=== PATIENT | male | born 1960 | race African-American/Black ===

== ENCOUNTER 2016-12-21 08:18 | Emergency (ER) | payer OTHER, MEDICAID ==
[~2016-12-21] VITALS: Ht 190.5 cm; Wt 117.5 kg
[~2016-12-21 08:18] MED LIST: CIPROFLOXACIN500 M2 ORAL; COLACE100 MG ORAL; IBUPROFEN600 MG ORAL; LACTULOSE20 GM/301 ORAL; METRONIDAZOLE500 MG ORAL; NAPROSYN500 M1 ORAL; NORCO 5-325 TA1 EACH ORAL; POLYETHYLENE GL17 GM ORAL; RANITIDINE HCL150 MG ORAL; ROBAXIN500 MG PO; TRAMADOL HCL50 MG ORAL; UNOBMED; VALIUM5 MG ORAL; VASOTEC10 MG ORAL
[2016-12-21] MEDS ORDERED: IBUPROFEN800 MG ORAL (09:09)
[2016-12-21] MEDS ORDERED: ROBAXIN-750750 MG PO (09:09)
[2016-12-21 09:20] VITALS: BP 120/60
--- NOTE | 2016-12-21 09:43 | Emergency Room Report ---
History of Present Illness General Chief Complaint: Upper Extremity Injury Source: Patient Present Illness HPI 56 YOM with 1 week left elbow pain. Denies trauma. Doesnt work. Left hand dominant. No swelling, rash, heat, redness. Took alleve ONCE in last week without significant improvement. No history of gout. Put elbow brace/elastic on yesterday. Pain worse with squeezing hand, using left hand. Patient states arthritis runs in his family. He has not been formally diagnosed. Allergies: Coded Allergies: No Known Allergies (Unverified , 09/15/12) Patient History Past Medical History: none Past Surgical History: none Pertinent Family History: none Social History: Denies: alcohol use, drug use, smoking Immunizations: UTD Reviewed Nursing Documentation: PMH: Agreed, PSxH: Agreed Nursing Documentation-PMH Hx Cardiac Problems: Yes Hx Hypertension: Yes Hx Cancer: No Hx Gastrointestinal Problems: No Review of Systems All Other Systems: negative except mentioned in HPI Physical Exam Vital Signs Date Time Temp Pulse Resp B/P Pulse Ox O2 Delivery O2 Flow Rate FiO2 12/21/16 08:29 98.1 96 16 139/73 100 Room Air Sp02 EP Interpretation: reviewed, normal General Appearance: normal inspection, well appearing, no apparent distress, alert, GCS 15, non-toxic Head: normocephalic, atraumatic Eyes: bilateral eye EOMI, bilateral eye PERRL ENT: normal ENT inspection, hearing grossly normal, normal voice Neck: normal inspection, full range of motion, supple, no bony tend Respiratory: normal inspection, lungs clear, normal breath sounds, no respiratory distress, no retraction, no wheezing Cardiovascular #1: regular rate, rhythm, no edema Gastrointestinal: normal inspection, normal bowel sounds, non tender, soft, no guarding, no hernia Genitourinary: no CVA tenderness Musculoskeletal: other - Left elbow: No trauma. No appreciabel warmth. No swelling. Minor ttp to bilateral epicondyles Neurologic: normal inspection, alert, oriented x3, responsive, entry level programmer III-XII nml as tested, motor strength/tone normal, speech normal Psychiatric: normal inspection, judgement/insight normal, mood/affect normal Skin: normal inspection Lymphatic: normal inspection Medical Decision Making Diagnostic Impression: Primary Impression: Elbow pain, left ER Course Left elbow pain for 1 week. VSS. Afebrile. Atraumatic. No sign of infection. Unlikely bursitis or septic joint, or cellulitis. Possible arthritis vs early bursitis vs MSK pain. Will try trial of NSAIDS, robaxin. Advised PMD followup if no improvement with NSAIDS, ice. Last Vital Signs Date Time Temp Pulse Resp B/P Pulse Ox O2 Delivery O2 Flow Rate FiO2 12/21/16 09:20 97.8 78 16 120/60 98 Room Air Status: improved Disposition: HOME, SELF-CARE Condition: Improved Scripts Methocarbamol* (ROBAXIN-750*) 750 Mg Tablet 750 MG PO TID, #30 TAB 0 Refills Prov: JOHNATHAN HESS M.D. 12/21/16 Ibuprofen* (MOTRIN*) 800 Mg Tablet 800 MG ORAL THREE TIMES A DAY, #30 TAB 0 Refills Prov: JOHNATHAN HESS M.D. 12/21/16 Referrals: NON PHYSICIAN (PCP) Patient Instructions: Musculoskeletal Pain Additional Instructions: - Apply ice to area of pain. Apply for 20min at a time 3-4x a day as needed. - Take ibuprofen 800mg 3x a day with food. Can also take Robaxin for pain. - No heavy lifting until completely resolved - Try daily stretching and full range of motion as best as you can - Follow up with your primary care doctor to refer you for Orthopedics followup if no improvement in 1 week JOHNATHAN HESS M.D. Dec 21, 2016 09:43
== END 2016-12-21 09:21 | disposition home or self-care (01) ==
LOC: EMR 09:00
DX: M25.522 Pain in left elbow (principal); I10 Essential (primary) hypertension
CPT/HCPCS: 99284

== ENCOUNTER 2017-04-23 07:54 | Inpatient (IN) | payer OTHER, MEDICAID ==
[~2017-04-23] VITALS: Ht 190.5 cm; Wt 116.6 kg
[~2017-04-23 07:54] MED LIST changes: +IBUPROFEN800 MG ORAL; +ROBAXIN-750750 MG PO
[2017-04-23 08:12] VITALS: BP 131/76
--- NOTE | 2017-04-23 08:21 | Emergency Room Report ---
History of Present Illness General Chief Complaint: Lower Extremity Injury Source: Patient Present Illness HPI Patient states that for the past week he has had pain in his left foot and swelling. He states that the pain and swelling worsened over the day and then will be improved in the morning. He states the pain is worse with walking. He denies trauma. He denies injury. He denies fever or chills. He denies nausea or vomiting. He has no other complaints. Allergies: Coded Allergies: No Known Allergies (Unverified , 09/15/12) Patient History Past Medical History: see triage record, HTN Social History: Denies: alcohol use, drug use, smoking Reviewed Nursing Documentation: PMH: Agreed, PSxH: Agreed Nursing Documentation-PMH Past Medical History: No History, Except For Hx Cardiac Problems: Yes Hx Hypertension: Yes Hx Cancer: No Hx Gastrointestinal Problems: No Hx Neurological Problems: Yes - Arthritis Review of Systems All Other Systems: negative except mentioned in HPI Physical Exam Vital Signs Date Time Temp Pulse Resp B/P Pulse Ox O2 Delivery O2 Flow Rate FiO2 04/23/17 08:00 98.1 102 17 155/83 97 Room Air Sp02 EP Interpretation: reviewed, normal General Appearance: no apparent distress, alert, GCS 15, non-toxic Head: normocephalic, atraumatic Eyes: bilateral eye PERRL, bilateral eye normal inspection ENT: hearing grossly normal, normal pharynx, no angioedema, normal voice Neck: full range of motion, supple/symm/no masses Respiratory: chest non-tender, lungs clear, normal breath sounds, speaking full sentences Cardiovascular #1: regular rate, rhythm, no edema Gastrointestinal: normal bowel sounds, non tender, soft, non-distended, no guarding, no rebound Rectal: blood streaked stool Musculoskeletal: back normal, gait/station normal, normal range of motion, calf tenderness - Left., swelling - Non-pitting edema LLE foot to knee. Neurologic: alert, oriented x3, responsive, motor strength/tone normal, sensory intact, speech normal Psychiatric: judgement/insight normal, memory normal, mood/affect normal, no suicidal/homicidal ideation Skin: normal color, no rash, warm/dry, well hydrated Medical Decision Making Diagnostic Impression: Primary Impression: DVT (deep venous thrombosis) Additional Impressions: Anemia Blood in stool ER Course This patient was found to have a DVT. Also, the patient is noted to be anemic. Review of the patient's previous labs show that this is new and the declining. I did do a rectal exam and although the patient had brown stool there was also bright red blood. Concern this patient may have a GI bleed. He could also have internal hemorrhoids. Regardless, I did not feel it was safe for this patient due to get anticoagulation. The patient has a popliteal DVT. There is no history or exam findings that would make me concerned for PE. The patient is admitted for further evaluation of his GI bleed and anemia. In addition, this patient will need further treatment for the DVT. Labs Test 04/23/17 09:20 White Blood Count 7.3 K/UL (4.8-10.8) Red Blood Count 4.33 M/UL (4.70-6.10) Hemoglobin 8.4 G/DL (14.2-18.0) Hematocrit 29.4 % (42.0-52.0) Mean Corpuscular Volume 68 FL (80-99) Mean Corpuscular Hemoglobin 19.5 PG (27.0-31.0) Mean Corpuscular Hemoglobin Concent 28.7 G/DL (32.0-36.0) Red Cell Distribution Width 18.8 % (11.6-14.8) Platelet Count 315 K/UL (150-450) Mean Platelet Volume 6.1 FL (6.5-10.1) Neutrophils (%) (Auto) 69.4 % (45.0-75.0) Lymphocytes (%) (Auto) 17.9 % (20.0-45.0) Monocytes (%) (Auto) 10.8 % (1.0-10.0) Eosinophils (%) (Auto) 1.3 % (0.0-3.0) Basophils (%) (Auto) 0.7 % (0.0-2.0) Prothrombin Time 9.9 SEC (9.30-11.50) Prothromb Time International Ratio 0.9 (0.9-1.1) Activated Partial Thromboplast Time 23 SEC (23-33) Sodium Level 138 mEQ/L (135-145) Potassium Level 4.3 mEQ/L (3.4-4.9) Chloride Level 98 mEQ/L (98-107) Carbon Dioxide Level 24 mEQ/L (20-30) Anion Gap 16 (5-15) Blood Urea Nitrogen 7 mg/dL (7-23) Creatinine 0.7 mg/dL (0.7-1.2) Estimat Glomerular Filtration Rate > 60 mL/min (>60) Glucose Level 105 mg/dL (74-106) Calcium Level 9.1 mg/dL (8.6-10.2) Total Bilirubin 0.3 mg/dL (0.0-1.2) Aspartate Amino Transf (AST/SGOT) 17 U/L (5-40) Alanine Aminotransferase (ALT/SGPT) 14 U/L (3-41) Alkaline Phosphatase 84 U/L (40-129) Total Creatine Kinase 139 U/L (38-174) Total Protein 6.9 g/dL (6.6-8.7) Albumin 3.8 g/dL (3.5-5.2) Globulin 3.1 g/dL Albumin/Globulin Ratio 1.2 (1.0-2.7) EKG Diagnostic Results Rate: tachycardiac Rhythm: other ST Segments: no acute changes Other Impression S.tachycardia Rhythm Strip Diag. Results EP Interpretation: yes Rate: 100's Rhythm: no PVC's, no ectopy, other Other Impression S.tachycardia Last Vital Signs Date Time Temp Pulse Resp B/P Pulse Ox O2 Delivery O2 Flow Rate FiO2 04/23/17 08:00 98.1 102 17 155/83 97 Room Air Disposition: ADMITTED INPATIENT Condition: Serious ANGIE CISNEROS D.O. Apr 23, 2017 08:21
[2017-04-23] MEDS ORDERED: Acetaminophen 500mg (ES) tab ORAL ONE (08:45)
[2017-04-23 09:44] LABS: ALANINE AMINOTRANSFERASE 14 U/L (3-41); ALBUMIN/GLOBULIN RATIO 1.2 (1.0-2.7); ANION GAP 16 (5-15); ASPARTATE AMINO TRANSFERASE 17 U/L (5-40); CALCIUM 9.1 mg/dL (8.6-10.2); CARBON DIOXIDE 24 mEQ/L (20-30); CHLORIDE 98 mEQ/L (98-107); CREATININE 0.7 mg/dL (0.7-1.2); GLOMERULAR FILTRATION RATE > 60 mL/min (>60); HEMOLYSIS 0; POTASSIUM 4.3 mEQ/L (3.4-4.9); SODIUM 138 mEQ/L (135-145); TOTAL PROTEIN 6.9 g/dL (6.6-8.7)
[2017-04-23 09:57] LABS: BASOPHILS % (AUTO) 0.7 % (0.0-2.0); EOSINOPHILS % (AUTO) 1.3 % (0.0-3.0); LYMPHOCYTES % (AUTO) 17.9 % (20.0-45.0); MEAN CORPUSCULAR HEMOGLOBIN 19.5 PG (27.0-31.0); MEAN CORPUSCULAR HGB CONC 28.7 G/DL (32.0-36.0); MEAN CORPUSCULAR VOLUME 68 FL (80-99); MEAN PLATELET VOLUME 6.1 FL (6.5-10.1); MONOCYTES % (AUTO) 10.8 % (1.0-10.0); NEUTROPHILS % (AUTO) 69.4 % (45.0-75.0); PLATELET COUNT 315 K/UL (150-450); RED BLOOD COUNT 4.33 M/UL (4.70-6.10); RED CELL DISTRIBUTION WIDTH 18.8 % (11.6-14.8); WHITE BLOOD COUNT 7.3 K/UL (4.8-10.8)
[2017-04-23] MEDS ORDERED: Norco 5mg/325mg tab ORAL PRN (10:30)
[2017-04-23] MEDS ORDERED: Zolpidem 5mg tab ORAL PRN (10:30)
[2017-04-23] MEDS ORDERED: LORazepam Inj 2mg/ml 1ml IV PRN (10:30)
[2017-04-23] MEDS ORDERED: Mylanta II UD 30ml ORAL PRN (10:30)
[2017-04-23] MEDS ORDERED: Miralax 17gm pkt ORAL PRN (10:30)
[2017-04-23] MEDS ORDERED: Morphine Sulfate 2mg/ml Inj IVP PRN (10:30)
[2017-04-23 11:26] LABS: INR 0.9 (0.9-1.1); PROTHROMBIN TIME 9.9 SEC (9.30-11.50)
[2017-04-23 12:03] VITALS: BP 146/69
[2017-04-23] MEDS ORDERED: Heparin 25,000u/D5W 500ml 500 ML IV SCH (12:30)
[2017-04-23] MEDS ORDERED: Heparin 5000 units/ml inj IV ONE (12:30)
[2017-04-23 14:10] VITALS: BP 125/70
[2017-04-23 15:49] VITALS: BP 126/73
[2017-04-23 16:53] VITALS: BP 131/71
[2017-04-23] MEDS: Methocarbamol 750mg tab ORAL SCH (18:04)
--- NOTE | 2017-04-23 18:46 | History and Physical ---
History of Present Illness General Date patient seen: Apr 23, 2017 Reason for Hospitalization: Lower Extremity Injury Present Illness HPI 56 year old male with hx of HTN presented to ER with CC of pain in his left foot and swelling. He states that the pain and swelling worsened over the day and then will be improved in the morning. He states the pain is worse with walking. He denies trauma. He denies injury. He was diagnosed to have acute DVT, he was also anemic. Therefore he is admitted for further work up. Allergies: Coded Allergies: No Known Allergies (Unverified , 09/15/12) Medication History Scheduled Ciprofloxacin Hcl* (Ciprofloxacin Hcl*), 500 MG ORAL Q12H Docusate Sodium* (Colace*), 100 MG ORAL TWICE A DAY Enalapril Maleate* (Vasotec*), 10 MG ORAL DAILY, (Reported) Ibuprofen* (Motrin*), 800 MG ORAL THREE TIMES A DAY Lactulose (Lactulose*), 30 ML ORAL DAILY, (Reported) Methocarbamol* (Robaxin*), 500 MG PO TID Methocarbamol* (Robaxin-750*), 750 MG PO TID Metronidazole* (Flagyl*), 500 MG ORAL THREE TIMES A DAY Naproxen* (Naprosyn*), 500 MG ORAL TWICE A DAY Polyethylene Glycol 3350* (Polyethylene Glycol 3350*), 17 GM ORAL DAILY, ( Reported) Ranitidine Hcl* (Zantac*), 150 MG ORAL TWICE A DAY Ranitidine Hcl* (Zantac*), 150 MG ORAL TWICE A DAY Scheduled PRN Diazepam* (Valium*), 5 MG ORAL TID PRN for For Pain Hydrocodone Bit/Acetaminophen 5-325* ([place] 5-325*), 1 TAB ORAL Q6H PRN for For Pain Hydrocodone Bit/Acetaminophen 5-325* ([place] 5-325*), 1 TAB ORAL Q6H PRN for For Pain Ibuprofen* (Motrin*), 600 MG ORAL Q8H PRN for For Pain Ibuprofen* (Motrin*), 600 MG ORAL Q6H PRN for For Pain Tramadol Hcl* (Ultram*), 50 MG ORAL Q6H PRN for For Pain Miscellaneous Medications Unable to Obtain Medications (Unable To Obtain Meds), (Reported) Patient History Healthcare decision maker jorge Herron Resuscitation status Full Code Advanced Directive on File No Past Medical/Surgical History Past Medical/Surgical History: (1) Elbow pain, left (2) Back pain (3) Gastritis Review of Systems All Other Systems: negative except mentioned in HPI Physical Exam General Appearance: WD/WN Lines, tubes and drains: peripheral HEENT: normocephalic, atraumatic Neck: non-tender, supple Respiratory/Chest: chest wall non-tender, lungs clear Cardiovascular/Chest: normal peripheral pulses Abdomen: normal bowel sounds, non tender Genitourinary/Rectal: normal genital exam Extremities: normal range of motion Skin Exam: normal pigmentation Last 24 Hour Vital Signs Date Time Temp Pulse Resp B/P Pulse Ox O2 Delivery O2 Flow Rate FiO2 04/23/17 16:53 97.9 95 19 131/71 96 Room Air 04/23/17 16:36 103 04/23/17 16:21 99 16 126/73 96 Room Air 04/23/17 15:49 98.4 99 16 126/73 96 Room Air 04/23/17 14:10 97.9 104 18 125/70 100 Room Air 04/23/17 12:03 98.4 89 16 146/69 98 Room Air 04/23/17 08:12 97.8 110 18 131/76 99 Room Air 04/23/17 08:00 98.1 102 17 155/83 97 Room Air Laboratory Tests Test 04/23/17 09:20 04/23/17 12:30 White Blood Count 7.3 K/UL (4.8-10.8) Red Blood Count 4.33 M/UL (4.70-6.10) L Hemoglobin 8.4 G/DL (14.2-18.0) L Hematocrit 29.4 % (42.0-52.0) L Mean Corpuscular Volume 68 FL (80-99) L Mean Corpuscular Hemoglobin 19.5 PG (27.0-31.0) L Mean Corpuscular Hemoglobin Concent 28.7 G/DL (32.0-36.0) L Red Cell Distribution Width 18.8 % (11.6-14.8) H Platelet Count 315 K/UL (150-450) Mean Platelet Volume 6.1 FL (6.5-10.1) L Neutrophils (%) (Auto) 69.4 % (45.0-75.0) Lymphocytes (%) (Auto) 17.9 % (20.0-45.0) L Monocytes (%) (Auto) 10.8 % (1.0-10.0) H Eosinophils (%) (Auto) 1.3 % (0.0-3.0) Basophils (%) (Auto) 0.7 % (0.0-2.0) Prothrombin Time 9.9 SEC (9.30-11.50) Prothromb Time International Ratio 0.9 (0.9-1.1) Activated Partial Thromboplast Time 23 SEC (23-33) Sodium Level 138 mEQ/L (135-145) Potassium Level 4.3 mEQ/L (3.4-4.9) Chloride Level 98 mEQ/L (98-107) Carbon Dioxide Level 24 mEQ/L (20-30) Anion Gap 16 (5-15) H Blood Urea Nitrogen 7 mg/dL (7-23) Creatinine 0.7 mg/dL (0.7-1.2) Estimat Glomerular Filtration Rate > 60 mL/min (>60) Glucose Level 105 mg/dL (74-106) Calcium Level 9.1 mg/dL (8.6-10.2) Total Bilirubin 0.3 mg/dL (0.0-1.2) Aspartate Amino Transf (AST/SGOT) 17 U/L (5-40) Alanine Aminotransferase (ALT/SGPT) 14 U/L (3-41) Alkaline Phosphatase 84 U/L (40-129) Total Creatine Kinase 139 U/L (38-174) Total Protein 6.9 g/dL (6.6-8.7) Albumin 3.8 g/dL (3.5-5.2) Globulin 3.1 g/dL Albumin/Globulin Ratio 1.2 (1.0-2.7) Stool Occult Blood Pending Height (Feet): 6 Height (Inches): 3.00 Weight (Pounds): 259 Medications Current Medications Medications (Trade) Dose Ordered Sig/Marybeth Route PRN Reason Start Time Stop Time Status Last Admin Dose Admin Acetaminophen (Tylenol) 650 mg Q4H PRN ORAL fever 04/23/17 10:30 05/23/17 10:29 Acetaminophen/ Hydrocodone Bitart ([place] 5/325) 1 tab Q6H PRN ORAL Moderate Pain (Pain Scale 4-6) 6/23/17 10:30 04/30/17 10:29 Al Hydroxide/Mg Hydroxide (Mylanta II) 30 ml Q6H PRN ORAL dyspepsia 04/23/17 10:30 05/23/17 10:29 Dextrose STAT PRN IV Hypoglycemia 04/23/17 10:30 05/23/17 10:29 Diazepam (Valium) 5 mg TID PRN ORAL For Pain 04/23/17 10:30 04/30/17 10:29 UNV Enalapril Maleate (Vasotec) 10 mg DAILY ORAL 04/24/17 13:00 05/24/17 12:59 Heparin Sodium/ Dextrose (Heparin) 500 ml @ 42.293 mls/ hr adjust per protocol IV 04/23/17 12:30 05/23/17 12:29 Lactulose (Cephulac) 20 gm DAILY ORAL 04/24/17 09:00 05/24/17 08:59 Lorazepam (Ativan 2mg/ml 1ml) 0.5 mg Q4H PRN IV For Anxiety 04/23/17 10:30 04/30/17 10:29 Methocarbamol (Robaxin) 750 mg TID ORAL 04/23/17 18:00 05/23/17 17:59 04/23/17 18:04 Morphine Sulfate (Morphine Sulfate) 2 mg Q4H PRN IVP Severe Pain (Pain Scale 7-10) 04/23/17 10:30 04/30/17 10:29 Ondansetron HCl (Zofran) 4 mg Q6H PRN IVP Nausea & Vomiting 04/23/17 10:30 05/23/17 10:29 Polyethylene Glycol (Miralax) 17 gm HSPRN PRN ORAL Constipation 04/23/17 10:30 05/23/17 10:29 Zolpidem Tartrate (Ambien) 5 mg HSPRN PRN ORAL Insomnia 04/23/17 10:30 05/23/17 10:29 Assessment/Plan Problem List: (1) DVT (deep venous thrombosis) ICD Codes: I82.409 - Acute embolism and thrombosis of unspecified deep veins of unspecified lower extremity SNOMED: 481518844 (2) Lower GI bleed ICD Codes: K92.2 - Gastrointestinal hemorrhage, unspecified SNOMED: 25968542 (3) Anemia ICD Codes: D64.9 - Anemia, unspecified SNOMED: 359661780 (4) Gastritis ICD Codes: K29.70 - Gastritis, unspecified, without bleeding SNOMED: 0098348 Assessment/Plan anemia w/u stool for OB IVC filter DAVID ADAM Apr 23, 2017 18:46
[2017-04-23 19:00] VITALS: BP 132/81
[2017-04-24] VITALS: BP 115/69
[2017-04-24 04:00] VITALS: BP 118/73
[2017-04-24 08:00] VITALS: BP 118/78
[2017-04-24 08:28] LABS: BASOPHILS % (AUTO) 0.8 % (0.0-2.0); EOSINOPHILS % (AUTO) 1.1 % (0.0-3.0); MEAN CORPUSCULAR HEMOGLOBIN 19.6 PG (27.0-31.0); MEAN CORPUSCULAR HGB CONC 28.9 G/DL (32.0-36.0); MEAN CORPUSCULAR VOLUME 68 FL (80-99); MEAN PLATELET VOLUME 5.8 FL (6.5-10.1); MONOCYTES % (AUTO) 6.1 % (1.0-10.0); NEUTROPHILS % (AUTO) 74.1 % (45.0-75.0); PLATELET COUNT 365 K/UL (150-450); RED BLOOD COUNT 4.84 M/UL (4.70-6.10); RED CELL DISTRIBUTION WIDTH 18.4 % (11.6-14.8); WHITE BLOOD COUNT 9.4 K/UL (4.8-10.8)
[2017-04-24 08:45] LABS: ALANINE AMINOTRANSFERASE 13 U/L (3-41); ALBUMIN/GLOBULIN RATIO 1.1 (1.0-2.7); ANION GAP 15 (5-15); ASPARTATE AMINO TRANSFERASE 17 U/L (5-40); CALCIUM 9.5 mg/dL (8.6-10.2); CARBON DIOXIDE 25 mEQ/L (20-30); CHLORIDE 95 mEQ/L (98-107); CHOLESTEROL 163 mg/dL (< 200); CHOLESTEROL/HDL RATIO 2.1 (3.3-4.4); CREATININE 0.8 mg/dL (0.7-1.2); GLOMERULAR FILTRATION RATE > 60 mL/min (>60); HEMOLYSIS 3; LDL CHOLESTEROL (CALC.) 74 mg/dL (60-99); POTASSIUM 3.8 mEQ/L (3.4-4.9); SODIUM 135 mEQ/L (135-145); TOTAL PROTEIN 7.8 g/dL (6.6-8.7)
[2017-04-24] MEDS: Methocarbamol 750mg tab ORAL SCH ×3 (08:48→18:46)
[2017-04-24] MEDS: Lactulose 20gm/30ml UDC ORAL SCH (08:50)
[2017-04-24 12:00] VITALS: BP 121/72
--- NOTE | 2017-04-24 14:00 | Consultation ---
DATE OF CONSULTATION: 04/24/2017 CHIEF COMPLAINT: Gastrointestinal bleeding and anemia. HISTORY OF PRESENT ILLNESS: This is a 56-year-old male, admitted to hospital with complaint of left lower leg edema, pain, which extended to be in DVT, but meanwhile the patient had anemia . The patient was bright red blood per rectum. So, Gastroenterology consult evaluation. The patient also complained of diffuse abdominal pain. No nausea. No vomiting. No dysphagia. No odynophagia. The patient apparently had a colonoscopy and endoscopy in the past. Does not know exactly how long . The patient ibuprofen 800 mg at least for pain of his abdomen. PAST MEDICAL HISTORY: 1. Hypertension. 2. Anemia. 3. History of palpitations. 4. Fracture of the left ankle, status post surgery. ALLERGIES: No known drug allergies. MEDICATIONS: Please see medication reconciliation list. SOCIAL HISTORY: The patient denies any tobacco, alcohol, or drug abuse. FAMILY HISTORY: Noncontributory. REVIEW OF SYSTEMS: A 10-point review of system was performed and pertinent positives in the history of present illness. PHYSICAL EXAMINATION: VITAL SIGNS: Temperature 97.2 degrees, pulse is 94, respiration 18, and blood pressure 118/78 HEENT: Normocephalic and atraumatic. Mild pale conjunctiva. NECK: Supple. LUNGS: . HEART: Regular rate and rhythm. ABDOMEN: Soft. Bowel sounds are present. No rebound. No guarding. EXTREMITIES: There is edema of the left lower leg. There was no clubbing. LABORATORY DATA: On admission, white count was 7.3, hemoglobin 8.4, hematocrit 29.4, MCV of 68, and platelet count 315,000. ASSESSMENT AND PLAN: 1. Microcytic anemia. 2. Lower gastrointestinal bleeding with bright red blood per rectum. 3. Chronic . 4. Acute deep vein thrombosis of the left lower extremity. PLAN: The patient most probably needs chronic anticoagulation for at least 6 months given acute DVT. Hemoglobin 8.4 and MCV of 60 ranges and blood seen in the stool. The patient most probably needs GI workup to rule out gastrointestinal bleeding before chronic anticoagulation. Plan to do endoscopy and colonoscopy on Wednesday. Meanwhile, the patient is already started on heparin drip, we will monitor very closely. If patient bleeding, we will consider holding heparin for now. I want to thank, Dr. Clement, for this kind referral. Pako Barksdale M.D. DR: TRACI JOB#: [id number] CC: Andrés Clement M.D.; Fax#: [phone]
[2017-04-24 16:00] VITALS: BP 134/76
--- NOTE | 2017-04-24 16:38 | Pulmonology Progress Note ---
Assessment/Plan Problems: (1) DVT (deep venous thrombosis) (2) Lower GI bleed (3) Anemia (4) Gastritis Assessment/Plan anemia w/u in progress IVC filter ordered check h/h prbc prn symptomatic treatment Subjective ROS Limited/Unobtainable: No Interval Events: ne new complains Allergies: Coded Allergies: No Known Allergies (Unverified , 09/15/12) Objective Last 24 Hour Vital Signs Date Time Temp Pulse Resp B/P Pulse Ox O2 Delivery O2 Flow Rate FiO2 04/24/17 14:09 128/74 04/24/17 12:00 98 04/24/17 12:00 96.9 100 18 121/72 99 Room Air 100 04/24/17 08:00 93 04/24/17 08:00 97.2 94 18 118/78 100 Room Air 92 04/24/17 04:00 102 04/24/17 04:00 98.2 96 20 118/73 100 Room Air 04/24/17 00:00 97.9 109 20 115/69 99 Room Air 04/24/17 00:00 96 04/23/17 20:00 134 04/23/17 19:00 98.2 91 20 132/81 100 Room Air 04/23/17 16:53 97.9 95 19 131/71 96 Room Air Intake and Output 04/23/17 04/24/17 19:00 07:00 Intake Total 0 ml Output Total 600 ml Balance 0 ml -600 ml Intake Oral 0 ml Other 0 ml Output Urine Total 600 ml # Voids 1 2 # Bowel Movements 1 General Appearance: WD/WN HEENT: normocephalic Respiratory/Chest: chest wall non-tender Cardiovascular: normal peripheral pulses, normal rate Abdomen: normal bowel sounds Genitourinary: normal external genitalia Neurologic/Psychiatric: automatic folder seamer II-XII grossly normal Lymphatic: no neck adenopathy Laboratory Tests 04/24/17 07:00: White Blood Count 9.4, Red Blood Count 4.84, Hemoglobin 9.5L, Hematocrit 32.9L, Mean Corpuscular Volume 68L, Mean Corpuscular Hemoglobin 19.6L, Mean Corpuscular Hemoglobin Concent 28.9L, Red Cell Distribution Width 18.4H, Platelet Count 365, Mean Platelet Volume 5.8L, Neutrophils (%) (Auto) 74.1, Lymphocytes (%) (Auto) 18.0L, Monocytes (%) (Auto) 6.1, Eosinophils (%) (Auto) 1.1, Basophils (%) (Auto) 0.8, Sodium Level 135, Potassium Level 3.8, Chloride Level 95L, Carbon Dioxide Level 25, Anion Gap 15, Blood Urea Nitrogen 5L, Creatinine 0.8, Estimat Glomerular Filtration Rate > 60, Glucose Level 124H, Calcium Level 9.5, Total Bilirubin 0.5, Aspartate Amino Transf (AST/SGOT) 17, Alanine Aminotransferase (ALT/SGPT) 13, Alkaline Phosphatase 86, Total Protein 7.8, Albumin 4.2, Globulin 3.6, Albumin/Globulin Ratio 1.1, Triglycerides Level 48, Cholesterol Level 163, LDL Cholesterol 74, HDL Cholesterol 79H, Cholesterol/ HDL Ratio 2.1L, Thyroid Stimulating Hormone (TSH) 1.330 Current Medications Medications (Trade) Dose Ordered Sig/Marybeth Route PRN Reason Start Time Stop Time Status Last Admin Dose Admin Acetaminophen (Tylenol) 650 mg Q4H PRN ORAL fever 04/23/17 10:30 05/23/17 10:29 Acetaminophen/ Hydrocodone Bitart ([place] 5/325) 1 tab Q6H PRN ORAL Moderate Pain (Pain Scale 4-6) 04/23/17 10:30 04/30/17 10:29 Al Hydroxide/Mg Hydroxide (Mylanta II) 30 ml Q6H PRN ORAL dyspepsia 04/23/17 10:30 05/23/17 10:29 Bisacodyl (Dulcolax) 20 mg ONCE ONCE ORAL 04/25/17 12:00 04/25/17 12:01 Dextrose (Dextrose 50%) STAT PRN IV Hypoglycemia 04/23/17 10:30 05/23/17 10:29 Enalapril Maleate (Vasotec) 10 mg DAILY ORAL 04/24/17 13:00 05/24/17 12:59 04/24/17 14:09 Lactulose (Cephulac) 20 gm DAILY ORAL 04/24/17 09:00 05/24/17 08:59 Lorazepam (Ativan 2mg/ml 1ml) 0.5 mg Q4H PRN IV For Anxiety 04/23/17 10:30 04/30/17 10:29 Methocarbamol (Robaxin) 750 mg TID ORAL 04/23/17 18:00 05/23/17 17:59 04/24/17 14:09 Morphine Sulfate (Morphine Sulfate) 2 mg Q4H PRN IVP Severe Pain (Pain Scale 7-10) 04/23/17 10:30 04/30/17 10:29 04/24/17 04:33 Ondansetron HCl (Zofran) 4 mg Q6H PRN IVP Nausea & Vomiting 04/24/17 16:15 05/24/17 16:14 Pantoprazole (Protonix) 40 mg DAILY ORAL 04/24/17 10:00 05/24/17 09:59 04/24/17 11:23 Polyethylene Glycol (Miralax) 17 gm HSPRN PRN ORAL Constipation 04/23/17 10:30 05/23/17 10:29 Polyethylene Glycol/ Electrolytes (Nulytely) 4,000 ml ONCE ONCE ORAL 04/25/17 14:00 04/25/17 14:01 Zolpidem Tartrate (Ambien) 5 mg HSPRN PRN ORAL Insomnia 04/23/17 10:30 05/23/17 10:29 DAVID ADAM Apr 24, 2017 16:38
[2017-04-24 20:25] VITALS: BP 147/77
[2017-04-25 00:15] VITALS: BP 123/77
[2017-04-25 04:19] VITALS: BP 117/68
[2017-04-25 07:58] VITALS: BP 134/80
--- NOTE | 2017-04-25 08:08 | General Progress Note ---
Assessment/Plan Problem List: (1) Lower GI bleed ICD Codes: K92.2 - Gastrointestinal hemorrhage, unspecified SNOMED: 21896534 (2) DVT (deep venous thrombosis) ICD Codes: I82.409 - Acute embolism and thrombosis of unspecified deep veins of unspecified lower extremity SNOMED: 364267857 (3) Anemia ICD Codes: D64.9 - Anemia, unspecified SNOMED: 658683343 Assessment/Plan plan esophagogastroduodenoscopy and colonoscopy tomorrow fu labs hold heparin drip at midnight Subjective ROS Limited/Unobtainable: Yes Allergies: Coded Allergies: No Known Allergies (Unverified , 09/15/12) Subjective vomited yesterday Objective Last 24 Hour Vital Signs Date Time Temp Pulse Resp B/P Pulse Ox O2 Delivery O2 Flow Rate FiO2 04/25/17 07:58 96.6 114 19 134/80 99 Room Air 04/25/17 04:19 98.1 100 20 117/68 97 Room Air 04/25/17 04:00 101 04/25/17 00:15 97.7 105 20 123/77 97 Room Air 04/25/17 00:00 99 04/24/17 20:25 98.2 106 20 147/77 97 Room Air 04/24/17 20:00 102 04/24/17 16:00 104 04/24/17 16:00 98.2 98 18 134/76 100 Room Air 98 04/24/17 14:09 128/74 04/24/17 12:00 98 04/24/17 12:00 96.9 100 18 121/72 99 Room Air 100 Intake and Output 04/24/17 04/25/17 19:00 07:00 Intake Total 920 ml Output Total 1000 ml 900 ml Balance -80 ml -900 ml Intake Oral 920 ml Output Urine Total 1000 ml 900 ml # Voids 4 2 Height (Feet): 6 Height (Inches): 3.00 Weight (Pounds): 259 General Appearance: alert EENT: normal ENT inspection Neck: supple Cardiovascular: normal rate Respiratory/Chest: lungs clear Abdomen: normal bowel sounds, non tender, soft Extremities: non-tender MARGARETH LANCASTER Apr 25, 2017 08:08
[2017-04-25] MEDS: Lactulose 20gm/30ml UDC ORAL SCH (08:11)
[2017-04-25] MEDS: Methocarbamol 750mg tab ORAL SCH ×3 (08:11→17:25)
[2017-04-25 11:54] LABS: BASOPHILS % (AUTO) 0.4 % (0.0-2.0); EOSINOPHILS % (AUTO) 1.4 % (0.0-3.0); LYMPHOCYTES % (AUTO) 18.4 % (20.0-45.0); MEAN CORPUSCULAR HEMOGLOBIN 19.6 PG (27.0-31.0); MEAN CORPUSCULAR HGB CONC 29.1 G/DL (32.0-36.0); MEAN CORPUSCULAR VOLUME 67 FL (80-99); MEAN PLATELET VOLUME 6.3 FL (6.5-10.1); MONOCYTES % (AUTO) 8.4 % (1.0-10.0); NEUTROPHILS % (AUTO) 71.4 % (45.0-75.0); PLATELET COUNT 377 K/UL (150-450); RED BLOOD COUNT 4.63 M/UL (4.70-6.10); RED CELL DISTRIBUTION WIDTH 17.9 % (11.6-14.8); WHITE BLOOD COUNT 8.8 K/UL (4.8-10.8)
[2017-04-25 12:00] VITALS: BP 123/68
[2017-04-25] MEDS ORDERED: Bisacodyl EC 5mg tab ORAL ONE (12:00)
[2017-04-25] MEDS ORDERED: Nulytely 4L ORAL ONE (14:00)
[2017-04-25 16:00] VITALS: BP 110/42
--- NOTE | 2017-04-25 16:55 | Pulmonology Progress Note ---
Assessment/Plan Problems: (1) DVT (deep venous thrombosis) (2) Lower GI bleed (3) Anemia (4) Gastritis Assessment/Plan anemia w/u in progress IVC filter ordered check h/h prbc prn symptomatic treatment endoscopy in am Subjective ROS Limited/Unobtainable: No Interval Events: no new complains Constitutional: Reports: no symptoms Allergies: Coded Allergies: No Known Allergies (Unverified , 09/15/12) Objective Last 24 Hour Vital Signs Date Time Temp Pulse Resp B/P Pulse Ox O2 Delivery O2 Flow Rate FiO2 04/25/17 16:00 103 04/25/17 16:00 97.9 98 18 110/42 94 Room Air 04/25/17 12:00 98.2 111 18 123/68 100 Room Air 04/25/17 12:00 109 04/25/17 08:11 134/80 04/25/17 08:00 112 04/25/17 07:58 96.6 114 19 134/80 99 Room Air 04/25/17 04:19 98.1 100 20 117/68 97 Room Air 04/25/17 04:00 101 04/25/17 00:15 97.7 105 20 123/77 97 Room Air 04/25/17 00:00 99 04/24/17 20:25 98.2 106 20 147/77 97 Room Air 04/24/17 20:00 102 Intake and Output 04/24/17 04/25/17 19:00 07:00 Intake Total 920 ml Output Total 1000 ml 900 ml Balance -80 ml -900 ml Intake Oral 920 ml Output Urine Total 1000 ml 900 ml # Voids 4 2 General Appearance: WD/WN HEENT: normocephalic, atraumatic Respiratory/Chest: chest wall non-tender, lungs clear Cardiovascular: normal peripheral pulses, normal rate Abdomen: normal bowel sounds, soft, non tender Genitourinary: normal external genitalia Extremities: no cyanosis, no clubbing Skin: no rash Neurologic/Psychiatric: ultrasound sonographer II-XII grossly normal Lymphatic: no neck adenopathy Musculoskeletal: normal muscle bulk Laboratory Tests 04/25/17 11:10: White Blood Count 8.8, Red Blood Count 4.63L, Hemoglobin 9.1L, Hematocrit 31.2L , Mean Corpuscular Volume 67L, Mean Corpuscular Hemoglobin 19.6L, Mean Corpuscular Hemoglobin Concent 29.1L, Red Cell Distribution Width 17.9H, Platelet Count 377, Mean Platelet Volume 6.3L, Neutrophils (%) (Auto) 71.4, Lymphocytes (%) (Auto) 18.4L, Monocytes (%) (Auto) 8.4, Eosinophils (%) (Auto) 1.4, Basophils (%) (Auto) 0.4 Current Medications Medications (Trade) Dose Ordered Sig/Marybeth Route PRN Reason Start Time Stop Time Status Last Admin Dose Admin Acetaminophen (Tylenol) 650 mg Q4H PRN ORAL fever 04/23/17 10:30 05/23/17 10:29 Acetaminophen/ Hydrocodone Bitart ([place] 5/325) 1 tab Q6H PRN ORAL Moderate Pain (Pain Scale 4-6) 04/23/17 10:30 04/30/17 10:29 Al Hydroxide/Mg Hydroxide (Mylanta II) 30 ml Q6H PRN ORAL dyspepsia 04/23/17 10:30 05/23/17 10:29 Dextrose (Dextrose 50%) STAT PRN IV Hypoglycemia 04/23/17 10:30 05/23/17 10:29 Enalapril Maleate (Vasotec) 10 mg DAILY ORAL 04/24/17 13:00 05/24/17 12:59 04/25/17 08:11 Lactulose (Cephulac) 20 gm DAILY ORAL 04/24/17 09:00 05/24/17 08:59 Lorazepam (Ativan 2mg/ml 1ml) 0.5 mg Q4H PRN IV For Anxiety 04/23/17 10:30 04/30/17 10:29 Methocarbamol (Robaxin) 750 mg TID ORAL 04/23/17 18:00 05/23/17 17:59 04/25/17 12:13 Morphine Sulfate (Morphine Sulfate) 2 mg Q4H PRN IVP Severe Pain (Pain Scale 7-10) 04/23/17 10:30 04/30/17 10:29 04/24/17 04:33 Ondansetron HCl (Zofran) 4 mg Q6H PRN IVP Nausea & Vomiting 04/24/17 16:15 05/24/17 16:14 Pantoprazole (Protonix) 40 mg DAILY ORAL 04/24/17 10:00 05/24/17 09:59 04/25/17 08:11 Polyethylene Glycol (Miralax) 17 gm HSPRN PRN ORAL Constipation 04/23/17 10:30 05/23/17 10:29 Zolpidem Tartrate (Ambien) 5 mg HSPRN PRN ORAL Insomnia 04/23/17 10:30 05/23/17 10:29 DAVID ADAM Apr 25, 2017 16:55
[2017-04-25 20:00] VITALS: BP 116/78
[2017-04-26] VITALS (13 sets, daily range): BP systolic 100–146; BP diastolic 50–81
[2017-04-26 07:20] LABS: MEAN CORPUSCULAR HEMOGLOBIN 19.4 PG (27.0-31.0); MEAN CORPUSCULAR HGB CONC 28.8 G/DL (32.0-36.0); MEAN CORPUSCULAR VOLUME 68 FL (80-99); MEAN PLATELET VOLUME 6.4 FL (6.5-10.1); PLATELET COUNT 335 K/UL (150-450); RED BLOOD COUNT 4.47 M/UL (4.70-6.10); RED CELL DISTRIBUTION WIDTH 17.8 % (11.6-14.8); WHITE BLOOD COUNT 6.3 K/UL (4.8-10.8)
[2017-04-26 07:57] LABS: ANION GAP 16 (5-15); CALCIUM 9.5 mg/dL (8.6-10.2); CARBON DIOXIDE 26 mEQ/L (20-30); CHLORIDE 97 mEQ/L (98-107); CREATININE 0.7 mg/dL (0.7-1.2); GLOMERULAR FILTRATION RATE > 60 mL/min (>60); HEMOLYSIS 0; POTASSIUM 3.6 mEQ/L (3.4-4.9); SODIUM 139 mEQ/L (135-145)
--- NOTE | 2017-04-26 08:11 | Pre-Procedure Note/Attestation ---
Pre-Procedure Note/Attestation Complete Prior to Procedure Planned Procedure: not applicable Procedure Narrative: esophagogastroduodenoscopy and colonoscopy Indications for Procedure Pre-Operative Diagnosis: anemia, GIB Attestation I attest that I discussed the nature of the procedure; its benefits; risks and complications; and alternatives (and the risks and benefits of such alternatives ), prior to the procedure, with the patient (or the patient's legal appliance service representative). I attest that, if there was a reasonable possibility of needing a blood transfusion, the patient (or the patient's legal appliance service representative) was given the [facility] standardized written summary, pursuant to the [place] Blood Safety Act ([place] Health and Safety Code # 1645, as amended). I attest that I re-evaluated the patient just prior to the surgery and that there has been no change in the patient's H&P, except as documented below: MARGARETH LANCASTER Apr 26, 2017 08:11
[2017-04-26 08:15] LABS: ANISOCYTOSIS 1+; BAND NEUTROPHILS % (MANUAL) 0 % (0-8); BASOPHILS % (MANUAL) 0 % (0-2); EOSINOPHILS % (MANUAL) 6 % (0-3); HYPOCHROMASIA 1+; LYMPHOCYTES % (MANUAL) 22 % (20-45); NEUTROPHILS % (MANUAL) 66 % (45-75); PLATELET ESTIMATE ADEQUATE; PLATELET MORPHOLOGY NORMAL; TOTAL CELLS COUNTED 100
[2017-04-26 08:16] LABS: MICROCYTES 2+
[2017-04-26] MEDS: Methocarbamol 750mg tab ORAL SCH ×3 (08:57→18:06)
[2017-04-26] MEDS: Lactulose 20gm/30ml UDC ORAL SCH (08:59)
[2017-04-26 09:53] LABS: OTHERS PATHOLOGIST COMMENT
[2017-04-26] MEDS ORDERED: Propofol 10mg/ml 20ml IV ONE (10:45)
[2017-04-26] MEDS ORDERED: Lidocaine 1% MPF 10mg/ml 5ml ONE (10:45)
[2017-04-26] MEDS ORDERED: NS 550ML IV ONE (10:50)
--- NOTE | 2017-04-26 11:24 | Anethesia Preoperative Eval ---
Anesthesia Pre-op PMH/ROS General Date of Evaluation: Apr 26, 2017 Time of Evaluation: 10:47 Anesthesiologist: lizzeth ASA Score: ASA 2 Mallampati Score Class I : Soft palate, uvula, fauces, pillars visible Class II: Soft palate, uvula, fauces visible Class III: Soft palate, base of uvula visible Class IV: Only hard plate visible Mallampati Classification: Class II Surgeon: maria isabel Diagnosis: gibleed Surgical Procedure: egd/colonoscopy Family History: no anesthesia problems Allergies: Coded Allergies: No Known Allergies (Unverified , 09/15/12) Medications: see eMAR Past Medical History Cardiovascular: Reports: HTN Hematology/Immune: Reports: anemia Musculoskeletal/Integumentary: Reports: OA Anesthesia Pre-op Phys. Exam Physician Exam Last Vital Signs Date Time Temp Pulse Resp B/P Pulse Ox O2 Delivery O2 Flow Rate FiO2 04/26/17 08:58 126/71 04/26/17 08:00 86 04/26/17 08:00 97.5 19 99 Room Air Constitutional: NAD Neurologic: CN 2-12 intact Cardiovascular: RRR Respiratory: CTA Gastrointestinal: S/NT/ND Airway Exam Mallampati Score: Class II MO: full Neck: supple TMD: 3fb ROM: full Teeth: missing Anesthesia Pre-op A/P Labs Hematology Test 04/26/17 05:45 White Blood Count 6.3 K/UL (4.8-10.8) Red Blood Count 4.47 M/UL (4.70-6.10) L Hemoglobin 8.7 G/DL (14.2-18.0) L Hematocrit 30.2 % (42.0-52.0) L Mean Corpuscular Volume 68 FL (80-99) L Mean Corpuscular Hemoglobin 19.4 PG (27.0-31.0) L Mean Corpuscular Hemoglobin Concent 28.8 G/DL (32.0-36.0) L Red Cell Distribution Width 17.8 % (11.6-14.8) H Platelet Count 335 K/UL (150-450) Mean Platelet Volume 6.4 FL (6.5-10.1) L Neutrophils (%) (Auto) % (45.0-75.0) Lymphocytes (%) (Auto) % (20.0-45.0) Monocytes (%) (Auto) % (1.0-10.0) Eosinophils (%) (Auto) % (0.0-3.0) Basophils (%) (Auto) % (0.0-2.0) Differential Total Cells Counted 100 Neutrophils % (Manual) 66 % (45-75) Lymphocytes % (Manual) 22 % (20-45) Monocytes % (Manual) 6 % (1-10) Eosinophils % (Manual) 6 % (0-3) H Basophils % (Manual) 0 % (0-2) Band Neutrophils 0 % (0-8) Other Cell Type Pathologist comment Platelet Estimate Adequate Platelet Morphology Normal Hypochromasia 1+ Anisocytosis 1+ Microcytosis 2+ Chemistry Test 04/26/17 05:45 Sodium Level 139 mEQ/L (135-145) Potassium Level 3.6 mEQ/L (3.4-4.9) Chloride Level 97 mEQ/L (98-107) L Carbon Dioxide Level 26 mEQ/L (20-30) Anion Gap 16 (5-15) H Blood Urea Nitrogen 8 mg/dL (7-23) Creatinine 0.7 mg/dL (0.7-1.2) Estimat Glomerular Filtration Rate > 60 mL/min (>60) Glucose Level 100 mg/dL (74-106) Calcium Level 9.5 mg/dL (8.6-10.2) Studies Pre-op Studies: EKG - sinus tach Risk Assessment & Plan Assessment: anemia Plan: egd/colonoscopy Status Change Before Surgery: No Pre-Antibiotics Drug: RAJI Mai Apr 26, 2017 11:23
--- NOTE | 2017-04-26 11:25 | Endoscopy Procedure Note ---
Endoscopy Procedure Note Indication for Procedure: anemia Procedures Performed: EGD, colonoscopy Operative Findings/Diagnosis: colon mass Specimen: yes Pt Tolerated Procedure Well: Yes Estimated Blood Loss: none Anesthesiologist: tracy plummer Anesthesia: MAC Implant(s) used?: No 50 yrs or older w/o bx or poly: Not Applicable 10yrs. F/U not recommended: Not Applicable MARGARETH LANCASTER Apr 26, 2017 11:25
--- NOTE | 2017-04-26 11:33 | Immediate Post-Op Evaluation ---
Immediate Post-Op Evalulation Immediate Post-Op Evalulation Procedure: egd/colonoscopy Date of Evaluation: Apr 26, 2017 Time of Evaluation: 11:48 IV Fluids: 0.9ns 400ml Blood Products: none Estimated Blood Loss: negligible Blood Pressure Systolic: 102 Blood Pressure Diastolic: 54 Pulse Rate: 94 Respiratory Rate: 18 O2 Sat by Pulse Oximetry: 100 Temperature (Fahrenheit): 97.5 Pain Score (1-10): 0 Nausea: No Vomiting: No Complications none Patient Status: awake, reacts, patent Hydration Status: adequate Drug: RAJI Mai Apr 26, 2017 11:33
--- NOTE | 2017-04-26 12:37 | Consultation ---
History of Present Illness General Date patient seen: Apr 26, 2017 Chief Complaint: Lower Extremity Injury Reason for Consultation: colon tumor Present Illness HPI 56M recently admitted for leg pain and edema which was DVT, noted to have anemia and stool guaiac positive. Had colonoscopy today which identified a large right sided colon tumor. Surgery called to evaluate. When seen at bedside patient states that he is fine. Has not noted changes in stool or blood in stool. no family history. no recent weight loss or changes. otherwise feels well. Allergies: Coded Allergies: No Known Allergies (Unverified , 09/15/12) Medication History Scheduled Ciprofloxacin Hcl* (Ciprofloxacin Hcl*), 500 MG ORAL Q12H Docusate Sodium* (Colace*), 100 MG ORAL TWICE A DAY Enalapril Maleate* (Vasotec*), 10 MG ORAL DAILY, (Reported) Ibuprofen* (Motrin*), 800 MG ORAL THREE TIMES A DAY Lactulose (Lactulose*), 30 ML ORAL DAILY, (Reported) Methocarbamol* (Robaxin*), 500 MG PO TID Methocarbamol* (Robaxin-750*), 750 MG PO TID Metronidazole* (Flagyl*), 500 MG ORAL THREE TIMES A DAY Naproxen* (Naprosyn*), 500 MG ORAL TWICE A DAY Polyethylene Glycol 3350* (Polyethylene Glycol 3350*), 17 GM ORAL DAILY, ( Reported) Ranitidine Hcl* (Zantac*), 150 MG ORAL TWICE A DAY Ranitidine Hcl* (Zantac*), 150 MG ORAL TWICE A DAY Scheduled PRN Diazepam* (Valium*), 5 MG ORAL TID PRN for For Pain Hydrocodone Bit/Acetaminophen 5-325* ([place] 5-325*), 1 TAB ORAL Q6H PRN for For Pain Hydrocodone Bit/Acetaminophen 5-325* ([place] 5-325*), 1 TAB ORAL Q6H PRN for For Pain Ibuprofen* (Motrin*), 600 MG ORAL Q8H PRN for For Pain Ibuprofen* (Motrin*), 600 MG ORAL Q6H PRN for For Pain Tramadol Hcl* (Ultram*), 50 MG ORAL Q6H PRN for For Pain Miscellaneous Medications Unable to Obtain Medications (Unable To Obtain Meds), (Reported) Patient History History Provided By: Patient Healthcare decision maker jorge Herron Resuscitation status Full Code Advanced Directive on File No Past Medical/Surgical History Past Medical/Surgical History: (1) Back pain (2) Numbness (3) Muscle strain (4) Anemia (5) Blood in stool (6) Back pain (7) Gastritis (8) Elbow pain, left (9) DVT (deep venous thrombosis) (10) Lower GI bleed Review of Systems Constitutional: Denies: chills, fever, malaise, no symptoms, other, see HPI, sweats, weakness Eye: Denies: acuity changes, blurred vision, discharge, double vision, eye pain , no symptoms, nose congestion, nose pain, other, see HPI, tearing ENT: Denies: ear discharge, ear pain, hearing loss, mouth pain, nasal discharge , no symptoms, nose congestion, nose pain, other, see HPI, throat pain, throat swelling Respiratory: Denies: [place], cough, no symptoms, orthopnea, other, see HPI, shortness of breath, sputum, stridor, wheezing Cardiovascular: Denies: PND, chest pain, edema, no symptoms, other, palpitations, see HPI, syncope Gastrointestinal: Denies: abdominal pain, constipation, diarrhea, hematemesis, melena, nausea, no symptoms, other, see HPI, vomiting Genitourinary: Denies: discharge, dysuria, frequency, hematuria, incontinence, no symptoms, other, pain, retention, see HPI, urgency, vag bleed/dc Musculoskeletal: Denies: back pain, gout, joint pain, joint swelling, muscle pain, muscle stiffness, no symptoms, other, see HPI Skin: Denies: change in color, change in hair/nails, dryness, lesions, no symptoms, other, rash, see HPI Psychiatric: Denies: HI, SI, anxiety, depressed feelings, emotional problems, hallucinations, no symptoms, other, prior hx, see HPI Neurological: Denies: dizziness, focal weakness, headache, no symptoms, numbness, other, paresthesia, see HPI, seizure, syncope, tingling, tremors Endocrine: Denies: excessive sweating, flushing, increased thirst, increased urine, intolerance to temperature, no symptoms, other, see HPI, unexplained weight loss Hematologic/Lymphatic: Denies: anemia, blood clots, diathesis, easy bleeding, easy bruising, no symptoms, other, see HPI, swollen glands All Other Systems: negative except mentioned in HPI Physical Exam General Appearance: WD/WN, no apparent distress, alert Lines, tubes and drains: peripheral HEENT: normocephalic, PERRL Neck: normal inspection Respiratory/Chest: lungs clear, normal breath sounds, no respiratory distress, no accessory muscle use Cardiovascular/Chest: normal peripheral pulses, normal rate, regular rhythm Abdomen: normal bowel sounds, non tender, soft, no organomegaly, no mass Extremities: normal range of motion Skin Exam: normal pigmentation, warm/dry Neurologic: alert, oriented x 3 Last 24 Hour Vital Signs Date Time Temp Pulse Resp B/P Pulse Ox O2 Delivery O2 Flow Rate FiO2 04/26/17 12:00 97.8 90 17 104/54 100 Nasal Cannula 3.0 04/26/17 11:47 92 20 100/53 100 Nasal Cannula 3.0 04/26/17 11:42 92 24 101/55 100 Nasal Cannula 3.0 04/26/17 11:37 97.5 95 24 100/50 100 Nasal Cannula 3.0 04/26/17 08:58 126/71 04/26/17 08:00 86 04/26/17 08:00 97.5 94 19 126/71 99 Room Air 04/26/17 04:00 86 04/26/17 04:00 97.7 92 20 117/69 99 Room Air 04/26/17 00:00 92 04/26/17 00:00 97.1 99 19 113/71 99 Room Air 04/25/17 20:00 97.5 99 21 116/78 97 Room Air 04/25/17 20:00 98 04/25/17 16:00 103 04/25/17 16:00 97.9 98 18 110/42 94 Room Air Intake and Output 04/25/17 04/26/17 19:00 07:00 Intake Total 4300 ml Output Total 4600 ml Balance -300 ml Intake Oral 4300 ml Output Urine Total 800 ml Other 3800 ml # Bowel Movements 2 2 Laboratory Tests Test 04/26/17 05:45 White Blood Count 6.3 K/UL (4.8-10.8) Red Blood Count 4.47 M/UL (4.70-6.10) L Hemoglobin 8.7 G/DL (14.2-18.0) L Hematocrit 30.2 % (42.0-52.0) L Mean Corpuscular Volume 68 FL (80-99) L Mean Corpuscular Hemoglobin 19.4 PG (27.0-31.0) L Mean Corpuscular Hemoglobin Concent 28.8 G/DL (32.0-36.0) L Red Cell Distribution Width 17.8 % (11.6-14.8) H Platelet Count 335 K/UL (150-450) Mean Platelet Volume 6.4 FL (6.5-10.1) L Neutrophils (%) (Auto) % (45.0-75.0) Lymphocytes (%) (Auto) % (20.0-45.0) Monocytes (%) (Auto) % (1.0-10.0) Eosinophils (%) (Auto) % (0.0-3.0) Basophils (%) (Auto) % (0.0-2.0) Differential Total Cells Counted 100 Neutrophils % (Manual) 66 % (45-75) Lymphocytes % (Manual) 22 % (20-45) Monocytes % (Manual) 6 % (1-10) Eosinophils % (Manual) 6 % (0-3) H Basophils % (Manual) 0 % (0-2) Band Neutrophils 0 % (0-8) Other Cell Type Pathologist comment Platelet Estimate Adequate Platelet Morphology Normal Hypochromasia 1+ Anisocytosis 1+ Microcytosis 2+ Sodium Level 139 mEQ/L (135-145) Potassium Level 3.6 mEQ/L (3.4-4.9) Chloride Level 97 mEQ/L (98-107) L Carbon Dioxide Level 26 mEQ/L (20-30) Anion Gap 16 (5-15) H Blood Urea Nitrogen 8 mg/dL (7-23) Creatinine 0.7 mg/dL (0.7-1.2) Estimat Glomerular Filtration Rate > 60 mL/min (>60) Glucose Level 100 mg/dL (74-106) Calcium Level 9.5 mg/dL (8.6-10.2) Height (Feet): 6 Height (Inches): 4.00 Weight (Pounds): 259 Medications Current Medications Medications (Trade) Dose Ordered Sig/Marybeth Route PRN Reason Start Time Stop Time Status Last Admin Dose Admin Acetaminophen (Tylenol) 650 mg Q4H PRN ORAL fever 04/23/17 10:30 05/23/17 10:29 Acetaminophen/ Hydrocodone Bitart ([place] 5/325) 1 tab Q6H PRN ORAL Moderate Pain (Pain Scale 4-6) 04/23/17 10:30 04/30/17 10:29 Al Hydroxide/Mg Hydroxide (Mylanta II) 30 ml Q6H PRN ORAL dyspepsia 04/23/17 10:30 05/23/17 10:29 Dextrose (Dextrose 50%) STAT PRN IV Hypoglycemia 04/23/17 10:30 05/23/17 10:29 Enalapril Maleate (Vasotec) 10 mg DAILY ORAL 04/24/17 13:00 05/24/17 12:59 04/26/17 08:58 Lactulose (Cephulac) 20 gm DAILY ORAL 04/24/17 09:00 05/24/17 08:59 Lorazepam (Ativan 2mg/ml 1ml) 0.5 mg Q4H PRN IV For Anxiety 04/23/17 10:30 04/30/17 10:29 Methocarbamol (Robaxin) 750 mg TID ORAL 04/23/17 18:00 05/23/17 17:59 04/26/17 08:57 Morphine Sulfate (Morphine Sulfate) 2 mg Q4H PRN IVP Severe Pain (Pain Scale 7-10) 04/23/17 10:30 04/30/17 10:29 04/24/17 04:33 Ondansetron HCl (Zofran) 4 mg Q6H PRN IVP Nausea & Vomiting 04/24/17 16:15 05/24/17 16:14 Pantoprazole (Protonix) 40 mg DAILY ORAL 04/24/17 10:00 05/24/17 09:59 04/26/17 08:57 Polyethylene Glycol (Miralax) 17 gm HSPRN PRN ORAL Constipation 04/23/17 10:30 05/23/17 10:29 Zolpidem Tartrate (Ambien) 5 mg HSPRN PRN ORAL Insomnia 04/23/17 10:30 05/23/17 10:29 Assessment/Plan Problem List: (1) Colon tumor Assessment & Plan: 56M recently diagnosed colon tumor. Afebrile, HD stable, Anemia, exam benign, no history, biopsy of mass taken during colonoscopy. Tumor markers CT A/P Will await pathology. Discussed findings with patient and the need for surgery given that mass could not be excised with scope. Thank you for this consultation. will follow and schedule surgery soon ICD Codes: D49.0 - Neoplasm of unspecified behavior of digestive system SNOMED: [id number] Status: stable ArmandoAndrey dumasya Apr 26, 2017 12:37
--- NOTE | 2017-04-26 15:21 | Anethesia Preoperative Eval ---
Anesthesia Pre-op PMH/ROS General Date of Evaluation: Apr 26, 2017 Time of Evaluation: 15:15 Anesthesiologist: Hoang ASA Score: ASA 2 Mallampati Score Class I : Soft palate, uvula, fauces, pillars visible Class II: Soft palate, uvula, fauces visible Class III: Soft palate, base of uvula visible Class IV: Only hard plate visible Mallampati Classification: Class II Surgeon: Radames Diagnosis: Colon CA Surgical Procedure: Colectomy...open vs laparoscopic Family History: no anesthesia problems Allergies: Coded Allergies: No Known Allergies (Unverified , 09/15/12) Medications: see eMAR Past Medical History Cardiovascular: Reports: HTN, Denies: CAD, DE, arrhythmia, other, valve dz Pulmonary: Denies: COPD, NAYLA, asthma, other Gastrointestinal/Genitourinary: Denies: CRI, ESRD, GERD, other Neurologic/Psychiatric: Denies: CVA, TIA, dementia, depression/anxiety, other Endocrine: Denies: DM, hypothyroidism, other, steroids HEENT: Denies: [place] (L), [place] (R), cataract (L), cataract (R), glaucoma, other Hematology/Immune: Reports: DVT, Denies: anemia, bleeding disorder, other Musculoskeletal/Integumentary: Denies: DDD, DJD, OA, RA, edema, other PMH Narrative: HTN, DVT (current), colon CA PSxH Narrative: ORIF ankle Anesthesia Pre-op Phys. Exam Physician Exam Last Vital Signs Date Time Temp Pulse Resp B/P Pulse Ox O2 Delivery O2 Flow Rate FiO2 04/26/17 12:00 97.8 90 17 104/54 100 Nasal Cannula 3.0 Constitutional: NAD Neurologic: CN 2-12 intact Cardiovascular: RRR, no M/R/G Respiratory: CTA Gastrointestinal: S/NT/ND Airway Exam Mallampati Score: Class II MO: full ROM: full Dentures: lower, upper Anesthesia Pre-op A/P Labs Hematology Test 04/26/17 05:45 White Blood Count 6.3 K/UL (4.8-10.8) Red Blood Count 4.47 M/UL (4.70-6.10) L Hemoglobin 8.7 G/DL (14.2-18.0) L Hematocrit 30.2 % (42.0-52.0) L Mean Corpuscular Volume 68 FL (80-99) L Mean Corpuscular Hemoglobin 19.4 PG (27.0-31.0) L Mean Corpuscular Hemoglobin Concent 28.8 G/DL (32.0-36.0) L Red Cell Distribution Width 17.8 % (11.6-14.8) H Platelet Count 335 K/UL (150-450) Mean Platelet Volume 6.4 FL (6.5-10.1) L Neutrophils (%) (Auto) % (45.0-75.0) Lymphocytes (%) (Auto) % (20.0-45.0) Monocytes (%) (Auto) % (1.0-10.0) Eosinophils (%) (Auto) % (0.0-3.0) Basophils (%) (Auto) % (0.0-2.0) Differential Total Cells Counted 100 Neutrophils % (Manual) 66 % (45-75) Lymphocytes % (Manual) 22 % (20-45) Monocytes % (Manual) 6 % (1-10) Eosinophils % (Manual) 6 % (0-3) H Basophils % (Manual) 0 % (0-2) Band Neutrophils 0 % (0-8) Other Cell Type Pathologist comment Platelet Estimate Adequate Platelet Morphology Normal Hypochromasia 1+ Anisocytosis 1+ Microcytosis 2+ Chemistry Test 04/26/17 05:15 04/26/17 05:45 Carcinoembryonic Antigen 17.7 ng/mL H Sodium Level 139 mEQ/L (135-145) Potassium Level 3.6 mEQ/L (3.4-4.9) Chloride Level 97 mEQ/L (98-107) L Carbon Dioxide Level 26 mEQ/L (20-30) Anion Gap 16 (5-15) H Blood Urea Nitrogen 8 mg/dL (7-23) Creatinine 0.7 mg/dL (0.7-1.2) Estimat Glomerular Filtration Rate > 60 mL/min (>60) Glucose Level 100 mg/dL (74-106) Calcium Level 9.5 mg/dL (8.6-10.2) Risk Assessment & Plan Assessment: Colon CA in a hypertensive patient with a current DVT (UVC filter placed 04/2617 ). Plan: IRIS CORBIN M.D. Apr 26, 2017 15:21
--- NOTE | 2017-04-26 15:51 | Pre-Procedure Note/Attestation ---
Pre-Procedure Note/Attestation Complete Prior to Procedure Planned Procedure: not applicable Procedure Narrative: IVC filter Indications for Procedure Pre-Operative Diagnosis: LE DVT GI bleed and pending surgery contraindicating anticoagulation Attestation I attest that I discussed the nature of the procedure; its benefits; risks and complications; and alternatives (and the risks and benefits of such alternatives ), prior to the procedure, with the patient (or the patient's legal automobile sales representative). I attest that, if there was a reasonable possibility of needing a blood transfusion, the patient (or the patient's legal automobile sales representative) was given the [facility] standardized written summary, pursuant to the [place] Blood Safety Act ([place] Health and Safety Code # 1645, as amended). I attest that I re-evaluated the patient just prior to the surgery and that there has been no change in the patient's H&P, except as documented below: Discussed with patient at 1540 CHERI STROUD M.D. Apr 26, 2017 15:51
--- NOTE | 2017-04-26 16:29 | Brief Operative Note ---
Immediate Post Operative Note Operative Note Chief Complaint: anemia Pre-op Diagnosis: LE DVT GI bleed and pending surgery contraindicating anticoagulation Procedure: IVC filter Post-op Diagnosis: same as pre-op Surgeon: Fabian STROUD Anesthesia: local Specimen: none Complications: none Condition: stable Fluids: none Implant(s) used?: Yes - [place] retrievable IVC filter CHERI STROUD M.D. Apr 26, 2017 16:29
[2017-04-26] MEDS ORDERED: Heparin 2000 units/Ns 1000ml INJ ONE (17:00)
[2017-04-26] MEDS ORDERED: Lidocaine 1% Plain 30 ml INJ ONE (17:00)
--- NOTE | 2017-04-26 17:17 | Diagnostic Imaging Report ---
Indication: Abdominal pain. Chest pain. History of colon carcinoma Technique: Patient ingested oral contrast. Multiphasic spiral acquisitions obtained through the chest, abdomen, and pelvis Multiplanar reconstructions were generated. Total dose length product 2390 mGycm. CTDIvol(s) 8, 81, 24, 24 mGy. Radiation dose was minimized using automated exposure control Comparison: Abdomen pelvis compared to 04/06/2014. No comparison chest exams Findings: Chest: There is a small calcification within the right costophrenic sulcus, and possibly one within the left costophrenic sulcus. There is some atelectasis or scarring in the right posterior costophrenic sulcus adjacent to the calcification. No nodules or masses. No infiltrates, effusions, or congestion. However, a filling defect is seen in the right lower lobe pulmonary artery extending into superior segmental branch origin. Small emboli are also seen in right upper lobe segmental branches. An embolus is also seen in the lateral basilar segmental branch of the left lower lobe pulmonary artery. The heart size is normal. No pericardial effusion is evident. No mediastinal or hilar mass or adenopathy. No axillary or supraclavicular mass or adenopathy. The bones are unremarkable. There is question of a small sliding-type hiatal hernia. The remainder of the esophagus is unremarkable. Abdomen pelvis: There is wall thickening of the ascending colon beginning just distal to the cecal tip. This extends for a length of approximately 6.8 cm. Just distal to the area of wall thickening, there is very slight inflammation of the pericolonic fat on the mesenteric side. The more proximal peridiverticular inflammation previously demonstrated is not evident previously. There is now right lower quadrant mesenteric lymphadenopathy, with nodes measuring up to 17 mm in length. More central prominent mesenteric root nodes are also evident previously, although these are somewhat more prominent on the current exam. There is slight inflammation of the fascia and stranding fat of the right paracolic gutter, extending inferior to the cecum. The appendix is slightly prominent in caliber, but there is no periappendiceal inflammation and gas is seen in the tip. Diverticula are seen elsewhere in the colon as well. No other pericolonic inflammation is demonstrated. Contrast is seen to the level of the terminal ileum, and a very small amount of contrast is seen within the proximal colon. Small bowel loops are prominent in caliber but not thick walled. There is equivocal mild wall thickening of the gastric antrum, but this is probably artifact of under distention. The liver, gallbladder, bile ducts, pancreas, spleen, adrenals kidneys are unremarkable. No pelvic mass or adenopathy. Bladder is equivocally minimally thickwalled, probably artifact of under distention. The bones are remarkable only for very mild degenerative spondylosis changes. Impression: Ascending colon mass resulting in wall thickening, extending for a length of roughly 6.8 cm, beginning just distal to the cecal tip at about the area of the ileocecal valve and extending distally from there are. There is evidence of surrounding lymphadenopathy. Prominent nodes are also seen in the mesenteric root. These are also evident on the prior study but appears equivocally more prominent than on that exam; more central lymphadenopathy therefore not completely excludable. Equivocal slight inflammation of the pericolonic fat just distal the above-mentioned tumor; very mild acute diverticulitis not excludable Bilateral segmental pulmonary emboli, as described. Patient has known history of acute lower extremity deep venous thrombosis this No evidence of hepatic or pulmonary metastases Colonic diverticulosis Equivocal mild wall thickening of the gastric antrum, probably artifact of under distention, gastritis not excludable. Graph equivocal minimal bladder wall thickeni -- ng, probably artifact of under distention, cystitis not excludable Equivocal small hiatal hernia Evidence of small calcifications in the bilateral pulmonary lower lobes, consistent with prior inflammation. Minimal scarring in the right costophrenic sulcus Degenerative spondylosis, minimal The CT scanner at [facility] is accredited by the [employer] and the scans are performed using protocols designed to limit radiation exposure to as low as reasonably achievable to attain images of sufficient resolution adequate for diagnostic evaluation.
--- NOTE | 2017-04-26 17:36 | Pre-Procedure Note/Attestation ---
Pre-Procedure Note/Attestation Complete Prior to Procedure Planned Procedure: not applicable Procedure Narrative: laparoscopic vs possible open right colectomy Indications for Procedure Pre-Operative Diagnosis: right colon tumor Attestation I attest that I discussed the nature of the procedure; its benefits; risks and complications; and alternatives (and the risks and benefits of such alternatives ), prior to the procedure, with the patient (or the patient's legal sales representative printing paper). I attest that, if there was a reasonable possibility of needing a blood transfusion, the patient (or the patient's legal sales representative printing paper) was given the [facility] standardized written summary, pursuant to the [place] Blood Safety Act ([place] Health and Safety Code # 1645, as amended). I attest that I re-evaluated the patient just prior to the surgery and that there has been no change in the patient's H&P, except as documented below: Peña Crum Apr 26, 2017 17:36
[2017-04-26] MEDS ORDERED: LR 1000ml 1,000 ML IV SCH (17:45)
--- NOTE | 2017-04-26 20:21 | Cardiology Report ---
APPROVED REPORT EKG Measurement Heart [id number] Sinus tachycardia Otherwise normal ECG
--- NOTE | 2017-04-26 21:01 | Procedure Note ---
DATE OF PROCEDURE: 04/26/2017 SURGEON: Pako Barksdale M.D. REFERRING PHYSICIAN: Andrés Clement M.D. PROCEDURE: Upper endoscopy with biopsy and colonoscopy with biopsy. ANESTHESIA: Per Dr. Leon. INSTRUMENT: Olympus adult flexible upper endoscope and colonoscope. INDICATION: GI bleeding and anemia. The procedure, risks, benefits, and possible consequences, including hemorrhage, aspiration, perforation and infection, and alternative treatments, were explained to the patient/legal guardian by Dr. Pako Barksdale and the patient/legal guardian understood and accepted these risks. DESCRIPTION OF PROCEDURE: After informed consent was obtained and the patient was adequately sedated, an Olympus upper endoscope was advanced from mouth into the second portion of duodenum and retroflexion was performed in the stomach. The patient had a small hiatal hernia. No evidence of any obvious esophagitis. The patient had diffuse gastritis. Random biopsy from antrum was obtained for H. pylori infection. At this time, the upper procedure was retrieved and the patient was turned was turn over for colonoscopy. First, a rectal exam was performed, which was normal. Then, the scope was advanced from the rectum into the area what seems to be most likely proximal transverse colon to the ascending colon. We saw a large ulcerative mass causing almost luminal obstruction, could not pass the scope beyond this point. Multiple biopsies from this mass was obtained and then this area was tattooed for future surgeries. Then, the scope was gradually retrieved. The patient has a polyp, pedunculated in the sigmoid colon at about 40 cm from the anal verge. This polyp was roughly measured about 8 mm, removed with the snare polypectomy technique. The patient also had some scattered diverticulosis. Retroflexion of the rectum showed evidence of internal hemorrhoids. SUMMARY OF FINDINGS: 1. Small hiatal hernia. 2. Gastritis, status post biopsy. 3. Large colonic mass. See above for details. Status post biopsy and tattooing. 4. One polyp removed. See above for detail. 5. Diverticulosis. 6. Internal hemorrhoids. RECOMMENDATIONS: Follow up biopsy results. We will order ann CT to evaluate for metastasis. Order CEA. Order IVC filter placement. The patient needed surgical consultation. I want to thank, Dr. Clement, for this kind referral. Pako Catrina Barksdale DR: LARRY JOB#: [id number] CC: Andrés Clement M.D.; Fax#: [phone]
[2017-04-26] MEDS ORDERED: Mylanta II UD 30ml ORAL PRN (22:30)
[2017-04-26] MEDS ORDERED: Norco 5mg/325mg tab ORAL PRN (22:30)
[2017-04-26] MEDS ORDERED: Morphine Sulfate 2mg/ml Inj IVP PRN (22:30)
[2017-04-26] MEDS ORDERED: LORazepam Inj 2mg/ml 1ml IV PRN (22:30)
[2017-04-27] VITALS (11 sets, daily range): BP systolic 112–156; BP diastolic 65–81
[2017-04-27] MEDS: LR 1000ml 1,000 ML IV SCH ×3 (04:53→20:29)
[2017-04-27] MEDS: ceFAZolin sod 2 GM in D5W 110 ML IVPB SCH ×3 (04:53→21:49)
[2017-04-27] MEDS ORDERED: ceFAZolin sod 2 GM in D5W 110 ML IVPB SCH (06:00)
[2017-04-27] MEDS ORDERED: LR 1000ml 1,000 ML IV SCH (06:00)
[2017-04-27] MEDS ORDERED: metroNIDAZOLE 500mg 100 ML IVPB SCH (06:00)
[2017-04-27] MEDS: metroNIDAZOLE 500mg 100 ML IVPB SCH ×4 (06:11→23:03)
[2017-04-27 06:53] LABS: BASOPHILS % (AUTO) 0.4 % (0.0-2.0); LYMPHOCYTES % (AUTO) 18.2 % (20.0-45.0); MEAN CORPUSCULAR HEMOGLOBIN 19.4 PG (27.0-31.0); MEAN CORPUSCULAR HGB CONC 28.8 G/DL (32.0-36.0); MEAN CORPUSCULAR VOLUME 67 FL (80-99); MEAN PLATELET VOLUME 5.9 FL (6.5-10.1); MONOCYTES % (AUTO) 10.9 % (1.0-10.0); NEUTROPHILS % (AUTO) 68.4 % (45.0-75.0); PLATELET COUNT 348 K/UL (150-450); RED BLOOD COUNT 4.34 M/UL (4.70-6.10); RED CELL DISTRIBUTION WIDTH 17.7 % (11.6-14.8); WHITE BLOOD COUNT 6.9 K/UL (4.8-10.8)
[2017-04-27 07:02] LABS: ANION GAP 15 (5-15); CALCIUM 9.2 mg/dL (8.6-10.2); CARBON DIOXIDE 25 mEQ/L (20-30); CHLORIDE 98 mEQ/L (98-107); CREATININE 0.8 mg/dL (0.7-1.2); GLOMERULAR FILTRATION RATE > 60 mL/min (>60); HEMOLYSIS 0; POTASSIUM 3.7 mEQ/L (3.4-4.9); SODIUM 138 mEQ/L (135-145)
--- NOTE | 2017-04-27 07:03 | Anethesia Preoperative Eval ---
Anesthesia Pre-op PMH/ROS General Date of Evaluation: Apr 27, 2017 Time of Evaluation: 07:36 Anesthesiologist: Peyton ASA Score: ASA 3 Mallampati Score Class I : Soft palate, uvula, fauces, pillars visible Class II: Soft palate, uvula, fauces visible Class III: Soft palate, base of uvula visible Class IV: Only hard plate visible Mallampati Classification: Class II Surgeon: Radames Diagnosis: Colon CA Surgical Procedure: Laproscopic R Colectomy Anesthesia History: none Family History: no anesthesia problems Allergies: Coded Allergies: No Known Allergies (Unverified , 09/15/12) Medications: see eMAR Past Medical History Cardiovascular: Reports: HTN Hematology/Immune: Reports: DVT, anemia, other - Colon CA Other: obesity - BMI 32 PSxH Narrative: L Ankle Sx Anesthesia Pre-op Phys. Exam Physician Exam Last Vital Signs Date Time Temp Pulse Resp B/P Pulse Ox O2 Delivery O2 Flow Rate FiO2 04/27/17 04:00 97.8 90 18 124/70 100 Room Air 04/26/17 20:00 3.0 Constitutional: NAD Neurologic: CN 2-12 intact Cardiovascular: RRR Respiratory: CTA Gastrointestinal: S/NT/ND Airway Exam Mallampati Score: Class II MO: full ROM: limited Teeth: intact Anesthesia Pre-op A/P Labs Hematology Test 04/27/17 04:50 White Blood Count Pending Red Blood Count Pending Hemoglobin Pending Hematocrit Pending Mean Corpuscular Volume Pending Mean Corpuscular Hemoglobin Pending Mean Corpuscular Hemoglobin Concent Pending Red Cell Distribution Width Pending Platelet Count Pending Mean Platelet Volume Pending Neutrophils (%) (Auto) Pending Lymphocytes (%) (Auto) Pending Monocytes (%) (Auto) Pending Eosinophils (%) (Auto) Pending Basophils (%) (Auto) Pending Chemistry Test 04/27/17 04:50 Sodium Level Pending Potassium Level Pending Chloride Level Pending Carbon Dioxide Level Pending Blood Urea Nitrogen Pending Creatinine Pending Estimat Glomerular Filtration Rate Pending Glucose Level Pending Calcium Level Pending Carcinoembryonic Antigen Pending Risk Assessment & Plan Assessment: ASA 3 Plan: GA, Glidescope Status Change Before Surgery: No Pre-Antibiotics Dru Grams Anef IV Given Within 1 Hr of Incision: Yes Time Given: 07:51 Sanket Todd MD Apr 27, 2017 07:03
[2017-04-27] MEDS ORDERED: Bupivacaine 0.25% Inj 30ml INJ ONE (07:22)
[2017-04-27] MEDS ORDERED: LR 1000ml 1,000 ML IVLG SCH (07:23)
[2017-04-27] MEDS ORDERED: Lidocaine 1% Plain 30 ml INJ ONE (07:30)
[2017-04-27] MEDS ORDERED: Sterile Water Irrig 1000ml IRRIG ONE (07:30)
[2017-04-27] MEDS ORDERED: fentaNYL 100 mcg/2 mL IV PRN (07:30)
[2017-04-27] MEDS ORDERED: Ketorolac 30mg Inj IV PRN (07:30)
[2017-04-27] MEDS ORDERED: Norco 7.5mg/325mg tab ORAL PRN (07:30)
[2017-04-27] MEDS ORDERED: Meperidine 25mg/0.5ml Inj IV PRN (07:30)
[2017-04-27] MEDS ORDERED: Norco 5mg/325mg tab ORAL PRN (07:30)
[2017-04-27] MEDS ORDERED: Lidocaine 1% MPF 10mg/ml 5ml ONE (07:30)
[2017-04-27] MEDS ORDERED: Ketorolac 60mg Inj IV PRN (07:30)
[2017-04-27] MEDS ORDERED: Midazolam 2mg/2ml Inj IVP PRN (07:30)
[2017-04-27] MEDS ORDERED: Midazolam 2mg/2ml Inj ONE (07:30)
[2017-04-27] MEDS ORDERED: Glycopyrrolate 0.2mg/ml 1ml Vial ONE (07:30)
[2017-04-27] MEDS ORDERED: Propofol 10mg/ml 20ml IV ONE ×2 (07:30)
[2017-04-27] MEDS ORDERED: NS Irrig 1000ml ONE (07:30)
[2017-04-27] MEDS ORDERED: DiphenhydrAMINE 50mg/ml Inj IVP PRN (07:30)
[2017-04-27] MEDS ORDERED: Propofol 10mg/ml 100ml btl IV ONE (07:30)
[2017-04-27] MEDS ORDERED: Oxycodone/Acetaminophen 5-325 ORAL PRN (07:30)
[2017-04-27] MEDS ORDERED: Atropine Inj 1mg/10ml Syr IV PRN (07:30)
[2017-04-27] MEDS ORDERED: Metoprolol 5mg/5ml Inj ONE (07:30)
[2017-04-27] MEDS ORDERED: Hydromorphone 0.5mg/0.5ml inj IVP PRN (07:30)
[2017-04-27] MEDS ORDERED: LR 1000ml ONE (07:30)
[2017-04-27] MEDS ORDERED: Neostigmine 1mg/ml 10ml Inj ONE (07:30)
[2017-04-27] MEDS ORDERED: Metoclopramide 10mg/2ml Inj IVP PRN ×2 (07:30→12:45)
[2017-04-27] MEDS ORDERED: LORazepam Inj 2mg/ml 1ml IV PRN (07:30)
[2017-04-27] MEDS ORDERED: fentaNYL 100 mcg/2 mL IV ONE (07:30)
[2017-04-27] MEDS ORDERED: fentaNYL 250mcg/5ml ONE (07:30)
--- NOTE | 2017-04-27 07:49 | 48 Hour Post Anesthesia Eval ---
Post Anesthesia Evaluation Procedure: egd/colonoscopy Date of Evaluation: Apr 26, 2017 Time of Evaluation: 12:45 Blood Pressure Systolic: 102 0: 54 Pulse Rate: 89 Respiratory Rate: 19 Temperature (Fahrenheit): 97.5 O2 Sat by Pulse Oximetry: 100 Airway: patent Nausea: No Vomiting: No Pain Intensity: 0 Hydration Status: adequate Cardiopulmonary Status: stable Mental Status/LOC: patient returned to baseline Post-Anesthesia Complications: none Follow-up care needed: N/A RAJI ROY Apr 27, 2017 07:49
--- NOTE | 2017-04-27 08:31 | Diagnostic Imaging Report ---
Indications: Deep venous thrombosis, contraindication to anticoagulation Technique: Informed consent obtained prior to commencement of the procedure. Indications, alternatives, benefits, complications discussed with patient. Need for earning for filter retrieval also discussed. Procedural timeout performed. Prior CT scan reviewed, and demonstrates no caval anomalies . Total sterile technique, including sterile probe cover and sterile gel, sterile gloves, hand hygiene, hat, mask,, sterile gown, large sterile drape, and preparation with 2% chlorhexidine utilized. Local anesthesia with 1% lidocaine. Ultrasound reveals patent compressible Right internal jugular vein. Under real-time ultrasound guidance, puncture right internal jugular vein, passage of 0.018 guidewire, into the inferior vena cava, introduction 4 [place]kin[place] micropuncture introducer, and reduction 0.035 guidewire,, over which was passed a pigtail marker catheter. This was directed into the iliac venous confluence.. An inferior venacavogram performed, using machine injection of contrast. The images were reviewed. The position of the renal veins was determined. The catheter was then exchanged for the introducer assembly of the Bard Heidy filter. The introducer assembly was advanced further into the inferior vena cava over a guidewire, and the guidewire and dilator were removed. The filter was passed into the into the sheath. It was then positioned into the appropriate position. The filter was then deployed by unsheathing it. The filter introducer was removed, and a followup inferior venacavogram was performed using hand injection of contrast through the sheath. The filter position was deemed acceptable. The sheath was removed. Pressure held on the right neck until hemostasis was achieved. The patient tolerated procedure well, without immediate complication. Total fluoroscopy time 2.1 minutes Total dose area product 1198 dGycm2 Comparison: None Findings: Inferior venacavogram demonstrates normal caliber inferior vena cava. Single renal veins. No intracaval thrombus. Completion inferior venacavogram demonstrates satisfactory filter position, with no significant tilt. Impression: Successful placement of infrarenal inferior vena cava filter, as above. Patient instructed length of necessity for returning for filter retrieval once it is safe to resume anticoagulation after surgery.
[2017-04-27] MEDS ORDERED: Lactulose 20gm/30ml UDC ORAL SCH (09:00)
[2017-04-27] MEDS ORDERED: NS Irrig 1000ml IRRIG ONE (09:00)
[2017-04-27] MEDS: Methocarbamol 750mg tab ORAL SCH ×3 (09:00→17:23)
[2017-04-27] MEDS ORDERED: Acetaminophen (Non formulary) 100 ML IV ONE (10:15)
[2017-04-27] MEDS ORDERED: Miralax 17gm pkt ORAL PRN (10:30)
[2017-04-27] MEDS ORDERED: Zolpidem 5mg tab ORAL PRN (10:30)
--- NOTE | 2017-04-27 11:49 | Immediate Post-Op Evaluation ---
Immediate Post-Op Evalulation Immediate Post-Op Evalulation Procedure: Laparoscopic R Coletomy Date of Evaluation: Apr 27, 2017 Time of Evaluation: 11:57 IV Fluids: 1200 LR Blood Products: 0 Estimated Blood Loss: 100 Urinary Output: 250 Blood Pressure Systolic: 156 Blood Pressure Diastolic: 77 Pulse Rate: 114 Respiratory Rate: 16 O2 Sat by Pulse Oximetry: 100 Temperature (Fahrenheit): 99 Pain Score (1-10): 2 Nausea: No Vomiting: No Complications 0 Patient Status: awake, reacts, patent, extubated, none Hydration Status: adequate Dru Grams Ancef IV Given Within 1 Hr of Incision: Yes Time Given: 07:51 Sanket Todd MD Apr 27, 2017 11:49
[2017-04-27] MEDS ORDERED: Morphine Sulfate 2mg/ml Inj IVP PRN (12:45)
[2017-04-27] MEDS ORDERED: Morphine Sulfate 4mg/ml Inj IVP PRN (12:45)
--- NOTE | 2017-04-27 12:55 | Operative Note - PDOC ---
Operative Note Operative Note Chief Complaint: anemia Pre-op Diagnosis: right colon tumor Procedure: laparoscopic right hemicolectomy Post-op Diagnosis: same as pre-op Surgeon: Radames Additional Surgeons: Josh Anesthesiologist: Peyton Anesthesia: general Specimen: yes - right hemicolectomy Complications: none Condition: stable Fluids: see records Estimated Blood Loss: volume - 100cc Drains: none Implant(s) used?: No Description of Procedure DATE OF OPERATION: 04/27/2017 PREOPERATIVE DIAGNOSIS: Large cecal tumor POSTOPERATIVE DIAGNOSIS: Large cecal tumor OPERATION PERFORMED: Laparoscopic right hemicolectomy. ATTENDING SURGEON: Peña Crum M.D. FOURDRINIER OPERATOR SURGEON: Zurdo Moreno M.D. ANESTHESIOLOGIST: Dr. Todd ANESTHESIA: General TEACHER ADVISOR. WOUND CLASSIFICATION: Class 3. ANTIBIOTICS: Ancef and Flagyl given 1 hour prior to cut time. ESTIMATED BLOOD LOSS: 100 mL. IV FLUIDS: Please see anesthesia records. COMPLICATIONS: None. DRAINS: None. COUNTS: Sponge and needle count correct x2. INDICATIONS FOR PROCEDURE: This is a 56-year-old male who was noted on CT to have a large cecal tumor. The patient recently had a colonoscopy, which identified a large cecal tumor that could not be removed, which biopsies were taken of. At this time, given the size of the tumor and the pathology, decision to right hemicolectomy was indicated. The risks, benefits, and alternatives were discussed with the patient in detail at bedside. Consent was obtained and in the chart. OPERATIVE NOTE: The patient was taken to the operating room and placed on the operating table in supine position. Bilateral arms tucked. All bony prominences well padded with gel pads. Appropriate time-out was taken identifying the patient, procedure, operative staff, and surgical staff. General anesthesia was induced and the patient was intubated. A Gomez catheter was inserted. SCDs were placed. The abdomen was then prepped and draped in the standard surgical fashion. We began by making an incision in the left mid abdomen approximately 2 cm left lateral to the umbilicus. Using a fios tipped trocar and a 5 mm laparoscope, the abdomen was entered under direct visualization without complication. The abdomen was insufflated 12 to 15 mmHg. The patient tolerated insufflation well. This was a 5 mm trocar. The patient's abdomen was inspected and no injury from trocar placement was identified. At this time, trocar was up sized to a 12 mm Kenneth trocar. Following this, secondary trocars were placed under direct visualization, a 5 mm in the suprapubic area followed by a 12 mm in the epigastric region. At this time, the liver was inspected and no abnormalities were identified. The remainder of the abdomen was inspected and no abnormalities were identified. The cecum was identified and grasped. The cecal tumor could be palpated with laparoscopic forceps and identified in the cecum. The ink from colonoscopy was visualized. At this time, the cecum was elevated towards the right lower quadrant and then ileocolic vascular branch was identified. The vascular bundle was taken down to the root of mesentery and the artery and the vein were dissected out using a laparoscopic energy device. Once the artery and vein were identified through the mesentery, the ileocolic artery was ligated using a laparoscopic stapling device at the root. Following this, appropriate area of transection on the terminal ileum and ascending colon were identified. The mesentery was scored in the direction of both of these proposed division sites. The terminal ileum had some adhesions to the pelvis and the right lower quadrant, which were dissected free using energy device and scissors as appropriate. Once this was complete, the mesentery was divided towards the proposed area of the terminal ileum to be stapled for the resection. No significant bleeding was encountered using the energy device in dissecting through the mesentery. Once the mesentery was divided, a laparoscopic linear stapler was used to divide the terminal ileum at the planned portion, which was approximately 10 cm from the ileocecal valve. Once this was completed, the remainder of the mesentery was divided using the laparoscopic energy device towards the proposed division site on the ascending colon. Once this was completed, the ascending colon was divided using a laparoscopic linear device at the proposed division site. At this time, the white line of Toldt was dissected out and the specimen was removed in whole including the cecum, appendix, terminal ileum, and portion of the ascending colon for appropriate right hemicolectomy including the mesentery to the vessels. This specimen was placed in the pelvis and attention was turned to the dissection site and hemostasis achieved with electrocautery. At this time, we began planning for the intracorporeal anastomosis. The remainder of the white line of Toldt was divided towards the hepatic flexure and the hepatic flexure was dissected downwards for a tension-free anastomosis. The terminal ileum was easily brought up towards the remaining ascending colon for a tension-free anastomosis. A 2-0 silk suture was placed approximately 1 cm from the prior staple lines on both the ascending colon and terminal ileum. Appropriate rotation was identified to make sure there was no kinking in the mesentery or the bowel. A second 2-0 silk suture was placed approximately 5 cm distal to the staple line for traction. Once this was complete, electrocautery and blunt dissection was used to make two small enterotomies in the ascending colon and terminal ileum. A laparoscopic linear stapling device was entered through these enterotomies and fired. This created a anastomosis without any bleeding or complications. Once this was complete, the remaining portion of the open enterotomy was stapled closed using a laparoscopic linear staple device. The remaining segment was removed and sent to pathology along with the specimen. At this time, the staple line was evaluated and noted to be intact without any leakage. Hemostasis was noted. Minimum amount of irrigation suction was used to evacuate a few small blood clots. Tisseel was placed over the staple line. At this time, we began our conclusion of the procedure. The specimen was then removed from the abdomen through the epigastric trocar placement. This required an extension of the initial incision. Once the specimen was removed, it was sent to pathology for review. The abdomen was reinspected and no abnormalities noted. Secondary trocars were removed under direct visualization. The fascia of the larger port sites were closed using a #0 PDS suture followed by closure of the skin using a skin gunjan. The patient tolerated the procedure well and was taken to the recovery room in stable condition. No immediate postoperative complications were noted. Peña Crum Apr 27, 2017 12:55
[2017-04-27] MEDS: Heparin 5000 units/ml inj SUBQ SCH ×2 (13:51→21:51)
--- NOTE | 2017-04-27 14:44 | Diagnostic Imaging Report ---
APPROVED REPORT CPT Code: 47713 Present Symptoms Comments: Swelling and pain LEFT LEG: Venous imaging reveals acute thrombus in the popliteal and calf veins (posterior tibial). Imaging also reveals patency of the common femoral, superficial femoral and calf vein (anterior tibial). Greater saphenous vein also within normal limits. was notified of abnormal results at 0933
--- NOTE | 2017-04-27 15:30 | Pulmonology Progress Note ---
Assessment/Plan Problems: (1) Colon tumor (2) DVT (deep venous thrombosis) (3) Lower GI bleed (4) Anemia (5) Pulmonary embolism (6) S/P IVC filter (7) Back pain Assessment/Plan for surgery in am anemia w/u in progress IVC filter ordered check h/h prbc prn symptomatic treatment Subjective ROS Limited/Unobtainable: No Interval Events: late note for 03/26, no new complains Allergies: Coded Allergies: No Known Allergies (Unverified , 09/15/12) Objective Last 24 Hour Vital Signs Date Time Temp Pulse Resp B/P Pulse Ox O2 Delivery O2 Flow Rate FiO2 04/27/17 13:12 98.8 04/27/17 12:45 98.8 108 20 117/65 98 Nasal Cannula 3.0 04/27/17 12:30 101 18 112/75 98 Nasal Cannula 3.0 04/27/17 12:15 102 17 119/70 97 Nasal Cannula 3.0 04/27/17 12:05 103 17 124/72 100 Nasal Cannula 3.0 04/27/17 11:55 99 19 131/78 100 Simple Mask 6.0 04/27/17 11:50 101 17 142/74 100 Simple Mask 6.0 04/27/17 11:49 114 16 100 04/27/17 11:46 99.0 111 14 156/77 100 Simple Mask 6.0 04/27/17 07:49 89 19 100 04/27/17 07:46 94 18 100 04/27/17 04:00 97.8 90 18 124/70 100 Room Air 04/27/17 00:00 98.1 92 18 126/72 99 Room Air 04/26/17 20:00 97.8 107 18 127/71 96 Room Air 3.0 04/26/17 16:25 108 16 132/76 99 Room Air 04/26/17 16:20 109 18 138/75 100 Room Air 04/26/17 16:15 119 16 146/70 100 Room Air 04/26/17 16:10 110 26 139/81 98 Room Air 04/26/17 15:41 109 14 Intake and Output 04/26/17 04/27/17 19:00 07:00 Intake Total 900 ml Output Total 500 ml Balance 400 ml Intake Oral 500 ml IV Total 400 ml Output Urine Total 500 ml # Voids 2 # Bowel Movements 2 General Appearance: WD/WN HEENT: normocephalic, atraumatic Respiratory/Chest: chest wall non-tender, lungs clear Cardiovascular: normal peripheral pulses, normal rate Abdomen: normal bowel sounds, soft, non tender Genitourinary: normal external genitalia Extremities: no cyanosis Skin: no rash 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 Lymphatic: no neck adenopathy, no groin adenopathy Laboratory Tests 04/27/17 04:50: White Blood Count 6.9, Red Blood Count 4.34L, Hemoglobin 8.4L, Hematocrit 29.2L , Mean Corpuscular Volume 67L, Mean Corpuscular Hemoglobin 19.4L, Mean Corpuscular Hemoglobin Concent 28.8L, Red Cell Distribution Width 17.7H, Platelet Count 348, Mean Platelet Volume 5.9L, Neutrophils (%) (Auto) 68.4, Lymphocytes (%) (Auto) 18.2L, Monocytes (%) (Auto) 10.9H, Eosinophils (%) (Auto ) 2.0, Basophils (%) (Auto) 0.4, Sodium Level 138, Potassium Level 3.7, Chloride Level 98, Carbon Dioxide Level 25, Anion Gap 15, Blood Urea Nitrogen 6L , Creatinine 0.8, Estimat Glomerular Filtration Rate > 60, Glucose Level 117H, Calcium Level 9.2, Carcinoembryonic Antigen 17.5H Current Medications Medications (Trade) Dose Ordered Sig/Marybeth Route PRN Reason Start Time Stop Time Status Last Admin Dose Admin Acetaminophen (Tylenol) 650 mg Q4H PRN ORAL fever 04/26/17 22:30 05/26/17 22:29 Cefazolin Sodium 2 gm/Dextrose 110 ml @ 220 mls/hr Q8HR IVPB 04/27/17 06:00 05/04/17 05:59 04/27/17 13:55 Enalapril Maleate (Vasotec) 10 mg DAILY ORAL 04/27/17 09:00 05/27/17 08:59 Heparin Sodium (Porcine) (Heparin 5000 units/ml) 5,000 units EVERY 8 HOURS SUBQ 04/27/17 14:00 05/27/17 13:59 Lactated Ringer's 1,000 ml @ 100 mls/hr Q10H IV 04/27/17 06:00 05/27/17 05:59 04/27/17 04:53 Lorazepam (Ativan 2mg/ml 1ml) 0.5 mg Q4H PRN IV For Anxiety 04/26/17 22:30 05/03/17 22:29 Methocarbamol (Robaxin) 750 mg TID ORAL 04/27/17 09:00 05/27/17 08:59 Metoclopramide HCl (Reglan) 10 mg Q6H PRN IVP Nausea & Vomiting 04/27/17 12:45 05/27/17 12:44 Metronidazole (Flagyl) 100 ml @ 100 mls/hr Q6HR IVPB 04/27/17 06:00 05/04/17 05:59 04/27/17 06:11 Morphine Sulfate (Morphine Sulfate) 1 mg Q4H PRN IVP pain scale 1-3 04/27/17 12:45 05/04/17 12:44 Morphine Sulfate (Morphine Sulfate) 2 mg Q4H PRN IVP pain scale 4-6 04/27/17 12:45 05/04/17 12:44 Morphine Sulfate (Morphine Sulfate) 4 mg Q4H PRN IVP pain score 7-10 04/27/17 12:45 05/04/17 12:44 Ondansetron HCl (Zofran) 4 mg Q6H PRN IVP Nausea & Vomiting 04/27/17 04:15 05/27/17 04:14 Pantoprazole (Protonix) 40 mg DAILY ORAL 04/27/17 09:00 05/27/17 08:59 DAVID ADAM Apr 27, 2017 15:30
--- NOTE | 2017-04-27 15:31 | Pulmonology Progress Note ---
Assessment/Plan Problems: (1) Colon tumor (2) DVT (deep venous thrombosis) (3) Lower GI bleed (4) Anemia (5) Pulmonary embolism (6) S/P IVC filter (7) Back pain Assessment/Plan tolerated surgery anemia w/u in progress IVC filter ordered check h/h prbc prn symptomatic treatment iv fluids check labs in am Subjective ROS Limited/Unobtainable: No Constitutional: Reports: no symptoms HEENT: Repors: no symptoms Respiratory: Reports: no symptoms Allergies: Coded Allergies: No Known Allergies (Unverified , 09/15/12) Objective Last 24 Hour Vital Signs Date Time Temp Pulse Resp B/P Pulse Ox O2 Delivery O2 Flow Rate FiO2 04/27/17 13:12 98.8 04/27/17 12:45 98.8 108 20 117/65 98 Nasal Cannula 3.0 04/27/17 12:30 101 18 112/75 98 Nasal Cannula 3.0 04/27/17 12:15 102 17 119/70 97 Nasal Cannula 3.0 04/27/17 12:05 103 17 124/72 100 Nasal Cannula 3.0 04/27/17 11:55 99 19 131/78 100 Simple Mask 6.0 04/27/17 11:50 101 17 142/74 100 Simple Mask 6.0 04/27/17 11:49 114 16 100 04/27/17 11:46 99.0 111 14 156/77 100 Simple Mask 6.0 04/27/17 07:49 89 19 100 04/27/17 07:46 94 18 100 04/27/17 04:00 97.8 90 18 124/70 100 Room Air 04/27/17 00:00 98.1 92 18 126/72 99 Room Air 04/26/17 20:00 97.8 107 18 127/71 96 Room Air 3.0 04/26/17 16:25 108 16 132/76 99 Room Air 04/26/17 16:20 109 18 138/75 100 Room Air 04/26/17 16:15 119 16 146/70 100 Room Air 04/26/17 16:10 110 26 139/81 98 Room Air 04/26/17 15:41 109 14 Intake and Output 04/26/17 04/27/17 19:00 07:00 Intake Total 900 ml Output Total 500 ml Balance 400 ml Intake Oral 500 ml IV Total 400 ml Output Urine Total 500 ml # Voids 2 # Bowel Movements 2 Objective General Appearance: WD/WN HEENT: normocephalic, atraumatic Respiratory/Chest: chest wall non-tender, lungs clear Breasts: no masses Cardiovascular: normal peripheral pulses, normal rate Abdomen: normal bowel sounds, soft, non tender Genitourinary: normal external genitalia Extremities: no cyanosis, no clubbing Skin: no ulcers 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 normal, no motor/sensory deficits Lymphatic: no neck adenopathy, no groin adenopathy Laboratory Tests 04/27/17 04:50: White Blood Count 6.9, Red Blood Count 4.34L, Hemoglobin 8.4L, Hematocrit 29.2L , Mean Corpuscular Volume 67L, Mean Corpuscular Hemoglobin 19.4L, Mean Corpuscular Hemoglobin Concent 28.8L, Red Cell Distribution Width 17.7H, Platelet Count 348, Mean Platelet Volume 5.9L, Neutrophils (%) (Auto) 68.4, Lymphocytes (%) (Auto) 18.2L, Monocytes (%) (Auto) 10.9H, Eosinophils (%) (Auto ) 2.0, Basophils (%) (Auto) 0.4, Sodium Level 138, Potassium Level 3.7, Chloride Level 98, Carbon Dioxide Level 25, Anion Gap 15, Blood Urea Nitrogen 6L , Creatinine 0.8, Estimat Glomerular Filtration Rate > 60, Glucose Level 117H, Calcium Level 9.2, Carcinoembryonic Antigen 17.5H Current Medications Medications (Trade) Dose Ordered Sig/Marybeth Route PRN Reason Start Time Stop Time Status Last Admin Dose Admin Acetaminophen (Tylenol) 650 mg Q4H PRN ORAL fever 04/26/17 22:30 05/26/17 22:29 Cefazolin Sodium 2 gm/Dextrose 110 ml @ 220 mls/hr Q8HR IVPB 04/27/17 06:00 05/04/17 05:59 04/27/17 13:55 Enalapril Maleate (Vasotec) 10 mg DAILY ORAL 04/27/17 09:00 05/27/17 08:59 Heparin Sodium (Porcine) (Heparin 5000 units/ml) 5,000 units EVERY 8 HOURS SUBQ 04/27/17 14:00 05/27/17 13:59 Lactated Ringer's 1,000 ml @ 100 mls/hr Q10H IV 04/27/17 06:00 05/27/17 05:59 04/27/17 04:53 Lorazepam (Ativan 2mg/ml 1ml) 0.5 mg Q4H PRN IV For Anxiety 04/26/17 22:30 05/03/17 22:29 Methocarbamol (Robaxin) 750 mg TID ORAL 04/27/17 09:00 05/27/17 08:59 Metoclopramide HCl (Reglan) 10 mg Q6H PRN IVP Nausea & Vomiting 04/27/17 12:45 05/27/17 12:44 Metronidazole (Flagyl) 100 ml @ 100 mls/hr Q6HR IVPB 04/27/17 06:00 05/04/17 05:59 04/27/17 06:11 Morphine Sulfate (Morphine Sulfate) 1 mg Q4H PRN IVP pain scale 1-3 04/27/17 12:45 05/04/17 12:44 Morphine Sulfate (Morphine Sulfate) 2 mg Q4H PRN IVP pain scale 4-6 04/27/17 12:45 05/04/17 12:44 Morphine Sulfate (Morphine Sulfate) 4 mg Q4H PRN IVP pain score 7-10 04/27/17 12:45 05/04/17 12:44 Ondansetron HCl (Zofran) 4 mg Q6H PRN IVP Nausea & Vomiting 04/27/17 04:15 05/27/17 04:14 Pantoprazole (Protonix) 40 mg DAILY ORAL 04/27/17 09:00 05/27/17 08:59 DAVID ADAM Apr 27, 2017 15:31
[2017-04-27] MEDS ORDERED: Tubing IV Blood Pump IV ONE (15:32)
[2017-04-27] MEDS ORDERED: Tubing IV Secondary IV ONE (15:32)
--- NOTE | 2017-04-27 16:17 | GI Progress Note ---
"Assessment/Plan Problems: (1) Colon tumor ICD Codes: D49.0 - Neoplasm of unspecified behavior of digestive system SNOMED: 514284557 (2) S/P IVC filter ICD Codes: Z95.828 - Presence of other vascular implants and grafts SNOMED: 567854959, 099986615 (3) Blood in stool ICD Codes: K92.1 - Melena SNOMED: 687663425 (4) Lower GI bleed ICD Codes: K92.2 - Gastrointestinal hemorrhage, unspecified SNOMED: 08710208 (5) Anemia ICD Codes: D64.9 - Anemia, unspecified SNOMED: 913829985 (6) Gastritis ICD Codes: K29.70 - Gastritis, unspecified, without bleeding SNOMED: 1774230 Status: unchanged Status Narrative Discussed with Dr. Barksdale. Assessment/Plan s/p EGD and colonoscopic | SUMMARY OF FINDINGS: 1. Small hiatal hernia. 2. Gastritis, status post biopsy. 3. Large colonic mass now s/p laparoscopic right hemicolectomy 4. One polyp removed. See above for detail. 5. Diverticulosis. 6. Internal hemorrhoids. elevated CEA >> 17.[address] >> No evidence of hepatic or pulmonary metastases, see full report. RECOMMENDATIONS: fu surgical recs monitor H&H, transfuse prn. ppi Follow up biopsy results. fu labs Subjective Gastrointestinal/Abdominal: Reports: abdominal pain Objective Last 24 Hour Vital Signs Date Time Temp Pulse Resp B/P Pulse Ox O2 Delivery O2 Flow Rate FiO2 04/27/17 15:55 97.7 106 19 126/81 98 Nasal Cannula 3.0 04/27/17 13:12 98.8 04/27/17 12:45 98.8 108 20 117/65 98 Nasal Cannula 3.0 04/27/17 12:30 101 18 112/75 98 Nasal Cannula 3.0 04/27/17 12:15 102 17 119/70 97 Nasal Cannula 3.0 04/27/17 12:05 103 17 124/72 100 Nasal Cannula 3.0 04/27/17 11:55 99 19 131/78 100 Simple Mask 6.0 04/27/17 11:50 101 17 142/74 100 Simple Mask 6.0 04/27/17 11:49 114 16 100 04/27/17 11:46 99.0 111 14 156/77 100 Simple Mask 6.0 04/27/17 07:49 89 19 100 04/27/17 07:46 94 18 100 04/27/17 04:00 97.8 90 18 124/70 100 Room Air 04/27/17 00:00 98.1 92 18 126/72 99 Room Air 04/26/17 20:00 97.8 107 18 127/71 96 Room Air 3.0 04/26/17 16:25 108 16 132/76 99 Room Air 04/26/17 16:20 109 18 138/75 100 Room Air Intake and Output 04/26/17 04/27/17 19:00 07:00 Intake Total 900 ml Output Total 500 ml Balance 400 ml Intake Oral 500 ml IV Total 400 ml Output Urine Total 500 ml # Voids 2 # Bowel Movements 2 Laboratory Tests Test 04/27/17 04:50 White Blood Count 6.9 K/UL (4.8-10.8) Red Blood Count 4.34 M/UL (4.70-6.10) L Hemoglobin 8.4 G/DL (14.2-18.0) L Hematocrit 29.2 % (42.0-52.0) L Mean Corpuscular Volume 67 FL (80-99) L Mean Corpuscular Hemoglobin 19.4 PG (27.0-31.0) L Mean Corpuscular Hemoglobin Concent 28.8 G/DL (32.0-36.0) L Red Cell Distribution Width 17.7 % (11.6-14.8) H Platelet Count 348 K/UL (150-450) Mean Platelet Volume 5.9 FL (6.5-10.1) L Neutrophils (%) (Auto) 68.4 % (45.0-75.0) Lymphocytes (%) (Auto) 18.2 % (20.0-45.0) L Monocytes (%) (Auto) 10.9 % (1.0-10.0) H Eosinophils (%) (Auto) 2.0 % (0.0-3.0) Basophils (%) (Auto) 0.4 % (0.0-2.0) Sodium Level 138 mEQ/L (135-145) Potassium Level 3.7 mEQ/L (3.4-4.9) Chloride Level 98 mEQ/L (98-107) Carbon Dioxide Level 25 mEQ/L (20-30) Anion Gap 15 (5-15) Blood Urea Nitrogen 6 mg/dL (7-23) L Creatinine 0.8 mg/dL (0.7-1.2) Estimat Glomerular Filtration Rate > 60 mL/min (>60) Glucose Level 117 mg/dL (74-106) H Calcium Level 9.2 mg/dL (8.6-10.2) Carcinoembryonic Antigen 17.5 ng/mL H Height (Feet): 6 Height (Inches): 3.00 Weight (Pounds): 257 General Appearance: no apparent distress, alert Cardiovascular: normal rate Respiratory/Chest: other - 2LNC Abdominal Exam: incision site Dorothy Bajwa N.P. Apr 27, 2017 16:17"
[2017-04-28] VITALS: BP 132/68
[2017-04-28 04:00] VITALS: BP 132/73
[2017-04-28] MEDS: ceFAZolin sod 2 GM in D5W 110 ML IVPB SCH ×3 (05:00→21:45)
[2017-04-28] MEDS: metroNIDAZOLE 500mg 100 ML IVPB SCH ×4 (05:41→22:57)
[2017-04-28] MEDS: Heparin 5000 units/ml inj SUBQ SCH ×3 (05:43→21:50)
[2017-04-28 07:39] LABS: BASOPHILS % (AUTO) 0.7 % (0.0-2.0); EOSINOPHILS % (AUTO) 0.4 % (0.0-3.0); MEAN CORPUSCULAR HEMOGLOBIN 19.4 PG (27.0-31.0); MEAN CORPUSCULAR HGB CONC 28.6 G/DL (32.0-36.0); MEAN CORPUSCULAR VOLUME 68 FL (80-99); MEAN PLATELET VOLUME 5.7 FL (6.5-10.1); MONOCYTES % (AUTO) 6.7 % (1.0-10.0); NEUTROPHILS % (AUTO) 82.2 % (45.0-75.0); PLATELET COUNT 337 K/UL (150-450); RED BLOOD COUNT 4.15 M/UL (4.70-6.10); WHITE BLOOD COUNT 9.1 K/UL (4.8-10.8)
[2017-04-28 07:57] VITALS: BP 120/64
[2017-04-28] MEDS: Methocarbamol 750mg tab ORAL SCH ×3 (08:06→17:24)
[2017-04-28] MEDS: Morphine Sulfate 2mg/ml Inj IVP PRN ×2 (08:06→17:23)
[2017-04-28 08:09] LABS: ANION GAP 14 (5-15); CARBON DIOXIDE 28 mEQ/L (20-30); CHLORIDE 96 mEQ/L (98-107); CREATININE 0.8 mg/dL (0.7-1.2); GLOMERULAR FILTRATION RATE > 60 mL/min (>60); HEMOLYSIS 2; POTASSIUM 3.9 mEQ/L (3.4-4.9); SODIUM 138 mEQ/L (135-145)
--- NOTE | 2017-04-28 08:57 | 48 Hour Post Anesthesia Eval ---
Post Anesthesia Evaluation Procedure: Laparoscopic R Coletomy Date of Evaluation: Apr 28, 2017 Time of Evaluation: 07:01 Blood Pressure Systolic: 120 0: 64 Pulse Rate: 111 Respiratory Rate: 20 Temperature (Fahrenheit): 98 O2 Sat by Pulse Oximetry: 98 Airway: patent Nausea: No Vomiting: No Pain Intensity: 2 Hydration Status: adequate Cardiopulmonary Status: Stable Mental Status/LOC: patient returned to baseline Follow-up Care/Observations: 0 Post-Anesthesia Complications: 0 Follow-up care needed: N/A Sanket Todd MD Apr 28, 2017 08:57
--- NOTE | 2017-04-28 09:05 | Diagnostic Imaging Report ---
APPROVED REPORT CPT Code: 34129 Present Symptoms Lower Extremity Pain: Right DVT of Lower Extremity: Left RIGHT LEG: Venous imaging reveals a patent deep venous system. There is no evidence of thrombus within the femoral, popliteal or tibial segments. The greater saphenous vein is also within normal limits. Doppler indicates normal spontaneous flow within these segments.
--- NOTE | 2017-04-28 09:19 | General Progress Note ---
Progress Note Progress Note Surgery: patient seen and examined at bedside. no acute events. doing very well today. pain minimal. no n/v/f/c. passing flatus. Abdomen soft, non distended, incisional tenderness, wounds c/d/i. Afebrile, HD stable, labs okay. POD #1 s/p laparoscopic right hemicolectomy. recovering -Start clear liquids; can advance to full liquids but not regular diet yet -decrease IV fluids to 75cc/hr -d/c min -ambulate and out of bed -incentive spirometry. Peña Crum Apr 28, 2017 09:19
[2017-04-28] MEDS: LR 1000ml 1,000 ML IV SCH ×2 (11:00→22:56)
[2017-04-28 11:32] VITALS: BP 125/62
--- NOTE | 2017-04-28 11:56 | GI Progress Note ---
"Assessment/Plan Problems: (1) Colon tumor ICD Codes: D49.0 - Neoplasm of unspecified behavior of digestive system SNOMED: 841735090 (2) S/P IVC filter ICD Codes: Z95.828 - Presence of other vascular implants and grafts SNOMED: 945895171, 987053499 (3) Blood in stool ICD Codes: K92.1 - Melena SNOMED: 205340742 (4) Lower GI bleed ICD Codes: K92.2 - Gastrointestinal hemorrhage, unspecified SNOMED: 49966290 (5) Anemia ICD Codes: D64.9 - Anemia, unspecified SNOMED: 192947366 (6) Gastritis ICD Codes: K29.70 - Gastritis, unspecified, without bleeding SNOMED: 8802108 Status: stable Status Narrative Discussed with Dr. Barksdale. Assessment/Plan s/p EGD and colonoscopic | SUMMARY OF FINDINGS: 1. Small hiatal hernia. 2. Gastritis, status post biopsy. 3. Large colonic mass now s/p laparoscopic right hemicolectomy 4. One polyp removed. See above for detail. 5. Diverticulosis. 6. Internal hemorrhoids. elevated CEA >> 17.[address] >> No evidence of hepatic or pulmonary metastases, see full report. RECOMMENDATIONS: fu surgical recs monitor H&H, transfuse prn. ppi Follow up biopsy results. fu labs Subjective Subjective hunger Objective Last 24 Hour Vital Signs Date Time Temp Pulse Resp B/P Pulse Ox O2 Delivery O2 Flow Rate FiO2 04/28/17 11:32 98.4 106 20 125/62 98 Nasal Cannula 3.0 04/28/17 08:57 111 20 98 04/28/17 08:43 98.0 04/28/17 08:07 120/64 04/28/17 07:57 98.0 111 20 120/64 98 Nasal Cannula 3.0 04/28/17 04:00 99.1 110 18 132/73 98 Nasal Cannula 3.0 04/28/17 00:00 99.5 115 16 132/68 98 Nasal Cannula 3.0 04/27/17 20:00 98.1 117 16 135/70 97 Nasal Cannula 3.0 04/27/17 17:53 97.7 04/27/17 15:55 97.7 106 19 126/81 98 Nasal Cannula 3.0 6/27/17 13:12 98.8 04/27/17 12:45 98.8 108 20 117/65 98 Nasal Cannula 3.0 04/27/17 12:30 101 18 112/75 98 Nasal Cannula 3.0 04/27/17 12:15 102 17 119/70 97 Nasal Cannula 3.0 04/27/17 12:05 103 17 124/72 100 Nasal Cannula 3.0 Intake and Output 04/27/17 04/28/17 19:00 07:00 Intake Total 1650 ml 900 ml Output Total 200 ml 1200 ml Balance 1450 ml -300 ml IV Total 1650 ml 900 ml Output Urine Total 100 ml 1200 ml Estimated Blood Loss 100 ml Laboratory Tests Test 04/28/17 05:35 White Blood Count 9.1 K/UL (4.8-10.8) Red Blood Count 4.15 M/UL (4.70-6.10) L Hemoglobin 8.0 G/DL (14.2-18.0) L Hematocrit 28.1 % (42.0-52.0) L Mean Corpuscular Volume 68 FL (80-99) L Mean Corpuscular Hemoglobin 19.4 PG (27.0-31.0) L Mean Corpuscular Hemoglobin Concent 28.6 G/DL (32.0-36.0) L Red Cell Distribution Width 18.0 % (11.6-14.8) H Platelet Count 337 K/UL (150-450) Mean Platelet Volume 5.7 FL (6.5-10.1) L Neutrophils (%) (Auto) 82.2 % (45.0-75.0) H Lymphocytes (%) (Auto) 10.0 % (20.0-45.0) L Monocytes (%) (Auto) 6.7 % (1.0-10.0) Eosinophils (%) (Auto) 0.4 % (0.0-3.0) Basophils (%) (Auto) 0.7 % (0.0-2.0) Sodium Level 138 mEQ/L (135-145) Potassium Level 3.9 mEQ/L (3.4-4.9) Chloride Level 96 mEQ/L (98-107) L Carbon Dioxide Level 28 mEQ/L (20-30) Anion Gap 14 (5-15) Blood Urea Nitrogen 8 mg/dL (7-23) Creatinine 0.8 mg/dL (0.7-1.2) Estimat Glomerular Filtration Rate > 60 mL/min (>60) Glucose Level 111 mg/dL (74-106) H Calcium Level 9.0 mg/dL (8.6-10.2) Height (Feet): 6 Height (Inches): 3.00 Weight (Pounds): 257 General Appearance: no apparent distress, alert Cardiovascular: normal rate Respiratory/Chest: normal breath sounds, no respiratory distress Abdominal Exam: normal bowel sounds, non tender, soft, incision site Dorothy Bajwa N.P. Apr 28, 2017 11:56"
[2017-04-28 16:01] VITALS: BP 122/60
[2017-04-28 20:00] VITALS: BP 125/71
[2017-04-29] VITALS: BP 118/66
[2017-04-29 04:00] VITALS: BP 139/76
[2017-04-29] MEDS: metroNIDAZOLE 500mg 100 ML IVPB SCH ×3 (04:52→18:50)
[2017-04-29] MEDS: Heparin 5000 units/ml inj SUBQ SCH ×3 (04:56→23:09)
[2017-04-29] MEDS: ceFAZolin sod 2 GM in D5W 110 ML IVPB SCH ×3 (05:54→23:03)
[2017-04-29 06:11] LABS: MEAN CORPUSCULAR HEMOGLOBIN 19.5 PG (27.0-31.0); MEAN CORPUSCULAR HGB CONC 28.9 G/DL (32.0-36.0); MEAN CORPUSCULAR VOLUME 68 FL (80-99); MEAN PLATELET VOLUME 5.6 FL (6.5-10.1); PLATELET COUNT 374 K/UL (150-450); RED BLOOD COUNT 4.09 M/UL (4.70-6.10); RED CELL DISTRIBUTION WIDTH 17.6 % (11.6-14.8); WHITE BLOOD COUNT 10.5 K/UL (4.8-10.8)
[2017-04-29 06:31] LABS: ANION GAP 10 (5-15); CALCIUM 8.8 mg/dL (8.6-10.2); CARBON DIOXIDE 30 mEQ/L (20-30); CHLORIDE 93 mEQ/L (98-107); CREATININE 0.7 mg/dL (0.7-1.2); GLOMERULAR FILTRATION RATE > 60 mL/min (>60); HEMOLYSIS 0; POTASSIUM 3.9 mEQ/L (3.4-4.9); SODIUM 133 mEQ/L (135-145)
[2017-04-29] MEDS: Methocarbamol 750mg tab ORAL SCH ×3 (08:41→18:00)
[2017-04-29 08:44] VITALS: BP 130/70
--- NOTE | 2017-04-29 11:08 | General Surgery Progress Note ---
General Surgery-Progress Note Subjective Day of Surgery: po day 2 Reason for Consult sp laparoscopic r hemicolectomy Symptoms: improved Additional Comments on clear liquids and tolerating Objective Last 24 Hour Vital Signs Date Time Temp Pulse Resp B/P Pulse Ox O2 Delivery O2 Flow Rate FiO2 04/29/17 08:44 99.7 106 19 130/70 Room Air 04/29/17 08:41 130/70 04/29/17 04:00 97.5 114 18 139/76 95 Nasal Cannula 3.0 04/29/17 00:00 99.3 113 20 118/66 97 Nasal Cannula 3.0 04/28/17 22:00 98.1 04/28/17 20:00 100.6 115 20 125/71 99 Nasal Cannula 3.0 04/28/17 19:48 100.2 04/28/17 17:53 100.4 04/28/17 16:01 100.4 99 20 122/60 98 Room Air 04/28/17 11:32 98.4 106 20 125/62 98 Nasal Cannula 3.0 I&O Intake and Output 04/28/17 04/29/17 19:00 07:00 Intake Total 1755 ml 635 ml Output Total 600 ml 950 ml Balance 1155 ml -315 ml Intake Oral 720 ml IV Total 1035 ml 635 ml Output Urine Total 600 ml 950 ml Dressing: dry Wound: clean Drains: none Respiratory: clear Abdomen: soft, non-tender, present bowel sounds Laboratory Tests Test 04/29/17 05:35 White Blood Count 10.5 K/UL (4.8-10.8) Red Blood Count 4.09 M/UL (4.70-6.10) L Hemoglobin 8.0 G/DL (14.2-18.0) L Hematocrit 27.6 % (42.0-52.0) L Mean Corpuscular Volume 68 FL (80-99) L Mean Corpuscular Hemoglobin 19.5 PG (27.0-31.0) L Mean Corpuscular Hemoglobin Concent 28.9 G/DL (32.0-36.0) L Red Cell Distribution Width 17.6 % (11.6-14.8) H Platelet Count 374 K/UL (150-450) Mean Platelet Volume 5.6 FL (6.5-10.1) L Neutrophils (%) (Auto) % (45.0-75.0) Lymphocytes (%) (Auto) % (20.0-45.0) Monocytes (%) (Auto) % (1.0-10.0) Eosinophils (%) (Auto) % (0.0-3.0) Basophils (%) (Auto) % (0.0-2.0) Sodium Level 133 mEQ/L (135-145) L Potassium Level 3.9 mEQ/L (3.4-4.9) Chloride Level 93 mEQ/L (98-107) L Carbon Dioxide Level 30 mEQ/L (20-30) Anion Gap 10 (5-15) Blood Urea Nitrogen 7 mg/dL (7-23) Creatinine 0.7 mg/dL (0.7-1.2) Estimat Glomerular Filtration Rate > 60 mL/min (>60) Glucose Level 108 mg/dL (74-106) H Calcium Level 8.8 mg/dL (8.6-10.2) Additional Comments stable post op course will advance diet. pathology still pending CHRIS BREAUX Apr 29, 2017 11:08
[2017-04-29 12:00] VITALS: BP 113/65
--- NOTE | 2017-04-29 14:17 | GI Progress Note ---
"Assessment/Plan Problems: (1) Colon tumor ICD Codes: D49.0 - Neoplasm of unspecified behavior of digestive system SNOMED: 389826610 (2) S/P IVC filter ICD Codes: Z95.828 - Presence of other vascular implants and grafts SNOMED: 481695141, 755013902 (3) Blood in stool ICD Codes: K92.1 - Melena SNOMED: 151992965 (4) Lower GI bleed ICD Codes: K92.2 - Gastrointestinal hemorrhage, unspecified SNOMED: 15426705 (5) Anemia ICD Codes: D64.9 - Anemia, unspecified SNOMED: 109847427 (6) Gastritis ICD Codes: K29.70 - Gastritis, unspecified, without bleeding SNOMED: 4675931 Status: stable, progressing Status Narrative Discussed with Dr. Barksdale. Assessment/Plan s/p EGD and colonoscopic | SUMMARY OF FINDINGS: 1. Small hiatal hernia. 2. Gastritis, status post biopsy. 3. Large colonic mass now s/p laparoscopic right hemicolectomy 4. One polyp removed. See above for detail. 5. Diverticulosis. 6. Internal hemorrhoids. elevated CEA >> 17.[address] >> No evidence of hepatic or pulmonary metastases, see full report. RECOMMENDATIONS: fu surgical recs >> regular diet monitor H&H, transfuse prn. ppi Follow up biopsy results >> H. Pylori POSITIVE, will require PCP referral for treatment fu labs Subjective Gastrointestinal/Abdominal: Reports: no symptoms Subjective hunger Objective Last 24 Hour Vital Signs Date Time Temp Pulse Resp B/P Pulse Ox O2 Delivery O2 Flow Rate FiO2 04/29/17 08:44 99.7 106 19 130/70 Room Air 04/29/17 08:41 130/70 04/29/17 04:00 97.5 114 18 139/76 95 Nasal Cannula 3.0 04/29/17 00:00 99.3 113 20 118/66 97 Nasal Cannula 3.0 04/28/17 22:00 98.1 04/28/17 20:00 100.6 115 20 125/71 99 Nasal Cannula 3.0 04/28/17 19:48 100.2 04/28/17 17:53 100.4 04/28/17 16:01 100.4 99 20 122/60 98 Room Air Intake and Output 04/28/17 04/29/17 19:00 07:00 Intake Total 1755 ml 635 ml Output Total 600 ml 950 ml Balance 1155 ml -315 ml Intake Oral 720 ml IV Total 1035 ml 635 ml Output Urine Total 600 ml 950 ml Laboratory Tests Test 04/29/17 05:35 White Blood Count 10.5 K/UL (4.8-10.8) Red Blood Count 4.09 M/UL (4.70-6.10) L Hemoglobin 8.0 G/DL (14.2-18.0) L Hematocrit 27.6 % (42.0-52.0) L Mean Corpuscular Volume 68 FL (80-99) L Mean Corpuscular Hemoglobin 19.5 PG (27.0-31.0) L Mean Corpuscular Hemoglobin Concent 28.9 G/DL (32.0-36.0) L Red Cell Distribution Width 17.6 % (11.6-14.8) H Platelet Count 374 K/UL (150-450) Mean Platelet Volume 5.6 FL (6.5-10.1) L Neutrophils (%) (Auto) % (45.0-75.0) Lymphocytes (%) (Auto) % (20.0-45.0) Monocytes (%) (Auto) % (1.0-10.0) Eosinophils (%) (Auto) % (0.0-3.0) Basophils (%) (Auto) % (0.0-2.0) Sodium Level 133 mEQ/L (135-145) L Potassium Level 3.9 mEQ/L (3.4-4.9) Chloride Level 93 mEQ/L (98-107) L Carbon Dioxide Level 30 mEQ/L (20-30) Anion Gap 10 (5-15) Blood Urea Nitrogen 7 mg/dL (7-23) Creatinine 0.7 mg/dL (0.7-1.2) Estimat Glomerular Filtration Rate > 60 mL/min (>60) Glucose Level 108 mg/dL (74-106) H Calcium Level 8.8 mg/dL (8.6-10.2) Height (Feet): 6 Height (Inches): 3.00 Weight (Pounds): 257 General Appearance: no apparent distress, alert Cardiovascular: normal rate Respiratory/Chest: normal breath sounds, no respiratory distress Abdominal Exam: normal bowel sounds, non tender, soft, incision site Dorothy Bajwa N.P. Apr 29, 2017 14:17"
[2017-04-29 15:57] VITALS: BP 150/78
--- NOTE | 2017-04-29 19:26 | Pulmonology Progress Note ---
Assessment/Plan Problems: (1) Colon tumor (2) DVT (deep venous thrombosis) (3) Lower GI bleed (4) Anemia (5) Pulmonary embolism (6) S/P IVC filter (7) Back pain Assessment/Plan doing better anemia w/u in progress IVC filter done check h/h prbc prn symptomatic treatment iv fluids check labs in am oncology consult for outpatient chemotherapy Subjective ROS Limited/Unobtainable: No Interval Events: eating well Allergies: Coded Allergies: No Known Allergies (Unverified , 09/15/12) Objective Last 24 Hour Vital Signs Date Time Temp Pulse Resp B/P Pulse Ox O2 Delivery O2 Flow Rate FiO2 04/29/17 15:57 97.5 107 18 150/78 92 Nasal Cannula 3.0 04/29/17 12:00 98.8 100 19 113/65 90 Nasal Cannula 3.0 04/29/17 08:44 99.7 106 19 130/70 Room Air 04/29/17 08:41 130/70 04/29/17 04:00 97.5 114 18 139/76 95 Nasal Cannula 3.0 04/29/17 00:00 99.3 113 20 118/66 97 Nasal Cannula 3.0 04/28/17 22:00 98.1 04/28/17 20:00 100.6 115 20 125/71 99 Nasal Cannula 3.0 04/28/17 19:48 100.2 Intake and Output 04/28/17 04/29/17 19:00 07:00 Intake Total 1755 ml 635 ml Output Total 600 ml 950 ml Balance 1155 ml -315 ml Intake Oral 720 ml IV Total 1035 ml 635 ml Output Urine Total 600 ml 950 ml Objective General Appearance: WD/WN HEENT: normocephalic, atraumatic Respiratory/Chest: chest wall non-tender, lungs clear Breasts: no masses Cardiovascular: normal peripheral pulses, normal rate Abdomen: normal bowel sounds, soft, non tender Genitourinary: normal external genitalia Extremities: no cyanosis, no clubbing Skin: no ulcers Neurologic/Psychiatric: communications attendant II-XII grossly normal, no motor/sensory deficits Lymphatic: no neck adenopathy, no groin adenopathy Laboratory Tests 04/29/17 05:35: White Blood Count 10.5, Red Blood Count 4.09L, Hemoglobin 8.0L, Hematocrit 27.6L , Mean Corpuscular Volume 68L, Mean Corpuscular Hemoglobin 19.5L, Mean Corpuscular Hemoglobin Concent 28.9L, Red Cell Distribution Width 17.6H, Platelet Count 374, Mean Platelet Volume 5.6L, Neutrophils (%) (Auto) , Lymphocytes (%) (Auto) , Monocytes (%) (Auto) , Eosinophils (%) (Auto) , Basophils (%) (Auto) , Sodium Level 133L, Potassium Level 3.9, Chloride Level 93L, Carbon Dioxide Level 30, Anion Gap 10, Blood Urea Nitrogen 7, Creatinine 0.7, Estimat Glomerular Filtration Rate > 60, Glucose Level 108H, Calcium Level 8.8 Current Medications Medications (Trade) Dose Ordered Sig/Marybeth Route PRN Reason Start Time Stop Time Status Last Admin Dose Admin Acetaminophen (Tylenol) 650 mg Q4H PRN ORAL fever 04/26/17 22:30 05/26/17 22:29 04/28/17 18:49 Cefazolin Sodium 2 gm/Dextrose 110 ml @ 220 mls/hr Q8HR IVPB 04/27/17 06:00 05/04/17 05:59 04/29/17 13:06 Enalapril Maleate (Vasotec) 10 mg DAILY ORAL 04/27/17 09:00 05/27/17 08:59 04/29/17 08:41 Heparin Sodium (Porcine) (Heparin 5000 units/ml) 5,000 units EVERY 8 HOURS SUBQ 04/27/17 14:00 05/27/17 13:59 04/29/17 13:06 Lorazepam (Ativan 2mg/ml 1ml) 0.5 mg Q4H PRN IV For Anxiety 04/26/17 22:30 05/03/17 22:29 Methocarbamol (Robaxin) 750 mg TID ORAL 04/27/17 09:00 05/27/17 08:59 04/29/17 18:00 Metoclopramide HCl (Reglan) 10 mg Q6H PRN IVP Nausea & Vomiting 04/27/17 12:45 05/27/17 12:44 Metronidazole (Flagyl) 100 ml @ 100 mls/hr Q6HR IVPB 04/27/17 06:00 05/04/17 05:59 04/29/17 18:50 Morphine Sulfate (Morphine Sulfate) 1 mg Q4H PRN IVP pain scale 1-3 04/27/17 12:45 05/04/17 12:44 04/27/17 17:23 Morphine Sulfate (Morphine Sulfate) 2 mg Q4H PRN IVP pain scale 4-6 04/27/17 12:45 05/04/17 12:44 04/28/17 17:23 Morphine Sulfate (Morphine Sulfate) 4 mg Q4H PRN IVP pain score 7-10 04/27/17 12:45 05/04/17 12:44 Ondansetron HCl (Zofran) 4 mg Q6H PRN IVP Nausea & Vomiting 04/27/17 04:15 05/27/17 04:14 Pantoprazole (Protonix) 40 mg ACBREAKFAST ORAL 04/29/17 06:30 05/27/17 08:59 04/29/17 05:54 DAVID ADAM Apr 29, 2017 19:25
[2017-04-29 19:27] VITALS: BP 119/74
[2017-04-29] MEDS: Morphine Sulfate 2mg/ml Inj IVP PRN (23:14)
[2017-04-30] VITALS: BP 130/60
[2017-04-30] MEDS: metroNIDAZOLE 500mg 100 ML IVPB SCH ×5 (00:16→23:53)
[2017-04-30 04:00] VITALS: BP 121/60
[2017-04-30] MEDS: ceFAZolin sod 2 GM in D5W 110 ML IVPB SCH ×3 (06:36→21:54)
[2017-04-30] MEDS: Heparin 5000 units/ml inj SUBQ SCH ×3 (06:42→21:55)
[2017-04-30 07:06] LABS: MEAN CORPUSCULAR HEMOGLOBIN 18.9 PG (27.0-31.0); MEAN CORPUSCULAR HGB CONC 28.3 G/DL (32.0-36.0); MEAN CORPUSCULAR VOLUME 67 FL (80-99); PLATELET COUNT 420 K/UL (150-450); RED BLOOD COUNT 4.18 M/UL (4.70-6.10); RED CELL DISTRIBUTION WIDTH 17.9 % (11.6-14.8); WHITE BLOOD COUNT 9.6 K/UL (4.8-10.8)
--- NOTE | 2017-04-30 07:26 | Pulmonology Progress Note ---
Assessment/Plan Assessment/Plan ASSESSMENT acute DVT L popliteal and calf veins bilateral PE s/p IVC filter placement lower GI bleeding elevated CEA anemia gastritis adenocarcinoma of colon s/p 04/27 lap R hemicolectomy H pylori infection PLAN OF CARE [facility] floor IVF s/p IVC filter for acute DVT no a/coagulation initially due to anemia anemia workup, may need transfusion prior to dc tomorrow stool OB negative elevated CEA s/p EGD and colon 04/26 with findings of gastritis, large colonic mass surgery eval requested stat s/p next day 04/27 lap R hemicolectomy course of recovery unremarkable biopsy of colon mass + adenocarcinoma, stage 3 as per onco notes gastric biopsy + H pylori, mild active chronic gastritis, no dysplasia, no metaplasia patient will require PCP referral for treatment, info given to patient by GI slowly started on diet, tolerates , no n/v/diarrhea pain management prn incision C/D/I BR[place] empiric anx BP management with CARL, stable DVT, GI prophylaxis dc plan for am case discussed and evaluated by supervising physician dc plan for am Subjective Allergies: Coded Allergies: No Known Allergies (Unverified , 09/15/12) Subjective afebrile, tolerates diet no leucocytosis denies abdominal pain Objective Last 24 Hour Vital Signs Date Time Temp Pulse Resp B/P Pulse Ox O2 Delivery O2 Flow Rate FiO2 04/30/17 04:00 97.1 80 19 121/60 99 Nasal Cannula 3.0 04/30/17 00:00 96.9 85 21 130/60 98 Room Air 3.0 04/29/17 23:44 98.3 04/29/17 19:27 98.3 100 21 119/74 98 Nasal Cannula 04/29/17 15:57 97.5 107 18 150/78 92 Nasal Cannula 3.0 04/29/17 12:00 98.8 100 19 113/65 90 Nasal Cannula 3.0 04/29/17 08:44 99.7 106 19 130/70 Room Air 04/29/17 08:41 130/70 Intake and Output 04/29/17 04/30/17 19:00 07:00 Output Total 1200 ml Balance -1200 ml Output Urine Total 1200 ml # Voids 1 General Appearance: WD/WN, no acute distress HEENT: normocephalic, atraumatic, anicteric, mucous membranes moist Respiratory/Chest: lungs clear, no respiratory distress, no accessory muscle use Cardiovascular: normal peripheral pulses, normal rate, no JVD Abdomen: normal bowel sounds, soft, non tender, non distended Genitourinary: normal external genitalia Extremities: no edema, pedal pulses normal Skin: other - surgical sites with gunjan, clean, no drainage, no erythema Neurologic/Psychiatric: no motor/sensory deficits, alert, oriented x 3, responsive Musculoskeletal: normal muscle bulk Laboratory Tests 04/30/17 05:00: White Blood Count 9.6, Red Blood Count 4.18L, Hemoglobin 7.9L, Hematocrit 27.9L , Mean Corpuscular Volume 67L, Mean Corpuscular Hemoglobin 18.9L, Mean Corpuscular Hemoglobin Concent 28.3L, Red Cell Distribution Width 17.9H, Platelet Count 420, Mean Platelet Volume 6.0L, Neutrophils (%) (Auto) , Lymphocytes (%) (Auto) , Monocytes (%) (Auto) , Eosinophils (%) (Auto) , Basophils (%) (Auto) , Neutrophils % (Manual) [Pending], Lymphocytes % (Manual) [Pending], Platelet Estimate [Pending], Platelet Morphology [Pending], Sodium Level [Pending], Potassium Level [Pending], Chloride Level [Pending], Carbon Dioxide Level [Pending], Blood Urea Nitrogen [Pending], Creatinine [Pending], Estimat Glomerular Filtration Rate [Pending], Glucose Level [Pending], Calcium Level [Pending] Current Medications Medications (Trade) Dose Ordered Sig/Marybeth Route PRN Reason Start Time Stop Time Status Last Admin Dose Admin Acetaminophen (Tylenol) 650 mg Q4H PRN ORAL fever 04/26/17 22:30 05/26/17 22:29 04/28/17 18:49 Cefazolin Sodium 2 gm/Dextrose 110 ml @ 220 mls/hr Q8HR IVPB 04/27/17 06:00 05/04/17 05:59 04/30/17 06:36 Enalapril Maleate (Vasotec) 10 mg DAILY ORAL 04/27/17 09:00 05/27/17 08:59 04/29/17 08:41 Heparin Sodium (Porcine) (Heparin 5000 units/ml) 5,000 units EVERY 8 HOURS SUBQ 04/27/17 14:00 05/27/17 13:59 04/30/17 06:42 Lorazepam (Ativan 2mg/ml 1ml) 0.5 mg Q4H PRN IV For Anxiety 04/26/17 22:30 05/03/17 22:29 Methocarbamol (Robaxin) 750 mg TID ORAL 04/27/17 09:00 05/27/17 08:59 04/29/17 18:00 Metoclopramide HCl (Reglan) 10 mg Q6H PRN IVP Nausea & Vomiting 04/27/17 12:45 05/27/17 12:44 Metronidazole (Flagyl) 100 ml @ 100 mls/hr Q6HR IVPB 04/27/17 06:00 05/04/17 05:59 04/30/17 05:16 Morphine Sulfate (Morphine Sulfate) 1 mg Q4H PRN IVP pain scale 1-3 04/27/17 12:45 05/04/17 12:44 04/27/17 17:23 Morphine Sulfate (Morphine Sulfate) 2 mg Q4H PRN IVP pain scale 4-6 04/27/17 12:45 05/04/17 12:44 04/29/17 23:14 Morphine Sulfate (Morphine Sulfate) 4 mg Q4H PRN IVP pain score 7-10 04/27/17 12:45 05/04/17 12:44 Ondansetron HCl (Zofran) 4 mg Q6H PRN IVP Nausea & Vomiting 04/27/17 04:15 05/27/17 04:14 Pantoprazole (Protonix) 40 mg ACBREAKFAST ORAL 04/29/17 06:30 05/27/17 08:59 04/30/17 06:38 Stella Marmolejo NP (Vanchtein) Apr 30, 2017 07:26
[2017-04-30 07:29] LABS: ANION GAP 12 (5-15); CARBON DIOXIDE 30 mEQ/L (20-30); CHLORIDE 92 mEQ/L (98-107); CREATININE 0.5 mg/dL (0.7-1.2); GLOMERULAR FILTRATION RATE > 60 mL/min (>60); HEMOLYSIS 0; POTASSIUM 4.3 mEQ/L (3.4-4.9); SODIUM 134 mEQ/L (135-145)
[2017-04-30 08:21] VITALS: BP 135/78
[2017-04-30] MEDS: Methocarbamol 750mg tab ORAL SCH ×3 (08:42→17:43)
[2017-04-30 09:56] LABS: ANISOCYTOSIS 1+; BAND NEUTROPHILS % (MANUAL) 0 % (0-8); BASOPHILS % (MANUAL) 0 % (0-2); EOSINOPHILS % (MANUAL) 4 % (0-3); HYPOCHROMASIA 1+; LYMPHOCYTES % (MANUAL) 15 % (20-45); MICROCYTES 2+; NEUTROPHILS % (MANUAL) 76 % (45-75); PLATELET ESTIMATE ADEQUATE; PLATELET MORPHOLOGY NORMAL; TOTAL CELLS COUNTED 100
[2017-04-30 11:51] VITALS: BP 127/76
--- NOTE | 2017-04-30 14:30 | GI Progress Note ---
"Assessment/Plan Problems: (1) Colon tumor ICD Codes: D49.0 - Neoplasm of unspecified behavior of digestive system SNOMED: 255151572 (2) S/P IVC filter ICD Codes: Z95.828 - Presence of other vascular implants and grafts SNOMED: 876958982, 707789016 (3) Blood in stool ICD Codes: K92.1 - Melena SNOMED: 460456359 (4) Lower GI bleed ICD Codes: K92.2 - Gastrointestinal hemorrhage, unspecified SNOMED: 14353312 (5) Anemia ICD Codes: D64.9 - Anemia, unspecified SNOMED: 729123371 (6) Gastritis ICD Codes: K29.70 - Gastritis, unspecified, without bleeding SNOMED: 4964313 Status: stable Status Narrative Discussed with Dr. Barksdale. Assessment/Plan s/p EGD and colonoscopic | SUMMARY OF FINDINGS: 1. Small hiatal hernia. 2. Gastritis, status post biopsy. 3. Large colonic mass now s/p laparoscopic right hemicolectomy 4. One polyp removed. See above for detail. 5. Diverticulosis. 6. Internal hemorrhoids. elevated CEA >> 17.[address] >> No evidence of hepatic or pulmonary metastases, see full report. RECOMMENDATIONS: fu surgical recs >> regular diet monitor H&H, transfuse prn. ppi Follow up biopsy results >> H. Pylori POSITIVE, will require PCP referral for treatment (info given to patient.) fu labs Subjective Subjective doing well ready to go home Objective Last 24 Hour Vital Signs Date Time Temp Pulse Resp B/P Pulse Ox O2 Delivery O2 Flow Rate FiO2 04/30/17 11:51 97.0 97 20 127/76 98 Nasal Cannula 2.0 04/30/17 08:42 135/78 04/30/17 08:21 98.2 100 20 135/78 98 Nasal Cannula 2.0 04/30/17 04:00 97.1 80 19 121/60 99 Nasal Cannula 3.0 04/30/17 00:00 96.9 85 21 130/60 98 Room Air 3.0 04/29/17 23:44 98.3 04/29/17 19:27 98.3 100 21 119/74 98 Nasal Cannula 04/29/17 15:57 97.5 107 18 150/78 92 Nasal Cannula 3.0 Intake and Output 04/29/17 04/30/17 19:00 07:00 Output Total 1200 ml Balance -1200 ml Output Urine Total 1200 ml # Voids 1 Laboratory Tests Test 04/30/17 05:00 White Blood Count 9.6 K/UL (4.8-10.8) Red Blood Count 4.18 M/UL (4.70-6.10) L Hemoglobin 7.9 G/DL (14.2-18.0) L Hematocrit 27.9 % (42.0-52.0) L Mean Corpuscular Volume 67 FL (80-99) L Mean Corpuscular Hemoglobin 18.9 PG (27.0-31.0) L Mean Corpuscular Hemoglobin Concent 28.3 G/DL (32.0-36.0) L Red Cell Distribution Width 17.9 % (11.6-14.8) H Platelet Count 420 K/UL (150-450) Mean Platelet Volume 6.0 FL (6.5-10.1) L Neutrophils (%) (Auto) % (45.0-75.0) Lymphocytes (%) (Auto) % (20.0-45.0) Monocytes (%) (Auto) % (1.0-10.0) Eosinophils (%) (Auto) % (0.0-3.0) Basophils (%) (Auto) % (0.0-2.0) Differential Total Cells Counted 100 Neutrophils % (Manual) 76 % (45-75) H Lymphocytes % (Manual) 15 % (20-45) L Monocytes % (Manual) 5 % (1-10) Eosinophils % (Manual) 4 % (0-3) H Basophils % (Manual) 0 % (0-2) Band Neutrophils 0 % (0-8) Platelet Estimate Adequate Platelet Morphology Normal Hypochromasia 1+ Anisocytosis 1+ Microcytosis 2+ Sodium Level 134 mEQ/L (135-145) L Potassium Level 4.3 mEQ/L (3.4-4.9) Chloride Level 92 mEQ/L (98-107) L Carbon Dioxide Level 30 mEQ/L (20-30) Anion Gap 12 (5-15) Blood Urea Nitrogen 7 mg/dL (7-23) Creatinine 0.5 mg/dL (0.7-1.2) L Estimat Glomerular Filtration Rate > 60 mL/min (>60) Glucose Level 112 mg/dL (74-106) H Calcium Level 9.0 mg/dL (8.6-10.2) Height (Feet): 6 Height (Inches): 3.00 Weight (Pounds): 257 General Appearance: no apparent distress, alert Cardiovascular: normal rate Respiratory/Chest: normal breath sounds, no respiratory distress Abdominal Exam: normal bowel sounds, non tender, soft Extremities: normal range of motion Dorothy Bajwa N.P. Apr 30, 2017 14:30"
--- NOTE | 2017-04-30 14:45 | General Progress Note ---
Progress Note Progress Note Surgery: no acute events. doing very well. comfortable. pain minimal. no n/v/f/c. tolerating oral diet. +flatus. Abdominal exam benign. incisions c/d/i Afebrile, HD stable, labs reviewed. 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 -pathology pending (biopsy from scope with invasive low grade adenoCa) -diet as tolerated -activity as tolerated -okay to d/c from surgical standpoint -follow up with me in 2 weeks. office info given to patient -NEEDS oral anticoagulation for DVT upon d/c Peña Crum Apr 30, 2017 14:45
[2017-04-30 16:09] VITALS: BP 137/71
[2017-04-30 20:00] VITALS: BP 135/80
[2017-05-01] VITALS: BP 127/70
--- NOTE | 2017-05-01 00:02 | Consultation ---
DATE OF CONSULTATION: 04/30/2017 HEMATOLOGY/ONCOLOGY CONSULTATION CONSULTING PHYSICIAN: Karan Farias M.D. REQUESTING PHYSICIAN: Andrés Clement M.D. REASON FOR CONSULTATION: Evaluation of colon cancer and thrombosis. IDENTIFICATION DATA: Dear Dr. Clement, The patient is a pleasant 56-year-old male with a past medical history significant for recently diagnosed colon cancer stage III, history of DVT, anemia, and positive guaiac stool. He had a colonoscopy that showed a right-sided colon tumor. Surgery got to evaluate. He had a procedure performed. Cecal mass was removed. I have discussed this with the pathologist. The patient has T3N1M0 disease and will need chemotherapy adjuvant for six months. PAST MEDICAL HISTORY: Back pain, numbness, muscle strain, anemia, blood in the stool, gastritis, pain, left-sided DVT, and lower GI bleed. PAST SURGICAL HISTORY: Recent exploratory laparotomy. MEDICATIONS: Cipro, Colace, enalapril, metronidazole, naproxen, and ranitidine. ALLERGIES: No known drug allergies. CODE STATUS: Full Code. REVIEW OF SYSTEMS: Constitutional: No fever, chills, or night sweats. Skin: No rashes, lumps, or itching. HEENT: No headache, hearing or vision changes. Breasts: No lumps, pain, or discharge. Pulmonary: No cough, sputum, or shortness of breath. Cardiovascular: No chest pain, tightness, or palpitations. PHYSICAL EXAMINATION: GENERAL: The patient is in no acute distress. VITAL SIGNS: Reviewed. PULMONARY: Decreased breath sounds. CARDIOVASCULAR: Regular rate. No S3 or S4. ABDOMEN: Soft. Surgical site noted. EXTREMITIES: No cyanosis, clubbing, or edema. LABORATORY DATA: CA of 17. WBC 9.6, hemoglobin 7.1, hematocrit 28, and platelet count 420,000. INR 0.8. BUN 7 and creatinine 0.5. IMAGING: CAT scan of the abdomen, pelvis, and chest performed and no evidence of metastasis that is noted. Equivocal mild wall thickening noted and bilateral segmental pulmonary emboli described. reveals acute thrombosis in the popliteal and calf veins on the left leg. ASSESSMENT AND PLAN: 1. Stage III colon cancer. I have discussed with the pathologist, Dr. Manish Barton, stage III colon cancer T3N1M0 status. No evidence of pulmonary or hepatic metastasis. He will need outpatient chemotherapy for FOLFOX x6 months total. We will continue to monitor with surveillance for potential recurrence. 2. Deep venous thrombosis of the left leg calf and popliteal vein. He had a inferior vena cava filter placed. He will need an anticoagulation once hemoglobin improves. 3. Bilateral pulmonary emboli. 4. Anemia, likely secondary to gastrointestinal bleed. 5. Anemia secondary to hemodilution. 6. Hemicolectomy with large cecal tumor. 7. Abdominal pain secondary to malignancy. 8. Helicobacter pylori positive. He will need treatment. 9. Gastritis. 10. Microcytosis. 11. Discussed with staff. Thank you, Dr. Andrés Clement, for this kind referral. Please do not hesitate to contact me for any further questions. Karan Farias M.D. DR: CLEMENT JOB#: [id number] CC:
[2017-05-01 04:00] VITALS: BP 126/70
[2017-05-01] MEDS: ceFAZolin sod 2 GM in D5W 110 ML IVPB SCH (04:52)
[2017-05-01] MEDS: metroNIDAZOLE 500mg 100 ML IVPB SCH (05:32)
[2017-05-01] MEDS: Heparin 5000 units/ml inj SUBQ SCH (05:43)
[2017-05-01 07:15] LABS: EOSINOPHILS % (AUTO) 5.4 % (0.0-3.0); MEAN CORPUSCULAR HEMOGLOBIN 19.7 PG (27.0-31.0); MEAN CORPUSCULAR HGB CONC 28.8 G/DL (32.0-36.0); MEAN CORPUSCULAR VOLUME 68 FL (80-99); MEAN PLATELET VOLUME 5.8 FL (6.5-10.1); MONOCYTES % (AUTO) 8.1 % (1.0-10.0); NEUTROPHILS % (AUTO) 68.5 % (45.0-75.0); PLATELET COUNT 512 K/UL (150-450); RED BLOOD COUNT 4.82 M/UL (4.70-6.10); RED CELL DISTRIBUTION WIDTH 19.1 % (11.6-14.8); WHITE BLOOD COUNT 7.7 K/UL (4.8-10.8)
[2017-05-01 07:35] LABS: HEMOLYSIS 0; IRON 25 ug/dL (59-158); TOTAL IRON BINDING CAPACITY 335 ug/dL (250-400)
--- NOTE | 2017-05-01 07:36 | General Surgery Progress Note ---
General Surgery-Progress Note Subjective Symptoms: improved Objective Last 24 Hour Vital Signs Date Time Temp Pulse Resp B/P Pulse Ox O2 Delivery O2 Flow Rate FiO2 05/01/17 04:00 96.8 96 18 126/70 97 Nasal Cannula 2.0 05/01/17 00:00 97.7 96 18 127/70 99 Room Air 04/30/17 20:00 97.2 96 18 135/80 97 Room Air 04/30/17 16:09 97.3 102 20 137/71 95 Room Air 04/30/17 11:51 97.0 97 20 127/76 98 Nasal Cannula 2.0 04/30/17 08:42 135/78 04/30/17 08:21 98.2 100 20 135/78 98 Nasal Cannula 2.0 I&O Intake and Output 04/30/17 05/01/17 19:00 07:00 Intake Total 360 ml 420 ml Output Total 1200 ml Balance -840 ml 420 ml Intake Oral 360 ml IV Total 420 ml Output Urine Total 1200 ml # Voids 3 Dressing: dry Wound: clean Drains: none Cardiovascular: RSR Respiratory: clear Abdomen: soft Extremities: no edema Laboratory Tests Test 05/01/17 04:35 White Blood Count 7.7 K/UL (4.8-10.8) Red Blood Count 4.82 M/UL (4.70-6.10) Hemoglobin 9.5 G/DL (14.2-18.0) L Hematocrit 32.9 % (42.0-52.0) L Mean Corpuscular Volume 68 FL (80-99) L Mean Corpuscular Hemoglobin 19.7 PG (27.0-31.0) L Mean Corpuscular Hemoglobin Concent 28.8 G/DL (32.0-36.0) L Red Cell Distribution Width 19.1 % (11.6-14.8) H Platelet Count 512 K/UL (150-450) H Mean Platelet Volume 5.8 FL (6.5-10.1) L Neutrophils (%) (Auto) 68.5 % (45.0-75.0) Lymphocytes (%) (Auto) 17.0 % (20.0-45.0) L Monocytes (%) (Auto) 8.1 % (1.0-10.0) Eosinophils (%) (Auto) 5.4 % (0.0-3.0) H Basophils (%) (Auto) 1.0 % (0.0-2.0) Sodium Level Pending Potassium Level Pending Chloride Level Pending Carbon Dioxide Level Pending Blood Urea Nitrogen Pending Creatinine Pending Estimat Glomerular Filtration Rate Pending Glucose Level Pending Calcium Level Pending Iron Level Pending Unsaturated Iron Binding Pending Ferritin Pending Vitamin B12 Level Pending Folate Pending Additional Comments Pt is perturbed about daily blood draws, states he is anemic. Assessment Post-op Diagnosis S/p laparoscopic rt colectomy for an adenocarcinoma Plan Additional Comments Encourage PO intake, can d/c skin gunjan in 1-2 days Attila Walker MD May 01, 2017 07:35
[2017-05-01 07:56] LABS: ANION GAP 15 (5-15); CARBON DIOXIDE 25 mEQ/L (20-30); CHLORIDE 96 mEQ/L (98-107); CREATININE 0.6 mg/dL (0.7-1.2); GLOMERULAR FILTRATION RATE > 60 mL/min (>60); HEMOLYSIS 31; POTASSIUM 4.5 mEQ/L (3.4-4.9); SODIUM 136 mEQ/L (135-145)
[2017-05-01 08:00] VITALS: BP 135/79
[2017-05-01 08:06] LABS: FERRITIN 47 ng/mL (10-230)
[2017-05-01] MEDS ORDERED: FERROUS SULFAT325 MG ORAL (08:17)
[2017-05-01] MEDS ORDERED: Norco 5mg/325mg tab ORAL PRN (08:45)
[2017-05-01] MEDS ORDERED: Docusate 100mg cap ORAL SCH (09:00)
[2017-05-01] MEDS: Methocarbamol 750mg tab ORAL SCH (09:02)
[2017-05-01] MEDS ORDERED: Tubing IV Secondary IV ONE (11:20)
[2017-05-01] MEDS ORDERED: NS 275ml ONE (11:20)
[2017-05-01] MEDS ORDERED: Tubing Blood Filter IV ONE (11:20)
--- NOTE | 2017-05-01 11:55 | Pulmonology Progress Note ---
Assessment/Plan Assessment/Plan ASSESSMENT acute DVT L popliteal and calf veins bilateral PE s/p IVC filter placement lower GI bleeding elevated CEA anemia gastritis adenocarcinoma of colon, stage 3 s/p 04/27 lap R hemicolectomy H pylori infection HTN PLAN OF CARE MS floor IVF s/p IVC filter for acute DVT anemia workup with low iron s/p 1 u PRBC 04/30 HH up heme/onco eval appreciated stool OB negative elevated CEA s/p EGD and colon 04/26 with findings of gastritis, large colonic mass surgery eval requested stat s/p next day 04/27 lap R hemicolectomy course of recovery unremarkable biopsy of colon mass + adenocarcinoma, stage 3 as per onco notes gastric biopsy + H pylori, mild active chronic gastritis, no dysplasia, no metaplasia patient will require PCP referral for treatment, info given to patient by GI slowly started on diet, tolerates , no n/v/diarrhea pain management prn incision C/D/I [employer] empiric anx BP management with CARL, stable DVT, GI prophylaxis discussed with surgery: cleared for dc need a/coag and pain management discussed with heme/onco OK for Xarelto to start fup in clinic case discussed and evaluated by supervising physician dc plan for am Subjective Allergies: Coded Allergies: No Known Allergies (Unverified , 09/15/12) Subjective afebrile, tolerates diet no leucocytosis denies abdominal pain HH up after transfusion last night Objective Last 24 Hour Vital Signs Date Time Temp Pulse Resp B/P Pulse Ox O2 Delivery O2 Flow Rate FiO2 05/01/17 09:02 135/79 05/01/17 08:00 96.6 99 20 135/79 100 Room Air 05/01/17 04:00 96.8 96 18 126/70 97 Nasal Cannula 2.0 05/01/17 00:00 97.7 96 18 127/70 99 Room Air 04/30/17 20:00 97.2 96 18 135/80 97 Room Air 04/30/17 16:09 97.3 102 20 137/71 95 Room Air Intake and Output 04/30/17 05/01/17 19:00 07:00 Intake Total 360 ml 420 ml Output Total 1200 ml Balance -840 ml 420 ml Intake Oral 360 ml IV Total 420 ml Output Urine Total 1200 ml # Voids 3 Laboratory Tests 05/01/17 04:35: White Blood Count 7.7, Red Blood Count 4.82, Hemoglobin 9.5L, Hematocrit 32.9L, Mean Corpuscular Volume 68L, Mean Corpuscular Hemoglobin 19.7L, Mean Corpuscular Hemoglobin Concent 28.8L, Red Cell Distribution Width 19.1H, Platelet Count 512H, Mean Platelet Volume 5.8L, Neutrophils (%) (Auto) 68.5, Lymphocytes (%) (Auto) 17.0L, Monocytes (%) (Auto) 8.1, Eosinophils (%) (Auto) 5.4H, Basophils (%) (Auto) 1.0, Sodium Level 136, Potassium Level 4.5, Chloride Level 96L, Carbon Dioxide Level 25, Anion Gap 15, Blood Urea Nitrogen 6L, Creatinine 0.6L, Estimat Glomerular Filtration Rate > 60, Glucose Level 105, Calcium Level 9.0, Iron Level 25L, Total Iron Binding Capacity 335, Percent Iron Saturation 7L, Unsaturated Iron Binding 310, Ferritin 47, Vitamin B12 Level 982H, Folate [Pending] Current Medications Medications (Trade) Dose Ordered Sig/Marybeth Route PRN Reason Start Time Stop Time Status Last Admin Dose Admin Acetaminophen (Tylenol) 650 mg Q4H PRN ORAL fever 04/26/17 22:30 05/26/17 22:29 04/28/17 18:49 Acetaminophen/ Hydrocodone Bitart ([place] 5/325) 1 tab Q4H PRN ORAL Moderate Pain (Pain Scale 4-6) 05/01/17 08:45 05/08/17 08:44 Docusate Sodium (Colace) 100 mg TWICE A DAY ORAL 05/01/17 09:00 05/31/17 08:59 05/01/17 09:02 Enalapril Maleate (Vasotec) 10 mg DAILY ORAL 04/27/17 09:00 05/27/17 08:59 05/01/17 09:02 Heparin Sodium (Porcine) (Heparin 5000 units/ml) 5,000 units EVERY 8 HOURS SUBQ 04/27/17 14:00 05/27/17 13:59 05/01/17 05:43 Methocarbamol (Robaxin) 750 mg TID ORAL 04/27/17 09:00 05/27/17 08:59 05/01/17 09:02 Ondansetron HCl (Zofran) 4 mg Q6H PRN IVP Nausea & Vomiting 04/27/17 04:15 05/27/17 04:14 Jaleel (ElizabethStella harris NP May 01, 2017 11:55
[2017-05-01] MEDS ORDERED: XARELTO10 MG ORAL (11:57)
[2017-05-01] MEDS ORDERED: ACETAMINOPHEN-1 EAC1 ORAL (11:57)
--- NOTE | 2017-05-01 11:59 | Discharge Instructions ---
Discharge Instructions Discharge Instructions Special Instructions follow up with dr Farias clinic call for appointment [phone] For Congestive Heart Failure Reminder Report to your physician any weight gain of 5 pounds or more in one week. Jaleel ([facility]),Stella BOWSER May 01, 2017 11:59
[2017-05-01 12:00] VITALS: BP 127/75
--- NOTE | 2017-05-01 22:15 | General Progress Note ---
Assessment/Plan Assessment/Plan 1. Stage III colon cancer. I have discussed with the pathologist, Dr. Manish Barton, stage III colon cancer T3N1M0 status. No evidence of pulmonary or hepatic metastasis. He will need outpatient chemotherapy for FOLFOX x6 months total. We will continue to monitor with surveillance for potential recurrence. Have spoken with the patient about this. 2. Deep venous thrombosis of the left leg calf and popliteal vein. He had a inferior vena cava filter placed. He will need an anticoagulation once hemoglobin improves. 3. Bilateral pulmonary emboli. 4. Anemia, likely secondary to gastrointestinal bleed. 5. Anemia secondary to hemodilution. 6. Hemicolectomy with large cecal tumor. 7. Abdominal pain secondary to malignancy. 8. Helicobacter pylori positive. He will need treatment. 9. Gastritis. 10. Microcytosis. 11. Discussed with staff. Subjective Constitutional: Reports: no symptoms HEENT: Reports: no symptoms Cardiovascular: Reports: no symptoms Respiratory: Reports: no symptoms Gastrointestinal/Abdominal: Reports: no symptoms Genitourinary: Reports: no symptoms Neurologic/Psychiatric: Reports: no symptoms Endocrine: Reports: no symptoms Hematologic/Lymphatic: Reports: no symptoms Allergies: Coded Allergies: No Known Allergies (Unverified , 09/15/12) Subjective dc today, plan to f/u as outpatient Objective Last 24 Hour Vital Signs Date Time Temp Pulse Resp B/P Pulse Ox O2 Delivery O2 Flow Rate FiO2 05/01/17 12:00 95.7 102 20 127/75 100 Room Air 05/01/17 09:02 135/79 05/01/17 08:00 96.6 99 20 135/79 100 Room Air 05/01/17 04:00 96.8 96 18 126/70 97 Nasal Cannula 2.0 05/01/17 00:00 97.7 96 18 127/70 99 Room Air Intake and Output 04/30/17 05/01/17 19:00 07:00 Intake Total 360 ml 420 ml Output Total 1200 ml Balance -840 ml 420 ml Intake Oral 360 ml IV Total 420 ml Output Urine Total 1200 ml # Voids 3 Laboratory Tests 05/01/17 04:35: White Blood Count 7.7, Red Blood Count 4.82, Hemoglobin 9.5L, Hematocrit 32.9L, Mean Corpuscular Volume 68L, Mean Corpuscular Hemoglobin 19.7L, Mean Corpuscular Hemoglobin Concent 28.8L, Red Cell Distribution Width 19.1H, Platelet Count 512H, Mean Platelet Volume 5.8L, Neutrophils (%) (Auto) 68.5, Lymphocytes (%) (Auto) 17.0L, Monocytes (%) (Auto) 8.1, Eosinophils (%) (Auto) 5.4H, Basophils (%) (Auto) 1.0, Sodium Level 136, Potassium Level 4.5, Chloride Level 96L, Carbon Dioxide Level 25, Anion Gap 15, Blood Urea Nitrogen 6L, Creatinine 0.6L, Estimat Glomerular Filtration Rate > 60, Glucose Level 105, Calcium Level 9.0, Iron Level 25L, Total Iron Binding Capacity 335, Percent Iron Saturation 7L, Unsaturated Iron Binding 310, Ferritin 47, Vitamin B12 Level 982H, Folate [Pending] Height (Feet): 6 Height (Inches): 3.00 Weight (Pounds): 257 General Appearance: no apparent distress EENT: PERRL/EOMI Neck: non-tender Cardiovascular: normal rate Respiratory/Chest: chest wall non-tender Abdomen: normal bowel sounds Extremities: non-tender Edema: no edema noted Pedal (L), no edema noted Pedal (R) Edema: mild edema Neurologic: alert Skin: warm/dry Karan Farias May 01, 2017 22:14
--- NOTE | 2017-05-05 12:16 | Discharge Summary 2 SIG ---
DATE OF ADMISSION: 04/23/2017 DATE OF DISCHARGE: 05/01/2017 The patient admitted under Dr. Clement. REASON FOR ADMISSION: This is a 56-year-old male with history of hypertension and arthritis presented with pain in the left foot and swelling of the left foot. He reported worsening of the symptoms. He denied trauma or injury to the foot. He denied fever or chills. Workup in the emergency room revealed acute DVT popliteal and calf vein left lower extremity. The patient found to have anemia, hemoglobin 8.4, hematocrit 29.4. No leukocytosis. Rectal exam in the emergency room revealed evidence of blood in stool. The patient admitted for further management. ADMITTING DIAGNOSES: Include: 1. Acute deep vein thrombosis left lower extremity popliteal and calf vein. 2. Microcytic anemia. 3. Lower gastrointestinal bleeding. HOSPITAL STAY: The patient was admitted. The patient is scheduled for IVC filter. Anemia workup initiated. Hemoglobin and hematocrit were closely monitored. GI evaluation was requested. The patient subsequently undergone IVC filter placement on 04/26/2017 prior to the heparin drip was infusing and hemoglobin hematocrit were closely monitored. The patient undergone EGD and colonoscopy on 04/26/2017 with finding of the large colonic mass along with small hiatal hernia. Gastritis, status post biopsy polypectomy with removal of one polyp, diverticulosis and internal hemorrhoids. Large colonic mass was biopsied. Subsequently surgery consult was requested along with the Hematology and Oncology consult. The patient on 04/27/2017 undergone laparoscopic right hemicolectomy. Course of recovery was unremarkable. Biopsy of colon mass revealed adenocarcinoma. Oncologist discussed with pathologist it is a stage III colon mass and the patient will require outpatient chemotherapy for six months. [place] CT was done to rule out metastasis. No evidence of metastasis noted bilateral pulmonary emboli also gastric biopsy revealed positive for H pylori and mild active chronic gastritis. No dysplasia and no metaplasia. The patient will require PCP referral for treatment information and was given to the patient by GI. The patient slowly started on diet, able to tolerate. No nausea. No vomiting. No diarrhea. Antiemetic provided as needed. Pain management addressed. Incision open to air with gunjan clean, dry and intact. Surgeon closely followed. Can have staple removal in few days as when follow up with the surgeon as outpatient. Blood pressure was managed with CARL inhibitor and was stable. DVT and GI prophylaxes provided. Discussed with surgery, the patient was cleared for discharge, but need anticoagulation and pain management. Prescription provided prior to decide anticoagulation discussed with the assistance specialist and oncologist. The patient was discharged on Xarelto. The patient will follow up with the oncologist next week. Prescription provided for anticoagulation and pain management. Information given regarding outpatient oncologist's office. The patient also needs PCP referral for GI for H pylori treatment. The patient was stable for discharge. DISCHARGE DIAGNOSES: Include: 1. Acute deep vein thrombosis left popliteal and calf vein. 2. Bilateral pulmonary emboli. 3. Status post inferior vena cava filter. 4. Lower gastrointestinal bleeding. 5. Adenocarcinoma of colon, stage III. 6. Helicobacter pylori infection. 7. Status post 04/27/2017 laparoscopic right hemicolectomy. 8. Gastritis. 9. Hypertension. DISCHARGE MEDICATIONS: See medication reconciliation list. DISCHARGE INSTRUCTIONS: The patient discharged home. Follow up with the primary medical doctor for referral to GI for treatment of H pylori, follow up with the surgeon as directed by surgeon, follow up with the oncologist next week. Andrés Clement M.D. I have been assigned to dictate discharge summary on this account and I was not involved in the patient's management. Stella vieyrakimberly N.PMyron DR: [place] JOB#: [id number] CC:
== END 2017-05-01 13:00 | disposition home or self-care (01) | DRG 329 ==
LOC: EMR 08:33 → UNDOADMOB 11:16 → 2E 11:16 → 4E 11:16 → EDBEDREQ 11:31 → 2E 04-24 17:04 → 4W 04-26 21:48
PROC: 0DB68ZX Excision of Stomach, Via Natural or Artificial Opening Endoscopic, Diagnostic (ICD-10-PCS; principal; 2017-04-26 11:02)
PROC: 0DBN8ZX Excision of Sigmoid Colon, Via Natural or Artificial Opening Endoscopic, Diagnostic (ICD-10-PCS; principal; 2017-04-26 11:02)
PROC: 06H03DZ Insertion of Intraluminal Device into Inferior Vena Cava, Percutaneous Approach (ICD-10-PCS; principal; 2017-04-26 11:02)
PROC: 0DBK8ZX Excision of Ascending Colon, Via Natural or Artificial Opening Endoscopic, Diagnostic (ICD-10-PCS; principal; 2017-04-26 11:02)
PROC: 0DTF4ZZ Resection of Right Large Intestine, Percutaneous Endoscopic Approach (ICD-10-PCS; 2017-04-27)
DX: C18.0 Malignant neoplasm of cecum (principal); I26.99 Other pulmonary embolism without acute cor pulmonale; I82.432 Acute embolism and thrombosis of left popliteal vein; I82.442 Acute embolism and thrombosis of left tibial vein; D50.0 Iron deficiency anemia secondary to blood loss (chronic); K29.50 Unspecified chronic gastritis without bleeding; K44.9 Diaphragmatic hernia without obstruction or gangrene; B96.81 Helicobacter pylori [H. pylori] as the cause of diseases classified elsewhere; K57.90 Diverticulosis of intestine, part unspecified, without perforation or abscess without bleeding; K64.8 Other hemorrhoids; I10 Essential (primary) hypertension
CPT/HCPCS: 36415; 37191; 71260; 74177; 75825; 76937; 80048; 80053; 80061; 82270; 82378; 82550; 82607; 82728; 82746; 83540; 83550; 84443; 85007; 85025; 85610; 85730; 86850; 86900; 86901; 86920; 93005; 93971; 94003; 94150; J2250; J2710

== ENCOUNTER 2017-10-08 08:25 | Outpatient (CLI) | payer OTHER, MEDICAID ==
[2017-10-08] VITALS (10 sets, daily range): BP systolic 126–147; BP diastolic 72–76
[~2017-10-08] VITALS: Ht 30.5 cm; Wt 0.5 kg
[~2017-10-08 08:25] MED LIST changes: +ACETAMINOPHEN-1 EAC1 ORAL; +FERROUS SULFAT325 MG ORAL; +XARELTO10 MG ORAL
[2017-10-08 08:59] LABS: EOSINOPHILS % (AUTO) 0.6 % (0.0-3.0); HEMATOCRIT 46.2 % (42.0-52.0); HEMOGLOBIN 14.8 G/DL (14.2-18.0); LYMPHOCYTES % (AUTO) 32.8 % (20.0-45.0); MEAN CORPUSCULAR VOLUME 89 FL (80-99); NEUTROPHILS % (AUTO) 55.5 % (45.0-75.0); PLATELET COUNT 269 K/UL (150-450); RED BLOOD COUNT 5.19 M/UL (4.70-6.10); RED CELL DISTRIBUTION WIDTH 16.6 % (11.6-14.8); WHITE BLOOD COUNT 7.6 K/UL (4.8-10.8)
[2017-10-08 09:05] LABS: ANION GAP 10 mmol/L (5-15); BLOOD UREA NITROGEN 10 mg/dL (7-18); CALCIUM 9.7 MG/DL (8.5-10.1); CARBON DIOXIDE 25 MMOL/L (21-32); CHLORIDE 103 MMOL/L (98-107); CREATININE 0.8 MG/DL (0.55-1.30); POTASSIUM 3.6 MMOL/L (3.5-5.1); SODIUM 138 MMOL/L (136-145)
[2017-10-08 09:10] LABS: ALANINE AMINOTRANSFERASE 50 U/L (12-78); ALBUMIN 4.4 G/DL (3.4-5.0); ALKALINE PHOSPHATASE 101 U/L (46-116); ASPARTATE AMINO TRANSFERASE 37 U/L (15-37); BILIRUBIN,TOTAL 0.4 MG/DL (0.2-1.0)
[2017-10-08] MEDS ORDERED: Lidocaine 1% Plain 30 ml INJ PRN (10:15)
[2017-10-08] MEDS ORDERED: Heparin 2000 units/Ns 1000ml INJ ONE (10:15)
[2017-10-08] MEDS ORDERED: Heparin 2000 units/Ns 1000ml 1,000 ML ONE (10:15)
[2017-10-08] MEDS ORDERED: Heparin 2000 units/Ns 1000ml INJ PRN (11:00)
--- NOTE | 2017-10-08 11:35 | Pre-Procedure Note/Attestation ---
Pre-Procedure Note/Attestation Complete Prior to Procedure Planned Procedure: not applicable Procedure Narrative: IVC gram and IVC filter removal Indications for Procedure Pre-Operative Diagnosis: IVC filter in place, no longer needed as patient can now take anticoagulation Attestation I attest that I discussed the nature of the procedure; its benefits; risks and complications; and alternatives (and the risks and benefits of such alternatives ), prior to the procedure, with the patient (or the patient's legal medical device sales representative). I attest that, if there was a reasonable possibility of needing a blood transfusion, the patient (or the patient's legal medical device sales representative) was given the [facility] standardized written summary, pursuant to the [place] Blood Safety Act ([place] Health and Safety Code # 1645, as amended). I attest that I re-evaluated the patient just prior to the surgery and that there has been no change in the patient's H&P, except as documented below: Mainor Chang M.D. Oct 08, 2017 11:35
--- NOTE | 2017-10-08 14:00 | Operative Note - PDOC ---
Operative Note Operative Note Date of Operation/Procedure: Oct 08, 2017 Pre-op Diagnosis: IVC filter in place, no longer needed as patient can now take anticoagulation Procedure: IVC gram, IVC filter removal Post-op Diagnosis: succesful removal of IVC filter Post-op Diagnosis: same as pre-op Operative Findings: consistent w/pre-op dx studies, other Surgeon: Mainor Chang (IR) Anesthesia: local Specimen: yes Complications: none Condition: stable Estimated Blood Loss: none Drains: none Implant(s) used?: No Indications for Procedure IVC filter in place, patient now able to receive anticoagulation. Description of Procedure IVC gram showed no caval clot. Filter removed in its entirity. Post removal IVC gram showed no complication. Patient tolerated procedure well. Mainor Chang M.D. Oct 08, 2017 14:00
== END 2017-10-08 13:30 | disposition home or self-care (01) ==
LOC: RAD 08:25 → EDSTATUS 10:00 → RAD 13:30
DX: I82.402 Acute embolism and thrombosis of unspecified deep veins of left lower extremity (principal); Z95.828 Presence of other vascular implants and grafts; Z79.01 Long term (current) use of anticoagulants
CPT/HCPCS: 36415; 37193; 80053; 85025; 85610; 85730; 87070; 87075; 87205; J1644; J2001

== ENCOUNTER 2017-10-18 10:25 | Outpatient (CLI) | payer OTHER, MEDICAID ==
--- NOTE | 2017-10-18 14:42 | Diagnostic Imaging Report ---
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 The right upper extremity was prepped with alcohol. All elements of maximal sterile barrier technique were followed including usage of a cap, mask, sterile gown, sterile gloves, hand hygiene and a large sterile sheet. Sonographic evaluation of the upper extremity was performed demonstrating a patent and compressible basilic vein. Access was obtained under real-time ultrasound guidance (with utilization of sterile gel and sterile probe cover) and digital image was saved and archived. An .018 wire was introduced. Needle exchanged for a 5 [place] peel-away sheath. Measurements were obtained. A 5 [place] dual-lumen Power PICC line catheter was cut to 40 cm and introduced over the wire. Peel-away sheath and wire were removed.Catheter was secured to the skin using 2-0 Prolene suture. Both ports aspirate and flush easily. Fluoroscopic images show distal tip in the superior vena cava. Total fluoroscopic time 0.5 minutes. Impression: Successful placement of an upper extremity PICC line catheter
== END 2017-10-18 12:25 | disposition home or self-care (01) ==
LOC: RAD 10:25
DX: Z79.899 Other long term (current) drug therapy (principal)
CPT/HCPCS: 36569; 76937

== ENCOUNTER 2017-11-15 10:05 | Outpatient (CLI) | payer OTHER, MEDICAID ==
--- NOTE | 2017-11-15 11:07 | Pre-Procedure Note/Attestation ---
Pre-Procedure Note/Attestation Complete Prior to Procedure Planned Procedure: not applicable Procedure Narrative: PICC line Indications for Procedure Pre-Operative Diagnosis: colon CA Attestation I attest that I discussed the nature of the procedure; its benefits; risks and complications; and alternatives (and the risks and benefits of such alternatives ), prior to the procedure, with the patient (or the patient's legal loss control representative). I attest that, if there was a reasonable possibility of needing a blood transfusion, the patient (or the patient's legal loss control representative) was given the [facility] standardized written summary, pursuant to the Wagner Britany Blood Safety Act ([place] Health and Safety Code # 1645, as amended). I attest that I re-evaluated the patient just prior to the surgery and that there has been no change in the patient's H&P, except as documented below: Mainor Chang M.D. Nov 15, 2017 11:07
--- NOTE | 2017-11-15 11:09 | Operative Note - PDOC ---
Operative Note Operative Note Date of Operation/Procedure: Nov 15, 2017 Chief Complaint: here for PICC line placement for chemo Pre-op Diagnosis: colon CA Post-op Diagnosis: same os pre-op Post-op Diagnosis: same as pre-op Anesthesia: local Specimen: none Complications: none Condition: stable Estimated Blood Loss: none Drains: none Implant(s) used?: Yes Indications for Procedure need PICC for chemo, h/o colon CA Description of Procedure 5F PICC placed via left basilic vein. Length 45 cm. Tolerated well, no complications. PICC ok for immediate use Mainor Chang M.D. Nov 15, 2017 11:09
--- NOTE | 2017-11-15 13:36 | Diagnostic Imaging Report ---
Indications: Needs long-term IV access Technique: Ultrasound confirms patent compressible left basilic vein. Total sterile technique, including sterile probe cover and sterile gel, hat, mask,, sterile gown, large sterile drape, and preparation with 2% chlorhexidine utilized. Local anesthesia with 1% lidocaine. Under real-time ultrasound guidance, puncture left basilic vein using 21-gauge needle, documented and archived, passage 0.018 guidewire under direct fluoroscopy, which was used to determine appropriate catheter length, exchange for 5 [place] peel-away sheath. 5 [place] dual-lumen power PICC cut to 45 cm. It was inserted through the peel-away sheath. Peel-away sheath and guidewire removed. Catheter fixed to the skin. Both catheter ports aspirated and flushed. Patient tolerated procedure well, without immediate complication. Digital radiograph documents satisfactory catheter tip position, at the cavoatrial junction. Total fluoroscopy time 0.4 minutes. Total dose area product 17 dGycm2 Impression: Successful placement of 5 [place] double-lumen PICC under sonographic and fluoroscopic guidance, as described above.
== END 2017-11-15 12:05 | disposition home or self-care (01) ==
LOC: RAD 10:05
DX: Z79.899 Other long term (current) drug therapy (principal)
CPT/HCPCS: 36569; 76937

== ENCOUNTER 2017-11-18 10:48 | Emergency (ER) | payer OTHER, MEDICAID ==
[~2017-11-18] VITALS: Ht 190.5 cm; Wt 11.3 kg
[2017-11-18 11:13] LABS: BASOPHILS % (AUTO) 0.6 % (0.0-2.0); EOSINOPHILS % (AUTO) 1.1 % (0.0-3.0); HEMATOCRIT 45.6 % (42.0-52.0); HEMOGLOBIN 14.8 G/DL (14.2-18.0); MEAN CORPUSCULAR VOLUME 91 FL (80-99); MONOCYTES % (AUTO) 6.5 % (1.0-10.0); NEUTROPHILS % (AUTO) 66.9 % (45.0-75.0); PLATELET COUNT 220 K/UL (150-450); RED BLOOD COUNT 5.02 M/UL (4.70-6.10); RED CELL DISTRIBUTION WIDTH 14.2 % (11.6-14.8); WHITE BLOOD COUNT 7.2 K/UL (4.8-10.8)
[2017-11-18] MEDS ORDERED: AMLODIPINE BESY10 MG ORAL (11:13)
[2017-11-18 11:22] LABS: ANION GAP 12 mmol/L (5-15); BLOOD UREA NITROGEN 11 mg/dL (7-18); CALCIUM 9.6 MG/DL (8.5-10.1); CARBON DIOXIDE 23 MMOL/L (21-32); CHLORIDE 104 MMOL/L (98-107); CREATININE 0.8 MG/DL (0.55-1.30); POTASSIUM 3.8 MMOL/L (3.5-5.1); SODIUM 139 MMOL/L (136-145)
[2017-11-18 11:30] VITALS: BP 131/81
[2017-11-18 11:33] LABS: ALANINE AMINOTRANSFERASE 38 U/L (12-78); ALBUMIN 4.1 G/DL (3.4-5.0); ALKALINE PHOSPHATASE 97 U/L (46-116); ASPARTATE AMINO TRANSFERASE 28 U/L (15-37); BILIRUBIN,TOTAL 0.4 MG/DL (0.2-1.0)
--- NOTE | 2017-11-18 11:33 | Diagnostic Imaging Report ---
Indication: Chest pain Comparison: 12/26/2014 A single view chest radiograph was obtained. Findings: Cardiomediastinal appearance is within normal limits for age. There is a PICC line in the left arm. The tip terminates at the junction of SVC and right atrium in good position. Pulmonary vascularity is appropriate. The diaphragmatic contour is smooth and costophrenic angles are sharp. No pleural effusions are identified. The bones are unremarkable. Impression: No acute findings PICC line in good position
--- NOTE | 2017-11-18 11:36 | Emergency Room Report ---
History of Present Illness General Chief Complaint: Chest Pain Source: Patient Present Illness HPI 57-year-old male, history of hypertension, colon cancer status post resection, currently on chemotherapy, DVT on xarelto, p/w chest pain for 2 days. Localized to substernal area, no radiation to back or other areas, sharp in nature, gradual in onset, constant. + SOB. Denies palpitations, diaphoresis, n/ v. This is the first occurrence of chest pain. Denies fever, chills, cough, abd pain. Denies trauma. Denies smoking, no family history of cardiac disease at a young age. Allergies: Coded Allergies: No Known Allergies (Unverified , 09/15/12) Patient History Past Medical History: see triage record Past Surgical History: none Pertinent Family History: none Reviewed Nursing Documentation: PMH: Agreed, PSxH: Agreed Nursing Documentation-PMH Hx Cardiac Problems: Yes Hx Hypertension: Yes - DVT, Hx Cancer: Yes - colon cancer Hx Gastrointestinal Problems: Yes Hx Neurological Problems: No Review of Systems All Other Systems: negative except mentioned in HPI Physical Exam Vital Signs Date Time Temp Pulse Resp B/P (MAP) Pulse Ox O2 Delivery O2 Flow Rate FiO2 11/18/17 10:40 99.1 88 18 143/81 100 Room Air Sp02 EP Interpretation: reviewed, normal General Appearance: alert, GCS 15, non-toxic, mild distress Head: normocephalic, atraumatic Eyes: bilateral eye normal inspection, bilateral eye PERRL, bilateral eye EOMI ENT: normal ENT inspection, normal pharynx, normal voice, moist mucus membranes Neck: normal inspection, full range of motion, supple Respiratory: normal inspection, lungs clear, normal breath sounds, no respiratory distress, no retraction, no wheezing, speaking full sentences, chest symmetrical Cardiovascular #1: no edema, tachycardia Cardiovascular #2: 2+ radial (R), 2+ radial (L) Gastrointestinal: normal inspection, non tender, soft, non-distended, no guarding Genitourinary: no CVA tenderness Musculoskeletal: normal inspection, back normal, normal range of motion, non- tender Neurologic: normal inspection, alert, oriented x3, responsive, motor strength/ tone normal, sensory intact, normal gait, speech normal Psychiatric: normal inspection, judgement/insight normal, memory normal Skin: normal inspection, normal color, no rash, warm/dry, well hydrated, normal turgor Medical Decision Making Diagnostic Impression: Primary Impression: Chest pain ER Course 57-year-old male with chest pain, history of DVT DDX: ACS vs. CHF vs. pneumonia vs. gastritis/GERD vs. pneumothorax PE Plan: IV access, obtain labs including troponin, EKG, CXR CT angio chest ER course: Patient has remained on a monitor, HD stable, chest pain improved. has been NAD during stay no cp no sob lab unremarkable cp since yesterday trop neg will dc home Disposition: Patient will be DC home strict return prec d/w pt such as severe cp/sob/nvd FU eith pmd 1 week Please note that this Emergency Department Report was dictated using Signpostpumper hand technology software, occasionally this can lead to erroneous entry secondary to interpretation by the dictation equipment. EKG Diagnostic Results EP Interpretation: Yes Rate: normal Rhythm: NSR ST Segments: No acute changes ASA given to patient: no Rhythm Strip EP Interpretation: Yes Rate: 90 Rhythm: NSR, no PVCs, no ectopy Chest X-ray CXR: Ordered: Yes 1 view Indication: Chest pain EP interpretation: Yes Interpretation: No consolidation, no effusion, no PTX, no acute cardiopulmonary disease, left-sided PICC line Impression: No acute disease Electronically signed by Myla Quiñonez MD Laboratory Tests Test 11/18/17 11:05 11/18/17 11:50 White Blood Count 7.2 K/UL (4.8-10.8) Red Blood Count 5.02 M/UL (4.70-6.10) Hemoglobin 14.8 G/DL (14.2-18.0) Hematocrit 45.6 % (42.0-52.0) Mean Corpuscular Volume 91 FL (80-99) Mean Corpuscular Hemoglobin 29.5 PG (27.0-31.0) Mean Corpuscular Hemoglobin Concent 32.5 G/DL (32.0-36.0) Red Cell Distribution Width 14.2 % (11.6-14.8) Platelet Count 220 K/UL (150-450) Mean Platelet Volume 6.7 FL (6.5-10.1) Neutrophils (%) (Auto) 66.9 % (45.0-75.0) Lymphocytes (%) (Auto) 25.0 % (20.0-45.0) Monocytes (%) (Auto) 6.5 % (1.0-10.0) Eosinophils (%) (Auto) 1.1 % (0.0-3.0) Basophils (%) (Auto) 0.6 % (0.0-2.0) Sodium Level 139 MMOL/L (136-145) Potassium Level 3.8 MMOL/L (3.5-5.1) Chloride Level 104 MMOL/L (98-107) Carbon Dioxide Level 23 MMOL/L (21-32) Anion Gap 12 mmol/L (5-15) Blood Urea Nitrogen 11 mg/dL (7-18) Creatinine 0.8 MG/DL (0.55-1.30) Estimate Glomerular Filtration Rate > 60 mL/min (>60) Glucose Level 113 MG/DL (74-106) H Calcium Level 9.6 MG/DL (8.5-10.1) Total Bilirubin 0.4 MG/DL (0.2-1.0) Aspartate Amino Transferase (AST) 28 U/L (15-37) Alanine Aminotransferase (ALT) 38 U/L (12-78) Alkaline Phosphatase 97 U/L (46-116) Troponin I 0.000 ng/mL (0.000-0.056) Pro-B-Type Natriuretic Peptide 17 pg/mL (0-125) Total Protein 8.2 G/DL (6.4-8.2) Albumin 4.1 G/DL (3.4-5.0) Globulin 4.1 g/dL Albumin/Globulin Ratio 1.0 (1.0-2.7) Urine Color Pale yellow Urine Appearance Clear Urine pH 6 (4.5-8.0) Urine Specific [place] 1.015 (1.005-1.035) Urine Protein Negative (NEGATIVE) Urine Glucose (UA) Negative (NEGATIVE) Urine Ketones Negative (NEGATIVE) Urine Occult Blood Negative (NEGATIVE) Urine Nitrite Negative (NEGATIVE) Urine Bilirubin Negative (NEGATIVE) Urine Urobilinogen Normal MG/DL (0.0-1.0) Urine Leukocyte Esterase Negative (NEGATIVE) CT/MRI/US Diagnostic Results CT/MRI/US Diagnostic Results : Imaging Test Ordered: CTA chest Impression Findings: The pulmonary artery is well opacified and shows no filling defects. There is no adenopathy, pleural or pericardial effusions are identified. There is no aortic dissection or aneurysm identified within the chest. The lungs are clear. There is a PICC line in good position. Visualized part of the upper abdomen is unremarkable. Impression: Negative CTA of the chest Last Vital Signs Date Time Temp Pulse Resp B/P (MAP) Pulse Ox O2 Delivery O2 Flow Rate FiO2 11/18/17 11:30 94 19 131/81 100 Room Air 11/18/17 10:40 99.1 Disposition: HOME, SELF-CARE Condition: Improved Myla Quiñonez M.D. Nov 18, 2017 11:36
[2017-11-18 11:56] LABS: APPEARANCE,URINE CLEAR; BILIRUBIN, URINE NEGATIVE (NEGATIVE); COLOR,URINE PALE YELLOW; GLUCOSE, URINE (UA) NEGATIVE (NEGATIVE); KETONES,URINE NEGATIVE (NEGATIVE); LEUKOCYTE ESTERASE ,URINE NEGATIVE (NEGATIVE); NITRITE,URINE NEGATIVE (NEGATIVE); PH,URINE 6 (4.5-8.0); PROTEIN,URINE NEGATIVE (NEGATIVE); UROBILINOGEN,URINE NORMAL MG/DL (0.0-1.0)
--- NOTE | 2017-11-18 13:31 | Diagnostic Imaging Report ---
Indication: Chest pain Technique: Continuous helical transaxial imaging of the chest was obtained from the thoracic inlet to the upper abdomen during rapid intravenous contrast administration. Arterial phase of enhancement obtained. Coronal 2-D reformats were also obtained and maximum intensity projection images in multiple planes. Study obtained in a Siemens sensation [address] Automatic Exposure Control was utilized. Total Dose length Product (DLP): 1183.[address] Dose Index Volume (CTDIvol): 34.86 mGy Comparison: None Findings: The pulmonary artery is well opacified and shows no filling defects. There is no adenopathy, pleural or pericardial effusions are identified. There is no aortic dissection or aneurysm identified within the chest. The lungs are clear. There is a PICC line in good position. Visualized part of the upper abdomen is unremarkable. Impression: Negative CTA of the chest The CT scanner at [facility] is accredited by the [employer] [employer] and the scans are performed using dose optimization techniques as appropriate to a performed exam including Automatic Exposure control.
[2017-11-18 14:24] VITALS: BP 150/70
--- NOTE | 2017-11-19 14:55 | Cardiology Report ---
APPROVED REPORT EKG Measurement Heart [id number] Normal sinus rhythm Normal ECG
== END 2017-11-18 14:28 | disposition home or self-care (01) ==
LOC: EDBD 10:48 → EMR 11:05 → CANBEDREQ 14:19 → EMR 14:28
DX: R07.89 Other chest pain (principal); C18.9 Malignant neoplasm of colon, unspecified; Z79.899 Other long term (current) drug therapy; I10 Essential (primary) hypertension; Z86.718 Personal history of other venous thrombosis and embolism
CPT/HCPCS: 36415; 71045; 71275; 80053; 81003; 83880; 84484; 85025; 93005; 99284; Q9967

== ENCOUNTER 2017-12-02 14:17 | Emergency (ER) | payer OTHER, MEDICAID ==
[~2017-12-02] VITALS: Ht 190.5 cm; Wt 114.8 kg
[~2017-12-02 14:17] MED LIST changes: +AMLODIPINE BESY10 MG ORAL
[2017-12-02 14:40] VITALS: BP 128/86
[2017-12-02] MEDS ORDERED: XARELTO10 MG ORAL (14:41)
--- NOTE | 2017-12-02 15:27 | Emergency Room Report ---
History of Present Illness General Chief Complaint: General Complaint Source: Patient Present Illness HPI The patient states she is worried that his PICC line was dislodged. He has a PICC line for chemotherapy as he has colon cancer. He states that he does not note that it is necessarily longer. He states that he saw that the dressing is loose and dirty and he is worried about the PICC line. He denies pain, swelling or redness. He denies fever or chills. He denies chest pain. He has no other complaints. Allergies: Coded Allergies: No Known Allergies (Unverified , 09/15/12) Patient History Past Medical History: see triage record, HTN, other - DVT Past Surgical History: other - Colon resection Social History: Denies: smoking, alcohol use, drug use Reviewed Nursing Documentation: PMH: Agreed, PSxH: Agreed Nursing Documentation-PMH Past Medical History: No History, Except For Hx Cardiac Problems: Yes Hx Hypertension: Yes - DVT Hx Pacemaker: No Hx Asthma: No Hx COPD: No Hx Diabetes: No Hx Cancer: Yes - colon cancer Hx Gastrointestinal Problems: No Hx Dialysis: No History Of Psychiatric Problem: No Hx Neurological Problems: No Hx Cerebrovascular Accident: No Hx Seizures: No Review of Systems All Other Systems: negative except mentioned in HPI Physical Exam Vital Signs Date Time Temp Pulse Resp B/P (MAP) Pulse Ox O2 Delivery O2 Flow Rate FiO2 12/02/17 14:34 97.9 120 18 129/87 98 Room Air Sp02 EP Interpretation: reviewed, normal General Appearance: no apparent distress, alert, GCS 15, non-toxic Head: normocephalic, atraumatic Eyes: bilateral eye normal inspection, bilateral eye PERRL ENT: hearing grossly normal, normal pharynx, no angioedema, normal voice Neck: full range of motion, supple/symm/no masses Respiratory: chest non-tender, lungs clear, normal breath sounds, no respiratory distress, no retraction, no accessory muscle use, speaking full sentences Cardiovascular #1: no edema, tachycardia Gastrointestinal: normal bowel sounds, non tender, soft, non-distended, no guarding, no rebound Rectal: deferred Musculoskeletal: back normal, gait/station normal, normal range of motion, non- tender, other - PICC line in L. Upper arm. Site clear, no erythema, edema. Neurologic: alert, oriented x3, responsive, motor strength/tone normal, sensory intact, speech normal Psychiatric: judgement/insight normal, memory normal, mood/affect normal, no suicidal/homicidal ideation Skin: normal color, no rash, warm/dry, well hydrated Medical Decision Making Diagnostic Impression: Primary Impression: PICC (peripherally inserted central catheter) in place ER Course This patient is admitted for evaluation of his PICC line. His PICC line site is clear and normal appearing. It is sewn in at the appropriate length. Chest x-ray shows appropriate placement. The patient was reassured. The patient's instructed to followup routinely as previously scheduled with his oncologist. Chest X-Ray Diagnostic Results Chest X-Ray Diagnostic Results : Chest X-Ray Ordered: Yes # of Views/Limited/Complete: 1 View Indication: Other - Line placement EP Interpretation: Yes Interpretation: no consolidation, no effusion, no pneumothorax, no acute cardiopulmonary disease, other - Appropriate line placement. Impression: No acute disease Electronically Signed by: Candace Last Vital Signs Date Time Temp Pulse Resp B/P (MAP) Pulse Ox O2 Delivery O2 Flow Rate FiO2 12/02/17 14:40 97.9 117 16 128/86 99 Room Air Disposition: HOME, SELF-CARE Condition: Improved Referrals: ESEQUIEL EDWARDS (PCP) Patient Instructions: PICC Home Guide ANGIE CISNEROS D.O. Dec 02, 2017 15:27
[2017-12-02 15:42] VITALS: BP 134/85
[2017-12-02 15:51] VITALS: BP 134/85
== END 2017-12-02 15:55 | disposition home or self-care (01) ==
LOC: EMR 14:51
DX: Z45.2 Encounter for adjustment and management of vascular access device (principal); I10 Essential (primary) hypertension; Z85.038 Personal history of other malignant neoplasm of large intestine; Z86.718 Personal history of other venous thrombosis and embolism
CPT/HCPCS: 99283

== ENCOUNTER 2017-12-06 13:18 | Emergency (ER) | payer OTHER, MEDICAID ==
[~2017-12-06] VITALS: Ht 190.5 cm; Wt 114.8 kg
--- NOTE | 2017-12-06 13:56 | Emergency Room Report ---
History of Present Illness General Chief Complaint: General Complaint Source: Medical Record (Massiel Flynn) Present Illness HPI 57-year-old male presents to the emergency department complaining of new onset posterior to the posterior elbow times one day. Patient denies fevers or chills. Patient states he currently is undergoing radiation therapy he has a history of colon masses and had chemotherapy completed last May. Patient denies itching, swelling or tenderness to the left elbow or to the location of where the blister is. Denies lesions/rashes elsewhere on the body. Denies new medications or body washes or creams. Denies swelling of the lips, tongue , throat or airway. Denies wheezing, or shortness of breath. Denies recent travel , recent illness or ill contacts. denies sloughing of the skin. Denies CP, Palpitations, LOC, AMS, dizziness, Changes in Vision, Sensation, paresthesias, or a sudden severe headache. (Massiel Flynn) Allergies: Coded Allergies: No Known Allergies (Unverified , 09/15/12) Patient History Past Medical History: see triage record Past Surgical History: none Pertinent Family History: none Reviewed Nursing Documentation: PMH: Agreed, PSxH: Agreed (Massiel Flynn) Nursing Documentation-PMH Hx Cardiac Problems: Yes Hx Hypertension: Yes - DVT LLE Hx Pacemaker: No Hx Asthma: No Hx COPD: No Hx Diabetes: No Hx Cancer: Yes - Colon; Anemia Hx Gastrointestinal Problems: No Hx Dialysis: No Hx Neurological Problems: No Hx Cerebrovascular Accident: No Hx Seizures: No (Massiel Flynn PMyronAMyron) Review of Systems All Other Systems: negative except mentioned in HPI (Massiel Flynn PMyronAMyron) Physical Exam Vital Signs Date Time Temp Pulse Resp B/P (MAP) Pulse Ox O2 Delivery O2 Flow Rate FiO2 12/06/17 13:28 98.2 113 18 123/74 97 Room Air Sp02 EP Interpretation: reviewed, normal General Appearance: no apparent distress, alert, GCS 15, non-toxic Head: normocephalic, atraumatic Eyes: bilateral eye normal inspection, bilateral eye PERRL ENT: hearing grossly normal, normal voice Neck: full range of motion Respiratory: lungs clear, normal breath sounds, speaking full sentences Cardiovascular #1: regular rate, rhythm, normal capillary refill Musculoskeletal: back normal, gait/station normal, normal range of motion, non- tender Neurologic: alert, oriented x3, responsive, motor strength/tone normal, sensory intact, speech normal, grossly normal Psychiatric: judgement/insight normal Skin: normal color, no rash, warm/dry, well hydrated, other - single bulla noted to the posterior left elbow that is 1.5 cm in size, no surrounding erythema, negative niklosky sign. Lymphatic: no adenopathy (Massiel Flynn) Medical Decision Making PA Attestation Dr. Breen is my supervising Physician whom patient management has been discussed with. (Massiel Flynn) Diagnostic Impression: Primary Impression: Blister ER Course 57-year-old male presents to the emergency department complaining of new onset posterior to the posterior elbow times one day. Patient denies fevers or chills. Patient states he currently is undergoing radiation therapy he has a history of colon masses and had chemotherapy completed last May. Patient denies itching, swelling or tenderness to the left elbow or to the location of where the blister is. Denies lesions/rashes elsewhere on the body. Denies new medications or body washes or creams. Denies swelling of the lips, tongue , throat or airway. Denies wheezing, or shortness of breath. Denies recent travel , recent illness or ill contacts. denies sloughing of the skin. Denies CP, Palpitations, LOC, AMS, dizziness, Changes in Vision, Sensation, paresthesias, or a sudden severe headache. Ddx considered but are not limited to cellulitis, scabies, shingles, varicella, dermatitis, urticaria, eczema, tinea, viral exanthem, SJS Vital signs: are WNL, pt. is afebrile H&PE are most consistent with single blister to the post. left elbow, negative niklosky sign, no evidence to suggest inflammatory reaction. no evidence of infection , clear fluid filled. ORDERS: none required at this time, the diagnosis is clinical ED INTERVENTIONS: -D/w Pt. PCP Dr. Tavarez via phone. ok to d/c home. - Dressing to PICC line changed per pt. request. - Single Bullae was aspirated, clear straw colored fluid with some blood was obtained, no pus. pt. tolerated well. no anesthesia was used. sterile dressing was then applied afterward. Pt. given re-assurance DISCHARGE: At this time pt. is stable for d/c to home. Will provide printed patient care instructions, and any necessary prescriptions. Care plan and follow up instructions have been discussed with the patient prior to discharge. (Massiel Flynn) Last Vital Signs Date Time Temp Pulse Resp B/P (MAP) Pulse Ox O2 Delivery O2 Flow Rate FiO2 12/06/17 13:28 98.2 113 18 123/74 97 Room Air (Massiel Flynn) Last Vital Signs Date Time Temp Pulse Resp B/P (MAP) Pulse Ox O2 Delivery O2 Flow Rate FiO2 12/06/17 14:35 87 18 125/76 99 Room Air 12/06/17 13:58 98.2 (Jeronimo Breen M.D.) Disposition: HOME, SELF-CARE Condition: Stable Scripts Bacitracin/Polymyxin B Sulfate (BACITRACIN-POLYMYXIN OINTMENT) 28.35 Gm Oint...g. 1 APPLIC TP BID, #28.3 GM Prov: Massiel Flynn 12/06/17 Patient Instructions: Blisters Additional Instructions: Take medications as directed. Follow up with a Primary Care Provider in 3-5 days, even if your symptoms have resolved. --Please review list of primary care clinics, if you do not already have a primary care provider Return sooner to ED if new symptoms occur, or current symptoms become worse. - Please note that this Emergency Department Report was dictated using [employer] list librarian technology software, occasionally this can lead to erroneous entry secondary to interpretation by the dictation equipment. Massiel Flynn Dec 06, 2017 13:56 Jeronimo Breen M.D. Dec 08, 2017 06:54
[2017-12-06] MEDS ORDERED: BACITRACIN-P28.35 GM TP (13:57)
[2017-12-06 13:58] VITALS: BP 123/74
[2017-12-06 14:35] VITALS: BP 125/76
== END 2017-12-06 14:37 | disposition home or self-care (01) ==
LOC: EMR 13:54
DX: S50.322A Blister (nonthermal) of left elbow, initial encounter (principal); X58.XXXA Exposure to other specified factors, initial encounter; Y92.9 Unspecified place or not applicable; I10 Essential (primary) hypertension; Z86.718 Personal history of other venous thrombosis and embolism; Z85.038 Personal history of other malignant neoplasm of large intestine; Z92.21 Personal history of antineoplastic chemotherapy
CPT/HCPCS: 99283

== ENCOUNTER 2017-12-13 14:53 | Emergency (ER) | payer OTHER, MEDICAID ==
[~2017-12-13] VITALS: Ht 190.5 cm; Wt 106.1 kg
[~2017-12-13 14:53] MED LIST changes: +BACITRACIN-P28.35 GM TP
[2017-12-13 15:13] VITALS: BP 120/76
[2017-12-13 16:07] VITALS: BP 124/76
--- NOTE | 2017-12-18 12:51 | Emergency Room Report ---
History of Present Illness General Chief Complaint: General Complaint Source: Patient Present Illness HPI Patient is a 57 year old male who presented for check of PICC line. Patient states that he feels as is sutures may have come loose. He denies any fever or discharge. He denies pain to the area. Allergies: Coded Allergies: No Known Allergies (Unverified , 09/15/12) Patient History Past Medical History: see triage record Reviewed Nursing Documentation: PMH: Agreed, PSxH: Agreed Nursing Documentation-PMH Hx Cardiac Problems: Yes Hx Hypertension: Yes - DVT LLE Hx Pacemaker: No Hx Asthma: No Hx COPD: No Hx Diabetes: No Hx Cancer: Yes - Colon; Anemia Hx Gastrointestinal Problems: No Hx Dialysis: No Hx Neurological Problems: No Hx Cerebrovascular Accident: No Hx Seizures: No Review of Systems All Other Systems: negative except mentioned in HPI Physical Exam Vital Signs Date Time Temp Pulse Resp B/P (MAP) Pulse Ox O2 Delivery O2 Flow Rate FiO2 12/13/17 15:03 98.2 113 18 120/76 98 Room Air 98.2 General Appearance: well appearing, no apparent distress, alert, GCS 15, non- toxic Head: normocephalic, atraumatic ENT: hearing grossly normal, normal voice Neck: full range of motion, supple Respiratory: no respiratory distress, speaking full sentences Cardiovascular #1: normal inspection Musculoskeletal: no calf tenderness Neurologic: normal inspection, alert, oriented x3, responsive, normal gait Psychiatric: mood/affect normal Skin: no rash, other - PICC line sutures intact. No erythema or discharge Medical Decision Making Diagnostic Impression: Primary Impression: Visit for wound check ER Course Patient presented for check of PICC line. DIfferential diagnosis included but was not limited to cellulitis, line infection, dvt among others. Patients line appears intact. There is no evidence of infection. Patients line was dressed with sterile dressing. He was to continue home health. Return for any concerns. Last Vital Signs Date Time Temp Pulse Resp B/P (MAP) Pulse Ox O2 Delivery O2 Flow Rate FiO2 12/13/17 16:07 98.2 87 18 124/76 98 Room Air 98.2 Status: improved Disposition: HOME, SELF-CARE Condition: Stable Referrals: ESEQUIEL EDWARDS (PCP) Patient Instructions: Wound Check Jori Wilkins Dec 18, 2017 12:51
== END 2017-12-13 16:35 | disposition home or self-care (01) ==
LOC: EMR 15:30
DX: Z48.01 Encounter for change or removal of surgical wound dressing (principal); I10 Essential (primary) hypertension; Z86.718 Personal history of other venous thrombosis and embolism; Z85.038 Personal history of other malignant neoplasm of large intestine
CPT/HCPCS: 99282

== ENCOUNTER → 2017-12-20 | Emergency (ER) | payer MEDICAID, OTHER ==
[~2017-12-20] VITALS: Ht 190.5 cm; Wt 105.2 kg
[~2017-12-20] MED LIST changes: +GABAPENTIN300 MG ORAL
[2017-12-20 11:39] VITALS: BP 139/80
--- NOTE | 2017-12-21 06:45 | Emergency Room Report ---
History of Present Illness General Chief Complaint: Wound Recheck/Suture Removal Source: Patient Present Illness HPI I did not see this patient, he left to go to outpatient radiology for removal Allergies: Coded Allergies: No Known Allergies (Unverified , 09/15/12) Nursing Documentation-[facility] Past Medical History: No History, Except For Hx Cardiac Problems: Yes Hx Hypertension: Yes - DVT LLE Hx Pacemaker: No Hx Asthma: No Hx COPD: No Hx Diabetes: No Hx Cancer: Yes - Colon; Anemia Hx Gastrointestinal Problems: No Hx Dialysis: No Hx Neurological Problems: No Hx Cerebrovascular Accident: No Hx Seizures: No Physical Exam Vital Signs Date Time Temp Pulse Resp B/P (MAP) Pulse Ox O2 Delivery O2 Flow Rate FiO2 12/20/17 11:11 97.6 107 17 139/80 97 Room Air 97.5 Medical Decision Making Last Vital Signs Date Time Temp Pulse Resp B/P (MAP) Pulse Ox O2 Delivery O2 Flow Rate FiO2 12/20/17 11:39 97.5 80 17 139/80 97 Room Air 97.5 Referrals: ESEQUIEL EDWARDS (PCP) Myla Quiñonez M.D. Dec 21, 2017 06:45
== END | disposition home or self-care (01) ==
LOC: EMR 11:30
DX: Z48.02 Encounter for removal of sutures (principal); I10 Essential (primary) hypertension; Z85.038 Personal history of other malignant neoplasm of large intestine; Z86.718 Personal history of other venous thrombosis and embolism
CPT/HCPCS: 99282

== ENCOUNTER 2017-12-29 11:31 | Emergency (ER) | payer OTHER, MEDICAID ==
[~2017-12-29] VITALS: Ht 190.5 cm; Wt 106.1 kg
[~2017-12-29 11:31] MED LIST changes: -GABAPENTIN300 MG ORAL
[2017-12-29] MEDS ORDERED: Methocarbamol 750mg tab ORAL ONE (12:15)
[2017-12-29] MEDS ORDERED: ROBAXIN-750750 MG PO (12:35)
[2017-12-29 13:02] VITALS: BP 122/53
--- NOTE | 2017-12-29 13:32 | Emergency Room Report ---
History of Present Illness General Chief Complaint: Pain Source: Patient Present Illness HPI 57-year-old male, presenting with left shoulder pain. Patient states that he woke up with the pain, it hurts more when he tries to cotton picker something or raise it. Denies any chest pain shortness of breath nausea vomiting. Patient states that pain has improved upon coming to the emergency room. Denies any trauma Allergies: Coded Allergies: No Known Allergies (Unverified , 09/15/12) Patient History Past Medical History: see triage record Past Surgical History: none Pertinent Family History: none Reviewed Nursing Documentation: PMH: Agreed, PSxH: Agreed Nursing Documentation-PMH Hx Cardiac Problems: Yes Hx Hypertension: Yes - DVT LLE Hx Pacemaker: No Hx Asthma: No Hx COPD: No Hx Diabetes: No Hx Cancer: Yes - Colon; Anemia Hx Gastrointestinal Problems: No Hx Dialysis: No Hx Neurological Problems: No Hx Cerebrovascular Accident: No Hx Seizures: No Review of Systems All Other Systems: negative except mentioned in HPI Physical Exam Vital Signs Date Time Temp Pulse Resp B/P (MAP) Pulse Ox O2 Delivery O2 Flow Rate FiO2 12/29/17 11:48 98.8 97 17 177/84 98 Room Air 98.8 Sp02 EP Interpretation: reviewed, normal General Appearance: normal inspection, well appearing, no apparent distress, alert, GCS 15, non-toxic Head: normocephalic, atraumatic Eyes: bilateral eye normal inspection, bilateral eye PERRL, bilateral eye EOMI ENT: normal ENT inspection, normal pharynx, normal voice, moist mucus membranes Neck: normal inspection, full range of motion, supple Respiratory: normal inspection, lungs clear, normal breath sounds, no respiratory distress, no retraction, no wheezing, speaking full sentences, chest symmetrical Cardiovascular #1: normal inspection, regular rate, rhythm, no edema, normal capillary refill Cardiovascular #2: 2+ radial (R), 2+ radial (L) Gastrointestinal: normal inspection, non tender, soft, non-distended, no guarding Genitourinary: no CVA tenderness Musculoskeletal: normal inspection, other - Mild tenderness anterior shoulder, pain is increased with active movement of the shoulder however there is full range of motion Neurologic: normal inspection, alert, oriented x3, responsive, motor strength/ tone normal, sensory intact, normal gait, speech normal Psychiatric: normal inspection, judgement/insight normal, memory normal Skin: normal inspection, normal color, no rash, warm/dry, well hydrated, normal turgor Medical Decision Making Diagnostic Impression: Primary Impression: Muscle strain ER Course 57-year-old male with left shoulder pain DDX: Likely musculoskeletal given physical exam, patient is smiling, conversant, not in any pain at this time Plan: X-ray ER course: Patient has remained stable during ED stay. Moving shoulder without difficulty, not in any pain Disposition: Patient is to be discharged to home. Patient is instructed to follow up with their primary care doctor within 5 days. Please note that this Emergency Department Report was dictated using [employer] pleater technology software, occasionally this can lead to erroneous entry secondary to interpretation by the dictation equipment EKG Diagnostic Results EP Interpretation: Yes Rate: normal Rhythm: NSR ST Segments: No acute changes ASA given to patient: No Last Vital Signs Date Time Temp Pulse Resp B/P (MAP) Pulse Ox O2 Delivery O2 Flow Rate FiO2 12/29/17 13:02 88 18 122/53 100 Room Air 12/29/17 12:46 98.8 Disposition: HOME, SELF-CARE Condition: Improved Scripts Methocarbamol* (ROBAXIN-750*) 750 Mg Tablet 750 MG PO QID, #28 TAB 0 Refills Prov: Myla Quiñonez M.D. 12/29/17 Referrals: ESEQUIEL EDWARDS (PCP) Patient Instructions: Musculoskeletal Pain Myla Quiñonez M.D. Dec 29, 2017 13:32
--- NOTE | 2017-12-29 14:01 | Diagnostic Imaging Report ---
Indication: Pain Technique: 3 views of the left shoulder Comparison: none Findings: No acute fractures. No dislocations. The joint spaces are preserved Impression: Negative
--- NOTE | 2017-12-31 11:38 | Cardiology Report ---
APPROVED REPORT EKG Measurement Heart [id number] Normal sinus rhythm with sinus arrhythmia Normal ECG
== END 2017-12-29 13:04 | disposition home or self-care (01) ==
LOC: EMR 12:13
DX: S46.912A Strain of unspecified muscle, fascia and tendon at shoulder and upper arm level, left arm, initial encounter (principal); X58.XXXA Exposure to other specified factors, initial encounter; Y92.9 Unspecified place or not applicable; T14.8XXA Other injury of unspecified body region, initial encounter; X50.9XXA Other and unspecified overexertion or strenuous movements or postures, initial encounter; I10 Essential (primary) hypertension; Z86.718 Personal history of other venous thrombosis and embolism; Z85.038 Personal history of other malignant neoplasm of large intestine; D64.9 Anemia, unspecified
CPT/HCPCS: 93005; 99284

== ENCOUNTER 2018-01-31 12:02 | Emergency (ER) | payer OTHER, MEDICAID ==
[~2018-01-31] VITALS: Ht 190.5 cm; Wt 129.3 kg
[2018-01-31 12:38] VITALS: BP 134/80
--- NOTE | 2018-01-31 12:56 | Emergency Room Report ---
History of Present Illness General Chief Complaint: General Complaint Present Illness HPI 57-year-old male presents to the emergency department complaining of pain and swelling to the proximal interphalangeal joint of the fifth finger of the left hand 2 days. Patient also reports intermittent paresthesias in that finger. 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 Patient finished chemotherapy a proximally one year ago he states that he was being treated for colon cancer which is now in remission. Patient denies trauma or fall he reports history of arthritis. Denies erythema increased to palpation fevers or chills. He denies open wounds or bleeding. Patient states that he takes 100 mg gabapentin 3 times daily and he has been on it since last May with no changes in dosage. Patient states he was started on this medication for his neuropathy. Patient states that he feels it never quite helped. Denies numbness tingling or loss of sensation or gross motor movements of the extremities, incontinence of bowel or bladder. Denies CP, Palpitations, LOC, AMS, dizziness, Changes in Vision, no gross loss of sensation or mobility,Denies sudden severe headache. Allergies: Coded Allergies: No Known Allergies (Unverified , 09/15/12) Patient History Past Medical History: see triage record Past Surgical History: none Pertinent Family History: none Immunizations: UTD Reviewed Nursing Documentation: PMH: Agreed; PSxH: Agreed Nursing Documentation-PMH Hx Cardiac Problems: Yes Hx Hypertension: Yes - DVT LLE Hx Pacemaker: No Hx Asthma: No Hx COPD: No Hx Diabetes: No Hx Cancer: Yes - Colon; Anemia Hx Gastrointestinal Problems: No Hx Dialysis: No Hx Neurological Problems: No Hx Cerebrovascular Accident: No Hx Seizures: No Review of Systems All Other Systems: negative except mentioned in HPI Physical Exam Vital Signs Date Time Temp Pulse Resp B/P (MAP) Pulse Ox O2 Delivery O2 Flow Rate FiO2 01/31/18 12:05 97.5 79 20 131/80 99 Room Air 97.5 Sp02 EP Interpretation: reviewed, normal General Appearance: no apparent distress, alert, GCS 15, non-toxic Head: normocephalic, atraumatic ENT: hearing grossly normal, normal voice Neck: full range of motion Respiratory: lungs clear, normal breath sounds, speaking full sentences Cardiovascular #1: regular rate, rhythm, normal capillary refill Musculoskeletal: back normal, gait/station normal, normal range of motion, tender - mild TTP to the PIP joint of the 5th finger of the left hand, FROM. no erythema, no significant swelling. Neurologic: alert, oriented x3, responsive, motor strength/tone normal, sensory intact, speech normal, grossly normal Psychiatric: judgement/insight normal Skin: normal color, no rash, warm/dry, well hydrated Medical Decision Making PA Attestation Dr. mchugh is my supervising Physician whom patient management has been discussed with. Diagnostic Impression: Primary Impression: Joint pain in fingers of left hand Additional Impression: Arthritis of finger of left hand ER Course 57-year-old male presents to the emergency department complaining of pain and swelling to the proximal interphalangeal joint of the fifth finger of the left hand 2 days. Patient also reports intermittent paresthesias in that finger. 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 Patient finished chemotherapy a proximally one year ago he states that he was being treated for colon cancer which is now in remission. Patient denies trauma or fall he reports history of arthritis. Denies erythema increased to palpation fevers or chills. He denies open wounds or bleeding. Patient states that he takes 100 mg gabapentin 3 times daily and he has been on it since last May with no changes in dosage. Patient states he was started on this medication for his neuropathy. Patient states that he feels it never quite helped. Denies numbness tingling or loss of sensation or gross motor movements of the extremities, incontinence of bowel or bladder. Denies CP, Palpitations, LOC, AMS, dizziness, Changes in Vision, no gross loss of sensation or mobility,Denies sudden severe headache. Ddx considered but are not limited to Fracture, dislocation, contusion, Sprain/ Strain/Spasm, Arthritis, septic joint, progression of neuropathy. Vital signs: are WNL, pt. is afebrile H&PE are most consistent with musculoskeletal injury will perform imaging to r/ o fractures/dislocations. ORDERS: - X-ray - left hand - negative for fx, Dislocation, or significant soft tissue injury, per preliminary read in ED, and signed by RICH Flynn, my supervising physician has reviewed, and agrees with my interpretation. ED INTERVENTIONS: - d/w pt. conservative treatment, and to follow up with a primary care provider. pt given a list of primary care clinics for follow up. d/w pt. to return to the ED with worsening or new symptoms. - d/w pt. trial of mild increase in dosage of gabapentin as he is on the lowest dosage and not feeling relief. d/w pt. follow up for further medication management with his PCP and recommend Neurologist Macey. DISCHARGE: At this time pt. is stable for d/c to home. Will provide printed patient care instructions, and any necessary prescriptions. Care plan and follow up instructions have been discussed with the patient prior to discharge. Other X-Ray Diagnostic Results Other X-Ray Diagnostic Results : X-Ray ordered: Left Hand # of Views/Limited Vs Complete: 3 View Indication: Pain EP Interpretation: Yes PA Xray: Interpretation reviewed, by supervising MD, and agrees with findings. Interpretation: no dislocation, no soft tissue swelling, no fractures Impression: No acute disease Electronically Signed by: Massiel Flynn PA-C Last Vital Signs Date Time Temp Pulse Resp B/P (MAP) Pulse Ox O2 Delivery O2 Flow Rate FiO2 01/31/18 12:38 97.5 84 20 134/80 99 Room Air 97.5 Disposition: HOME, SELF-CARE Condition: Stable Scripts Gabapentin* (GABAPENTIN*) 300 Mg Capsule 300 MG ORAL THREE TIMES A DAY, #21 CAP 0 Refills Prov: Massiel Flynn 01/31/18 Patient Instructions: Arthritis, Peripheral Neuropathy Additional Instructions: Take medications as directed. Follow up with a Primary Care Provider in 3-5 days, even if your symptoms have resolved. --Please review list of primary care clinics, if you do not already have a primary care provider Return sooner to ED if new symptoms occur, or current symptoms become worse. - Please note that this Emergency Department Report was dictated using [employer] receiving clerk technology software, occasionally this can lead to erroneous entry secondary to interpretation by the dictation equipment. Massiel Flynn Jan 31, 2018 12:56
[2018-01-31] MEDS ORDERED: GABAPENTIN300 MG ORAL (12:59)
[2018-01-31 13:05] VITALS: BP 134/80
--- NOTE | 2018-01-31 16:09 | Diagnostic Imaging Report ---
Indication: Pain Technique: 3 views left hand Comparison: none Findings: No acute fractures. No dislocations. Joint spaces are preserved. Impression: Negative
== END 2018-01-31 13:10 | disposition home or self-care (01) ==
LOC: EMR 12:57
DX: M19.042 Primary osteoarthritis, left hand (principal); Z86.718 Personal history of other venous thrombosis and embolism; Z85.038 Personal history of other malignant neoplasm of large intestine
CPT/HCPCS: 99283

== ENCOUNTER 2018-02-27 22:50 | Emergency (ER) | payer OTHER, MEDICAID ==
[~2018-02-27] VITALS: Ht 190.5 cm; Wt 113.4 kg
[~2018-02-27 22:50] MED LIST changes: +GABAPENTIN300 MG ORAL
--- NOTE | 2018-02-27 23:13 | Emergency Room Report ---
History of Present Illness General Chief Complaint: Chest Pain Source: Patient, Medical Record Present Illness HPI This is a 57-year-old male with a history of colon cancer status post resection. He also has history of DVT and PE for which she's taking Xarelto. He presents with chief complaint of shortness of breath. He woke up gasping for air. He is back to baseline now. He called 911 and was given nitroglycerin without much relief. He did not take aspirin because he is on Xarelto. This is similar symptoms in the past. Last week he had a sleep study and was told by the tech that it was abnormal. He is scheduled to see his doctor next month for results. No nausea no vomiting. No chest pain. No radiation exertion component. Worse with lying flat. Allergies: Coded Allergies: No Known Allergies (Unverified , 09/15/12) Patient History Past Medical History: see triage record, old chart reviewed, other Past Surgical History: other Pertinent Family History: none Social History: Denies: smoking Immunizations: other Reviewed Nursing Documentation: PMH: Agreed; PSxH: Agreed Nursing Documentation-PMH Past Medical History: No History, Except For Hx Cardiac Problems: Yes - Anemia Hx Hypertension: Yes Hx Pacemaker: No Hx Asthma: No Hx COPD: No Hx Diabetes: No Hx Cancer: Yes - Colon Hx Gastrointestinal Problems: No Hx Dialysis: No Hx Neurological Problems: No - DVT LLE Hx Cerebrovascular Accident: No Hx Seizures: No Review of Systems Eye: Denies: eye pain, blurred vision ENT: Denies: ear pain, nose congestion, throat swelling Respiratory: Reports: shortness of breath; Denies: cough Cardiovascular: Denies: chest pain, palpitations Gastrointestinal: Denies: abdominal pain, diarrhea, nausea, vomiting Musculoskeletal: Denies: back pain, joint pain Skin: Denies: rash Neurological: Denies: headache, numbness Endocrine: Denies: increased thirst, increased urine Hematologic/Lymphatic: Denies: easy bruising All Other Systems: negative except mentioned in HPI Physical Exam Vital Signs Date Time Temp Pulse Resp B/P (MAP) Pulse Ox O2 Delivery O2 Flow Rate FiO2 02/27/18 22:53 98.7 113 18 170/92 100 Room Air 98.8 vitals with high blood pressure Sp02 EP Interpretation: reviewed, normal General Appearance: well appearing, no apparent distress, alert, obese Head: normocephalic, atraumatic Eyes: bilateral eye PERRL, bilateral eye EOMI ENT: hearing grossly normal, normal pharynx Neck: full range of motion, supple, no meningismus Respiratory: chest non-tender, lungs clear, normal breath sounds Cardiovascular #1: regular rate, rhythm, no murmur Gastrointestinal: normal bowel sounds, non tender, no mass, no organomegaly, no bruit, non-distended Musculoskeletal: back normal, gait/station normal, normal range of motion Neurologic: alert, oriented x3 Psychiatric: mood/affect normal Skin: warm/dry Medical Decision Making Diagnostic Impression: Primary Impression: Acute dyspnea ER Course Patient presents with dyspnea awoke him up. Symptom resolved now. This appeared to be sleep apnea. He has his sleep study done already. We'll discharge home. No evidence of ACS, PE, dissection to name a few. Patient's already on Xarelto EKG Diagnostic Results Rate: normal Rhythm: NSR ST Segments: no acute changes Rhythm Strip Diag. Results Rhythm Strip Time: 23:13 EP Interpretation: yes Rate: 90 Rhythm: NSR, no PVC's, no ectopy Last Vital Signs Date Time Temp Pulse Resp B/P (MAP) Pulse Ox O2 Delivery O2 Flow Rate FiO2 02/27/18 22:53 98.7 113 18 170/92 100 Room Air 98.8 Status: improved Disposition: HOME, SELF-CARE Condition: Stable Additional Instructions: Follow-up your doctor for the results of your sleep study. Call the office to move up the appointment. Return if symptom worsen. SEFERINO AGUILAR M.D. Feb 27, 2018 23:13
[2018-02-27 23:23] LABS: EOSINOPHILS % (AUTO) 1.3 % (0.0-3.0); HEMOGLOBIN 14.9 G/DL (14.2-18.0); LYMPHOCYTES % (AUTO) 30.8 % (20.0-45.0); MEAN CORPUSCULAR VOLUME 89 FL (80-99); NEUTROPHILS % (AUTO) 62.1 % (45.0-75.0); PLATELET COUNT 209 K/UL (150-450); RED CELL DISTRIBUTION WIDTH 12.2 % (11.6-14.8); WHITE BLOOD COUNT 7.9 K/UL (4.8-10.8)
[2018-02-27 23:34] LABS: ANION GAP 4 mmol/L (5-15); BLOOD UREA NITROGEN 13 mg/dL (7-18); CALCIUM 9.3 MG/DL (8.5-10.1); CARBON DIOXIDE 30 MMOL/L (21-32); CHLORIDE 103 MMOL/L (98-107); CREATININE 0.9 MG/DL (0.55-1.30); POTASSIUM 3.7 MMOL/L (3.5-5.1); SODIUM 137 MMOL/L (136-145)
[2018-02-27 23:50] LABS: INR 0.9 (0.9-1.1)
[2018-02-28 00:32] VITALS: BP 99/58
[2018-02-28 00:40] VITALS: BP 99/58
--- NOTE | 2018-02-28 09:38 | Diagnostic Imaging Report ---
Indication: Dyspnea Technique: XRAY Chest 1v Comparison: 11/18/2017 Findings: Interval removal of the left arm PICC. Heart size and mediastinal contours are within normal limits given technique and stable compared to the prior exam. There is no focal consolidation, pneumothorax or pleural effusion. Osseous structures demonstrate no acute abnormality. IMPRESSION: No radiographic evidence of acute cardiopulmonary disease. Interval removal of PICC line.
== END 2018-02-28 00:40 | disposition home or self-care (01) ==
LOC: EDBD 22:50 → EMR 23:15
DX: R06.00 Dyspnea, unspecified (principal); I10 Essential (primary) hypertension; D64.9 Anemia, unspecified; Z85.038 Personal history of other malignant neoplasm of large intestine; Z86.718 Personal history of other venous thrombosis and embolism
CPT/HCPCS: 36415; 71045; 80048; 83880; 84484; 85025; 85610; 85730; 93005; 99283

== ENCOUNTER 2018-03-06 22:07 | Emergency (ER) | payer OTHER, MEDICAID ==
[~2018-03-06] VITALS: Ht 190.5 cm; Wt 117.0 kg
[2018-03-06 22:26] VITALS: BP 133/70
--- NOTE | 2018-03-06 22:26 | Emergency Room Report ---
History of Present Illness General Chief Complaint: Pain Source: Patient Present Illness HPI This is a 57-year-old male with a history of DVT for which is taking Xarelto. He present with chief complaint of acute onset of left arm pain. Onset was about for 5 hours ago. He was sitting down when he had sharp pain to the bicep area. No trauma. Worse with movement. No shortness of breath. No fever or chills. No chest pain. Pain is 9 out of 10. Allergies: Coded Allergies: No Known Allergies (Unverified , 09/15/12) Patient History Past Medical History: see triage record, old chart reviewed, HTN, COPD Past Surgical History: other Pertinent Family History: none Social History: Denies: smoking Immunizations: other Reviewed Nursing Documentation: PMH: Agreed; PSxH: Agreed Nursing Documentation-PMH Hx Cardiac Problems: Yes - Anemia Hx Hypertension: Yes Hx Pacemaker: No Hx Asthma: No Hx COPD: No Hx Diabetes: No Hx Cancer: Yes - Colon Hx Gastrointestinal Problems: No Hx Dialysis: No Hx Neurological Problems: No - DVT LLE Hx Cerebrovascular Accident: No Hx Seizures: No Review of Systems Eye: Denies: eye pain, blurred vision ENT: Denies: ear pain, nose congestion, throat swelling Respiratory: Denies: cough, shortness of breath Cardiovascular: Denies: chest pain, palpitations Gastrointestinal: Denies: abdominal pain, diarrhea, nausea, vomiting Musculoskeletal: Reports: muscle pain; Denies: back pain, joint pain Skin: Denies: rash Neurological: Denies: headache, numbness Endocrine: Denies: increased thirst, increased urine Hematologic/Lymphatic: Denies: easy bruising All Other Systems: negative except mentioned in HPI Physical Exam Vital Signs Date Time Temp Pulse Resp B/P (MAP) Pulse Ox O2 Delivery O2 Flow Rate FiO2 03/06/18 22:14 98.2 94 18 141/74 97 Room Air 98.2 vvitals normal Sp02 EP Interpretation: reviewed, normal General Appearance: well appearing, no apparent distress, alert, obese Head: normocephalic, atraumatic Eyes: bilateral eye PERRL, bilateral eye EOMI ENT: hearing grossly normal, normal pharynx Neck: full range of motion, supple, no meningismus Respiratory: chest non-tender, lungs clear, normal breath sounds Cardiovascular #1: regular rate, rhythm, no murmur Gastrointestinal: normal bowel sounds, non tender, no mass, no organomegaly, no bruit, non-distended Musculoskeletal: back normal, gait/station normal, normal range of motion, other - Tenderness over the left bicep area. No deformity. No edema. Pulses normal. Full range of motion the shoulder, elbow, wrist. Pain reproducible with movement area Neurologic: alert, oriented x3 Psychiatric: mood/affect normal Skin: warm/dry Medical Decision Making Diagnostic Impression: Primary Impression: Neuropathy of left upper extremity ER Course Patient presents with pain to the left arm. No evidence of DVT or trauma. No evidence of infection. Patient said this was acute onset. His sister said that he's been having this problem on and off for a while now. We'll discharge home. CT/MRI/US Diagnostic Results CT/MRI/US Diagnostic Results : Imaging Test Ordered: Left arm ultrasound Impression negative for DVT per meteorologist in charge Last Vital Signs Date Time Temp Pulse Resp B/P (MAP) Pulse Ox O2 Delivery O2 Flow Rate FiO2 03/06/18 22:14 98.2 94 18 141/74 97 Room Air 98.2 Status: improved Disposition: HOME, SELF-CARE Condition: Stable Scripts Gabapentin* (GABAPENTIN*) 300 Mg Capsule 300 MG ORAL BEDTIME, #30 CAP Prov: SEFERINO AGUILAR M.D. 03/06/18 Additional Instructions: Follow-up with your DrMyron in 3-5 days. Return if symptom worsen. SEFERINO AGUILAR M.D. March 06, 2018 22:26
[2018-03-06] MEDS ORDERED: Norco 5mg/325mg tab ORAL ONE (22:30)
[2018-03-06] MEDS ORDERED: GABAPENTIN300 MG ORAL (22:50)
[2018-03-06 23:33] VITALS: BP 133/70
--- NOTE | 2018-03-07 09:50 | Diagnostic Imaging Report ---
APPROVED REPORT CPT Code: 19205 Present Symptoms Upper Extremity Pain: Left LEFT UPPER EXTREMITY: Imaging reveals patency of the internal jugular, subclavian, axillary and brachial veins. The basilic vein is also within normal limits.
== END 2018-03-06 23:30 | disposition home or self-care (01) ==
LOC: EMR 23:18
DX: G56.92 Unspecified mononeuropathy of left upper limb (principal); I10 Essential (primary) hypertension; Z85.038 Personal history of other malignant neoplasm of large intestine
CPT/HCPCS: 93971

== ENCOUNTER 2018-03-28 18:00 | Emergency (ER) | payer OTHER, MEDICAID ==
[~2018-03-28] VITALS: Ht 182.9 cm; Wt 113.4 kg
[2018-03-28 18:26] VITALS: BP 144/67
[2018-03-28] MEDS ORDERED: Ipratropium 0.02% Inh Soln 2.5ml UD HHN ONE (18:30)
[2018-03-28] MEDS ORDERED: Isovue-370 150ml vial INJ PRN (18:30)
[2018-03-28] MEDS ORDERED: Albuterol ud Inhalation HHN ONE (18:30)
[2018-03-28 19:06] LABS: BASOPHILS % (AUTO) 1.7 % (0.0-2.0); LYMPHOCYTES % (AUTO) 38.1 % (20.0-45.0); MEAN CORPUSCULAR VOLUME 88 FL (80-99); MONOCYTES % (AUTO) 5.4 % (1.0-10.0); NEUTROPHILS % (AUTO) 53.8 % (45.0-75.0); PLATELET COUNT 225 K/UL (150-450); RED BLOOD COUNT 5.11 M/UL (4.70-6.10); RED CELL DISTRIBUTION WIDTH 12.2 % (11.6-14.8); WHITE BLOOD COUNT 8.2 K/UL (4.8-10.8)
[2018-03-28 19:09] LABS: ANION GAP 10 mmol/L (5-15); BLOOD UREA NITROGEN 12 mg/dL (7-18); CARBON DIOXIDE 27 MMOL/L (21-32); CHLORIDE 103 MMOL/L (98-107); CREATININE 0.8 MG/DL (0.55-1.30); POTASSIUM 3.9 MMOL/L (3.5-5.1); SODIUM 140 MMOL/L (136-145)
[2018-03-28 19:23] LABS: ALANINE AMINOTRANSFERASE 46 U/L (12-78); ALBUMIN 4.3 G/DL (3.4-5.0); ALKALINE PHOSPHATASE 93 U/L (46-116); ASPARTATE AMINO TRANSFERASE 24 U/L (15-37); BILIRUBIN,TOTAL 0.3 MG/DL (0.2-1.0); CREATINE KINASE 349 U/L (26-308)
[2018-03-28] MEDS ORDERED: Sodium Chloride 500ML 550 ML IV SCH (19:30)
[2018-03-28] MEDS ORDERED: ALBUTEROL SULF8.5 GM INH ×2 (21:01→21:04)
[2018-03-28 21:03] VITALS: BP 144/67
[2018-03-28] MEDS ORDERED: PREDNISONE20 MG ORAL (21:04)
--- NOTE | 2018-03-28 21:23 | Emergency Room Report ---
History of Present Illness General Chief Complaint: Dyspnea/Respdistress Source: Patient, Medical Record Present Illness HPI Patient is a 57-year-old male who presented after increased shortness of breath. Patient prior history of deep venous thrombosis and been taking Xarelto . Patient had reportedly had prior sleep study done which showed evidence of sleep apnea.Patient reports previously being a smoker. The patient stated he quit after diagnosis of colon cancer.The patient denies any recent leg pain or swelling. The patient had been followed by Dr. Pop. The patient denies any bleeding episodes. He reported having prior chemotherapy and radiation for colon cancer Allergies: Coded Allergies: No Known Allergies (Unverified , 09/15/12) Patient History Past Medical History: see triage record Reviewed Nursing Documentation: PMH: Agreed; PSxH: Agreed Nursing Documentation-PMH Past Medical History: No History, Except For Hx Cardiac Problems: Yes - Anemia Hx Hypertension: Yes Hx Pacemaker: No Hx Asthma: No Hx COPD: No Hx Diabetes: No Hx Cancer: Yes - Colon Hx Gastrointestinal Problems: No Hx Dialysis: No Hx Neurological Problems: No - DVT LLE Hx Cerebrovascular Accident: No Hx Seizures: No Review of Systems All Other Systems: negative except mentioned in HPI Physical Exam Vital Signs Date Time Temp Pulse Resp B/P (MAP) Pulse Ox O2 Delivery O2 Flow Rate FiO2 03/28/18 18:05 97.2 83 22 142/67 99 Room Air 97.2 03/28/18 18:43 21 Sp02 EP Interpretation: reviewed, normal General Appearance: normal inspection, well appearing, no apparent distress, alert, GCS 15, obese, Chronically Ill Head: atraumatic ENT: normal ENT inspection, hearing grossly normal, normal voice Neck: normal inspection, full range of motion, supple, no bony tend Respiratory: normal inspection, lungs clear, normal breath sounds, no respiratory distress, no retraction, no wheezing Cardiovascular #1: regular rate, rhythm, no edema Gastrointestinal: normal inspection, normal bowel sounds, non tender, soft, no guarding, no hernia Genitourinary: no CVA tenderness Musculoskeletal: normal inspection, back normal, normal range of motion, Rick' s Sign negative Neurologic: normal inspection, alert, oriented x3, responsive, towel hemmer III-XII nml as tested, motor strength/tone normal, speech normal Psychiatric: normal inspection, judgement/insight normal, mood/affect normal Skin: normal inspection, normal color, no rash Medical Decision Making Diagnostic Impression: Primary Impression: Hyperventilation syndrome Additional Impression: COPD (chronic obstructive pulmonary disease) ER Course Patient presented for shortness of breath. Differential included but was not limited to anemia, pneumonia, pneumothorax, myocardial infarction, pericardial effusion, congestive heart failure, acidosis. Because of complexity of patient' s case laboratory testing and imaging studies were ordered. The arterial blood gas showed the alkalotic pH and low CO2 consistent with hyperventilation. The patient started on IV fluids. He was given a breathing treatment with some improvement of symptoms. CTA of the chest read by radiology showed no evidence of pulmonary embolism or pneumonia. EKG interpreted by [facility] showed normal sinus rhythm with rate of [address] or T wave changes.The patient was advised follow-up with his primary care physician is given prescription for albuterol as well as for prednisone. Labs Test 03/28/18 18:30 03/28/18 18:40 Arterial Blood pH 7.582 (7.350-7.450) Arterial Blood Partial Pressure CO2 24.8 mmHg (35.0-45.0) Arterial Blood Partial Pressure O2 236.0 mmHg (75.0-100.0) Arterial Blood HCO3 22.8 mmol/L (22.0-26.0) Arterial Blood Oxygen Saturation 98.8 % (92.0-98.0) Arterial Blood Base Excess 2.6 Jero Test Positive White Blood Count 8.2 K/UL (4.8-10.8) Red Blood Count 5.11 M/UL (4.70-6.10) Hemoglobin 15.0 G/DL (14.2-18.0) Hematocrit 45.0 % (42.0-52.0) Mean Corpuscular Volume 88 FL (80-99) Mean Corpuscular Hemoglobin 29.3 PG (27.0-31.0) Mean Corpuscular Hemoglobin Concent 33.3 G/DL (32.0-36.0) Red Cell Distribution Width 12.2 % (11.6-14.8) Platelet Count 225 K/UL (150-450) Mean Platelet Volume 6.4 FL (6.5-10.1) Neutrophils (%) (Auto) 53.8 % (45.0-75.0) Lymphocytes (%) (Auto) 38.1 % (20.0-45.0) Monocytes (%) (Auto) 5.4 % (1.0-10.0) Eosinophils (%) (Auto) 1.0 % (0.0-3.0) Basophils (%) (Auto) 1.7 % (0.0-2.0) Prothrombin Time 10.1 SEC (9.30-11.50) Prothromb Time International Ratio 1.0 (0.9-1.1) Activated Partial Thromboplast Time 25 SEC (23-33) Sodium Level 140 MMOL/L (136-145) Potassium Level 3.9 MMOL/L (3.5-5.1) Chloride Level 103 MMOL/L (98-107) Carbon Dioxide Level 27 MMOL/L (21-32) Anion Gap 10 mmol/L (5-15) Blood Urea Nitrogen 12 mg/dL (7-18) Creatinine 0.8 MG/DL (0.55-1.30) Estimat Glomerular Filtration Rate > 60 mL/min (>60) Glucose Level 105 MG/DL (74-106) Calcium Level 10.0 MG/DL (8.5-10.1) Total Bilirubin 0.3 MG/DL (0.2-1.0) Aspartate Amino Transf (AST/SGOT) 24 U/L (15-37) Alanine Aminotransferase (ALT/SGPT) 46 U/L (12-78) Alkaline Phosphatase 93 U/L (46-116) Total Creatine Kinase 349 U/L (26-308) Creatine Kinase MB 4.0 NG/ML (0.0-3.6) Creatine Kinase MB Relative Index 1.1 Troponin I 0.000 ng/mL (0.000-0.056) Pro-B-Type Natriuretic Peptide 17 pg/mL (0-125) Total Protein 8.6 G/DL (6.4-8.2) Albumin 4.3 G/DL (3.4-5.0) Globulin 4.3 g/dL Albumin/Globulin Ratio 1.0 (1.0-2.7) EKG Diagnostic Results Rate: normal Rhythm: NSR - 83 ST Segments: no acute changes Last Vital Signs Date Time Temp Pulse Resp B/P (MAP) Pulse Ox O2 Delivery O2 Flow Rate FiO2 03/28/18 21:03 97.2 97 28 144/67 100 Room Air 21 97.2 Status: improved Disposition: HOME, SELF-CARE Condition: Stable Scripts Prednisone* (PREDNISONE*) 20 Mg Tablet 40 MG ORAL DAILY, #10 TAB Prov: Jori Wilkins MD 03/28/18 Albuterol Sulfate* (ALBUTEROL SULFATE MDI*) 8.5 Gm Hfa.aer.ad 2 PUFF INH Q6H, #1 INH 0 Refills Prov: Jori Wilkins MD 03/28/18 Albuterol Sulfate* (ALBUTEROL SULFATE MDI*) 8.5 Gm Hfa.aer.ad 2 PUFF INH Q6H, #1 INH 0 Refills Prov: Jori Wilkins MD 03/28/18 Patient Instructions: Chronic Obstructive Pulmonary Disease Exacerbation Jori Wilkins MD March 28, 2018 21:23
--- NOTE | 2018-03-29 09:33 | Diagnostic Imaging Report ---
Indication: Chest pain Technique: Continuous helical transaxial imaging of the chest was obtained from the thoracic inlet to the upper abdomen during rapid intravenous contrast administration. Arterial phase of enhancement obtained. Coronal 2-D reformats were also obtained and maximum intensity projection images in multiple planes. Study obtained in a Siemens sensation [address] Automatic Exposure Control was utilized. Total Dose length Product (DLP): 1249.[address] Dose Index Volume (CTDIvol): 34.86 mGy Comparison: None Findings: The pulmonary artery is well opacified and shows no filling defects. There is no adenopathy, pleural or pericardial effusions are identified. There is no aortic dissection or aneurysm identified within the chest. The lungs are clear. Visualized part of the upper abdomen is unremarkable. Impression: Negative CTA of the chest The CT scanner at [facility] is accredited by the [employer] and the scans are performed using dose optimization techniques as appropriate to a performed exam including Automatic Exposure control.
--- NOTE | 2018-03-29 10:49 | Diagnostic Imaging Report ---
Indication: Dyspnea Comparison: 02/27/2018 A single view chest radiograph was obtained. Findings: Cardiomediastinal appearance is within normal limits for age. Pulmonary vascularity is appropriate. The diaphragmatic contour is smooth and costophrenic angles are sharp. No pleural effusions are identified. The bones are unremarkable. Impression: No acute findings
--- NOTE | 2018-03-29 14:02 | Cardiology Report ---
APPROVED REPORT EKG Measurement Heart [id number] Normal sinus rhythm Normal ECG
== END 2018-03-28 21:08 | disposition home or self-care (01) ==
LOC: EMR 18:30 → CANBEDREQ 21:05 → EMR 21:08
DX: F45.8 Other somatoform disorders (principal); J44.9 Chronic obstructive pulmonary disease, unspecified; I10 Essential (primary) hypertension; Z85.038 Personal history of other malignant neoplasm of large intestine
CPT/HCPCS: 36415; 36600; 71045; 71275; 80053; 82550; 82553; 82803; 83880; 84484; 85025; 85610; 85730; 93005; 94640; 96374; 96375; 99284; Q9967

== ENCOUNTER 2018-04-04 11:26 | Emergency (ER) | payer OTHER, MEDICAID ==
[~2018-04-04] VITALS: Ht 190.5 cm; Wt 117.0 kg
[~2018-04-04 11:26] MED LIST changes: +ALBUTEROL SULF8.5 GM INH; +PREDNISONE20 MG ORAL
[2018-04-04] MEDS ORDERED: Albuterol ud Inhalation HHN ONE (12:00)
[2018-04-04] MEDS ORDERED: Ipratropium 0.02% Inh Soln 2.5ml UD HHN ONE (12:00)
[2018-04-04 12:17] VITALS: BP 136/86
[2018-04-04 12:31] LABS: APPEARANCE,URINE CLEAR; BILIRUBIN, URINE NEGATIVE (NEGATIVE); GLUCOSE, URINE (UA) NEGATIVE (NEGATIVE); KETONES,URINE NEGATIVE (NEGATIVE); LEUKOCYTE ESTERASE ,URINE 1+ (NEGATIVE); NITRITE,URINE NEGATIVE (NEGATIVE); PH,URINE 6 (4.5-8.0); PROTEIN,URINE NEGATIVE (NEGATIVE); UROBILINOGEN,URINE NORMAL MG/DL (0.0-1.0)
[2018-04-04 12:33] LABS: BASOPHILS % (AUTO) 1.1 % (0.0-2.0); EOSINOPHILS % (AUTO) 0.6 % (0.0-3.0); HEMATOCRIT 44.1 % (42.0-52.0); HEMOGLOBIN 14.6 G/DL (14.2-18.0); LYMPHOCYTES % (AUTO) 30.6 % (20.0-45.0); MEAN CORPUSCULAR VOLUME 88 FL (80-99); MONOCYTES % (AUTO) 4.1 % (1.0-10.0); NEUTROPHILS % (AUTO) 63.6 % (45.0-75.0); PLATELET COUNT 240 K/UL (150-450); RED BLOOD COUNT 5.01 M/UL (4.70-6.10); RED CELL DISTRIBUTION WIDTH 12.1 % (11.6-14.8); WHITE BLOOD COUNT 10.8 K/UL (4.8-10.8)
[2018-04-04 12:34] LABS: COLOR,URINE YELLOW
[2018-04-04 12:43] LABS: ANION GAP 10 mmol/L (5-15); BLOOD UREA NITROGEN 15 mg/dL (7-18); CALCIUM 9.7 MG/DL (8.5-10.1); CARBON DIOXIDE 29 MMOL/L (21-32); CHLORIDE 104 MMOL/L (98-107); CREATININE 0.8 MG/DL (0.55-1.30); POTASSIUM 3.4 MMOL/L (3.5-5.1); SODIUM 142 MMOL/L (136-145)
[2018-04-04 12:57] LABS: ALANINE AMINOTRANSFERASE 45 U/L (12-78); ALBUMIN 4.4 G/DL (3.4-5.0); ALKALINE PHOSPHATASE 87 U/L (46-116); ASPARTATE AMINO TRANSFERASE 25 U/L (15-37); BILIRUBIN,TOTAL 0.3 MG/DL (0.2-1.0); CREATINE KINASE 713 U/L (26-308)
[2018-04-04 14:15] VITALS: BP 127/80
--- NOTE | 2018-04-04 14:49 | Emergency Room Report ---
History of Present Illness General Chief Complaint: Dyspnea/Respdistress Source: Patient Present Illness HPI The patient presents with dyspnea. He is admitted to the hospital for similar complaints. His been evaluated for a DVT in the left leg. He's been taking anti-coagulants daily since discharge. He still feels dyspnea on exertion and orthopnea. The patient was diagnosed with bilateral pulmonary emboli in April 2017. He's had intermittent dyspnea and edema since that time. The patient was evaluated March 28 of this year for dyspnea. He was hyperventilating at that time and had a CT angiogram that was negative for pulmonary emboli. He is still has swelling of his left leg. He says this is dependent edema. There is no increased pain there at this time. He was prescribed prednisone and states this has helped with the dyspnea. Denies wheezing at this time however, he has an inhaler at home which he occasionally uses. The patient denies any fevers, chills, productive cough, nausea, vomiting or diarrhea. H/O colon cancer post abdominal surgery. H/O ORIF of L ankle. Allergies: Coded Allergies: No Known Allergies (Unverified , 09/15/12) Patient History Past Medical History: see triage record Past Surgical History: other - IVC filter, abdominal surgery for colon ca, ORIF L ankle Social History: Denies: smoking Social History Narrative at home Reviewed Nursing Documentation: PMH: Agreed; PSxH: Agreed Nursing Documentation-PMH Past Medical History: No History, Except For Hx Cardiac Problems: Yes - Anemia Hx Hypertension: Yes Hx Pacemaker: No Hx Asthma: No Hx COPD: No Hx Diabetes: No Hx Cancer: Yes - Colon Hx Gastrointestinal Problems: No Hx Dialysis: No Hx Neurological Problems: No - DVT LLE Hx Cerebrovascular Accident: No Hx Seizures: No Review of Systems All Other Systems: negative except mentioned in HPI Physical Exam Vital Signs Date Time Temp Pulse Resp B/P (MAP) Pulse Ox O2 Delivery O2 Flow Rate FiO2 04/04/18 11:30 98.0 93 20 111/65 98 Room Air 98.1 Sp02 EP Interpretation: reviewed, normal General Appearance: well appearing, no apparent distress, GCS 15 Head: normocephalic, atraumatic Eyes: left eye other - lid laxity; bilateral eye normal inspection, bilateral eye PERRL ENT: moist mucus membranes Neck: supple Respiratory: lungs clear, normal breath sounds Cardiovascular #1: regular rate, rhythm, edema - bilat, slightly worse L Cardiovascular #2: 2+ radial (R) Gastrointestinal: normal inspection, normal bowel sounds, non tender, no mass, non-distended Musculoskeletal: back normal, gait/station normal, normal range of motion, Rick's Sign negative Neurologic: alert, oriented x3, grossly normal - with facial assymmetry Psychiatric: mood/affect normal Skin: normal inspection, warm/dry Medical Decision Making Diagnostic Impression: Primary Impression: Dyspnea Qualified Codes: R06.00 - Dyspnea, unspecified Additional Impression: Edema Qualified Codes: R60.9 - Edema, unspecified ER Course Patient presents with it's dyspnea and orthopnea. Had a recent evaluation on March 28 and states he feels similar to before that presentation. He states that prednisone helped him. Differential includes acute coronary syndrome, acute cardial infarction, congestive heart failure, pulmonary embolus and anxiety amongst others. Based on his vital signs pulmonary embolus is less likely and the patient is on anticoagulation at this time. Evaluation will be with EKG, chest x-ray and labs. The patient will be treated with prednisone and a breathing treatment. EKG without injury, chest x-ray without infiltrate and clear. Labs with slightly elevated CK essentially negative with negative troponin and white count. The patient is improved. He requests prescription for prednisone. We discussed whether his inhaler is had steroid inhaler. He will check when he gets home. He has an appointment with his doctor tomorrow. The patient is stable for outpatient observation and treatment. Laboratory Tests Test 04/04/18 12:13 White Blood Count 10.8 K/UL (4.8-10.8) Red Blood Count 5.01 M/UL (4.70-6.10) Hemoglobin 14.6 G/DL (14.2-18.0) Hematocrit 44.1 % (42.0-52.0) Mean Corpuscular Volume 88 FL (80-99) Mean Corpuscular Hemoglobin 29.1 PG (27.0-31.0) Mean Corpuscular Hemoglobin Concent 33.0 G/DL (32.0-36.0) Red Cell Distribution Width 12.1 % (11.6-14.8) Platelet Count 240 K/UL (150-450) Mean Platelet Volume 6.5 FL (6.5-10.1) Neutrophils (%) (Auto) 63.6 % (45.0-75.0) Lymphocytes (%) (Auto) 30.6 % (20.0-45.0) Monocytes (%) (Auto) 4.1 % (1.0-10.0) Eosinophils (%) (Auto) 0.6 % (0.0-3.0) Basophils (%) (Auto) 1.1 % (0.0-2.0) Prothrombin Time 10.4 SEC (9.30-11.50) Prothrombin Time INR 1.0 (0.9-1.1) PTT 26 SEC (23-33) Urine Color Yellow Urine Appearance Clear Urine pH 6 (4.5-8.0) Urine Specific Peculiar 1.025 (1.005-1.035) Urine Protein Negative (NEGATIVE) Urine Glucose (UA) Negative (NEGATIVE) Urine Ketones Negative (NEGATIVE) Urine Occult Blood Negative (NEGATIVE) Urine Nitrite Negative (NEGATIVE) Urine Bilirubin Negative (NEGATIVE) Urine Urobilinogen Normal MG/DL (0.0-1.0) Urine Leukocyte Esterase 1+ (NEGATIVE) H Urine RBC 0 /HPF (0 - 0) Urine WBC 2-4 /HPF (0 - 0) Urine Squamous Epithelial Cells Occasional /LPF Urine Bacteria Occasional /HPF (NONE) Urine Mucus Occasional /LPF Sodium Level 142 MMOL/L (136-145) Potassium Level 3.4 MMOL/L (3.5-5.1) L Chloride Level 104 MMOL/L (98-107) Carbon Dioxide Level 29 MMOL/L (21-32) Anion Gap 10 mmol/L (5-15) Blood Urea Nitrogen 15 mg/dL (7-18) Creatinine 0.8 MG/DL (0.55-1.30) Estimate Glomerular Filtration Rate > 60 mL/min (>60) Glucose Level 101 MG/DL (74-106) Calcium Level 9.7 MG/DL (8.5-10.1) Total Bilirubin 0.3 MG/DL (0.2-1.0) Aspartate Amino Transferase (AST) 25 U/L (15-37) Alanine Aminotransferase (ALT) 45 U/L (12-78) Alkaline Phosphatase 87 U/L (46-116) Total Creatine Kinase 713 U/L (26-308) H Troponin I 0.000 ng/mL (0.000-0.056) Pro-B-Type Natriuretic Peptide 56 pg/mL (0-125) Total Protein 8.6 G/DL (6.4-8.2) H Albumin 4.4 G/DL (3.4-5.0) Globulin 4.2 g/dL Albumin/Globulin Ratio 1.0 (1.0-2.7) EKG Diagnostic Results Rate: normal Rhythm: NSR ST Segments: no acute changes Rhythm Strip Diag. Results EP Interpretation: yes Rhythm: NSR, no PVC's, no ectopy Chest X-Ray Diagnostic Results Chest X-Ray Diagnostic Results : Chest X-Ray Ordered: Yes # of Views/Limited/Complete: 1 View Indication: Shortness of Breath EP Interpretation: Yes Interpretation: no consolidation, no effusion, no pneumothorax Impression: No acute disease Electronically Signed by: Electronically signed by Jeronimo Breen MD Last Vital Signs Date Time Temp Pulse Resp B/P (MAP) Pulse Ox O2 Delivery O2 Flow Rate FiO2 04/04/18 15:36 98.4 89 16 128/60 100 Room Air 98.4 Status: improved Disposition: HOME, SELF-CARE Condition: Improved Scripts Prednisone* (PREDNISONE*) 20 Mg Tablet 40 MG ORAL DAILY, #10 TAB Prov: Jeronimo Breen M.D. 04/04/18 Beclomethasone Dipropionate 40MCG Oral Inh (QVAR 40*) 7.3 Gm Aer.w.adap 2 PUFFS INH TWICE A DAY, #1 GM 0 Refills Prov: Jeronimo Breen M.D. 04/04/18 Referrals: ESEQUIEL EDWARDS (PCP) Jeronimo Breen M.D. Apr 04, 2018 14:49
--- NOTE | 2018-04-04 15:00 | Diagnostic Imaging Report ---
Indication: Dyspnea Technique: One view of the chest Comparison: 03/28/2018 Findings: Lungs and pleural spaces are clear. Heart size is upper limits normal . No significant interim change Impression: No acute process
[2018-04-04] MEDS ORDERED: QVAR7.3 GM INH (15:23)
[2018-04-04] MEDS ORDERED: PREDNISONE20 MG ORAL (15:23)
[2018-04-04 15:36] VITALS: BP 128/60
--- NOTE | 2018-04-05 13:55 | Cardiology Report ---
APPROVED REPORT EKG Measurement Heart [id number] Normal sinus rhythm Normal ECG
== END 2018-04-04 15:39 | disposition home or self-care (01) ==
LOC: EMR 11:52
DX: R06.00 Dyspnea, unspecified (principal); R60.9 Edema, unspecified; Z79.01 Long term (current) use of anticoagulants; Z85.038 Personal history of other malignant neoplasm of large intestine; I10 Essential (primary) hypertension; Z86.711 Personal history of pulmonary embolism; Z86.718 Personal history of other venous thrombosis and embolism
CPT/HCPCS: 36415; 71045; 80053; 81003; 82550; 83880; 84484; 85025; 85610; 85730; 93005; 99284; J7512

== ENCOUNTER 2018-05-13 07:34 | Emergency (ER) | payer OTHER, MEDICAID ==
[~2018-05-13] VITALS: Ht 190.5 cm; Wt 117.5 kg
[~2018-05-13 07:34] MED LIST changes: +QVAR7.3 GM INH
[2018-05-13] MEDS ORDERED: HYDROCHLOROTH12.5 M2 ORAL (07:48)
[2018-05-13] MEDS ORDERED: DiphenhydrAMINE 50mg/ml Inj IVP ONE (08:00)
[2018-05-13] MEDS ORDERED: Ipratropium 0.02% Inh Soln 2.5ml UD HHN ONE (08:00)
[2018-05-13] MEDS ORDERED: Metoclopramide 10mg/2ml Inj IVP ONE (08:00)
[2018-05-13] MEDS ORDERED: Solu-MEDROL 125mg Inj IVP ONE (08:00)
[2018-05-13] MEDS ORDERED: Albuterol ud Inhalation HHN ONE (08:00)
[2018-05-13] MEDS ORDERED: Norco 5mg/325mg tab ORAL ONE (08:00)
--- NOTE | 2018-05-13 08:05 | Emergency Room Report ---
History of Present Illness General Chief Complaint: Chest Pain Source: Patient, Medical Record Present Illness HPI Patient presents with left-sided chest pain. It's pleuritic and exertional. Started this morning. He's been coughing. Producing some thick phlegm. Pain rated 9/10, some radiation to sides of chest and L shoulder. Constant. Nebulizer at home. He hears himself wheezing today. Denies any fevers or chills. Patient has history of pulmonary embolus. Also has a history of hyperventilation. He was seen Brianna had a pulmonary angiogram done that was negative. He states that this pain feels different than when he had his pulmonary embolus in the past. He's taking blood thinners at this time. There is no increased pain in his calf or edema. He has an IVC filter. There is chronic swelling and deformity from prior L ankle surgery. No palpitations, nausea, vomiting, diarrhea, dysuria, abdominal pain, depression , visual changes, headache. H/O colon tumor post chemotherapy. States this "cured". Allergies: Coded Allergies: No Known Allergies (Unverified , 09/15/12) Patient History Past Medical History: see triage record Past Surgical History: other - IVC filter, ortho repair fx L ankle, removal of colon tumors Social History: Denies: smoking, alcohol use, drug use Social History Narrative He took the bus here Reviewed Nursing Documentation: PMH: Agreed; PSxH: Agreed Nursing Documentation-PMH Past Medical History: No History, Except For Hx Cardiac Problems: Yes - Anemia Hx Hypertension: Yes Hx Pacemaker: No Hx Asthma: No Hx COPD: No Hx Diabetes: No Hx Cancer: Yes - Colon Hx Gastrointestinal Problems: No Hx Dialysis: No Hx Neurological Problems: No - DVT LLE Hx Cerebrovascular Accident: No Hx Seizures: No Review of Systems All Other Systems: negative except mentioned in HPI Physical Exam Vital Signs Date Time Temp Pulse Resp B/P (MAP) Pulse Ox O2 Delivery O2 Flow Rate FiO2 05/13/18 07:43 97.5 89 18 133/77 96 Room Air 97.5 Sp02 EP Interpretation: reviewed, normal General Appearance: well appearing, no apparent distress, GCS 15 Head: normocephalic Eyes: bilateral eye normal inspection, bilateral eye PERRL ENT: moist mucus membranes, other - R facial weakness - assymmetry Neck: supple Respiratory: lungs clear, normal breath sounds, other - min chest wall tenderness Cardiovascular #1: regular rate, rhythm, edema - bilat, lymphedema and worsened swelling L Cardiovascular #2: 2+ radial (R) Gastrointestinal: normal inspection, normal bowel sounds, non tender, no mass, non-distended, overweight Genitourinary: no CVA tenderness Musculoskeletal: back normal, gait/station normal - with limp which is chronic , normal range of motion, no calf tenderness, Rick's Sign negative Neurologic: alert, oriented x3, grossly normal Psychiatric: mood/affect normal Skin: normal inspection, warm/dry Medical Decision Making Diagnostic Impression: Primary Impression: Chest pain Qualified Codes: R07.9 - Chest pain, unspecified ER Course Patient presents with left-sided chest pain. Differential includes acute myocardial infarction, pulmonary embolism, pneumothorax, pneumonia, bronchospasm and bronchitis, pleurisy, costochondritis amongst others. Patient will be evaluated with EKG, chest x-ray and labs. The patient will be treated with albuterol, Solu-Medrol, Reglan, Benadryl and [place]. EKG with heart rate of 99, normal sinus rhythm with normal axis and no ST changes. Labs with normal CBC, CMP (K slightly low), lipase, troponin. CK slightly elevated. CXR no acute illness. Pain resolved with treatment. States due to have PICC line placed next week so he can have blood drawn ( Kiesha). Patient stable for outpatient observation and treatment. Laboratory Tests Test 05/13/18 08:15 White Blood Count 5.9 K/UL (4.8-10.8) Red Blood Count 5.00 M/UL (4.70-6.10) Hemoglobin 14.4 G/DL (14.2-18.0) Hematocrit 44.7 % (42.0-52.0) Mean Corpuscular Volume 89 FL (80-99) Mean Corpuscular Hemoglobin 28.7 PG (27.0-31.0) Mean Corpuscular Hemoglobin Concent 32.1 G/DL (32.0-36.0) Red Cell Distribution Width 12.5 % (11.6-14.8) Platelet Count 248 K/UL (150-450) Mean Platelet Volume 6.1 FL (6.5-10.1) L Neutrophils (%) (Auto) 60.2 % (45.0-75.0) Lymphocytes (%) (Auto) 30.6 % (20.0-45.0) Monocytes (%) (Auto) 7.2 % (1.0-10.0) Eosinophils (%) (Auto) 1.2 % (0.0-3.0) Basophils (%) (Auto) 0.8 % (0.0-2.0) Prothrombin Time 11.2 SEC (9.30-11.50) Prothrombin Time INR 1.1 (0.9-1.1) PTT 29 SEC (23-33) Sodium Level 140 MMOL/L (136-145) Potassium Level 3.4 MMOL/L (3.5-5.1) L Chloride Level 105 MMOL/L (98-107) Carbon Dioxide Level 26 MMOL/L (21-32) Anion Gap 9 mmol/L (5-15) Blood Urea Nitrogen 11 mg/dL (7-18) Creatinine 0.8 MG/DL (0.55-1.30) Estimate Glomerular Filtration Rate > 60 mL/min (>60) Glucose Level 114 MG/DL (74-106) H Calcium Level 9.1 MG/DL (8.5-10.1) Total Bilirubin 0.3 MG/DL (0.2-1.0) Aspartate Amino Transferase (AST) 24 U/L (15-37) Alanine Aminotransferase (ALT) 44 U/L (12-78) Alkaline Phosphatase 76 U/L (46-116) Total Creatine Kinase 309 U/L (26-308) H Troponin I 0.002 ng/mL (0.000-0.056) Pro-B-Type Natriuretic Peptide 11 pg/mL (0-125) Total Protein 7.8 G/DL (6.4-8.2) Albumin 3.8 G/DL (3.4-5.0) Globulin 4.0 g/dL Albumin/Globulin Ratio 0.9 (1.0-2.7) L EKG Diagnostic Results Rate: normal Rhythm: NSR ST Segments: no acute changes Rhythm Strip Diag. Results EP Interpretation: yes Rhythm: NSR, no PVC's, no ectopy Chest X-Ray Diagnostic Results Chest X-Ray Diagnostic Results : Chest X-Ray Ordered: Yes # of Views/Limited/Complete: 1 View Indication: Chest Pain EP Interpretation: Yes Interpretation: no consolidation, no effusion, no pneumothorax, other - poor inspiration Impression: No acute disease Electronically Signed by: Electronically signed by Jeronimo Breen MD Last Vital Signs Date Time Temp Pulse Resp B/P (MAP) Pulse Ox O2 Delivery O2 Flow Rate FiO2 05/13/18 10:32 97.5 84 17 126/64 98 Room Air 97.5 05/13/18 08:36 21 Status: improved Disposition: HOME, SELF-CARE Condition: Improved Jeronimo Breen M.D. May 13, 2018 08:05
[2018-05-13 08:29] LABS: BASOPHILS % (AUTO) 0.8 % (0.0-2.0); EOSINOPHILS % (AUTO) 1.2 % (0.0-3.0); HEMATOCRIT 44.7 % (42.0-52.0); HEMOGLOBIN 14.4 G/DL (14.2-18.0); LYMPHOCYTES % (AUTO) 30.6 % (20.0-45.0); MEAN CORPUSCULAR VOLUME 89 FL (80-99); MONOCYTES % (AUTO) 7.2 % (1.0-10.0); NEUTROPHILS % (AUTO) 60.2 % (45.0-75.0); PLATELET COUNT 248 K/UL (150-450); RED CELL DISTRIBUTION WIDTH 12.5 % (11.6-14.8); WHITE BLOOD COUNT 5.9 K/UL (4.8-10.8)
[2018-05-13 08:37] LABS: ANION GAP 9 mmol/L (5-15); BLOOD UREA NITROGEN 11 mg/dL (7-18); CALCIUM 9.1 MG/DL (8.5-10.1); CARBON DIOXIDE 26 MMOL/L (21-32); CHLORIDE 105 MMOL/L (98-107); CREATININE 0.8 MG/DL (0.55-1.30); POTASSIUM 3.4 MMOL/L (3.5-5.1); SODIUM 140 MMOL/L (136-145)
[2018-05-13 08:38] LABS: INR 1.1 (0.9-1.1)
[2018-05-13 08:47] LABS: ALANINE AMINOTRANSFERASE 44 U/L (12-78); ALBUMIN 3.8 G/DL (3.4-5.0); ALBUMIN/GLOBULIN RATIO 0.9 (1.0-2.7); ALKALINE PHOSPHATASE 76 U/L (46-116); ASPARTATE AMINO TRANSFERASE 24 U/L (15-37); BILIRUBIN,TOTAL 0.3 MG/DL (0.2-1.0); CREATINE KINASE 309 U/L (26-308)
[2018-05-13 09:00] VITALS: BP 126/64
[2018-05-13 10:32] VITALS: BP 126/64
--- NOTE | 2018-05-13 11:53 | Diagnostic Imaging Report ---
Indication: Chest pain Technique: XRAY Chest 1v Comparison: 04/04/2018 Findings: Low lung volumes. Heart size and mediastinal contours are stable allowing for differences in technique/lung volumes. There is haziness of the pulmonary vascularity which is likely artifactually exaggerated due to low lung volumes. The possibility of mild interstitial opacification/edema not excluded. No definite focal airspace consolidation, pleural effusion or pneumothorax. No acute osseous abnormality. IMPRESSION: Limited exam with low lung volumes. Interval increased haziness of the pulmonary vascularity likely artifactually exaggerated due to low lung volumes. The possibility of mild interstitial opacification/edema not excluded. Correlate clinically.
--- NOTE | 2018-05-15 13:33 | Cardiology Report ---
APPROVED REPORT EKG Measurement Heart [id number] MT [id number] [id number] Normal sinus rhythm Normal ECG
== END 2018-05-13 10:34 | disposition home or self-care (01) ==
LOC: EMR 08:15
DX: R07.9 Chest pain, unspecified (principal); I10 Essential (primary) hypertension; Z85.038 Personal history of other malignant neoplasm of large intestine; Z86.718 Personal history of other venous thrombosis and embolism
CPT/HCPCS: 36415; 71045; 80053; 82550; 83880; 84484; 85025; 85610; 85730; 93005; 94640; 94664; 99283; J1200; J2765; J2930

== ENCOUNTER 2018-05-31 16:22 | Emergency (ER) | payer OTHER, MEDICAID ==
[~2018-05-31] VITALS: Ht 190.5 cm; Wt 129.3 kg
[~2018-05-31 16:22] MED LIST changes: +HYDROCHLOROTH12.5 M2 ORAL
[2018-05-31 17:00] VITALS: BP 139/78
[2018-05-31] MEDS ORDERED: Ipratropium 0.02% Inh Soln 2.5ml UD HHN ONE (17:00)
[2018-05-31] MEDS ORDERED: Albuterol ud Inhalation HHN ONE (17:00)
[2018-05-31 17:14] LABS: BASOPHILS % (AUTO) 0.9 % (0.0-2.0); EOSINOPHILS % (AUTO) 1.2 % (0.0-3.0); HEMATOCRIT 42.6 % (42.0-52.0); HEMOGLOBIN 14.5 G/DL (14.2-18.0); LYMPHOCYTES % (AUTO) 31.8 % (20.0-45.0); MEAN CORPUSCULAR VOLUME 88 FL (80-99); MONOCYTES % (AUTO) 5.4 % (1.0-10.0); NEUTROPHILS % (AUTO) 60.7 % (45.0-75.0); PLATELET COUNT 202 K/UL (150-450); RED BLOOD COUNT 4.83 M/UL (4.70-6.10); RED CELL DISTRIBUTION WIDTH 12.5 % (11.6-14.8); WHITE BLOOD COUNT 8.1 K/UL (4.8-10.8)
--- NOTE | 2018-05-31 17:19 | Emergency Room Report ---
History of Present Illness General Chief Complaint: Dyspnea/Respdistress Source: Patient Present Illness HPI Patient has a history of COPD reports that he was attempting to get home to obtain his albuterol inhaler however he felt too short of breath Denies any vomiting or diarrhea denies any fevers or chills patient has fairly significant COPD and has multiple flareups Denies any fevers or chills denies any dysuria frequency denies any chest pain Denies any pleurisy Allergies: Coded Allergies: No Known Allergies (Unverified , 09/15/12) Patient History Past Medical History: see triage record Pertinent Family History: none Reviewed Nursing Documentation: PMH: Agreed; PSxH: Agreed Nursing Documentation-PMH Hx Cardiac Problems: Yes - Anemia Hx Hypertension: Yes Hx Pacemaker: No Hx Asthma: No Hx COPD: No Hx Diabetes: No Hx Cancer: Yes - Colon Hx Gastrointestinal Problems: No Hx Dialysis: No Hx Neurological Problems: No - DVT LLE Hx Cerebrovascular Accident: No Hx Seizures: No Review of Systems All Other Systems: negative except mentioned in HPI Physical Exam Vital Signs Date Time Temp Pulse Resp B/P (MAP) Pulse Ox O2 Delivery O2 Flow Rate FiO2 05/31/18 16:26 97.8 110 26 157/83 99 Room Air 97.9 05/31/18 16:58 2.0 28 Sp02 EP Interpretation: reviewed, normal General Appearance: mild distress - Appears short of breath Head: normocephalic, atraumatic Eyes: bilateral eye PERRL, bilateral eye EOMI ENT: hearing grossly normal, normal pharynx, TMs + canals normal, uvula midline Neck: full range of motion, supple, no meningismus, no bony tend Respiratory: no respiratory distress, no retraction, no accessory muscle use, crackles - Fine crackles and wheezing bilaterally Cardiovascular #1: normal peripheral pulses, regular rate, rhythm, no gallop, no JVD, no murmur Gastrointestinal: normal bowel sounds, non tender, soft, no mass, no organomegaly, non-distended, no guarding, no hernia, no pulsatile mass, no rebound Genitourinary: no CVA tenderness Musculoskeletal: normal inspection Neurologic: oriented x3, responsive, cable wirer III-XII nml as tested, motor strength/ tone normal, sensory intact Psychiatric: mood/affect normal Skin: warm/dry, palpation normal, other - Dependent edema bilaterally Lymphatic: normal inspection, no adenopathy Medical Decision Making Diagnostic Impression: Primary Impression: COPD (chronic obstructive pulmonary disease) ER Course Patient is a fairly complex patient with multiple differential to consideration including but not limited to cardiac cardiopulmonary and vascular emergencies Patient has done significantly better with breathing treatments Was provided with oral steroids Imaging studies are appropriate patient continues to saturate well on room air And on repeat evaluations is stable for close outpatient follow-up Labs Test 05/31/18 17:00 White Blood Count 8.1 K/UL (4.8-10.8) Red Blood Count 4.83 M/UL (4.70-6.10) Hemoglobin 14.5 G/DL (14.2-18.0) Hematocrit 42.6 % (42.0-52.0) Mean Corpuscular Volume 88 FL (80-99) Mean Corpuscular Hemoglobin 29.9 PG (27.0-31.0) Mean Corpuscular Hemoglobin Concent 33.9 G/DL (32.0-36.0) Red Cell Distribution Width 12.5 % (11.6-14.8) Platelet Count 202 K/UL (150-450) Mean Platelet Volume 7.1 FL (6.5-10.1) Neutrophils (%) (Auto) 60.7 % (45.0-75.0) Lymphocytes (%) (Auto) 31.8 % (20.0-45.0) Monocytes (%) (Auto) 5.4 % (1.0-10.0) Eosinophils (%) (Auto) 1.2 % (0.0-3.0) Basophils (%) (Auto) 0.9 % (0.0-2.0) Sodium Level 141 MMOL/L (136-145) Potassium Level 3.5 MMOL/L (3.5-5.1) Chloride Level 104 MMOL/L (98-107) Carbon Dioxide Level 31 MMOL/L (21-32) Anion Gap 6 mmol/L (5-15) Blood Urea Nitrogen 14 mg/dL (7-18) Creatinine 0.8 MG/DL (0.55-1.30) Estimat Glomerular Filtration Rate > 60 mL/min (>60) Glucose Level 102 MG/DL (74-106) Calcium Level 9.6 MG/DL (8.5-10.1) Total Bilirubin 0.3 MG/DL (0.2-1.0) Aspartate Amino Transf (AST/SGOT) 19 U/L (15-37) Alanine Aminotransferase (ALT/SGPT) 42 U/L (12-78) Alkaline Phosphatase 88 U/L (46-116) Total Creatine Kinase 325 U/L (26-308) Creatine Kinase MB 2.7 NG/ML (0.0-3.6) Creatine Kinase MB Relative Index 0.8 Troponin I 0.000 ng/mL (0.000-0.056) Pro-B-Type Natriuretic Peptide 7 pg/mL (0-125) Total Protein 8.2 G/DL (6.4-8.2) Albumin 4.0 G/DL (3.4-5.0) Globulin 4.2 g/dL Albumin/Globulin Ratio 1.0 (1.0-2.7) Rhythm Strip Diag. Results EP Interpretation: yes Rate: 67 Rhythm: NSR, no PVC's, no ectopy Chest X-Ray Diagnostic Results Chest X-Ray Diagnostic Results : Chest X-Ray Ordered: Yes # of Views/Limited/Complete: 1 View Indication: Shortness of Breath EP Interpretation: Yes Interpretation: no consolidation, no effusion, no pneumothorax Impression: No acute disease Electronically Signed by: Raquel Spain DO Last Vital Signs Date Time Temp Pulse Resp B/P (MAP) Pulse Ox O2 Delivery O2 Flow Rate FiO2 05/31/18 16:59 Nasal Cannula 2.0 05/31/18 16:58 102 27 05/31/18 16:58 28 05/31/18 16:58 100 05/31/18 16:26 97.8 157/83 97.9 Status: improved Disposition: ADMITTED INPATIENT Condition: Serious Scripts Prednisone* (PREDNISONE*) 20 Mg Tablet 20 MG ORAL BID, #8 TAB Prov: Raquel Spain DO 05/31/18 Referrals: NON PHYSICIAN (PCP) Raquel Spain DO May 31, 2018 17:19
[2018-05-31 17:29] LABS: ANION GAP 6 mmol/L (5-15); BLOOD UREA NITROGEN 14 mg/dL (7-18); CALCIUM 9.6 MG/DL (8.5-10.1); CARBON DIOXIDE 31 MMOL/L (21-32); CHLORIDE 104 MMOL/L (98-107); CREATININE 0.8 MG/DL (0.55-1.30); POTASSIUM 3.5 MMOL/L (3.5-5.1); SODIUM 141 MMOL/L (136-145)
[2018-05-31 17:45] LABS: ALANINE AMINOTRANSFERASE 42 U/L (12-78); ALKALINE PHOSPHATASE 88 U/L (46-116); ASPARTATE AMINO TRANSFERASE 19 U/L (15-37); BILIRUBIN,TOTAL 0.3 MG/DL (0.2-1.0); CKMB 2.7 NG/ML (0.0-3.6); CREATINE KINASE 325 U/L (26-308)
[2018-05-31 19:00] VITALS: BP 140/80
[2018-05-31] MEDS ORDERED: Levalbuterol Inh UD 1.25mg/0.5ml HHN ONE (19:15)
[2018-05-31] MEDS ORDERED: PREDNISONE20 MG ORAL (19:40)
[2018-05-31 19:49] VITALS: BP 138/74
[2018-05-31 19:51] VITALS: BP 138/74
--- NOTE | 2018-06-01 08:19 | Diagnostic Imaging Report ---
Indication: Chest pain Technique: One view of the chest Comparison: 05/13/2018 Findings: Better inspiration currently. Lungs and pleural spaces are clear. Heart size is normal Impression: No acute process
--- NOTE | 2018-06-01 14:56 | Cardiology Report ---
APPROVED REPORT EKG Measurement Heart [id number] PA [id number] Sinus tachycardia Otherwise normal ECG
== END 2018-05-31 19:51 | disposition home or self-care (01) ==
LOC: EMR 16:40
DX: J44.9 Chronic obstructive pulmonary disease, unspecified (principal); I10 Essential (primary) hypertension; Z85.038 Personal history of other malignant neoplasm of large intestine; Z86.718 Personal history of other venous thrombosis and embolism
CPT/HCPCS: 36415; 71045; 80053; 82550; 82553; 83880; 84484; 85025; 93005; 94640; 94664; 99284; J7512; J7644

== ENCOUNTER → 2018-06-07 | Outpatient (CLI) | payer OTHER, MEDICAID ==
[~2018-06-07] VITALS: Ht 30.5 cm; Wt 0.5 kg
[~2018-06-07] MED LIST changes: +Heparin 2000 units/Ns 1000ml INJ SCH; +Lidocaine 1% Plain 30 ml INJ SCH
--- NOTE | 2018-06-07 10:06 | Pre-Procedure Note/Attestation ---
Pre-Procedure Note/Attestation Complete Prior to Procedure Planned Procedure: not applicable Procedure Narrative: PICC line placement (US and Flouro guided) Indications for Procedure Pre-Operative Diagnosis: need IV access Attestation I attest that I discussed the nature of the procedure; its benefits; risks and complications; and alternatives (and the risks and benefits of such alternatives ), prior to the procedure, with the patient (or the patient's legal career services representative). I attest that, if there was a reasonable possibility of needing a blood transfusion, the patient (or the patient's legal career services representative) was given the [facility] standardized written summary, pursuant to the [place] Blood Safety Act ([place] Health and Safety Code # 1645, as amended). I attest that I re-evaluated the patient just prior to the surgery and that there has been no change in the patient's H&P, except as documented below: Mainor Chang M.D. Jun 07, 2018 10:06
--- NOTE | 2018-06-07 10:51 | Diagnostic Imaging Report ---
Indications: Needs long-term IV access Technique: Ultrasound confirms patent compressible right brachial vein. Total sterile technique, including sterile probe cover and sterile gel, hat, mask,, sterile gown, large sterile drape, and preparation with 2% chlorhexidine utilized. Local anesthesia with 1% lidocaine. Under real-time ultrasound guidance, puncture patent right brachial vein using 21-gauge needle, documented and archived, passage 0.018 guidewire (which was initially advanced into the inferior vena cava acting a second confirmation of placement within the venous system) under direct fluoroscopy, which was used to determine appropriate catheter length, exchange for 5 [place] peel-away sheath. 5 [place] dual-lumen power PICC cut to 40 cm. It was inserted through the peel-away sheath. Peel-away sheath and guidewire removed. Catheter fixed to the skin. Both catheter ports aspirated and flushed. Patient tolerated procedure well, without immediate complication. Digital radiograph documents satisfactory catheter tip position, at the cavoatrial junction. Total fluoroscopy time 0.4 minutes. Total dose area product 33 dGycm2 Impression: Successful placement of 5 [place] double lumen PICC under sonographic and fluoroscopic guidance, as described above.
== END | disposition home or self-care (01) ==
LOC: RAD 09:25
DX: Z79.899 Other long term (current) drug therapy (principal)
CPT/HCPCS: 36569; 76937; J1644; J2001

== ENCOUNTER 2018-06-09 13:04 | Emergency (ER) | payer OTHER, MEDICAID ==
[~2018-06-09] VITALS: Ht 190.5 cm; Wt 117.0 kg
[~2018-06-09 13:04] MED LIST changes: -Heparin 2000 units/Ns 1000ml INJ SCH; -Lidocaine 1% Plain 30 ml INJ SCH
--- NOTE | 2018-06-09 13:31 | Emergency Room Report ---
History of Present Illness General Chief Complaint: General Complaint Source: Patient, Medical Record Present Illness HPI 57-year-old male patient presents ER requesting dressing change on peripheral line on his right arm. Ports had placed 2 days ago. Reports that the dressing is dirty and he does not "want it to get infected". Denies fever, chest pain, shortness breath, other acute symptoms. Denies redness or swelling site of line placement. Denies red streaking. Denies other acute symptoms. Allergies: Coded Allergies: No Known Allergies (Unverified , 09/15/12) Patient History Past Medical History: see triage record Reviewed Nursing Documentation: PMH: Agreed; PSxH: Agreed Nursing Documentation-PMH Past Medical History: No History, Except For Hx Cardiac Problems: Yes - Anemia Hx Hypertension: Yes Hx Pacemaker: No Hx Asthma: No Hx COPD: No Hx Diabetes: No Hx Cancer: Yes - Colon Hx Gastrointestinal Problems: No Hx Dialysis: No Hx Neurological Problems: No - DVT LLE Hx Cerebrovascular Accident: No Hx Seizures: No Review of Systems All Other Systems: negative except mentioned in HPI Physical Exam Vital Signs Date Time Temp Pulse Resp B/P (MAP) Pulse Ox O2 Delivery O2 Flow Rate FiO2 06/09/18 13:18 97.8 90 18 128/82 95 Room Air 97.9 Sp02 EP Interpretation: reviewed, normal General Appearance: well appearing, no apparent distress, alert, GCS 15, non- toxic Head: normocephalic, atraumatic Eyes: bilateral eye normal inspection, bilateral eye PERRL ENT: hearing grossly normal, normal pharynx, no angioedema, normal voice, uvula midline, moist mucus membranes Neck: full range of motion Respiratory: lungs clear, normal breath sounds, no rhonchi, no respiratory distress, no accessory muscle use, no wheezing, speaking full sentences Cardiovascular #1: regular rate, rhythm Musculoskeletal: back normal, digits/nails normal, gait/station normal, normal range of motion, non-tender Neurologic: alert, oriented x3, responsive, motor strength/tone normal, sensory intact Skin: no rash, other - right upper extemitiy: PICC line placed, no surrounding erythema or edema, no TTP, no red steraking Medical Decision Making PA Attestation Dr. Odell is my supervising Physician whom patient management has been discussed with. Diagnostic Impression: Primary Impression: Visit for wound check ER Course Pt. presents to the ED c/o wound dressing change. Ddx considered but are not limited to cellulitis, absces eczema, wound check. Vital signs: are WNL, pt. is afebrile ER COURSE: PICC line placement right upper extremity. Dressing changed. No signs of infection, patient denies acute complaints. Does not require further treatment in the ER. Followup with PCP. DISCHARGE: At this time pt is stable for d/c to home. Patient is resting comfortably, in no acute distress, nontoxic appearing, talking without difficulty. Patient to take medications as instructed Will provide with patient care instructions and any necessary prescriptions. Care plan and follow-up instructions provided. Patient instructed to follow-up with primary care provider in 3 - 5 days. Patient questions asked and answered. Patient reports understanding and agreement to treatment plan. ER precautions given. Patient instructed to return to ER immediately for any new or worsening of symptoms including but not limited to increasing SOB, persistent fever, chest pain, intractable vomiting. - Please note that this Emergency Department Report was dictated using [employer] cutting machine operator technology software, occasionally this can lead to erroneous entry secondary to interpretation by the dictation equipment. Last Vital Signs Date Time Temp Pulse Resp B/P (MAP) Pulse Ox O2 Delivery O2 Flow Rate FiO2 06/09/18 13:18 97.8 90 18 128/82 95 Room Air 97.9 Disposition: HOME, SELF-CARE Condition: Stable Referrals: NOT CHOSEN IPA/,REFERRING (PCP) Patient Instructions: Wound Check Additional Instructions: Followup with primary care provider in 3 -5 days. Take medications as directed. Patient questions asked and answered. ER precautions given, patient instructed to return to ER immediately for any new or worsening of symptoms. Wesley West Jun 09, 2018 13:31
[2018-06-09 13:40] VITALS: BP 117/80
== END 2018-06-09 13:40 | disposition home or self-care (01) ==
LOC: EMR 13:21
DX: Z45.2 Encounter for adjustment and management of vascular access device (principal); I82.402 Acute embolism and thrombosis of unspecified deep veins of left lower extremity; I10 Essential (primary) hypertension
CPT/HCPCS: 99282

== ENCOUNTER 2018-06-15 12:16 | Emergency (ER) | payer OTHER, MEDICAID ==
[~2018-06-15] VITALS: Ht 190.5 cm; Wt 117.0 kg
--- NOTE | 2018-06-15 13:54 | Emergency Room Report ---
History of Present Illness General Chief Complaint: General Complaint Source: Patient Present Illness HPI 57-year-old male presents to the ED c/o wound dressing change. Denies pain, erythema, discharge, line dislodgement, or other notable complications. Denies fevers or chills. He reports that the line was placed last week. Denies pain. Allergies: Coded Allergies: No Known Allergies (Unverified , 09/15/12) Patient History Past Medical History: see triage record Past Surgical History: none Pertinent Family History: none Immunizations: UTD Reviewed Nursing Documentation: PMH: Agreed; PSxH: Agreed Nursing Documentation-PMH Past Medical History: No History, Except For Hx Cardiac Problems: Yes - Anemia Hx Hypertension: Yes Hx Pacemaker: No Hx Asthma: No Hx COPD: No Hx Diabetes: No Hx Cancer: Yes - Colon Hx Gastrointestinal Problems: No Hx Dialysis: No Hx Neurological Problems: No - DVT LLE Hx Cerebrovascular Accident: No Hx Seizures: No Review of Systems All Other Systems: negative except mentioned in HPI Physical Exam Vital Signs Date Time Temp Pulse Resp B/P (MAP) Pulse Ox O2 Delivery O2 Flow Rate FiO2 06/15/18 12:37 97.6 113 14 167/92 97 Room Air 97.5 Sp02 EP Interpretation: reviewed, normal General Appearance: no apparent distress, alert, GCS 15, non-toxic Head: normocephalic, atraumatic Eyes: bilateral eye normal inspection, bilateral eye PERRL ENT: hearing grossly normal, normal voice Neck: full range of motion Respiratory: chest non-tender, lungs clear, normal breath sounds, speaking full sentences Cardiovascular #1: regular rate, rhythm - Pt. HR is WNL , not tachycardic, normal capillary refill Cardiovascular #2: 2+ radial (R), 2+ radial (L) Musculoskeletal: back normal, gait/station normal, normal range of motion, non- tender Neurologic: alert, oriented x3, responsive, motor strength/tone normal, sensory intact, normal gait, speech normal, grossly normal Psychiatric: judgement/insight normal Skin: normal color, no rash, warm/dry, well hydrated, other - PICC line placed in medial RUE, no evidence of infection. Medical Decision Making PA Attestation Dr. Lynn is my supervising Physician whom patient management has been discussed with. Diagnostic Impression: Primary Impression: Dressing change ER Course 57-year-old male presents to the ED c/o wound dressing change. Denies pain, erythema, discharge, line dislodgement, or other notable complications. Denies fevers or chills. He reports that the line was placed last week. Denies pain. Ddx considered but are not limited to cellulitis, abscess, PICC Line complication, normal wound check. Vital signs: are WNL, pt. is afebrile Tachycardic reading, however WNL upon PE and auscultation. ER COURSE: PICC line placement right upper extremity.- no evidence of infection noted. Dressing changed. -I do not identify an emergent condition at this time. With current presentation , pt. is stable for close outpatient follow up and conservative treatment. D/ w pt. to return promptly to ED with worsening or new symptoms.- Pt. verbalizes' understanding and agreement with proposed treatment plan.proposed treatment plan. Last Vital Signs Date Time Temp Pulse Resp B/P (MAP) Pulse Ox O2 Delivery O2 Flow Rate FiO2 06/15/18 12:37 97.6 113 14 167/92 97 Room Air 97.5 Disposition: HOME, SELF-CARE Condition: Stable Referrals: NOT CHOSEN IPA/MD,REFERRING (PCP) Patient Instructions: Wound Check Additional Instructions: Take any previously prescribed medications as directed. Follow up with a Primary Care Provider in 3-5 days, even if your symptoms have resolved. --Please review list of primary care clinics, if you do not already have a primary care provider Return sooner to ED if new symptoms occur, or current symptoms become worse. - Please note that this Emergency Department Report was dictated using [employer] tanner technology software, occasionally this can lead to erroneous entry secondary to interpretation by the dictation equipment. Massiel Flynn Jun 15, 2018 13:54
[2018-06-15 14:14] VITALS: BP 141/71
== END 2018-06-15 14:14 | disposition home or self-care (01) ==
LOC: EMR 12:59
DX: Z48.01 Encounter for change or removal of surgical wound dressing (principal); Z45.2 Encounter for adjustment and management of vascular access device
CPT/HCPCS: 99282; 99283

== ENCOUNTER 2018-06-23 09:00 | Outpatient (CLI) | payer OTHER, MEDICAID ==
--- NOTE | 2018-06-23 10:51 | Diagnostic Imaging Report ---
Indication: Request made for PICC line removal. Technique: Spot fluoroscopic images were obtained before and after removal of the right arm PICC line. Findings: Patient referred for PICC line removal. A spot fluoroscopic image obtained prior to removal demonstrates the tip of the PICC line at the region of the lower superior vena cava. The gland was then removed in its entirety and hemostasis was easily achieved with manual compression. A sterile dressing was applied. Final spot fluoroscopic image confirms removal of the PICC line its entirety. Patient tolerated the procedure well and left department in stable condition. Impression: Successful removal of PICC line as detailed above.
== END 2018-06-23 11:00 | disposition home or self-care (01) ==
LOC: RAD 09:00
DX: Z45.2 Encounter for adjustment and management of vascular access device (principal)
CPT/HCPCS: 71045

== ENCOUNTER 2018-07-03 09:38 | Emergency (ER) | payer OTHER, MEDICAID ==
[~2018-07-03] VITALS: Ht 190.5 cm; Wt 117.0 kg
[2018-07-03 09:52] VITALS: BP 130/78
[2018-07-03 10:20] LABS: HEMATOCRIT 47.1 % (42.0-52.0); HEMOGLOBIN 15.4 G/DL (14.2-18.0); MEAN CORPUSCULAR VOLUME 89 FL (80-99); PLATELET COUNT 279 K/UL (150-450); RED BLOOD COUNT 5.28 M/UL (4.70-6.10); RED CELL DISTRIBUTION WIDTH 12.8 % (11.6-14.8); WHITE BLOOD COUNT 10.5 K/UL (4.8-10.8)
[2018-07-03 10:31] LABS: ANION GAP 9 mmol/L (5-15); BLOOD UREA NITROGEN 14 mg/dL (7-18); CARBON DIOXIDE 25 MMOL/L (21-32); CHLORIDE 102 MMOL/L (98-107); CREATININE 0.8 MG/DL (0.55-1.30); POTASSIUM 3.9 MMOL/L (3.5-5.1); SODIUM 136 MMOL/L (136-145)
[2018-07-03 10:36] LABS: ALANINE AMINOTRANSFERASE 45 U/L (12-78); ALBUMIN 4.3 G/DL (3.4-5.0); ALKALINE PHOSPHATASE 85 U/L (46-116); ASPARTATE AMINO TRANSFERASE 26 U/L (15-37); BILIRUBIN,TOTAL 0.5 MG/DL (0.2-1.0)
[2018-07-03 10:55] VITALS: BP 128/75
--- NOTE | 2018-07-03 15:35 | Emergency Room Report ---
History of Present Illness General Chief Complaint: Pain Source: Patient Present Illness HPI Patient is 57-year-old male who presented after increased the extremity cramping. Patient had gradual onset of symptoms. He reports having intermittent episodes lasting approximately 10 seconds with associated cramping to his extremities. Had this resolve spontaneously. Patient denies any fever. He had not been vomiting. He denies recent episodes of diarrhea. The patient denies any current pain. Allergies: Coded Allergies: No Known Allergies (Unverified , 09/15/12) Patient History Past Medical History: see triage record Reviewed Nursing Documentation: PMH: Agreed; PSxH: Agreed Nursing Documentation-PM Past Medical History: No History, Except For Hx Cardiac Problems: Yes - Anemia Hx Hypertension: Yes Hx Pacemaker: No Hx Asthma: No Hx COPD: No Hx Diabetes: No Hx Cancer: Yes - Colon Hx Gastrointestinal Problems: No Hx Dialysis: No Hx Neurological Problems: No - DVT LLE Hx Cerebrovascular Accident: No Hx Seizures: No Review of Systems All Other Systems: negative except mentioned in HPI Physical Exam Vital Signs Date Time Temp Pulse Resp B/P (MAP) Pulse Ox O2 Delivery O2 Flow Rate FiO2 07/03/18 09:43 98.0 110 18 130/78 95 Room Air 98.1 Sp02 EP Interpretation: reviewed, normal General Appearance: normal inspection, well appearing, no apparent distress, alert, GCS 15, non-toxic Head: atraumatic ENT: normal ENT inspection, hearing grossly normal, normal voice Neck: normal inspection, full range of motion, supple, no bony tend Respiratory: normal inspection, lungs clear, normal breath sounds, no respiratory distress, no retraction, no wheezing Cardiovascular #1: regular rate, rhythm, no edema Gastrointestinal: normal inspection, normal bowel sounds, non tender, soft, no guarding, no hernia Genitourinary: no CVA tenderness Musculoskeletal: normal inspection, back normal, normal range of motion Neurologic: normal inspection, alert, oriented x3, responsive, product transfer pumper III-XII nml as tested, speech normal Psychiatric: normal inspection, judgement/insight normal, mood/affect normal Skin: normal inspection, normal color, no rash Medical Decision Making Diagnostic Impression: Primary Impression: Muscle cramps ER Course patient presented for extremity pain. Differential diagnosis included but was not limited to fracture, contusion, vascular insufficiency, aortic aneurysm, cellulitis.Because of complexity of patient's case laboratory testing and imaging studies were ordered.Laboratory testing was unremarkable. The patient appears to have muscle cramping related to heat. There is no evidence of asymmetric swelling or palpable cords and negative Homans sign. The patient is advised to follow up with primary care doctor in 1-2 days. Patient is advised to return if any worsening condition or if any changes in status that are concerning. This report is dictated with [employer] executive chairman software which may occasionally lead to discrepancies related to use of this software. Labs Test 07/03/18 10:05 White Blood Count 10.5 K/UL (4.8-10.8) Red Blood Count 5.28 M/UL (4.70-6.10) Hemoglobin 15.4 G/DL (14.2-18.0) Hematocrit 47.1 % (42.0-52.0) Mean Corpuscular Volume 89 FL (80-99) Mean Corpuscular Hemoglobin 29.2 PG (27.0-31.0) Mean Corpuscular Hemoglobin Concent 32.8 G/DL (32.0-36.0) Red Cell Distribution Width 12.8 % (11.6-14.8) Platelet Count 279 K/UL (150-450) Mean Platelet Volume 6.3 FL (6.5-10.1) Neutrophils (%) (Auto) % (45.0-75.0) Lymphocytes (%) (Auto) % (20.0-45.0) Monocytes (%) (Auto) % (1.0-10.0) Eosinophils (%) (Auto) % (0.0-3.0) Basophils (%) (Auto) % (0.0-2.0) Differential Total Cells Counted 100 Neutrophils % (Manual) 84 % (45-75) Lymphocytes % (Manual) 12 % (20-45) Monocytes % (Manual) 4 % (1-10) Eosinophils % (Manual) 0 % (0-3) Basophils % (Manual) 0 % (0-2) Band Neutrophils 0 % (0-8) Platelet Estimate Adequate Platelet Morphology Normal Red Blood Cell Morphology Normal Sodium Level 136 MMOL/L (136-145) Potassium Level 3.9 MMOL/L (3.5-5.1) Chloride Level 102 MMOL/L (98-107) Carbon Dioxide Level 25 MMOL/L (21-32) Anion Gap 9 mmol/L (5-15) Blood Urea Nitrogen 14 mg/dL (7-18) Creatinine 0.8 MG/DL (0.55-1.30) Estimat Glomerular Filtration Rate > 60 mL/min (>60) Glucose Level 153 MG/DL (74-106) Calcium Level 10.0 MG/DL (8.5-10.1) Total Bilirubin 0.5 MG/DL (0.2-1.0) Aspartate Amino Transf (AST/SGOT) 26 U/L (15-37) Alanine Aminotransferase (ALT/SGPT) 45 U/L (12-78) Alkaline Phosphatase 85 U/L (46-116) Troponin I 0.000 ng/mL (0.000-0.056) Total Protein 8.7 G/DL (6.4-8.2) Albumin 4.3 G/DL (3.4-5.0) Globulin 4.4 g/dL Albumin/Globulin Ratio 1.0 (1.0-2.7) Last Vital Signs Date Time Temp Pulse Resp B/P (MAP) Pulse Ox O2 Delivery O2 Flow Rate FiO2 07/03/18 10:55 98.0 76 15 128/75 97 Room Air 98.1 Status: improved Disposition: HOME, SELF-CARE Condition: Stable Patient Instructions: Muscle Cramps and Spasms Jori Wilkins MD Jul 03, 2018 15:35
== END 2018-07-03 10:55 | disposition home or self-care (01) ==
LOC: EMR 10:10
DX: R25.2 Cramp and spasm (principal)
CPT/HCPCS: 36415; 80053; 84484; 85007; 85025; 99283

== ENCOUNTER 2018-09-09 07:57 | Emergency (ER) | payer OTHER, MEDICAID ==
[~2018-09-09] VITALS: Ht 190.5 cm; Wt 136.5 kg
[2018-09-09] MEDS ORDERED: XARELTO10 MG ORAL (08:06)
[2018-09-09 08:19] VITALS: BP 122/67
--- NOTE | 2018-09-09 08:21 | Emergency Room Report ---
History of Present Illness General Chief Complaint: Pain Source: Patient, Medical Record Present Illness HPI 58yo M with h/o DVT on xarelto reports 1 week h/o L calf pain. He reports compliance with xarelto, denies CP, SOB, palpitations, syncope. He has not tried any meds for the pain. He confirms his DVT is in the LLE, and he just came in to be sure there was nothing serious other than his DVT. Allergies: Coded Allergies: No Known Allergies (Unverified , 09/15/12) Patient History Past Medical History: see triage record Reviewed Nursing Documentation: PMH: Agreed; PSxH: Agreed Nursing Documentation-PMH Hx Cardiac Problems: Yes - Anemia Hx Hypertension: Yes Hx Pacemaker: No Hx Asthma: No Hx COPD: No Hx Diabetes: No Hx Cancer: Yes - Colon Hx Gastrointestinal Problems: No Hx Dialysis: No Hx Neurological Problems: No - DVT LLE Hx Cerebrovascular Accident: No Hx Seizures: No Review of Systems All Other Systems: negative except mentioned in HPI Physical Exam Vital Signs Date Time Temp Pulse Resp B/P (MAP) Pulse Ox O2 Delivery O2 Flow Rate FiO2 09/09/18 08:02 98.4 85 18 122/67 97 Room Air Sp02 EP Interpretation: reviewed, normal General Appearance: no apparent distress, alert, non-toxic Head: normocephalic Eyes: bilateral eye normal inspection, bilateral eye PERRL, bilateral eye EOMI ENT: normal ENT inspection, hearing grossly normal, normal pharynx, no angioedema, normal voice, moist mucus membranes Neck: normal inspection, full range of motion, supple, supple/symm/no masses Respiratory: chest non-tender, lungs clear, normal breath sounds, chest symmetrical, palpation of chest normal Cardiovascular #1: normal peripheral pulses, regular rate, rhythm, edema - 1+ B /L LE edema to prox tibia, but L slightly greater than R Cardiovascular #2: 2+ radial (R), 2+ radial (L), 2+ dorsalis pedis (R), 2+ dorsalis pedis (L) Gastrointestinal: normal inspection, non tender, soft, no mass, no guarding, no rebound Rectal: deferred Genitourinary: normal inspection, no CVA tenderness Musculoskeletal: back normal, gait/station normal, normal range of motion, non- tender, no calf tenderness - subjective pain over calf but nontender, Rick's Sign negative Neurologic: alert, responsive, lead sprinkler III-XII nml as tested, motor strength/tone normal, sensory intact, speech normal Psychiatric: judgement/insight normal, memory normal, mood/affect normal Skin: normal color, no rash, warm/dry, normal turgor Lymphatic: no adenopathy Medical Decision Making Diagnostic Impression: Primary Impression: DVT (deep venous thrombosis) ER Course Patient with fairly benign exam, known h/o DVT, compliance with xarelto, no signs or symptoms of PE, will dc with recs to take tylenol OTC and topical tiger balm/icy hot/nancy locke, as well as possibly muscle relaxants and give rx for flexeril. Last Vital Signs Date Time Temp Pulse Resp B/P (MAP) Pulse Ox O2 Delivery O2 Flow Rate FiO2 09/09/18 08:02 98.4 85 18 122/67 97 Room Air Disposition: HOME, SELF-CARE Condition: Stable MICHELLE FRY M.D Sep 09, 2018 08:21
[2018-09-09] MEDS ORDERED: CYCLOBENZAPRINE10 MG ORAL (08:23)
[2018-09-09] MEDS ORDERED: Acetaminophen 500mg (ES) tab ORAL ONE (08:30)
== END 2018-09-09 08:32 | disposition home or self-care (01) ==
LOC: EMR 08:20
DX: I82.4Z2 Acute embolism and thrombosis of unspecified deep veins of left distal lower extremity (principal); I10 Essential (primary) hypertension; Z79.01 Long term (current) use of anticoagulants; Z85.038 Personal history of other malignant neoplasm of large intestine
CPT/HCPCS: 99282

== ENCOUNTER 2018-09-23 10:57 | Emergency (ER) | payer OTHER, MEDICAID ==
[~2018-09-23] VITALS: Ht 190.5 cm; Wt 136.5 kg
[~2018-09-23 10:57] MED LIST changes: +CYCLOBENZAPRINE10 MG ORAL
[2018-09-23 11:24] VITALS: BP 118/70
[2018-09-23] MEDS ORDERED: Albuterol ud Inhalation HHN ONE (11:30)
[2018-09-23 12:04] LABS: BASOPHILS % (AUTO) 0.4 % (0.0-2.0); HEMATOCRIT 46.6 % (42.0-52.0); HEMOGLOBIN 15.5 G/DL (14.2-18.0); LYMPHOCYTES % (AUTO) 12.2 % (20.0-45.0); MEAN CORPUSCULAR VOLUME 87 FL (80-99); MONOCYTES % (AUTO) 3.1 % (1.0-10.0); NEUTROPHILS % (AUTO) 84.4 % (45.0-75.0); PLATELET COUNT 240 K/UL (150-450); RED BLOOD COUNT 5.37 M/UL (4.70-6.10); RED CELL DISTRIBUTION WIDTH 12.4 % (11.6-14.8); WHITE BLOOD COUNT 9.7 K/UL (4.8-10.8)
[2018-09-23 12:11] LABS: ANION GAP 10 mmol/L (5-15); BLOOD UREA NITROGEN 16 mg/dL (7-18); CALCIUM 9.3 MG/DL (8.5-10.1); CARBON DIOXIDE 26 MMOL/L (21-32); CHLORIDE 103 MMOL/L (98-107); CREATININE 1.2 MG/DL (0.55-1.30); POTASSIUM 3.9 MMOL/L (3.5-5.1); SODIUM 139 MMOL/L (136-145)
[2018-09-23 12:24] LABS: ALANINE AMINOTRANSFERASE 30 U/L (12-78); ALBUMIN 4.1 G/DL (3.4-5.0); ALBUMIN/GLOBULIN RATIO 0.9 (1.0-2.7); ALKALINE PHOSPHATASE 65 U/L (46-116); ASPARTATE AMINO TRANSFERASE 18 U/L (15-37); BILIRUBIN,TOTAL 0.3 MG/DL (0.2-1.0); CKMB 2.3 NG/ML (0.0-3.6); CREATINE KINASE 230 U/L (26-308)
[2018-09-23 13:00] VITALS: BP 124/76
--- NOTE | 2018-09-23 14:42 | Emergency Room Report ---
History of Present Illness General Chief Complaint: Palpitations Source: Patient Present Illness HPI Patient is a 58-year-old male presented after increased palpitations. Patient reports having some increased shortness of breath or patient prior history of COPD. He reports having increased slight difficulty breathing. He denies any fever. He reports having increased leg swelling which was very close to his baseline. He denies any abdominal pain or vomiting. He reports prior history of anticoagulant use due to a blood clot. The patient is followed by Dr. PopThe patient normally uses home oxygen. Allergies: Coded Allergies: No Known Allergies (Unverified , 09/15/12) Patient History Past Medical History: see triage record Reviewed Nursing Documentation: PMH: Agreed; PSxH: Agreed Nursing Documentation-PMH Past Medical History: No History, Except For Hx Cardiac Problems: Yes - Anemia Hx Hypertension: Yes Hx Pacemaker: No Hx Asthma: No Hx COPD: No Hx Diabetes: No Hx Cancer: Yes - Colon Hx Gastrointestinal Problems: No Hx Dialysis: No Hx Neurological Problems: No - DVT LLE Hx Cerebrovascular Accident: No Hx Seizures: No Review of Systems All Other Systems: negative except mentioned in HPI Physical Exam Vital Signs Date Time Temp Pulse Resp B/P (MAP) Pulse Ox O2 Delivery O2 Flow Rate FiO2 09/23/18 11:01 97.5 93 18 126/75 99 Room Air 09/23/18 12:07 2.0 28 Sp02 EP Interpretation: reviewed, normal General Appearance: normal inspection, no apparent distress, alert, GCS 15, obese, Chronically Ill Head: atraumatic ENT: normal ENT inspection, hearing grossly normal, normal voice Neck: normal inspection, full range of motion, supple, no bony tend Respiratory: normal inspection, lungs clear, normal breath sounds, no respiratory distress, no retraction, no wheezing Cardiovascular #1: regular rate, rhythm, no edema, edema Gastrointestinal: normal inspection, normal bowel sounds, non tender, soft, no guarding, no hernia Genitourinary: no CVA tenderness Musculoskeletal: normal inspection, back normal, normal range of motion Neurologic: normal inspection, alert, oriented x3, responsive, cutter grind tool technician III-XII nml as tested, motor strength/tone normal, speech normal Psychiatric: normal inspection, judgement/insight normal, mood/affect normal Skin: normal inspection, normal color, no rash Medical Decision Making Diagnostic Impression: Primary Impression: Palpitations Additional Impression: COPD (chronic obstructive pulmonary disease) ER Course The patient presented for palpitations. The differential diagnosis included wasn't limited to anxiety, anemia, myocardial infarction among others. Because of complexity of patient's case laboratory testing and imaging studies were ordered. The EKG interpreted by me showed normal sinus rhythm with a rate of [address] or T wave changes.The patient was noted to have unremarkable laboratory testing. The patient is currently anticoagulated with Xarelto. The patient said he felt better. Patient is normally on supplemental oxygen. Patient does not show any evidence of arrhythmia during cardiac monitoring. The patient is advised to follow up with primary care doctor in 1-2 days. Patient is advised to return if any worsening condition or if any changes in status that are concerning. This report is dictated with [employer] social security specialist software which may occasionally lead to discrepancies related to use of this software. Labs Test 09/23/18 11:47 White Blood Count 9.7 K/UL (4.8-10.8) Red Blood Count 5.37 M/UL (4.70-6.10) Hemoglobin 15.5 G/DL (14.2-18.0) Hematocrit 46.6 % (42.0-52.0) Mean Corpuscular Volume 87 FL (80-99) Mean Corpuscular Hemoglobin 28.8 PG (27.0-31.0) Mean Corpuscular Hemoglobin Concent 33.2 G/DL (32.0-36.0) Red Cell Distribution Width 12.4 % (11.6-14.8) Platelet Count 240 K/UL (150-450) Mean Platelet Volume 6.4 FL (6.5-10.1) Neutrophils (%) (Auto) 84.4 % (45.0-75.0) Lymphocytes (%) (Auto) 12.2 % (20.0-45.0) Monocytes (%) (Auto) 3.1 % (1.0-10.0) Eosinophils (%) (Auto) 0.0 % (0.0-3.0) Basophils (%) (Auto) 0.4 % (0.0-2.0) Sodium Level 139 MMOL/L (136-145) Potassium Level 3.9 MMOL/L (3.5-5.1) Chloride Level 103 MMOL/L (98-107) Carbon Dioxide Level 26 MMOL/L (21-32) Anion Gap 10 mmol/L (5-15) Blood Urea Nitrogen 16 mg/dL (7-18) Creatinine 1.2 MG/DL (0.55-1.30) Estimat Glomerular Filtration Rate > 60 mL/min (>60) Glucose Level 116 MG/DL (74-106) Calcium Level 9.3 MG/DL (8.5-10.1) Total Bilirubin 0.3 MG/DL (0.2-1.0) Aspartate Amino Transf (AST/SGOT) 18 U/L (15-37) Alanine Aminotransferase (ALT/SGPT) 30 U/L (12-78) Alkaline Phosphatase 65 U/L (46-116) Total Creatine Kinase 230 U/L (26-308) Creatine Kinase MB 2.3 NG/ML (0.0-3.6) Creatine Kinase MB Relative Index 1.0 Troponin I 0.000 ng/mL (0.000-0.056) Pro-B-Type Natriuretic Peptide 18 pg/mL (0-125) Total Protein 8.8 G/DL (6.4-8.2) Albumin 4.1 G/DL (3.4-5.0) Globulin 4.7 g/dL Albumin/Globulin Ratio 0.9 (1.0-2.7) Lipase 138 U/L (73-393) EKG Diagnostic Results Rate: normal Rhythm: NSR ST Segments: no acute changes Last Vital Signs Date Time Temp Pulse Resp B/P (MAP) Pulse Ox O2 Delivery O2 Flow Rate FiO2 09/23/18 12:07 97 21 100 Nasal Cannula 2.0 28 09/23/18 11:24 97.1 118/70 Status: improved Disposition: HOME, SELF-CARE Condition: Stable Referrals: Vladimir Farias MD (PCP) Patient Instructions: Palpitations Jori Wilkins MD Sep 23, 2018 14:42
--- NOTE | 2018-09-23 15:05 | Diagnostic Imaging Report ---
Indication: Shortness of breath Technique: One view of the chest Comparison: 05/31/2018 Findings: The heart borderline enlarged. The lungs and pleural spaces are clear. No significant interim change Impression: Borderline cardiomegaly. No acute process
--- NOTE | 2018-09-25 11:56 | Cardiology Report ---
APPROVED REPORT EKG Measurement Heart [id number] Normal sinus rhythm Normal ECG
== END 2018-09-23 13:00 | disposition home or self-care (01) ==
LOC: EMR 12:20
DX: R00.2 Palpitations (principal); J44.9 Chronic obstructive pulmonary disease, unspecified; I10 Essential (primary) hypertension; Z85.038 Personal history of other malignant neoplasm of large intestine; Z86.718 Personal history of other venous thrombosis and embolism
CPT/HCPCS: 36415; 71045; 80053; 82550; 82553; 83690; 83880; 84484; 85025; 93005; 94640; 94664; 99284

== ENCOUNTER 2019-02-13 08:12 | Emergency (ER) | payer OTHER, MEDICAID ==
[~2019-02-13] VITALS: Ht 190.5 cm; Wt 141.5 kg
--- NOTE | 2019-02-13 08:26 | NUR ---
ED Nurse Note: Pt walked in from home due to swelling of R foot since "last week", non-pitting +1. Pt was diagnosed with DVT since 2017 and has been taking Xarelto since then. No complaint of pain prabhu. AOx4, VSS. Will cont to monitor.
--- NOTE | 2019-02-13 08:32 | Emergency Room Report ---
History of Present Illness General Chief Complaint: Lower Extremity Injury Source: Patient Present Illness HPI Patient presents emergency department today complaining of right foot swelling for the last few days. Patient states that he has a history of a DVT on his left lower extremity. States that he would have leg swelling whenever he walks. He denies any chest pain shortness breath. Denies any nausea vomiting diarrhea or chills. No other complaints are noted. Symptoms noted to be moderate. Currently patient is on Xaralto.No other modifying factors. No other associated signs and symptoms. No other complaints were noted. Allergies: Coded Allergies: No Known Allergies (Unverified , 09/15/12) Patient History Past Medical History: HTN, COPD, other - Anemia PMH Narrative Colon CA Social History: Denies: smoking, alcohol use, drug use Reviewed Nursing Documentation: PMH: Agreed; PSxH: Agreed Nursing Documentation-PMH Past Medical History: No History, Except For Hx Cardiac Problems: Yes - Anemia Hx Hypertension: Yes Hx Pacemaker: No Hx Asthma: No Hx COPD: Yes Hx Diabetes: No Hx Cancer: Yes - Colon Hx Gastrointestinal Problems: No Hx Dialysis: No Hx Neurological Problems: No - DVT LLE Hx Cerebrovascular Accident: No Hx Seizures: No Review of Systems All Other Systems: negative except mentioned in HPI Physical Exam Vital Signs Date Time Temp Pulse Resp B/P (MAP) Pulse Ox O2 Delivery O2 Flow Rate FiO2 02/13/19 08:14 98.4 102 18 125/74 97 Room Air Sp02 EP Interpretation: reviewed, normal General Appearance: normal inspection, well appearing, no apparent distress, alert, other - Obese Head: atraumatic Eyes: bilateral eye normal inspection ENT: normal ENT inspection, hearing grossly normal, normal voice Neck: normal inspection, full range of motion, supple, no bony tend Respiratory: normal inspection, lungs clear, normal breath sounds, no respiratory distress, no retraction, no wheezing Cardiovascular #1: regular rate, rhythm, edema - Bilateral lower extremity Gastrointestinal: normal inspection, normal bowel sounds, non tender, soft, no guarding, no hernia Genitourinary: no CVA tenderness Musculoskeletal: back normal, normal range of motion, swelling - Bilateral lower extremity, worse on right midfoot Neurologic: normal inspection, alert, responsive, speech normal Psychiatric: normal inspection, judgement/insight normal, mood/affect normal Skin: normal inspection, normal color, no rash Medical Decision Making Diagnostic Impression: Primary Impression: Hypokalemia Additional Impressions: DVT (deep venous thrombosis) Edema ER Course Patient presents in emergency department today complaining of right foot swelling. Patient has a history of left lower extremity DVT. Therefore he was concerned that he was getting another DVT and require further evaluation. Differential diagnoses include DVT, arthritis, dependent edema, electrolyte abnormality just to name a few. Given the severity of the patient's presentation I felt this is a highly complex patient. This patient required extensive workup. Patient's laboratory workup shows evidence of hypokalemia. This is likely secondary to diuretic use. Of note patient is already on Xaralto for his old DVT. Patient was given potassium. And a prescription for potassium and magnesium. Patient's ultrasound of the lower extremities did not show any evidence of any new DVT. Therefore felt the patient can be discharged. Patient is advised to continue his Xaralto and keep his legs elevated. Recommend close outpatient follow with pain. Primary care physician Dr. Pop.Patient is advised to follow up with primary doctor in 2-3 days and return the emergency room for any worsening symptoms and as needed. Lab Results Impression Labs Test 02/13/19 08:30 White Blood Count 7.2 K/UL (4.8-10.8) Red Blood Count 5.48 M/UL (4.70-6.10) Hemoglobin 14.9 G/DL (14.2-18.0) Hematocrit 46.5 % (42.0-52.0) Mean Corpuscular Volume 85 FL (80-99) Mean Corpuscular Hemoglobin 27.2 PG (27.0-31.0) Mean Corpuscular Hemoglobin Concent 32.0 G/DL (32.0-36.0) Red Cell Distribution Width 13.2 % (11.6-14.8) Platelet Count 277 K/UL (150-450) Mean Platelet Volume 6.4 FL (6.5-10.1) Neutrophils (%) (Auto) 66.5 % (45.0-75.0) Lymphocytes (%) (Auto) 26.7 % (20.0-45.0) Monocytes (%) (Auto) 4.8 % (1.0-10.0) Eosinophils (%) (Auto) 1.3 % (0.0-3.0) Basophils (%) (Auto) 0.7 % (0.0-2.0) Prothrombin Time 11.1 SEC (9.30-11.50) Prothromb Time International Ratio 1.1 (0.9-1.1) Activated Partial Thromboplast Time 31 SEC (23-33) Sodium Level 140 MMOL/L (136-145) Potassium Level 2.9 MMOL/L (3.5-5.1) Chloride Level 101 MMOL/L (98-107) Carbon Dioxide Level 31 MMOL/L (21-32) Anion Gap 8 mmol/L (5-15) Blood Urea Nitrogen 9 mg/dL (7-18) Creatinine 0.9 MG/DL (0.55-1.30) Estimat Glomerular Filtration Rate > 60 mL/min (>60) Glucose Level 133 MG/DL (74-106) Calcium Level 9.9 MG/DL (8.5-10.1) Total Bilirubin 0.5 MG/DL (0.2-1.0) Aspartate Amino Transf (AST/SGOT) 24 U/L (15-37) Alanine Aminotransferase (ALT/SGPT) 39 U/L (12-78) Alkaline Phosphatase 80 U/L (46-116) Troponin I 0.000 ng/mL (0.000-0.056) Pro-B-Type Natriuretic Peptide 12 pg/mL (0-125) Total Protein 8.4 G/DL (6.4-8.2) Albumin 4.1 G/DL (3.4-5.0) Globulin 4.3 g/dL Albumin/Globulin Ratio 1.0 (1.0-2.7) EKG Diagnostic Results Rate: normal Rhythm: NSR ST Segments: no acute changes Rhythm Strip Diag. Results EP Interpretation: yes Rate: 100 Rhythm: NSR, no PVC's, no ectopy Chest X-Ray Diagnostic Results Chest X-Ray Diagnostic Results : Chest X-Ray Ordered: Yes # of Views/Limited/Complete: 1 View Indication: Other - Edema EP Interpretation: Yes Interpretation: no consolidation, no effusion, no pneumothorax, no acute cardiopulmonary disease Impression: No acute disease Electronically Signed by: Electronically signed by Beny Iqbal MD Other X-Ray Diagnostic Results Other X-Ray Diagnostic Results : X-Ray ordered: Right foot # of Views/Limited Vs Complete: 3 View Indication: Swelling EP Interpretation: Yes Interpretation: no dislocation, no fractures, other - Mild soft tissue swelling Impression: No acute disease Electronically Signed by: Electronically signed by Beny Iqbal MD CT/MRI/US Diagnostic Results CT/MRI/US Diagnostic Results : Imaging Test Ordered: Bilateral lower extremity venous duplex Impression 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 No evidence of right DVT Last Vital Signs Date Time Temp Pulse Resp B/P (MAP) Pulse Ox O2 Delivery O2 Flow Rate FiO2 02/13/19 08:14 98.4 102 18 125/74 97 Room Air Status: improved Disposition: HOME, SELF-CARE Condition: Stable Scripts Magnesium Oxide (MAGNESIUM) 500 Mg Capsule 500 MG PO BID for 7 Days, CAP Prov: Beny Iqbal MD 02/13/19 Potassium Chloride* (K-DUR*) 20 Meq Tab.er.prt 20 MEQ ORAL TWICE A DAY, #14 TAB 0 Refills Prov: Beny Iqbal MD 02/13/19 Beny Iqbal MD Feb 13, 2019 08:32
--- NOTE | 2019-02-13 08:36 | NUR ---
ED Nurse Note: X-ray tech and US tech notified about orders.
[2019-02-13 08:37] VITALS: BP 133/73
[2019-02-13 08:42] LABS: BASOPHILS % (AUTO) 0.7 % (0.0-2.0); EOSINOPHILS % (AUTO) 1.3 % (0.0-3.0); HEMATOCRIT 46.5 % (42.0-52.0); HEMOGLOBIN 14.9 G/DL (14.2-18.0); LYMPHOCYTES % (AUTO) 26.7 % (20.0-45.0); MEAN CORPUSCULAR VOLUME 85 FL (80-99); MONOCYTES % (AUTO) 4.8 % (1.0-10.0); NEUTROPHILS % (AUTO) 66.5 % (45.0-75.0); PLATELET COUNT 277 K/UL (150-450); RED BLOOD COUNT 5.48 M/UL (4.70-6.10); RED CELL DISTRIBUTION WIDTH 13.2 % (11.6-14.8); WHITE BLOOD COUNT 7.2 K/UL (4.8-10.8)
[2019-02-13 08:50] LABS: INR 1.1 (0.9-1.1)
[2019-02-13 08:51] LABS: ANION GAP 8 mmol/L (5-15); BLOOD UREA NITROGEN 9 mg/dL (7-18); CALCIUM 9.9 MG/DL (8.5-10.1); CARBON DIOXIDE 31 MMOL/L (21-32); CHLORIDE 101 MMOL/L (98-107); CREATININE 0.9 MG/DL (0.55-1.30); POTASSIUM 2.9 MMOL/L (3.5-5.1); SODIUM 140 MMOL/L (136-145)
[2019-02-13 09:02] LABS: ALANINE AMINOTRANSFERASE 39 U/L (12-78); ALBUMIN 4.1 G/DL (3.4-5.0); ALKALINE PHOSPHATASE 80 U/L (46-116); ASPARTATE AMINO TRANSFERASE 24 U/L (15-37); BILIRUBIN,TOTAL 0.5 MG/DL (0.2-1.0)
--- NOTE | 2019-02-13 09:05 | NUR ---
ED Nurse Note: Potassium 2.9, reported to Dr. Iqbal. 60mEq KCl was verbally ordered and given at this time by RN.
--- NOTE | 2019-02-13 09:37 | NUR ---
ED Nurse Note: X-ray and US done at this time. Awaiting for result.
[2019-02-13 09:39] VITALS: BP 115/62
[2019-02-13] MEDS ORDERED: POTASSIUM CHLO20 ME1 ORAL (09:55)
[2019-02-13] MEDS ORDERED: MAGNESIUM500 MG PO (09:55)
--- NOTE | 2019-02-13 10:05 | Diagnostic Imaging Report ---
Indication: Left leg edema, history of deep venous thrombosis Technique: Grayscale duplex images of the bilateral lower extremity veins Comparison: 03/06/2018 04/23/2017 Findings: Right lower extremity demonstrates no evidence of intraluminal thrombus. Normal phasic Doppler waveforms, demonstrating normal augmentation response and no evidence of valvular insufficiency. Normal compressibility of all deep venous structures. On the left, nonocclusive mural thrombus is seen within the popliteal and posterior tibial veins, to the same extent as was seen occlusive thrombus within the prior 2016 study. Normal phasic Doppler waveforms. Normal augmentation response and no evidence of valvular insufficiency. Only limited loss of compressibility is noted in the affected veins. Impression: Nonocclusive mural thrombus within the left popliteal and posterior tibial veins, distribution similar to previous study 04/23/2017 and presumably reflecting chronic recanalized thrombus. No definite evidence of acute deep venous thrombosis on the left. No evidence of deep venous thrombosis on the right.
[2019-02-13 10:10] VITALS: BP 115/62
--- NOTE | 2019-02-13 10:10 | NUR ---
ER DISCHARGE NOTE: Patient is cleared to be discharged per ERMD, pt is aox4, on room air, with stable vital signs. pt was given dc and prescription instructions, pt was able to verbalize understanding, pt id band and iv site removed without complications. pt is able to ambulate with steady gait. pt took all belongings.
--- NOTE | 2019-02-13 10:40 | Diagnostic Imaging Report ---
Indication: Cough Technique: One view of the chest Comparison: 09/23/2018 Findings: Lungs and pleural spaces are clear. Heart size is normal. Better inspiration currently. No other significant interim change Impression: No acute process
--- NOTE | 2019-02-13 10:51 | Diagnostic Imaging Report ---
Indication: Foot pain Technique: 3 views right foot Comparison: none Findings: There are degenerative changes of the first metatarsophalangeal joint. There are also mild degenerative changes of the first interphalangeal joint. No acute fractures. No dislocations. The joint spaces are preserved. There is mild metatarsus adductus. There is a small plantar spur Impression: No acute bony trauma Mild degenerative changes as described This agrees with the preliminary interpretation provided by the emergency room physician
--- NOTE | 2019-02-14 18:23 | Cardiology Report ---
APPROVED REPORT EKG Measurement Heart [id number] Sinus tachycardia Otherwise normal ECG
== END 2019-02-13 10:10 | disposition home or self-care (01) ==
LOC: EMR 09:05
DX: I82.432 Acute embolism and thrombosis of left popliteal vein (principal); I82.442 Acute embolism and thrombosis of left tibial vein; E87.6 Hypokalemia; R60.9 Edema, unspecified; I10 Essential (primary) hypertension; Z85.038 Personal history of other malignant neoplasm of large intestine; J44.9 Chronic obstructive pulmonary disease, unspecified; Z79.01 Long term (current) use of anticoagulants; E66.9 Obesity, unspecified; Z68.39 Body mass index [BMI] 39.0-39.9, adult
CPT/HCPCS: 36415; 71045; 80053; 83880; 84484; 85025; 85610; 85730; 93005; 93970; 99284; J8499

== ENCOUNTER 2019-04-04 17:34 | Emergency (ER) | payer OTHER, MEDICAID ==
[~2019-04-04] VITALS: Ht 190.5 cm; Wt 143.3 kg
[~2019-04-04 17:34] MED LIST changes: +MAGNESIUM500 MG PO; +POTASSIUM CHLO20 ME1 ORAL
[2019-04-04 17:44] VITALS: BP 137/76
--- NOTE | 2019-04-04 17:53 | NUR ---
ED Nurse Note: Pt. AAOx4. ambulatory with cane assistance. came to ER due to left arm pain for couple of days on/off. denies recent trauma
--- NOTE | 2019-04-04 18:12 | Emergency Room Report ---
History of Present Illness General Chief Complaint: Pain Source: Patient Present Illness HPI 58-year-old male with history of hypertension, DVT, hyperlipidemia currently controlled with blood pressure medication, blood thinners statin therapy here complaining of pain in the left upper arm x2 days. Patient denies injury or fall. He is ambulating with a cane post his DVT he is left-handed and reports that he always uses his left arm to use his cane and also lift objects. Patient denies weakness on the right side of body, denies chest pain, denies pain radiation from chest arm, denies tingling and numbness. Denies S OB and palpitation. He further denies abdominal pain nausea vomiting. He is rating the pain 9 out of 10, with spasms and intermittent. Denies pain radiation denies tingling and numbness. Has not taken any medication for pain. Allergies: Coded Allergies: No Known Allergies (Unverified , 09/15/12) Patient History Past Medical History: see triage record Past Surgical History: unable to obtain Pertinent Family History: none Immunizations: UTD Reviewed Nursing Documentation: PMH: Agreed; PSxH: Agreed Nursing Documentation-PMH Past Medical History: No History, Except For Hx Cardiac Problems: Yes - Anemia Hx Hypertension: Yes Hx Pacemaker: No Hx Asthma: No Hx COPD: Yes Hx Diabetes: No Hx Cancer: Yes - Colon Hx Gastrointestinal Problems: No Hx Dialysis: No Hx Neurological Problems: No - DVT LLE Hx Cerebrovascular Accident: No Hx Seizures: No Review of Systems All Other Systems: negative except mentioned in HPI Physical Exam Vital Signs Date Time Temp Pulse Resp B/P (MAP) Pulse Ox O2 Delivery O2 Flow Rate FiO2 04/04/19 17:44 97.9 95 17 137/76 98 Room Air Sp02 EP Interpretation: reviewed, normal General Appearance: normal inspection, well appearing, no apparent distress Head: normocephalic, atraumatic Eyes: bilateral eye normal inspection, bilateral eye PERRL ENT: normal ENT inspection, hearing grossly normal, normal pharynx Neck: normal inspection, full range of motion, supple Respiratory: normal inspection, chest non-tender, lungs clear, normal breath sounds, no rhonchi, no wheezing Cardiovascular #1: normal inspection, normal peripheral pulses, regular rate, rhythm, no edema, no gallop, no murmur, normal capillary refill Cardiovascular #2: 2+ radial (R), 2+ radial (L) Gastrointestinal: normal inspection, normal bowel sounds, soft Rectal: deferred Genitourinary: no CVA tenderness Musculoskeletal: back normal, digits/nails normal, gait/station normal, normal range of motion, non-tender Neurologic: normal inspection, alert, oriented x3 Psychiatric: normal inspection, judgement/insight normal Reflexes: 2+ bicep (R), 2+ bicep (L), 2+ tricep (R), 2+ tricep (L) Skin: normal inspection, normal color, no rash, warm/dry Lymphatic: normal inspection, no adenopathy Medical Decision Making PA Attestation All my diagnosis and treatment plans were reviewed ad discussed with my supervising physician Dr. Spain Diagnostic Impression: Primary Impression: Strain of left upper arm ER Course 58-year-old male with history of hypertension, DVT, hyperlipidemia currently controlled with blood pressure medication, blood thinners statin therapy here complaining of pain in the left upper arm x2 days. Patient denies injury or fall. He is ambulating with a cane post his DVT he is left-handed and reports that he always uses his left arm to use his cane and also lift objects. Patient denies weakness on the right side of body, denies chest pain, denies pain radiation from chest arm, denies tingling and numbness. Denies S OB and palpitation. He further denies abdominal pain nausea vomiting. He is rating the pain 9 out of 10, with spasms and intermittent. Denies pain radiation denies tingling and numbness. Has not taken any medication for pain. Ddx considered but are not limited to: left arm strain, ME, left arm spasm, neuropathy Vital signs: are WNL, pt. is afebrile H&PE are most consistent with: Left arm strain, ORDERS: EKG, Tylenol 500 Voltaren gel ED INTERVENTIONS: None required at this time. At this point no x-ray is necessary since there was no fall or injury, possible MRI requested by primary care provider DISCHARGE: At this time pt. is stable for d/c to home. Will provide printed patient care instructions, and any necessary prescriptions. Care plan and follow up instructions have been discussed with the patient prior to discharge to follow-up with her primary care provider if symptoms continue not related to chest alternate between arms to carry cane as he is getting increased cramping due to overuse of left side of body and has high BMI. EKG Diagnostic Results Rate: normal Rhythm: NSR ST Segments: no acute changes Last Vital Signs Date Time Temp Pulse Resp B/P (MAP) Pulse Ox O2 Delivery O2 Flow Rate FiO2 04/04/19 17:44 97.9 95 17 137/76 (96) 98 Room Air Disposition: HOME, SELF-CARE Condition: Stable Scripts Acetaminophen* (TYLENOL EXTRA STRENGTH*) 500 Mg Tablet 500 MG ORAL Q8H PRN for Prn Headache/Temp > 101, #30 TAB 0 Refills Prov: Connor Watt 04/04/19 Diclofenac Sodium (VOLTAREN) 100 Gm Gel..gram. 2 GM TP BID, #100 GM Prov: Connor Watt 04/04/19 Patient Instructions: Triceps Tendinitis With [facility] Additional Instructions: Alternate between using her left and right arm for carrying your cane avoid strenuous physical activity follow-up with a primary care provider Connor Watt Apr 04, 2019 18:12
[2019-04-04] MEDS ORDERED: VOLTAREN100 G1 TP (18:13)
[2019-04-04] MEDS ORDERED: TYLENOL EXTRA500 MG ORAL (18:13)
[2019-04-04 18:20] VITALS: BP 137/76
--- NOTE | 2019-04-04 18:21 | NUR ---
ER DISCHARGE NOTE: Patient is cleared to be discharged per PA, pt is aox4, on room air, with stable vital signs. pt was given dc and prescription instructions, pt was able to verbalize understanding, pt id band removed pt is able to ambulate with steady gait. pt took all belongings.
--- NOTE | 2019-04-05 15:13 | Cardiology Report ---
APPROVED REPORT EKG Measurement Heart [id number] Normal sinus rhythm Normal ECG
== END 2019-04-04 18:20 | disposition home or self-care (01) ==
LOC: EMR 18:00
DX: S46.912A Strain of unspecified muscle, fascia and tendon at shoulder and upper arm level, left arm, initial encounter (principal); X58.XXXA Exposure to other specified factors, initial encounter; Y93.9 Activity, unspecified; I10 Essential (primary) hypertension; Z86.718 Personal history of other venous thrombosis and embolism; Z85.038 Personal history of other malignant neoplasm of large intestine; J44.9 Chronic obstructive pulmonary disease, unspecified; E78.5 Hyperlipidemia, unspecified
CPT/HCPCS: 93005; 99283

== ENCOUNTER 2019-05-29 16:45 | Inpatient (IN) | payer OTHER, MEDICAID ==
[~2019-05-29] VITALS: Ht 190.5 cm; Wt 143.3 kg
[~2019-05-29 16:45] MED LIST changes: +TYLENOL EXTRA500 MG ORAL; +VOLTAREN100 G1 TP
--- NOTE | 2019-05-29 17:01 | NUR ---
ED Nurse Note: PT WALKED IN TO ER TODAY FROM HOME. AOX4. PT C/O SOB AND WEAKNESS X 2 DAYS AGO. AT BEDSIDE, NO SIGNS OF RESPIRATORY DISTRESS, RETRACTIONS, OR ACCESSORY MUSCLE USE NOTED. RR 17, O2 SAT 99% ON RA. PT ABLE TO SPEAK IN FULL SENTENCES. GAIT STEADY.
[2019-05-29 17:04] VITALS: BP 126/80
[2019-05-29 17:39] LABS: BILIRUBIN, URINE NEGATIVE (NEGATIVE); EOSINOPHILS % (AUTO) 1.1 % (0.0-3.0); GLUCOSE, URINE (UA) NEGATIVE (NEGATIVE); HEMATOCRIT 43.8 % (42.0-52.0); HEMOGLOBIN 14.5 G/DL (14.2-18.0); KETONES,URINE NEGATIVE (NEGATIVE); LEUKOCYTE ESTERASE ,URINE NEGATIVE (NEGATIVE); LYMPHOCYTES % (AUTO) 29.1 % (20.0-45.0); MEAN CORPUSCULAR VOLUME 83 FL (80-99); MONOCYTES % (AUTO) 4.9 % (1.0-10.0); NEUTROPHILS % (AUTO) 63.8 % (45.0-75.0); NITRITE,URINE NEGATIVE (NEGATIVE); PH,URINE 5 (4.5-8.0); PLATELET COUNT 274 K/UL (150-450); PROTEIN,URINE 1+ (NEGATIVE); RED BLOOD COUNT 5.29 M/UL (4.70-6.10); RED CELL DISTRIBUTION WIDTH 13.5 % (11.6-14.8); UROBILINOGEN,URINE NORMAL MG/DL (0.0-1.0); WHITE BLOOD COUNT 9.9 K/UL (4.8-10.8)
[2019-05-29 17:40] LABS: APPEARANCE,URINE CLEAR; COLOR,URINE YELLOW
--- NOTE | 2019-05-29 17:42 | Diagnostic Imaging Report ---
Indication: Chest pain Technique: One view of the chest Comparison: For 2018 Findings: Lungs and pleural spaces are clear. Heart size is normal. No significant interim change Impression: No acute process
[2019-05-29 17:46] LABS: INR 1.1 (0.9-1.1)
[2019-05-29 17:52] LABS: ANION GAP 4 mmol/L (5-15); BLOOD UREA NITROGEN 16 mg/dL (7-18); CALCIUM 9.9 MG/DL (8.5-10.1); CARBON DIOXIDE 29 MMOL/L (21-32); CHLORIDE 103 MMOL/L (98-107); CREATININE 1.1 MG/DL (0.55-1.30); POTASSIUM 3.2 MMOL/L (3.5-5.1); SODIUM 136 MMOL/L (136-145)
[2019-05-29 18:05] LABS: ALANINE AMINOTRANSFERASE 24 U/L (12-78); ALBUMIN 4.5 G/DL (3.4-5.0); ALKALINE PHOSPHATASE 89 U/L (46-116); ASPARTATE AMINO TRANSFERASE 19 U/L (15-37); BILIRUBIN,TOTAL 0.4 MG/DL (0.2-1.0); CKMB 2.6 NG/ML (0.0-3.6); CREATINE KINASE 357 U/L (26-308); PHOSPHORUS 3.2 MG/DL (2.5-4.9)
--- NOTE | 2019-05-29 18:08 | Emergency Room Report ---
History of Present Illness General Chief Complaint: Generalized Weakness Source: Medical Record Present Illness HPI 58-year-old male presents with generalized weakness x3 days, constant nature, no aggravating or relieving factors, no chest pain, he does endorse some shortness of breath, no dyspnea on exertion,, severity is moderate, no fever, no cough, no congestion, no abdominal pain, patient presents for evaluation Allergies: Coded Allergies: No Known Allergies (Unverified , 09/15/12) Patient History Past Medical History: see triage record Reviewed Nursing Documentation: PMH: Agreed; PSxH: Agreed Nursing Documentation-PMH Past Medical History: No History, Except For Hx Cardiac Problems: Yes - Anemia Hx Hypertension: Yes Hx Pacemaker: No Hx Asthma: No Hx COPD: Yes Hx Diabetes: No Hx Cancer: Yes - Colon Hx Gastrointestinal Problems: No Hx Dialysis: No Hx Neurological Problems: No - DVT LLE Hx Cerebrovascular Accident: No Hx Seizures: No Review of Systems Constitutional: Denies: chills, fever Eye: Denies: blurred vision, double vision ENT: Denies: throat pain, nasal discharge Respiratory: Reports: shortness of breath; Denies: cough Cardiovascular: Denies: chest pain, palpitations Gastrointestinal: Denies: abdominal pain, diarrhea, nausea, vomiting Genitourinary: Denies: dysuria, pain Musculoskeletal: Denies: back pain, muscle pain Skin: Denies: rash, lesions Neurological: Denies: headache, focal weakness Hematologic/Lymphatic: Denies: easy bleeding, easy bruising All Other Systems: negative except mentioned in HPI Physical Exam Vital Signs Date Time Temp Pulse Resp B/P (MAP) Pulse Ox O2 Delivery O2 Flow Rate FiO2 05/29/19 16:52 97.9 117 18 131/82 (98) 98 Room Air Sp02 EP Interpretation: reviewed, normal General Appearance: well appearing, no apparent distress, alert Head: normocephalic, atraumatic Eyes: bilateral eye PERRL, bilateral eye EOMI ENT: uvula midline, moist mucus membranes Neck: supple, thyroid normal, supple/symm/no masses Respiratory: lungs clear, no respiratory distress, no retraction, no accessory muscle use Cardiovascular #1: normal peripheral pulses, regular rate, rhythm, no edema, no gallop, no murmur Gastrointestinal: non tender, soft, no guarding, no rebound Musculoskeletal: normal inspection Neurologic: alert, oriented x3 Psychiatric: mood/affect normal Skin: no rash, warm/dry Medical Decision Making Diagnostic Impression: Primary Impression: Episode of generalized weakness Additional Impression: Dyspnea ER Course Patient with generalized fatigue, unknown origin, labs negative, chest x-ray negative. Will observe patient, for serial enzymes Spoke with spanish medical interpreter for his insurance company who also was amenable to his admission for obs Laboratory Tests Test 05/29/19 17:30 White Blood Count 9.9 K/UL (4.8-10.8) Red Blood Count 5.29 M/UL (4.70-6.10) Hemoglobin 14.5 G/DL (14.2-18.0) Hematocrit 43.8 % (42.0-52.0) Mean Corpuscular Volume 83 FL (80-99) Mean Corpuscular Hemoglobin 27.4 PG (27.0-31.0) Mean Corpuscular Hemoglobin Concent 33.0 G/DL (32.0-36.0) Red Cell Distribution Width 13.5 % (11.6-14.8) Platelet Count 274 K/UL (150-450) Mean Platelet Volume 5.8 FL (6.5-10.1) L Neutrophils (%) (Auto) 63.8 % (45.0-75.0) Lymphocytes (%) (Auto) 29.1 % (20.0-45.0) Monocytes (%) (Auto) 4.9 % (1.0-10.0) Eosinophils (%) (Auto) 1.1 % (0.0-3.0) Basophils (%) (Auto) 1.0 % (0.0-2.0) Prothrombin Time 11.4 SEC (9.30-11.50) Prothrombin Time INR 1.1 (0.9-1.1) PTT 30 SEC (23-33) Urine Color Yellow Urine Appearance Clear Urine pH 5 (4.5-8.0) Urine Specific [place] 1.025 (1.005-1.035) Urine Protein 1+ (NEGATIVE) H Urine Glucose (UA) Negative (NEGATIVE) Urine Ketones Negative (NEGATIVE) Urine Blood 2+ (NEGATIVE) H Urine Nitrite Negative (NEGATIVE) Urine Bilirubin Negative (NEGATIVE) Urine Urobilinogen Normal MG/DL (0.0-1.0) Urine Leukocyte Esterase Negative (NEGATIVE) Urine RBC 0-2 /HPF (0 - 0) H Urine WBC 0 /HPF (0 - 0) Urine Squamous Epithelial Cells None /LPF (NONE/OCC) Urine Bacteria None /HPF (NONE) Urine Mucus Few /LPF (NONE/OCC) H Sodium Level 136 MMOL/L (136-145) Potassium Level 3.2 MMOL/L (3.5-5.1) L Chloride Level 103 MMOL/L (98-107) Carbon Dioxide Level 29 MMOL/L (21-32) Anion Gap 4 mmol/L (5-15) L Blood Urea Nitrogen 16 mg/dL (7-18) Creatinine 1.1 MG/DL (0.55-1.30) Estimate Glomerular Filtration Rate > 60 mL/min (>60) Glucose Level 103 MG/DL (74-106) Lactic Acid Level 1.00 mmol/L (0.4-2.0) Calcium Level 9.9 MG/DL (8.5-10.1) Phosphorus Level 3.2 MG/DL (2.5-4.9) Magnesium Level 2.2 MG/DL (1.8-2.4) Total Bilirubin 0.4 MG/DL (0.2-1.0) Aspartate Amino Transferase (AST) 19 U/L (15-37) Alanine Aminotransferase (ALT) 24 U/L (12-78) Alkaline Phosphatase 89 U/L (46-116) Total Creatine Kinase 357 U/L (26-308) H Creatine Kinase MB 2.6 NG/ML (0.0-3.6) Creatine Kinase MB Relative Index 0.7 Troponin I 0.000 ng/mL (0.000-0.056) Pro-B-Type Natriuretic Peptide 14 pg/mL (0-125) Total Protein 8.8 G/DL (6.4-8.2) H Albumin 4.5 G/DL (3.4-5.0) Globulin 4.3 g/dL Albumin/Globulin Ratio 1.0 (1.0-2.7) Lipase 109 U/L (73-393) Thyroid Stimulating Hormone (TSH) 1.469 uiU/mL (0.358-3.740) Free Thyroxine 0.91 NG/DL (0.76-1.46) Free Triiodothyronine 2.7 pg/mL (2.3-4.2) EKG Diagnostic Results EKG Time: 17:25 EP Interpretation: NSR, rate 97, QTc 421, no acute ST elevations, normal axis Rate: normal Rhythm: NSR ST Segments: no acute changes Rhythm Strip Diag. Results Rhythm Strip Time: 18:25 EP Interpretation: yes Rate: 101 Rhythm: other - Sinus tachycardia 1 PVC Chest X-Ray Diagnostic Results Chest X-Ray Diagnostic Results : Chest X-Ray Ordered: Yes # of Views/Limited/Complete: 1 View Indication: Shortness of Breath EP Interpretation: Yes Interpretation: no acute cardiopulmonary disease Impression: No acute disease Electronically Signed by: Chlao Baez MD Last Vital Signs Date Time Temp Pulse Resp B/P (MAP) Pulse Ox O2 Delivery O2 Flow Rate FiO2 05/29/19 17:04 98.1 94 17 126/80 99 Room Air Disposition: ADMITTED INPATIENT Condition: Stable Referrals: NON PHYSICIAN (PCP) Chalo Baez MD May 29, 2019 18:08
--- NOTE | 2019-05-29 19:08 | NUR ---
HAND-OFF: REPORT GIVEN TO SCARLET MATHEWS.
[2019-05-29 19:15] VITALS: BP 134/76
--- NOTE | 2019-05-29 19:15 | NUR ---
ED Nurse Note: Recieved pt to resume care, pt in bed awake, alert and oriented x 4, iv site patent, on monitoring, denies cp or any pain, no sob or labored breathihng noted, pt is to be admitted to hospital, will prepare for admit and continue to closely monitor.
[2019-05-29 21:00] VITALS: BP 129/78
--- NOTE | 2019-05-29 21:30 | NUR ---
ED Nurse Note: Pt continues to rest quietly in bed, awake and alert, remains on monitoring, no acute chagnes or increased distress, iv site intact and patent, pt given sandwich and juice, ate all and tolerated well, will continue to monitor and prepare for admission.
[2019-05-29] MEDS ORDERED: IBUPROFEN600 MG ORAL (21:45)
[2019-05-29] MEDS ORDERED: TRAMADOL HCL50 MG ORAL (21:45)
[2019-05-29] MEDS ORDERED: ROBAXIN500 MG PO (21:45)
--- NOTE | 2019-05-29 21:45 | NUR ---
ED Nurse Note: Pt being taken to floor bed for admisison, pt is awake, alert and oriented x 4, denies cp or any pain, pt has room for admisison, report called to SCARLET Ahumada on unit, pt belongings list completed, iv site intact and patent, pt being taken to floor bed via gurney and acls protocols with rn and er-tech, nad noted during pt transport.
--- NOTE | 2019-05-29 22:40 | NUR ---
NURSE NOTES: Received report from Jamison Wang RN. regarding patients arrival to TELE floor from ED, arrived via gurney and ambulated to bed without assistance. Belongings checked and noted at bedside with RN. head to toe assessment initiated and no skin issues observed. Patient AAO X4 with no complaints of acute pain or discomfort at this time. Kept comfortable in bed and placed on continuos cardiac monitoring per protocol. IV line intact and patent SL, tolerating RA with no S/S of resp. distress or SOB. Safety precaution in place; siderails X2 uo, call light within reach, bed in lowest position, brakes and alarm on at all times. Needs and wants anticipated and attended. Will continue plan of care
--- NOTE | 2019-05-29 23:00 | NUR ---
NURSE NOTES: Spoke with Ellie Gomez MD. New orders received and carried out. Will continue plan of care.
[2019-05-29] MEDS ORDERED: Acetaminophen 500mg (ES) tab ORAL PRN (23:30)
[2019-05-30] VITALS: BP 110/65
[2019-05-30] MEDS ORDERED: Albuterol 90mcg Inhaler 8gm INH SCH ×2 (01:00→07:00)
--- NOTE | 2019-05-30 03:34 | NUR ---
NURSE NOTES: Patient in bed asleep with no S/S of distress. Will continue to monitor.
[2019-05-30 04:00] VITALS: BP 108/52
--- NOTE | 2019-05-30 07:11 | NUR ---
HAND-OFF: Report given to Harish Deleon RN. Patient in bed in stable condition, endorsed plan of care.
--- NOTE | 2019-05-30 07:12 | NUR ---
NURSE NOTES: Received report from SCARLET Ahumada. The patient is resting on the bed without acute distress or shortness of breath. The patient's bed in the lowest position, call light in reach, and fall and aspiration precaution reinforced. IV site intact and patent. Will continue plan of care.
[2019-05-30 08:00] VITALS: BP 114/54
--- NOTE | 2019-05-30 08:52 | NUR ---
HAND-OFF: Report given to SCARLET Ocasio. The patient is resting on the bed without acute distress or shortness of breath. The patient's bed in the lowest position, call light in reach, and fall and aspiration precaution reinforced. IV intact and patent. Endoresd plan of care.
--- NOTE | 2019-05-30 08:56 | NUR ---
NURSE NOTES: NURSE NOTES: Received report from Annalee/RN, Patient is awake and alert, lying semi-dawn, resting in bed with no acute distress/SOB noted. On room air. Iv site patent, no bleeding or infiltration noted. Bed in lowest position and locked, call light and belongings within reach. Will continue plan of care.
[2019-05-30] MEDS ORDERED: Xarelto 10mg tab ORAL SCH (09:00)
[2019-05-30] MEDS ORDERED: Qvar 40mcg Inhaler 6.8 gm INH SCH (09:00)
--- NOTE | 2019-05-30 10:06 | NUR ---
*-* INSURANCE *-* AVAILABLE CLINICALS HAVE BEEN FAXED TO: [facility] CM COORDINATOR: KELLEY P:[phone] 2013 F: [phone]
[2019-05-30 12:00] VITALS: BP 120/61
--- NOTE | 2019-05-30 12:10 | NUR ---
NURSE NOTES: Discharge instruction given and patient verbalized understanding, Heart monitor and IV removed, site intact, no bleeding noted. Belonging check done and signed by patient. No acute distress or SOB noted, Patient is in stable condition. Escorted downstairs, Patient left via taxi.
--- NOTE | 2019-05-30 15:38 | NUR ---
CASE MANAGEMENT:REVIEW 58 YR OLD MALE PRESENTED TO ER CC: SOB AND GENERALIZED WEAKNESS SI:EPISODE OF GENERALIZED WEAKNESS. DYSPNEA 97.8 117 18 131/82 98% ON RA K-3.2 TCK+357 IS: 1L NS BOLUS X2 KCL 60MEQ CHEST XRAY BLOOD CX : TO TELEMETRY
--- NOTE | 2019-05-30 17:00 | History and Physical Report ---
DATE OF ADMISSION: 05/29/2019 HISTORY OF PRESENT ILLNESS: This is a 58-year-old male, who came to the hospital with generalized weakness. The patient states he lives at home alone, as his recently. He has a home health nurse that comes and takes care of his medications. He states he was short of breath yesterday. Denies any cough or phlegm. No fever reported. No chest pain reported. He came to the emergency room. He was seen and worked up and admitted to the hospital. PAST MEDICAL HISTORY: He reports a previous history of chronic anemia, colon CA, and history of previous DVT of the left lower extremity. PAST SURGICAL HISTORY: The patient denies. MEDICATIONS: Home medications include Norvasc 10 mg daily, albuterol inhaler p.r.n., beclomethasone inhaler p.r.n., Pepcid 20 mg twice a day, Neurontin 300 mg daily, and HCTZ 12.5 mg daily. He also takes prednisone daily for unknown reasons. He also takes Xarelto 20 mg daily. REVIEW OF SYSTEMS: Denies any headaches, hematemesis, melena, hematochezia, night sweats, or weight loss. PHYSICAL EXAMINATION: GENERAL: Reveals an obese male. VITAL SIGNS: Blood pressure is 114/50, heart rate 74, and respirations 20. He is afebrile. O2 saturation 99% on room air. HEENT: Unremarkable. LUNGS: Clear breath sounds bilaterally with normal heart sounds. ABDOMEN: Soft. EXTREMITIES: There is no peripheral edema, cyanosis, or clubbing. NEUROLOGICAL: Nonfocal. LABORATORY DATA: Lab testing shows normal CBC and BMP. Potassium being 3.2, which was replaced in the ER. CK is 357. Protein 8.8. Thyroid function tests are normal. The patient had a chest x-ray yesterday in the ER, which shows clear lung webber bilaterally. IMPRESSION: 1. Dyspnea, resolved. 2. History of DVT, on Xarelto. 3. Hypertension, on medications. DISCUSSION: The patient has been admitted overnight for observation. At this point, he is doing well. He is completely asymptomatic with no symptoms. X-ray of chest was negative. He is on Xarelto for his history of DVT. At this point, he will be discharged home with outpatient followup with primary care physician. Discussed with the patient at length. Phoenix Gomez M.D. DR: ALEXANDRU JOB#: [id number] CC:
--- NOTE | 2019-05-30 19:05 | CDS Physician Query ---
Clarification is required for compliance, coding accuracy, and to reflect severity of illness for this patient Dear Dr. Ashby Date: 05/30/2019 _ CDS Name: Cornelius Please respond to the following question: Is there a diagnosis specific to these symptoms or values? If so please state below. presentation: This is a 58-year-old male, who came to the hospital with generalized weakness. The patient states he lives at home alone, as his recently. PHYSICAL EXAMINATION: GENERAL: Reveals an obese male. VITAL SIGNS: Blood pressure is 114/50, heart rate 74, and respirations 20. He is afebrile. O2 saturation 99% on room air. LABORATORY DATA: Lab testing shows normal CBC and BMP. Potassium being 3.2, which was replaced in the ER. CK is 357. Protein 8.8. Thyroid function tests are normal. Rx: IV fluid PHYSICIAN RESPONSE: [ ] Dehydration [ ] Hypokalemia [ ] Unable to determine [ ] Other, please specify Present on Admission: [] Yes [] No [] Clinically Undetermined Physician signature Date Please also document in your Progress Notes and/or Discharge Summary and indicate if the condition was present on admission. LINDA
--- NOTE | 2019-05-31 10:59 | Discharge Summary ---
Discharge Summary Discharge Summary _ DATE OF ADMISSION: 05/29/2019 DATE OF DISCHARGE: 05/30/2019 DISCHARGED BY: Dr. Gomez REASON FOR ADMISSION: 58 years old male with past medical history of hypertension, COPD, colon cancer , history of DVT left lower extremity, presented with generalized weakness for 3 days. Patient reported some shortness of breath, but no dyspnea on exertion. He denied chest pain or shortness of breath. No fever, no chills. No cough, no congestion. No abdominal pain. Upon evaluation vital signs revealed tachycardia with heart rate of 117. Pulse oximetry was stable on room air. Laboratory work-up revealed no leukocytosis, stable hemoglobin and hematocrit. Urinalysis revealed no evidence of UTI. Potassium 3.2. Stable other electrolytes and renal parameters. Glucose 103. Lactic acid 1.0. TSH within normal limits. Troponin negative. pro BNP 14. EKG revealed sinus r tachycardia, no acute ischemic changes. Chest x-ray revealed no acute cardiopulmonary pathology. Potassium was replaced in the emergency department. Patient subsequently was admitted to telemetry floor for further management. HOSPITAL COURSE: Patient admitted to telemetry floor for overnight observation. Patient received IV fluids. Pulse oximetry was stable on room air. Chest x-ray was unremarkable . Inhalers resumed / Qvar and Albuterol as needed. Patietn was completely asymptomatic. Dyspnea resolved. Patient with prior history of DVT and was continued on Xarelto. Hemoglobin and hematocrit stable. No evidence of bleeding. Blood pressure was managed with calcium channel carlos and hydrochlorothiazide. GI prophylaxis provided. Potassium was replaced in the emergency department . Patient clinically stabilized and was ready for discharge home with outpatient follow up with primary care provider. Due to rapid and unexpected improvement in patient condition , patient was discharged in 1 day. FINAL DIAGNOSES: Dyspnea-resolved History of DVT Hypertension Hypokalemia DISCHARGE MEDICATIONS: See Medication Reconciliation list. DISCHARGE INSTRUCTIONS: I have been assigned to dictate discharge summary for this account. I was not involved in the patient's management. Stella Marmolejo NP May 31, 2019 10:59
--- NOTE | 2019-05-31 15:13 | NUR ---
*-* INSURANCE *-* DISCHARGE SUMMARY HAS BEEN FAXED TO: [facility] CM COORDINATOR: KELLEY P:[phone] 2013 F: [phone]
--- NOTE | 2019-06-03 15:11 | Cardiology Report ---
APPROVED REPORT EKG Measurement Heart [id number] Normal sinus rhythm Cannot rule out Anterior infarct, age undetermined Abnormal ECG
== END 2019-05-30 12:10 | disposition home or self-care (01) | DRG 204 ==
LOC: EMR 17:40 → CANBEDREQ 18:29 → 2E 20:18 → EDBEDREQ 21:12 → OBSVTOIN 23:36
DX: R06.00 Dyspnea, unspecified (principal); R53.1 Weakness; Z86.718 Personal history of other venous thrombosis and embolism; Z85.038 Personal history of other malignant neoplasm of large intestine; Z79.01 Long term (current) use of anticoagulants; I10 Essential (primary) hypertension; J44.9 Chronic obstructive pulmonary disease, unspecified; E87.6 Hypokalemia
CPT/HCPCS: 36415; 71045; 80053; 81003; 82550; 82553; 83605; 83690; 83735; 83880; 84100; 84439; 84443; 84481; 84484; 85025; 85610; 85730; 87040; 93005; 94640; 94664; 96360; 99285; J8499

== ENCOUNTER 2020-03-03 07:57 | Emergency (ER) | payer OTHER, MEDICAID ==
[~2020-03-03] VITALS: Ht 190.5 cm; Wt 129.7 kg
[~2020-03-03 07:57] MED LIST changes: +FAMOTIDINE20 MG ORAL; +MECLIZINE HCL25 MG ORAL; +PREDNISONE10 MG ORAL
--- NOTE | 2020-03-03 08:15 | NUR ---
ED Nurse Note: Pt ambulated to ED from home d/t CP on sternal area started today at 0300. Pt is AOx4 appears to be calm and cooperative. Per triage pt had a mild episode of dyspnea with shortness of breathing. Pt denies any recent cough/runny nose, fever nor recent travels. Placed on bed and gown; hooked to clerical aide, pt satting at 100% on RA at this time. Safety measures in placed. Will continue to monitor.
[2020-03-03 08:21] VITALS: BP 146/90
--- NOTE | 2020-03-03 08:25 | Emergency Room Report ---
History of Present Illness General Chief Complaint: Chest Pain Source: Patient Present Illness HPI Patient presents with complaints of midsternal chest pain reports that last night after eating dinner he had several episodes of vomiting Which were also associated with midsternal chest pain Patient did a little bit better however over the night again had several episodes of vomiting Denies any lower abdominal pain denies any fevers or chills denies any flank pain Pain was midsternal upper chest area sharp and burning Patient is on Xarelto for DVT And also reports taking water pills Allergies: Coded Allergies: No Known Allergies (Unverified , 09/15/12) COVID-19 Screening Contact w/high risk pt: No Recent Travel to affected area: No Experienced COVID-19 symptoms?: No Patient History Past Medical History: see triage record Reviewed Nursing Documentation: PMH: Agreed; PSxH: Agreed Nursing Documentation-PMH Past Medical History: No History, Except For Hx Cardiac Problems: Yes - Anemia Hx Hypertension: Yes Hx Pacemaker: No Hx Asthma: No Hx COPD: Yes Hx Diabetes: No Hx Cancer: Yes - Colon Hx Gastrointestinal Problems: No Hx Dialysis: No Hx Neurological Problems: No - DVT LLE Hx Cerebrovascular Accident: No Hx Seizures: No Review of Systems All Other Systems: negative except mentioned in HPI Physical Exam Vital Signs Date Time Temp Pulse Resp B/P (MAP) Pulse Ox O2 Delivery O2 Flow Rate FiO2 03/03/20 07:59 98.2 101 20 146/90 (108) 98 Room Air Sp02 EP Interpretation: reviewed, normal General Appearance: well appearing, no apparent distress Head: normocephalic, atraumatic Eyes: bilateral eye PERRL, bilateral eye EOMI ENT: hearing grossly normal, normal pharynx, TMs + canals normal, uvula midline Neck: full range of motion, supple, no meningismus, no bony tend Respiratory: lungs clear, normal breath sounds, no rhonchi, no respiratory distress, no retraction, no accessory muscle use Cardiovascular #1: normal peripheral pulses, regular rate, rhythm, no gallop, no JVD, no murmur Gastrointestinal: normal bowel sounds, non tender, soft, no mass, no organomegaly, non-distended, no guarding, no hernia, no pulsatile mass, no rebound Genitourinary: no CVA tenderness Musculoskeletal: normal inspection Neurologic: motor strength/tone normal, summer sessions director III-XII nml as tested, oriented x3 , sensory intact, responsive Psychiatric: mood/affect normal Skin: other - 1 out of 4 pitting edema bilaterally Lymphatic: normal inspection, no adenopathy Medical Decision Making Diagnostic Impression: Primary Impression: Chest pain Additional Impression: Vomiting ER Course Patient is a fairly complex patient with multiple differential to consideration including but not limited to cardiac cardiopulmonary and vascular emergencies Patient had extensive blood work obtained x-ray imaging X-ray shows very mild congestion, radiology is reporting questionable right- sided marking however not clinically correlated patient's blood work reveals total CK which was mildly elevated Other troponin other tests were negative however on repeat evaluation patient is fairly asymptomatic I discussed further inpatient observation versus outpatient disposition and the patient reports that he would like to go home and feels significantly improved Patient will return with any changes or concerns Labs Test 03/03/20 08:20 White Blood Count 8.2 K/UL (4.8-10.8) Red Blood Count 5.31 M/UL (4.70-6.10) Hemoglobin 14.5 G/DL (14.2-18.0) Hematocrit 43.8 % (42.0-52.0) Mean Corpuscular Volume 82 FL (80-99) Mean Corpuscular Hemoglobin 27.3 PG (27.0-31.0) Mean Corpuscular Hemoglobin Concent 33.1 G/DL (32.0-36.0) Red Cell Distribution Width 13.1 % (11.6-14.8) Platelet Count 233 K/UL (150-450) Mean Platelet Volume 6.1 FL (6.5-10.1) Neutrophils (%) (Auto) 65.9 % (45.0-75.0) Lymphocytes (%) (Auto) 26.5 % (20.0-45.0) Monocytes (%) (Auto) 5.4 % (1.0-10.0) Eosinophils (%) (Auto) 1.1 % (0.0-3.0) Basophils (%) (Auto) 1.2 % (0.0-2.0) Prothrombin Time 12.1 SEC (9.30-11.50) Prothromb Time International Ratio 1.1 (0.9-1.1) Activated Partial Thromboplast Time 34 SEC (23-33) Sodium Level 142 MMOL/L (136-145) Potassium Level 3.7 MMOL/L (3.5-5.1) Chloride Level 104 MMOL/L (98-107) Carbon Dioxide Level 30 MMOL/L (21-32) Anion Gap 8 mmol/L (5-15) Blood Urea Nitrogen 17 mg/dL (7-18) Creatinine 0.8 MG/DL (0.55-1.30) Estimat Glomerular Filtration Rate > 60 mL/min (>60) Glucose Level 113 MG/DL (74-106) Calcium Level 9.4 MG/DL (8.5-10.1) Total Bilirubin 0.4 MG/DL (0.2-1.0) Aspartate Amino Transf (AST/SGOT) 31 U/L (15-37) Alanine Aminotransferase (ALT/SGPT) 49 U/L (12-78) Alkaline Phosphatase 81 U/L (46-116) Total Creatine Kinase 666 U/L (26-308) Troponin I 0.000 ng/mL (0.000-0.056) Pro-B-Type Natriuretic Peptide 11 pg/mL (0-125) Total Protein 8.5 G/DL (6.4-8.2) Albumin 4.2 G/DL (3.4-5.0) Globulin 4.3 g/dL Albumin/Globulin Ratio 1.0 (1.0-2.7) Lipase 117 U/L (73-393) Urine Opiates Screen Negative (NEGATIVE) Urine Barbiturates Screen Negative (NEGATIVE) Phencyclidine (PCP) Screen Negative (NEGATIVE) Urine Amphetamines Screen Negative (NEGATIVE) Urine Benzodiazepines Screen Negative (NEGATIVE) Urine Cocaine Screen Negative (NEGATIVE) Urine Marijuana (THC) Screen Negative (NEGATIVE) EKG Diagnostic Results Rate: normal Rhythm: NSR ST Segments: no acute changes Rhythm Strip Diag. Results EP Interpretation: yes Rate: 77 Rhythm: NSR, no PVC's, no ectopy Chest X-Ray Diagnostic Results Chest X-Ray Diagnostic Results : Chest X-Ray Ordered: Yes # of Views/Limited/Complete: 1 View Indication: Chest Pain EP Interpretation: Yes Interpretation: no consolidation, no effusion, no pneumothorax Impression: No acute disease - Mild central congestion Electronically Signed by: Raquel Spain DO Last Vital Signs Date Time Temp Pulse Resp B/P (MAP) Pulse Ox O2 Delivery O2 Flow Rate FiO2 03/03/20 07:59 98.2 101 20 146/90 (108) 98 Room Air Status: improved Disposition: HOME, SELF-CARE Condition: Improved Scripts Ondansetron (Zofran) 4 Mg Tablet 4 MG ORAL Q8H PRN for Nausea & Vomiting, #10 TAB 0 Refills Prov: Raquel Spain DO 03/03/20 Famotidine* (Pepcid 20mg tablet*) 20 Mg Tablet 20 MG ORAL DAILY, #20 TAB 0 Refills Prov: Raquel Spain DO 03/03/20 Referrals: NON PHYSICIAN (PCP) Additional Instructions: Patient is provided with the discharge instructions notified to follow up with primary doctor in the next 2-3 days otherwise return to the er with any worsening symptoms. Please note that this report is being documented using everyArt technology. This can lead to erroneous entry secondary to incorrect interpretation by the dictating instrument. Raquel Spain DO March 03, 2020 08:25
--- NOTE | 2020-03-03 08:35 | NUR ---
ED Nurse Note: X-ray at bedside.
[2020-03-03 08:46] LABS: BASOPHILS % (AUTO) 1.2 % (0.0-2.0); EOSINOPHILS % (AUTO) 1.1 % (0.0-3.0); HEMATOCRIT 43.8 % (42.0-52.0); HEMOGLOBIN 14.5 G/DL (14.2-18.0); LYMPHOCYTES % (AUTO) 26.5 % (20.0-45.0); MEAN CORPUSCULAR VOLUME 82 FL (80-99); MONOCYTES % (AUTO) 5.4 % (1.0-10.0); NEUTROPHILS % (AUTO) 65.9 % (45.0-75.0); PLATELET COUNT 233 K/UL (150-450); RED BLOOD COUNT 5.31 M/UL (4.70-6.10); RED CELL DISTRIBUTION WIDTH 13.1 % (11.6-14.8); WHITE BLOOD COUNT 8.2 K/UL (4.8-10.8)
[2020-03-03 08:53] LABS: ANION GAP 8 mmol/L (5-15); BLOOD UREA NITROGEN 17 mg/dL (7-18); CALCIUM 9.4 MG/DL (8.5-10.1); CARBON DIOXIDE 30 MMOL/L (21-32); CHLORIDE 104 MMOL/L (98-107); CREATININE 0.8 MG/DL (0.55-1.30); INR 1.1 (0.9-1.1); POTASSIUM 3.7 MMOL/L (3.5-5.1); SODIUM 142 MMOL/L (136-145)
[2020-03-03 09:04] LABS: ALANINE AMINOTRANSFERASE 49 U/L (12-78); ALBUMIN 4.2 G/DL (3.4-5.0); ALKALINE PHOSPHATASE 81 U/L (46-116); ASPARTATE AMINO TRANSFERASE 31 U/L (15-37); BILIRUBIN,TOTAL 0.4 MG/DL (0.2-1.0); CREATINE KINASE 666 U/L (26-308)
[2020-03-03] MEDS ORDERED: ZOFRAN4 MG ORAL (09:42)
[2020-03-03] MEDS ORDERED: FAMOTIDINE20 MG ORAL (09:42)
--- NOTE | 2020-03-03 09:51 | Diagnostic Imaging Report ---
EXAM: XR Chest, 1 View CLINICAL HISTORY: CP TECHNIQUE: Frontal view of the chest. COMPARISON: Chest x-ray 10/29/19 FINDINGS: Lungs: Mild central vascular congestion. Mild hazy opacity in the right upper lobe. Pleural space: Unremarkable. No pneumothorax. Heart: Heart size upper limits normal. Mediastinum: Unremarkable. Bones/joints: Unremarkable. IMPRESSION: There is mild central vascular congestion. Mild hazy opacity in the right upper lobe.
[2020-03-03 09:58] VITALS: BP 138/75
== END 2020-03-03 09:58 | disposition home or self-care (01) ==
LOC: EMR 08:15
DX: R07.9 Chest pain, unspecified (principal); R11.10 Vomiting, unspecified; Z86.718 Personal history of other venous thrombosis and embolism; Z79.01 Long term (current) use of anticoagulants; I10 Essential (primary) hypertension; J44.9 Chronic obstructive pulmonary disease, unspecified; Z85.038 Personal history of other malignant neoplasm of large intestine
CPT/HCPCS: 36415; 71045; 80053; 80307; 82550; 83690; 83880; 84484; 85025; 85610; 85730; 93005; 96374; 96375; 99284; J2405; S0028

== ENCOUNTER 2020-03-16 08:18 | Emergency (ER) | payer OTHER, MEDICAID ==
[~2020-03-16] VITALS: Ht 190.5 cm; Wt 117.0 kg
[~2020-03-16 08:18] MED LIST changes: +ZOFRAN4 MG ORAL
[2020-03-16] MEDS ORDERED: Omnipaque 350 100ml vial INJ PRN (08:30)
--- NOTE | 2020-03-16 08:30 | NUR ---
ED Nurse Note: Patient walked into ER c/o SOB since May 25. Patient states that he came into ED due to worsening of symptoms. Also per patient he was diagnosed with DVT at that point as well. Patient presented calm, AAO x4, VSS at this time, has non-labored breathing.
--- NOTE | 2020-03-16 08:32 | NUR ---
ED Nurse Note: ASA 325mg was scaned, per Dr. Baez hold off on medication
[2020-03-16 08:33] VITALS: BP 149/81
[2020-03-16] MEDS ORDERED: ALBUTEROL SULF8.5 G1 INH (08:41)
--- NOTE | 2020-03-16 08:41 | Emergency Room Report ---
History of Present Illness General Chief Complaint: Dyspnea/Respdistress Source: Patient Present Illness HPI 59-year-old male history of COPD presents with shortness of breath over the past 3 days patient reports that his neighbors smoke and do marijuana and every time they do that they trigger his COPD alleviating factors are his inhaler severity is moderate, intermittent lasting a few minutes, no fevers chills chest pain no pleuritic chest pain, no dyspnea on exertion no abdominal pain patient presents for evaluation requesting breathing treatments Allergies: Coded Allergies: No Known Allergies (Unverified , 09/15/12) COVID-19 Screening Contact w/high risk pt: No Recent Travel to affected area: No Experienced COVID-19 symptoms?: Yes COVID-19 symptoms experienced: Shortness of Breath COVID-19 Testing performed IRRIGATION ENGINEER: No Patient History Past Medical History: see triage record Reviewed Nursing Documentation: PMH: Agreed; PSxH: Agreed Nursing Documentation-PMH Past Medical History: No History, Except For Hx Cardiac Problems: Yes - Anemia Hx Hypertension: Yes Hx Pacemaker: No Hx Asthma: No Hx COPD: Yes Hx Diabetes: No Hx Cancer: Yes - Colon Hx Gastrointestinal Problems: No Hx Dialysis: No Hx Neurological Problems: No - DVT LLE Hx Cerebrovascular Accident: No Hx Seizures: No Review of Systems All Other Systems: negative except mentioned in HPI Physical Exam Vital Signs Date Time Temp Pulse Resp B/P (MAP) Pulse Ox O2 Delivery O2 Flow Rate FiO2 03/16/20 08:20 99.0 100 18 149/81 (103) 98 Room Air Sp02 EP Interpretation: reviewed, normal General Appearance: well appearing, no apparent distress, alert Head: normocephalic, atraumatic Eyes: bilateral eye PERRL, bilateral eye EOMI ENT: uvula midline, moist mucus membranes Neck: supple, thyroid normal, supple/symm/no masses Respiratory: lungs clear, no respiratory distress, no retraction, no accessory muscle use Cardiovascular #1: normal peripheral pulses, regular rate, rhythm, no edema, no gallop, no murmur Gastrointestinal: non tender, soft, no guarding, no rebound Musculoskeletal: normal inspection Neurologic: alert, oriented x3 Psychiatric: mood/affect normal Skin: no rash, warm/dry Medical Decision Making Diagnostic Impression: Primary Impression: COPD (chronic obstructive pulmonary disease) Qualified Codes: J44.9 - Chronic obstructive pulmonary disease, unspecified ER Course 59-year-old male presents with COPD exacerbation, patient is currently breathing without any issues currently he is checking his male while walking to the ED. Differential diagnosis includes pneumonia COPD exacerbation, pneumothorax, chest x-ray negative, patient given prednisone and breathing treatments Patient counseled on how to utilize an inhaler effectively disposition home with return precautions follow-up with PCP Chest X-Ray Diagnostic Results Chest X-Ray Diagnostic Results : Chest X-Ray Ordered: Yes # of Views/Limited/Complete: 1 View Indication: Shortness of Breath EP Interpretation: Yes Interpretation: no consolidation, no effusion, no pneumothorax, no acute cardiopulmonary disease Impression: No acute disease Electronically Signed by: Chalo Baez MD Last Vital Signs Date Time Temp Pulse Resp B/P (MAP) Pulse Ox O2 Delivery O2 Flow Rate FiO2 03/16/20 08:33 100 18 Room Air 03/16/20 08:33 99.0 149/81 98 Disposition: HOME, SELF-CARE Condition: Stable Scripts Prednisone* (PREDNISONE*) 50 Mg Tablet 50 MG ORAL DAILY, #4 TAB 0 Refills Prov: Chalo Baez MD 03/16/20 Albuterol Sulfate* (Albuterol Sulfate Hfa*) 8.5 Gm Hfa.aer.ad 2 PUFF INH Q4H PRN for Shortness of Breath, #1 INH Prov: Chalo Baez MD 03/16/20 Referrals: [facility] Patient Instructions: Chronic Obstructive Pulmonary Disease Exacerbation Additional Instructions: The patient was provided with discharge instructions, notified to follow-up with a primary care doctor and or specialist in the next 24-48 hours, and to return to the ED if they have worsening of their symptoms. Please note that this report is being documented using SureFire technology. This can lead to erroneous entry secondary to incorrect interpretation by the dictating instrument. Chalo Baez MD March 16, 2020 08:41
--- NOTE | 2020-03-16 08:50 | NUR ---
ED Nurse Note: RT at bed side
[2020-03-16] MEDS ORDERED: PREDNISONE50 MG ORAL (09:21)
[2020-03-16 09:31] VITALS: BP 149/81
--- NOTE | 2020-03-16 09:33 | NUR ---
ED Nurse Note: Pt cleared by health care Provider for discharge. DC instructions/prescription was given and explained to pt and verbalized understanding of teachings. All medical deviecs such as ID band removed. Pt is AAO x4, ambulatory and left with all personal belongings.
--- NOTE | 2020-03-16 09:57 | Diagnostic Imaging Report ---
EXAM: XR Chest, 1 View CLINICAL HISTORY: Chest pain TECHNIQUE: Frontal view of the chest. COMPARISON: Chest x-ray dated 03/03/20 FINDINGS: Lungs: Mild pulmonary vascular congestion. The lungs otherwise appear clear. Pleural space: Unremarkable. The costophrenic angles are sharp. No visible pneumothorax. Heart: Unremarkable. No cardiomegaly. Mediastinum: Unremarkable. Bones/joints: Unremarkable. IMPRESSION: Mild pulmonary vascular congestion.
== END 2020-03-16 09:33 | disposition home or self-care (01) ==
LOC: EMR 08:22
DX: J44.1 Chronic obstructive pulmonary disease with (acute) exacerbation (principal); I10 Essential (primary) hypertension; Z85.038 Personal history of other malignant neoplasm of large intestine; Z86.718 Personal history of other venous thrombosis and embolism
CPT/HCPCS: 71045; 94640; 99283; J7512

== ENCOUNTER 2020-07-17 08:25 | Emergency (ER) | payer OTHER, MEDICAID ==
[~2020-07-17] VITALS: Ht 185.4 cm; Wt 111.1 kg
[~2020-07-17 08:25] MED LIST changes: +ALBUTEROL SULF8.5 G1 INH; +PREDNISONE50 MG ORAL
[2020-07-17 08:41] VITALS: BP 130/74
[2020-07-17 09:13] LABS: APPEARANCE,URINE SLIGHTLY CLOUDY; BILIRUBIN, URINE NEGATIVE (NEGATIVE); COLOR,URINE PALE YELLOW; GLUCOSE, URINE (UA) NEGATIVE (NEGATIVE); KETONES,URINE NEGATIVE (NEGATIVE); LEUKOCYTE ESTERASE ,URINE 3+ (NEGATIVE); NITRITE,URINE NEGATIVE (NEGATIVE); PH,URINE 5 (4.5-8.0); PROTEIN,URINE 1+ (NEGATIVE); UROBILINOGEN,URINE NORMAL MG/DL (0.0-1.0)
--- NOTE | 2020-07-17 09:35 | Emergency Room Report ---
History of Present Illness General Chief Complaint: Male Urogenital Problems Source: Patient Present Illness HPI The patient states that for the past 5 days he has had burning with urination. He denies blood in his urine. He denies fever or chills. He denies nausea or vomiting. He denies abdominal pain. He has never had a urinary tract infection in the past. He denies risky sexual behavior or possibility of sexually transmitted infection. He has no other complaints. Allergies: Coded Allergies: No Known Allergies (Unverified , 09/15/12) COVID-19 Screening Contact w/high risk pt: No Recent Travel to affected area: No Experienced COVID-19 symptoms?: No COVID-19 symptoms experienced: Shortness of Breath COVID-19 Testing performed GRAIN TRIMMER: Yes - May 2020 COVID-19 Screening: Negative COVID-19 COVID-19 Testing Source: Nasopharynx Patient History Past Medical History: see triage record, other - Hx of Colon CA, Recurrent DVT Past Surgical History: other - IVC Social History: Denies: smoking, alcohol use, drug use Reviewed Nursing Documentation: PMH: Agreed; PSxH: Agreed Nursing Documentation-PMH Past Medical History: No History, Except For Hx Cardiac Problems: Yes - Anemia Hx Hypertension: Yes Hx Pacemaker: No Hx Asthma: No Hx COPD: Yes Hx Diabetes: No Hx Cancer: Yes - Colon Hx Gastrointestinal Problems: No Hx Dialysis: No Hx Neurological Problems: No - DVT LLE Hx Cerebrovascular Accident: No Hx Seizures: No Review of Systems All Other Systems: negative except mentioned in HPI Physical Exam Vital Signs Date Time Temp Pulse Resp B/P (MAP) Pulse Ox O2 Delivery O2 Flow Rate FiO2 07/17/20 08:34 98.1 96 20 132/82 (99) 96 Room Air Sp02 EP Interpretation: reviewed, normal General Appearance: no apparent distress, alert, GCS 15, non-toxic Head: normocephalic, atraumatic Eyes: bilateral eye normal inspection, bilateral eye PERRL ENT: hearing grossly normal, no angioedema, normal voice Neck: normal inspection, full range of motion Respiratory: no respiratory distress, no retraction, no accessory muscle use, speaking full sentences Rectal: deferred Genitourinary: other - declined Musculoskeletal: back normal, normal range of motion, gait/station normal, non- tender Neurologic: alert, motor strength/tone normal, oriented x3, sensory intact, responsive, speech normal Psychiatric: judgement/insight normal, memory normal, mood/affect normal, no suicidal/homicidal ideation Skin: no rash, normal color Medical Decision Making Diagnostic Impression: Primary Impression: Prostatitis ER Course This patient likely has prostatitis given the patient's age. Therefore I will extend the patient's antibiotics for 10 days. The patient was also educated that he should follow-up closely with his primary care physician and possibly undergo an evaluation by urologist to further assess his prostate. Patient is nontoxic and well-appearing overall. There are no systemic symptoms that would make me concerned for sepsis or systemic infection. Patient is not vomiting and I feel that he can tolerate oral antibiotics. At this time, I feel this patient is stable for outpatient treatment and close follow-up with his primary care physician. Laboratory Tests Test 07/17/20 08:45 Urine Color Pale yellow Urine Appearance Slightly cloudy Urine pH 5 (4.5-8.0) Urine Specific [place] 1.020 (1.005-1.035) Urine Protein 1+ (NEGATIVE) H Urine Glucose (UA) Negative (NEGATIVE) Urine Ketones Negative (NEGATIVE) Urine Blood 2+ (NEGATIVE) H Urine Nitrite Negative (NEGATIVE) Urine Bilirubin Negative (NEGATIVE) Urine Urobilinogen Normal MG/DL (0.0-1.0) Urine Leukocyte Esterase 3+ (NEGATIVE) H Urine RBC 2-4 /HPF (0 - 0) H Urine WBC Tntc /HPF (0 - 0) H Urine Squamous Epithelial Cells Occasional /LPF Urine Bacteria Few /HPF (NONE) Last Vital Signs Date Time Temp Pulse Resp B/P (MAP) Pulse Ox O2 Delivery O2 Flow Rate FiO2 07/17/20 08:41 98.1 20 130/74 93 Room Air 07/17/20 08:34 96 Status: improved Disposition: HOME, SELF-CARE Condition: Improved Referrals: NON PHYSICIAN (PCP) Rosangela Medina DO Jul 17, 2020 09:35
[2020-07-17] MEDS ORDERED: BACTRIM DS TAB1 EAC1 ORAL (09:37)
[2020-07-17 09:48] VITALS: BP 137/81
== END 2020-07-17 09:48 | disposition home or self-care (01) ==
LOC: EMR 08:50
DX: N41.9 Inflammatory disease of prostate, unspecified (principal); Z85.038 Personal history of other malignant neoplasm of large intestine; Z86.718 Personal history of other venous thrombosis and embolism; J44.9 Chronic obstructive pulmonary disease, unspecified
CPT/HCPCS: 81003; 87086; 99282

== ENCOUNTER 2020-08-11 13:56 | Emergency (ER) | payer OTHER, MEDICAID ==
[~2020-08-11] VITALS: Ht 190.5 cm; Wt 117.0 kg
[~2020-08-11 13:56] MED LIST changes: +BACTRIM DS TAB1 EAC1 ORAL
[2020-08-11 14:49] VITALS: BP 147/78
--- NOTE | 2020-08-11 14:50 | NUR ---
ED Nurse Note:pt. came with small bimp on right side of his neck, was seen by ER RICH
--- NOTE | 2020-08-11 14:52 | Emergency Room Report ---
History of Present Illness General Chief Complaint: General Complaint Source: Patient Present Illness HPI 60-year-old male presents to the emergency department complaining of a a painless palpable lump on the left side of his neck that he just noticed yesterday. Patient reports no change in size from yesterday. He denies fevers or chills. Patient denies erythema or tenderness. Patient denies recent URI or illness. Patient denies history of cancers. Patient reports history of high blood pressure and DVT that he is currently on blood thinning medications for. Patient also is reporting history of COPD. He denies significant changes in weight or night sweats. He denies pain with swallowing or changes in his voice. No other aggravating or relieving factors at this time. Allergies: Coded Allergies: No Known Allergies (Unverified , 09/15/12) COVID-19 Screening Contact w/high risk pt: No Recent Travel to affected area: No Experienced COVID-19 symptoms?: No COVID-19 symptoms experienced: Shortness of Breath COVID-19 Testing performed PILL PACKER: No Patient History Past Medical History: see triage record, HTN, COPD Past Surgical History: none Pertinent Family History: none Immunizations: UTD Reviewed Nursing Documentation: PMH: Agreed; PSxH: Agreed Nursing Documentation-PMH Hx Cardiac Problems: Yes - Anemia Hx Hypertension: Yes Hx Pacemaker: No Hx Asthma: No Hx COPD: Yes Hx Diabetes: No Hx Cancer: Yes - Colon Hx Gastrointestinal Problems: No Hx Dialysis: No Hx Neurological Problems: No - DVT LLE Hx Cerebrovascular Accident: No Hx Seizures: No Review of Systems All Other Systems: negative except mentioned in HPI Physical Exam Vital Signs Date Time Temp Pulse Resp B/P (MAP) Pulse Ox O2 Delivery O2 Flow Rate FiO2 08/11/20 14:01 98.2 105 19 147/78 (101 98 Sp02 EP Interpretation: reviewed, normal General Appearance: no apparent distress, alert, GCS 15, non-toxic Head: normocephalic, atraumatic Eyes: bilateral eye normal inspection, bilateral eye PERRL ENT: hearing grossly normal, normal voice Neck: full range of motion Respiratory: chest non-tender, lungs clear, normal breath sounds, no respiratory distress, no wheezing, speaking full sentences Cardiovascular #1: regular rate, rhythm, normal capillary refill, tachycardia, edema - non -pitting edema bilateral ankles and calfs Musculoskeletal: normal range of motion, gait/station normal, non-tender Neurologic: alert, motor strength/tone normal, oriented x3, sensory intact, responsive, speech normal Psychiatric: judgement/insight normal Skin: no rash, normal color Lymphatic: other - prominent left anterior cervial LAD, bilateral subparotid LAD as well as other anterior cervical LAD bilaterally is palpable Medical Decision Making PA Attestation Dr. Dai is my supervising Physician whom patient management has been discussed with. Diagnostic Impression: Primary Impression: Lymph nodes enlarged ER Course Pt. presents to the ED c/o palpable lymph node of left side of his neck that he just noticed yesterday. Ddx considered but are not limited to lymphadenopathy, tonsillitis, OE, Cellulitis, PILL PACKER, retropharengeal abscess, Cancer, immune system disorder just to name a few. Vital signs: are WNL, pt. is afebrile H&PE are most consistent with LAD, no acute bacterial infection suspected at this time, no fevers, no tonsillar, soft palate swelling, no abscess or fluctuance noted. bilateral subparotid LAD as well as other anterior cervical LAD bilaterally is palpable ,no hx of recent illness. ORDERS: none required at this time, the diagnosis is clinical ED INTERVENTIONS: None required at this time. -d/w pt. to follow up with PCP if symptoms persist despite conservative treatment. Pt. has appt. this Wed with his PCP. He reports he just had some lab work performed and is awaiting the results. Pt. reports he has not seen his PMD regarding this issue. -I do not identify an emergent condition at this time. With current presentation, pt. is stable for close outpatient follow up and conservative treatment. D/w pt. to return promptly to ED with worsening or new symptoms.- Pt. verbalizes' understanding and agreement with proposed treatment plan. DISCHARGE: At this time pt. is stable for d/c to home. Will provide printed patient care instructions, and any necessary prescriptions. Care plan and follow up instructions have been discussed with the patient prior to discharge. Last Vital Signs Date Time Temp Pulse Resp B/P (MAP) Pulse Ox O2 Delivery O2 Flow Rate FiO2 08/11/20 14:01 98.2 105 19 147/78 (101) 98 Status: improved Disposition: HOME, SELF-CARE Condition: Stable Patient Instructions: Lymphadenopathy Additional Instructions: Take any previously prescribed medications as directed. Follow up with a Primary Care Provider in 3-5 days, even if your symptoms have resolved. INFORM YOUR PCP on your WED APPT. regarding your visit to the ED for enlarged Lymph nodes. Return sooner to ED if new symptoms occur, or current symptoms become worse. - Please note that this Emergency Department Report was dictated using [employer] transcriptionist technology software, occasionally this can lead to erroneous entry secondary to interpretation by the dictation equipment. Massiel Flynn Aug 11, 2020 14:52
[2020-08-11 15:04] VITALS: BP 147/78
--- NOTE | 2020-08-11 15:05 | NUR ---
ED Nurse Note: Pt cleared by health care Provider for discharge. DC instructions was given and explained to pt and verbalized understanding of teachings; instructed pt to follow up with PCP. All medical deviecs such as ID band removed. Pt is AAO x4, ambulatory and left with all personal belongings.
== END 2020-08-11 15:05 | disposition home or self-care (01) ==
LOC: EMR 14:26
DX: R59.9 Enlarged lymph nodes, unspecified (principal); I10 Essential (primary) hypertension; J44.9 Chronic obstructive pulmonary disease, unspecified; Z85.038 Personal history of other malignant neoplasm of large intestine; R00.0 Tachycardia, unspecified
CPT/HCPCS: 99282

== ENCOUNTER 2020-09-08 14:24 | Emergency (ER) | payer OTHER, MEDICAID ==
[~2020-09-08] VITALS: Ht 190.5 cm; Wt 117.5 kg
--- NOTE | 2020-09-08 14:40 | Emergency Room Report ---
History of Present Illness General Chief Complaint: Dyspnea/Respdistress Source: Patient Present Illness HPI Patient is a 60-year-old male presents for increased shortness of breath. Reports having prior history of COPD. Reports having increased welling to both lower extremities. Is currently taking anticoagulation with Xarelto. Denies any fever. Reports having exertional dyspnea. Denies taking any diuretics currently. Denies any orthopnea. Denies any chest discomfort. Allergies: Coded Allergies: No Known Allergies (Unverified , 09/15/12) COVID-19 Screening Contact w/high risk pt: No Recent Travel to affected area: No Experienced COVID-19 symptoms?: No COVID-19 symptoms experienced: Shortness of Breath COVID-19 Testing performed CLIENT SUCCESS SPECIALIST: No Patient History Past Medical History: see triage record Reviewed Nursing Documentation: PMH: Agreed; PSxH: Agreed Nursing Documentation-PMH Hx Cardiac Problems: Yes - Anemia Hx Hypertension: Yes Hx Pacemaker: No Hx Asthma: No Hx COPD: Yes Hx Diabetes: No Hx Cancer: Yes - Colon Hx Gastrointestinal Problems: No Hx Dialysis: No Hx Neurological Problems: No - DVT LLE Hx Cerebrovascular Accident: No Hx Seizures: No Review of Systems All Other Systems: negative except mentioned in HPI Physical Exam Vital Signs Date Time Temp Pulse Resp B/P (MAP) Pulse Ox O2 Delivery O2 Flow Rate FiO2 09/08/20 14:27 98.6 111 18 141/80 (100) 97 Room Air Sp02 EP Interpretation: reviewed, normal General Appearance: normal inspection, alert, obese, Chronically Ill Head: atraumatic ENT: normal ENT inspection, hearing grossly normal, normal voice Neck: normal inspection, full range of motion, supple, no bony tend Respiratory: normal inspection, lungs clear, normal breath sounds, no respiratory distress, no retraction, no wheezing Cardiovascular #1: regular rate, rhythm, edema - 3+ Gastrointestinal: normal inspection, normal bowel sounds, non tender, soft, no guarding, no hernia Genitourinary: no CVA tenderness Musculoskeletal: normal inspection, back normal, normal range of motion Neurologic: alert, motor strength/tone normal, materials mgmt tech III-XII nml as tested, oriented x3, responsive, speech normal, normal inspection Psychiatric: normal inspection, judgement/insight normal, mood/affect normal Medical Decision Making Diagnostic Impression: Primary Impression: COPD (chronic obstructive pulmonary disease) Additional Impression: S/P IVC filter ER Course Presented for shortness of breath. Differential included but was not limited to coronavirus infection, anemia, pneumonia, pneumothorax, myocardial infarction, pericardial effusion, congestive heart failure, acidosis. because of complexity of patient's case laboratory tests and imaging studies were ordered.Coronavirus testing was negative. Patient was given IV Lasix. She was also given DuoNeb. Patient's difficulty breathing appears to be COPD related. Patient's troponin was unremarkable EKG interpreted by me showed normal sinus rhythm with a rate of [address] or T wave changes noted. Patient is currently being anticoagulated with Xarelto and does not have any evidence of new desaturation consistent with a significant new pulmonary embolism. Patient is noted have improvement in symptoms after medications. Patient states he feels better and wants to leave. The patient is advised to follow up with primary care doctor in 1-2 days. Patient is advised to return if any worsening condition or if any changes in status that are concerning. This report is dictated with [employer] package worker software which may occasionally lead to discrepancies related to use of this software. Labs Test 09/08/20 14:45 09/08/20 15:25 White Blood Count 6.9 K/UL (4.8-10.8) Red Blood Count 4.87 M/UL (4.70-6.10) Hemoglobin 14.0 G/DL (14.2-18.0) Hematocrit 44.7 % (42.0-52.0) Mean Corpuscular Volume 92 FL (80-99) Mean Corpuscular Hemoglobin 28.7 PG (27.0-31.0) Mean Corpuscular Hemoglobin Concent 31.3 G/DL (32.0-36.0) Red Cell Distribution Width 14.4 % (11.6-14.8) Platelet Count 218 K/UL (150-450) Mean Platelet Volume 6.8 FL (6.5-10.1) Neutrophils (%) (Auto) 58.1 % (45.0-75.0) Lymphocytes (%) (Auto) 34.2 % (20.0-45.0) Monocytes (%) (Auto) 5.7 % (1.0-10.0) Eosinophils (%) (Auto) 1.3 % (0.0-3.0) Basophils (%) (Auto) 0.7 % (0.0-2.0) Sodium Level 140 MMOL/L (136-145) Potassium Level 3.9 MMOL/L (3.5-5.1) Chloride Level 105 MMOL/L (98-107) Carbon Dioxide Level 27 MMOL/L (21-32) Anion Gap 8 mmol/L (5-15) Blood Urea Nitrogen 13 mg/dL (7-18) Creatinine 0.9 MG/DL (0.55-1.30) Estimat Glomerular Filtration Rate > 60 mL/min (>60) Glucose Level 120 MG/DL (74-106) Calcium Level 8.9 MG/DL (8.5-10.1) Troponin I 0.000 ng/mL (0.000-0.056) EKG Diagnostic Results Rate: normal Rhythm: NSR ST Segments: no acute changes Last Vital Signs Date Time Temp Pulse Resp B/P (MAP) Pulse Ox O2 Delivery O2 Flow Rate FiO2 09/08/20 14:27 98.6 111 18 141/80 (100) 97 Room Air Status: improved Disposition: HOME, SELF-CARE Condition: Stable Scripts Prednisone* (PREDNISONE*) 20 Mg Tablet 40 MG ORAL DAILY, #10 TAB Prov: Jori Wilkins MD 09/08/20 Jori Wilkins MD Sep 08, 2020 14:39
[2020-09-08 14:50] VITALS: BP 139/78
[2020-09-08 15:06] LABS: BASOPHILS % (AUTO) 0.7 % (0.0-2.0); EOSINOPHILS % (AUTO) 1.3 % (0.0-3.0); HEMATOCRIT 44.7 % (42.0-52.0); LYMPHOCYTES % (AUTO) 34.2 % (20.0-45.0); MEAN CORPUSCULAR VOLUME 92 FL (80-99); MONOCYTES % (AUTO) 5.7 % (1.0-10.0); NEUTROPHILS % (AUTO) 58.1 % (45.0-75.0); PLATELET COUNT 218 K/UL (150-450); RED BLOOD COUNT 4.87 M/UL (4.70-6.10); RED CELL DISTRIBUTION WIDTH 14.4 % (11.6-14.8); WHITE BLOOD COUNT 6.9 K/UL (4.8-10.8)
[2020-09-08] MEDS ORDERED: Albuterol/Ipratropium 3ml neb HHN ONE (15:15)
[2020-09-08 15:18] LABS: ANION GAP 8 mmol/L (5-15); BLOOD UREA NITROGEN 13 mg/dL (7-18); CALCIUM 8.9 MG/DL (8.5-10.1); CARBON DIOXIDE 27 MMOL/L (21-32); CHLORIDE 105 MMOL/L (98-107); CREATININE 0.9 MG/DL (0.55-1.30); POTASSIUM 3.9 MMOL/L (3.5-5.1); SODIUM 140 MMOL/L (136-145)
[2020-09-08 15:33] LABS: ALANINE AMINOTRANSFERASE 27 U/L (12-78); ALBUMIN 4.1 G/DL (3.4-5.0); ALBUMIN/GLOBULIN RATIO 1.1 (1.0-2.7); ALKALINE PHOSPHATASE 70 U/L (46-116); ASPARTATE AMINO TRANSFERASE 19 U/L (15-37); BILIRUBIN,TOTAL 0.3 MG/DL (0.2-1.0); CKMB 3.9 NG/ML (0.0-3.6); CREATINE KINASE 308 U/L (26-308)
[2020-09-08 15:38] LABS: APPEARANCE,URINE CLEAR; BILIRUBIN, URINE NEGATIVE (NEGATIVE); COLOR,URINE PALE YELLOW; GLUCOSE, URINE (UA) NEGATIVE (NEGATIVE); KETONES,URINE NEGATIVE (NEGATIVE); LEUKOCYTE ESTERASE ,URINE NEGATIVE (NEGATIVE); NITRITE,URINE NEGATIVE (NEGATIVE); PH,URINE 7 (4.5-8.0); PROTEIN,URINE NEGATIVE (NEGATIVE); UROBILINOGEN,URINE NORMAL MG/DL (0.0-1.0)
--- NOTE | 2020-09-08 15:41 | Diagnostic Imaging Report ---
EXAM: XR Chest, 1 View CLINICAL HISTORY: Shortness of breath TECHNIQUE: Frontal view of the chest. COMPARISON: Chest x-ray dated 03/16/20 FINDINGS: Lungs: Unremarkable. The lungs appear clear. No focal consolidation. Pleural space: Unremarkable. The costophrenic angles are sharp. No visible pneumothorax. Heart: Unremarkable. No cardiomegaly. Mediastinum: Unremarkable. Bones/joints: Unremarkable. Tubes, lines and devices: Telemetry leads overlie the thorax. IMPRESSION: No acute radiographic findings.
[2020-09-08] MEDS ORDERED: PREDNISONE20 MG ORAL (15:52)
[2020-09-08 16:11] VITALS: BP 133/76
--- NOTE | 2020-09-10 19:24 | Cardiology Report ---
APPROVED REPORT EKG Measurement Heart [id number] <Conclusion> Normal sinus rhythm Normal ECG
== END 2020-09-08 16:13 | disposition home or self-care (01) ==
LOC: EMR 15:00
DX: J44.9 Chronic obstructive pulmonary disease, unspecified (principal); Z20.828 Contact with and (suspected) exposure to other viral communicable diseases; R06.02 Shortness of breath; R06.00 Dyspnea, unspecified; D64.9 Anemia, unspecified; I10 Essential (primary) hypertension; R60.0 Localized edema; Z86.718 Personal history of other venous thrombosis and embolism; Z85.038 Personal history of other malignant neoplasm of large intestine; Z79.01 Long term (current) use of anticoagulants
CPT/HCPCS: 36415; 71045; 80053; 81003; 82550; 82553; 83605; 83690; 83735; 83880; 84100; 84484; 85025; 86850; 86900; 86901; 87040; 93005; 94640; 96374; 99284; J1940; U0002; J7620

== ENCOUNTER 2020-11-16 13:32 | Emergency (ER) | payer OTHER, MEDICAID ==
[~2020-11-16] VITALS: Ht 190.5 cm; Wt 117.0 kg
[2020-11-16 14:14] LABS: BASOPHILS % (AUTO) 1.5 % (0.0-2.0); EOSINOPHILS % (AUTO) 1.6 % (0.0-3.0); HEMATOCRIT 45.6 % (42.0-52.0); HEMOGLOBIN 14.4 G/DL (14.2-18.0); LYMPHOCYTES % (AUTO) 32.6 % (20.0-45.0); MEAN CORPUSCULAR VOLUME 87 FL (80-99); MONOCYTES % (AUTO) 6.5 % (1.0-10.0); NEUTROPHILS % (AUTO) 57.8 % (45.0-75.0); PLATELET COUNT 268 K/UL (150-450); RED BLOOD COUNT 5.25 M/UL (4.70-6.10); RED CELL DISTRIBUTION WIDTH 14.1 % (11.6-14.8); WHITE BLOOD COUNT 7.6 K/UL (4.8-10.8)
--- NOTE | 2020-11-16 14:21 | NUR ---
ED Nurse Note: Pt walked in from home c/o SOB that started one hour before arrival. Pt reports feeling like his "windpipe was closing." Pt used albuterol inhaler at home. Hx of COPD. Respirations even and unlabored on room air. Vitals stable as documented. A+Ox4, speaking in complete sentences.
[2020-11-16 14:22] LABS: ANION GAP 8 mmol/L (5-15); BLOOD UREA NITROGEN 14 mg/dL (7-18); CARBON DIOXIDE 28 MMOL/L (21-32); CHLORIDE 103 MMOL/L (98-107); CREATININE 0.9 MG/DL (0.55-1.30); POTASSIUM 3.6 MMOL/L (3.5-5.1); SODIUM 139 MMOL/L (136-145)
[2020-11-16 14:29] LABS: ALANINE AMINOTRANSFERASE 37 U/L (12-78); ALBUMIN 4.2 G/DL (3.4-5.0); ALBUMIN/GLOBULIN RATIO 1.1 (1.0-2.7); ALKALINE PHOSPHATASE 69 U/L (46-116); ASPARTATE AMINO TRANSFERASE 21 U/L (15-37); BILIRUBIN,TOTAL 0.4 MG/DL (0.2-1.0)
[2020-11-16 14:55] VITALS: BP 136/74
[2020-11-16] MEDS ORDERED: ZYRTEC-D TABLE1 EACH ORAL (14:57)
[2020-11-16] MEDS ORDERED: FAMOTIDINE20 MG ORAL (14:58)
[2020-11-16 15:10] VITALS: BP 129/71
--- NOTE | 2020-11-16 15:17 | Diagnostic Imaging Report ---
EXAM: XR Chest, 1 View CLINICAL HISTORY: Shortness of breath TECHNIQUE: Frontal view of the chest. COMPARISON: 09/08/20 FINDINGS: Lungs: Mildly increased interstitial markings. The lungs are otherwise clear without focal consolidation. Pleural space: Unremarkable. The costophrenic angles are sharp. No visible pneumothorax. Heart: Unremarkable. No cardiomegaly. Mediastinum: Unremarkable. Bones/joints: Unremarkable. IMPRESSION: Mildly increased interstitial markings. This is nonspecific and may represent a mild bronchitis or pneumonitis. No focal consolidation.
--- NOTE | 2020-11-16 16:46 | Emergency Room Report ---
History of Present Illness General Chief Complaint: Dyspnea/Respdistress Source: Patient Present Illness HPI 60-year-old male presents to ED for evaluation. States that while in the kitchen today he felt some tightness in his throat. Feels that something is inside his throat. States that when he clears his throat it feels better. Denies chest pain or shortness of breath. Denies cough. Denies fevers or c hills. No other aggravating relieving factors. 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 COVID-19 Screening: Negative COVID-19 COVID-19 Testing Source: from march Patient History Past Medical History: HTN, COPD Past Surgical History: none Pertinent Family History: none Social History: Denies: smoking, alcohol use, drug use Immunizations: UTD Reviewed Nursing Documentation: PMH: Agreed; PSxH: Agreed Nursing Documentation-PMH Hx Cardiac Problems: Yes - Anemia Hx Hypertension: Yes Hx Pacemaker: No Hx Asthma: No Hx COPD: Yes Hx Diabetes: No Hx Cancer: Yes - Colon Hx Gastrointestinal Problems: No Hx Dialysis: No Hx Neurological Problems: No - DVT LLE Hx Cerebrovascular Accident: No Hx Seizures: No Review of Systems All Other Systems: negative except mentioned in HPI Physical Exam Vital Signs Date Time Temp Pulse Resp B/P (MAP) Pulse Ox O2 Delivery O2 Flow Rate FiO2 11/16/20 13:35 97.9 99 18 129/76 (93) 97 Room Air Sp02 EP Interpretation: reviewed, normal General Appearance: no apparent distress, alert, GCS 15, non-toxic Head: normocephalic, atraumatic Eyes: bilateral eye normal inspection, bilateral eye PERRL ENT: hearing grossly normal, normal pharynx, no angioedema, normal voice Neck: full range of motion, supple/symm/no masses, other - no stridor Respiratory: chest non-tender, lungs clear, normal breath sounds, speaking full sentences Cardiovascular #1: regular rate, rhythm, no edema Cardiovascular #2: 2+ carotid (R), 2+ carotid (L), 2+ radial (R), 2+ radial (L), 2+ dorsalis pedis (R), 2+ dorsalis pedis (L) Gastrointestinal: normal bowel sounds, non tender, soft, non-distended, no guarding, no rebound Rectal: deferred Genitourinary: normal inspection, no CVA tenderness Musculoskeletal: back normal, normal range of motion, gait/station normal, non- tender Neurologic: alert, motor strength/tone normal, oriented x3, sensory intact, responsive, speech normal Psychiatric: judgement/insight normal, memory normal, mood/affect normal, no suicidal/homicidal ideation Reflexes: 3+ bicep (R), 3+ bicep (L), 3+ tricep (R), 3+ tricep (L), 3+ knee (R), 3+ knee (L) Skin: no rash Lymphatic: no adenopathy Medical Decision Making Diagnostic Impression: Primary Impression: Post-nasal drip ER Course Hospital Course 60 yo M presents to ED c/o feeling something in his throat Differential diagnoses include: allergic reaction, stridor, COPD Clinical course Patient placed on stretcher. After initial history and physical I ordered labs, EKG, chest x-ray. labs reviewed- all electrolytes normal, troponins negative, no leukocytosis, hemoglobin/hematocrit stable EKG - NSR no acute ischemic changes interpreted by me Chest x-ray-no cardiomegaly, no rib fracture, no pneumothorax, no acute process Discussed findings with patient. Patient's vitals stable. Not tachypneic. Not tachycardic or hypoxic. Describes no chest pain or shortness of breath. Describes sensation of something in his throat. More consistent with postnasal drip. Having congestive symptoms as well. Will discharge with Zyrtec. Safe for discharge with close outpatient follow-up. States he has a PMD I. I feel this is a highly complex case requiring extensive working including EKG/Rhythm strip, Xray/CT/US, Blood/urine lab work, repeat exams while in ED, and administration of strong opiates/narcotics for pain control, admission to hospital or close patient follow up. Diagnosis - post-nasal drip Stable and discharged to home. Instructed to followup with PMD. Return to ED if symptoms recur or worsen Laboratory Tests Test 11/16/20 14:00 White Blood Count 7.6 K/UL (4.8-10.8) Red Blood Count 5.25 M/UL (4.70-6.10) Hemoglobin 14.4 G/DL (14.2-18.0) Hematocrit 45.6 % (42.0-52.0) Mean Corpuscular Volume 87 FL (80-99) Mean Corpuscular Hemoglobin 27.3 PG (27.0-31.0) Mean Corpuscular Hemoglobin Concent 31.4 G/DL (32.0-36.0) L Red Cell Distribution Width 14.1 % (11.6-14.8) Platelet Count 268 K/UL (150-450) Mean Platelet Volume 6.9 FL (6.5-10.1) Neutrophils (%) (Auto) 57.8 % (45.0-75.0) Lymphocytes (%) (Auto) 32.6 % (20.0-45.0) Monocytes (%) (Auto) 6.5 % (1.0-10.0) Eosinophils (%) (Auto) 1.6 % (0.0-3.0) Basophils (%) (Auto) 1.5 % (0.0-2.0) Sodium Level 139 MMOL/L (136-145) Potassium Level 3.6 MMOL/L (3.5-5.1) Chloride Level 103 MMOL/L (98-107) Carbon Dioxide Level 28 MMOL/L (21-32) Anion Gap 8 mmol/L (5-15) Blood Urea Nitrogen 14 mg/dL (7-18) Creatinine 0.9 MG/DL (0.55-1.30) Estimat Glomerular Filtration Rate > 60 mL/min (>60) Glucose Level 99 MG/DL (74-106) Calcium Level 10.0 MG/DL (8.5-10.1) Total Bilirubin 0.4 MG/DL (0.2-1.0) Aspartate Amino Transf (AST/SGOT) 21 U/L (15-37) Alanine Aminotransferase (ALT/SGPT) 37 U/L (12-78) Alkaline Phosphatase 69 U/L (46-116) Troponin I 0.000 ng/mL (0.000-0.056) Total Protein 8.1 G/DL (6.4-8.2) Albumin 4.2 G/DL (3.4-5.0) Globulin 3.9 g/dL Albumin/Globulin Ratio 1.1 (1.0-2.7) EKG Diagnostic Results Troponin ordered: Yes Rate: normal Rhythm: NSR ST Segments: no acute changes ASA given to the pt in ED: No Rhythm Strip Diag. Results EP Interpretation: yes Rhythm: NSR, no PVC's, no ectopy Chest X-Ray Diagnostic Results Chest X-Ray Diagnostic Results : Chest X-Ray Ordered: Yes # of Views/Limited/Complete: 1 View Indication: Chest Pain EP Interpretation: Yes Interpretation: no consolidation, no effusion, no pneumothorax, no acute cardiopulmonary disease Impression: No acute disease Electronically Signed by: Electronically signed by Jose Garrison MD Last Vital Signs Date Time Temp Pulse Resp B/P (MAP) Pulse Ox O2 Delivery O2 Flow Rate FiO2 11/16/20 15:10 98.2 71 20 129/71 98 Room Air Status: improved Disposition: HOME, SELF-CARE Condition: Stable Scripts Famotidine* (Pepcid 20mg tablet*) 20 Mg Tablet 20 MG ORAL DAILY for Gerd, #30 TAB 0 Refills Prov: Jose Garrison MD 11/16/20 Cetirizine Hcl/Pseudoephedrine (ZYRTEC-D TABLET) 1 Each Tab.er.12h 1 EACH ORAL BID, #30 TAB Prov: Jose Garrison MD 11/16/20 Referrals: NON PHYSICIAN (PCP) Patient Instructions: Allergic Rhinitis Jose Garrison MD Nov 16, 2020 16:46
== END 2020-11-16 15:10 | disposition home or self-care (01) ==
LOC: EMR 13:54
DX: R09.82 Postnasal drip (principal); I11.9 Hypertensive heart disease without heart failure; J44.9 Chronic obstructive pulmonary disease, unspecified; Z85.038 Personal history of other malignant neoplasm of large intestine; Z86.718 Personal history of other venous thrombosis and embolism; Z79.899 Other long term (current) drug therapy
CPT/HCPCS: 36415; 71045; 80053; 84484; 85025; 93005; 99284

== ENCOUNTER 2020-12-26 09:19 | Emergency (ER) | payer OTHER, MEDICAID ==
[~2020-12-26] VITALS: Ht 190.5 cm; Wt 117.5 kg
[~2020-12-26 09:19] MED LIST changes: +ZYRTEC-D TABLE1 EACH ORAL
[2020-12-26 09:30] VITALS: BP 145/73
[2020-12-26] MEDS ORDERED: Mylanta II UD 30ml ORAL ONE (09:45)
[2020-12-26] MEDS ORDERED: Dicyclomine HCl 10mg/5ml oral soln ORAL ONE (09:45)
[2020-12-26] MEDS ORDERED: Lidocaine 2% Visc 15ml soln ORAL ONE (09:45)
--- NOTE | 2020-12-26 09:46 | Emergency Room Report ---
History of Present Illness General Chief Complaint: Chest Pain Present Illness HPI 60-year-old male with a history of DVT on Xarelto, status post IVC filter placement and subsequent removal, here with chest pain and nausea. Patient says that last night after he ate a large meal he began to feel a sharp sensation in the middle of his chest. He vomited 1 time nonbilious bloody. Says the pain lasted for several hours before subsiding. Says at this time he does not feel any chest pain. Pain was sharp in nature, located in the substernal region, does not otherwise radiate. Says it felt similar to the reflux pain that he has had in the past. At this time denies headache, vision changes, diaphoresis, fevers, chills, palpitations, shortness of breath, cough, back pain, abdominal pain, nausea, vomiting, diarrhea, dysuria. Does not smoke or drink alcohol or use drugs. Allergies: Coded Allergies: No Known Allergies (Unverified , 09/15/12) COVID-19 Screening Contact w/high risk pt: No Recent Travel to affected area: No Experienced COVID-19 symptoms?: No COVID-19 symptoms experienced: Shortness of Breath COVID-19 Testing performed GIS PROGRAMMER: No Nursing Documentation-PMH Hx Cardiac Problems: Yes - Anemia Hx Hypertension: Yes Hx Pacemaker: No Hx Asthma: No Hx COPD: Yes Hx Diabetes: No Hx Cancer: Yes - Colon Hx Gastrointestinal Problems: No Hx Dialysis: No Hx Neurological Problems: No - DVT LLE Hx Cerebrovascular Accident: No Hx Seizures: No Review of Systems All Other Systems: negative except mentioned in HPI Physical Exam Vital Signs Date Time Temp Pulse Resp B/P (MAP) Pulse Ox O2 Delivery O2 Flow Rate FiO2 12/26/20 09:30 98.1 98 22 145/73 (97) 100 Room Air Sp02 EP Interpretation: reviewed, normal General Appearance: no apparent distress, alert, non-toxic Head: normocephalic, atraumatic Eyes: bilateral eye normal inspection, bilateral eye PERRL ENT: hearing grossly normal, normal pharynx, no angioedema, normal voice Neck: full range of motion, supple/symm/no masses Respiratory: chest non-tender, lungs clear, normal breath sounds, speaking full sentences Cardiovascular #1: regular rate, rhythm, no edema Cardiovascular #2: 2+ carotid (R), 2+ carotid (L), 2+ radial (R), 2+ radial (L), 2+ dorsalis pedis (R), 2+ dorsalis pedis (L) Gastrointestinal: normal bowel sounds, non tender, soft, non-distended, no guarding, no rebound, other - Healed midline abdominal scar status post partial colectomy Rectal: deferred Genitourinary: normal inspection, no CVA tenderness Musculoskeletal: back normal, normal range of motion, calf tenderness, gait/station normal, non-tender Neurologic: alert, motor strength/tone normal, oriented x3, sensory intact, responsive, speech normal Psychiatric: judgement/insight normal, memory normal, mood/affect normal, no suicidal/homicidal ideation Reflexes: 3+ bicep (R), 3+ bicep (L), 3+ tricep (R), 3+ tricep (L), 3+ knee (R), 3+ knee (L) Lymphatic: no adenopathy Medical Decision Making Diagnostic Impression: Primary Impression: Chest pain ER Course EKG: NSR, no ischemia, intervals WNL. No ectopy. Rate 91 bpm Rhythm strip: patient monitored for arrhythmias - no malignant dysrhythmias, runs of PVCs, nor pauses noted CXR: No infiltrate/effusion. Mediastinum within normal limits. No consolidations. No free air under the diaphragm. No bony abnormalities ddx: ACS, dissection, PE, PTX, pericarditis, myocarditis, musculoskeletal, GERD/GI conditions, anxiety 6-year-old male here with chest pain that occurred last night. Patient was hemodynamically stable and neurovascular intact in the emergency department. He told me that the chest pain was sharp in nature and felt "like heartburn" and and it occurred soon after he ate a large meal. He was hemodynamically stable and neurovascular intact in the emergency department. He said that he only had very slight feeling of sharp epigastric and substernal chest pain that was completely resolved after receiving a GI cocktail here in the emergency dep artment. EKG was unremarkable. Chest x-ray normal. CBC, CMP, troponin, UDS all normal. Low likelihood for pulmonary embolism given his normal vital signs and unremarkable history and physical examination, and he is already being anticoagulated with Xarelto. Patient was given a prescription for famotidine and told to follow-up with his primary care provider. Said that he was wishing to leave since he felt completely normal and was comfortable being discharged. He was told to return to the emergency department if he has any worsening chest pain. He expressed understanding and was discharged. Last Vital Signs Date Time Temp Pulse Resp B/P (MAP) Pulse Ox O2 Delivery O2 Flow Rate FiO2 12/26/20 09:30 98.1 98 22 145/73 (97) 100 Room Air Scripts Famotidine* (Pepcid 20mg tablet*) 20 Mg Tablet 20 MG ORAL DAILY for Gerd, #30 TAB 0 Refills Prov: Marcus Marquez M.D. 12/26/20 Marcus Marquez M.D. Dec 26, 2020 09:46
[2020-12-26 10:05] LABS: ANION GAP 8 mmol/L (5-15); BLOOD UREA NITROGEN 12 mg/dL (7-18); CALCIUM 9.3 MG/DL (8.5-10.1); CARBON DIOXIDE 30 MMOL/L (21-32); CHLORIDE 103 MMOL/L (98-107); CREATININE 0.8 MG/DL (0.55-1.30); POTASSIUM 3.4 MMOL/L (3.5-5.1); SODIUM 140 MMOL/L (136-145)
[2020-12-26 10:11] LABS: HEMATOCRIT 45.9 % (42.0-52.0); HEMOGLOBIN 14.1 G/DL (14.2-18.0); LYMPHOCYTES % (AUTO) 14.5 % (20.0-45.0); MEAN CORPUSCULAR VOLUME 86 FL (80-99); MONOCYTES % (AUTO) 11.4 % (1.0-10.0); NEUTROPHILS % (AUTO) 66.2 % (45.0-75.0); PLATELET COUNT 245 K/UL (150-450); RED BLOOD COUNT 5.31 M/UL (4.70-6.10); WHITE BLOOD COUNT 7.1 K/UL (4.8-10.8)
[2020-12-26] MEDS ORDERED: FAMOTIDINE20 MG ORAL (10:22)
--- NOTE | 2020-12-26 10:23 | NUR ---
Patient presented tot ER with chest pain that began yesterday in the evening on to today. He reported that he ate a large meal and vomited after eating. AT present , there is no chest pain. He has a historyn of DVT and is on Xarelto, Xarelto and status post IVC filter placement. At this time denies headache, vision changes, diaphoresis, fevers, chills, palpitations, shortness of breath, cough, back pain, abdominal pain, nausea, vomiting, diarrhea, dysuria. Does not smoke or drink alcohol or use drugs.
[2020-12-26 10:26] LABS: ALANINE AMINOTRANSFERASE 34 U/L (12-78); ALBUMIN 4.2 G/DL (3.4-5.0); ALBUMIN/GLOBULIN RATIO 1.2 (1.0-2.7); ALKALINE PHOSPHATASE 68 U/L (46-116); ASPARTATE AMINO TRANSFERASE 24 U/L (15-37); BILIRUBIN,TOTAL 0.2 MG/DL (0.2-1.0)
--- NOTE | 2020-12-26 12:54 | Diagnostic Imaging Report ---
Procedure: XRAY Chest 1v Reason for study: Chest pain. Comparison films: None. FINDINGS: A single one view chest is obtained. Vascularity is normal. The lung webber are clear bilaterally. Cardiac and mediastinal silhouette are within normal limits. CP angles are sharp. The bony thorax appear unremarkable. IMPRESSION: NO ACUTE CARDIOPULMONARY DISEASE.
== END 2020-12-26 10:35 | disposition home or self-care (01) ==
LOC: EMR 10:15
DX: R07.9 Chest pain, unspecified (principal); I11.9 Hypertensive heart disease without heart failure; J44.9 Chronic obstructive pulmonary disease, unspecified; Z85.038 Personal history of other malignant neoplasm of large intestine; Z86.718 Personal history of other venous thrombosis and embolism
CPT/HCPCS: 36415; 71045; 80053; 80307; 83880; 84484; 85025; 85379; 93005; 96374; 99284; S0028